=== PATIENT | female | born 1965 | race Caucasian/White ===

== ENCOUNTER → 2017-03-21 08:28 | Outpatient (CLI) | payer BC, SELFPAY ==
[2017-03-21 10:27] LABS: Absolute Lymphocyte Count 2.54 X10^3/ul (0.83-4.51); Basophil# 0.02 X10^3/uL; Basophil% 0.2 % (0-1); Eosinophil# 0.15 X10^3/uL; Eosinophils% 1.6 % (0-5); Hematocrit 41.3 % (37-47); Lymphocyte # 2.54 X10^3/ul (4.0); Lymphocyte % 27.4 % (19-41); Mean Corp Hgb Conc 33.9 g/gl (32-36); Mean Corpuscular Hgb 31.3 pg (27.0-32.0); Mean Corpuscular Volume 92.2 fL (81-99); Mean Platelet Vol. 11.9 fl (6.2-12.0); Monocyte# 0.56 X10^3/uL; Neutrophil # 5.96 X10^3/uL (2.7-7.7); Neutrophil % 64.4 % (47-70); Platelet Count 207 K/mm3 (150-450); RBC Distribution Width CV 12.4 % (11.6-14.6); RBC Distribution Width SD 41.8 fl (35.1-43.9); Red Blood Count 4.48 M/mm3 (4.2-5.4); White Blood Count 9.3 K/mm3 (4.4-11.0)
[2017-03-21 10:30] LABS: POSITIVE COUNT NO; POSITIVE DIFFERENTIAL NO; POSITIVE MORPHOLOGY NO
[2017-03-21 10:45] LABS: Hemoglobin A1c 6.7 % (4.2-6.3)
[2017-03-21 10:47] LABS: AST(SGOT) 16 U/L (15-37); Alanine Aminotransfer ALT/SGPT 18 U/L (13-56); Albumin, Serum 3.8 g/dL (3.2-5.0); Alkaline Phosphatase 76 U/L (45-117); Anion Gap 7 (5-15); BUN 14 mg/dL (7-18); BUN/Creat Ratio 16.7 RATIO (10-20); Calcium,Total 9.1 mg/dL (8.5-10.1); Chloride 105 mmol/L (98-107); Creatinine, Serum 0.84 mg/dL (0.55-1.02); EST Glomerular Filtration Rate 77 mL/min (>60); Est Glom Filt Rate - Afr Amer 93 mL/min (>60); Globulin 3.7 g/dL (2.2-4.2); Glucose 146 mg/dL (74-106); Potassium 4.4 mmol/L (3.5-5.1); Protein, Total 7.5 g/dL (6.4-8.2); Sodium Level 140 mmol/L (136-145)
[2017-03-24 16:21] LABS: Cholesterol 147 mg/dL (200); High Density Lipoprotein 35 mg/dL; Triglycerides 112 mg/dL; Very Low Density Lipoprotein 22 mg/dL (5-40)
== END ==
PROVIDERS: Family Provider Nurse Practitioner Family; PCP Nurse Practitioner Family; Visit Provider Nurse Practitioner Family
DX: I10 Essential (primary) hypertension (principal); E11.9 Type 2 diabetes mellitus without complications
CPT/HCPCS: 36415; 80053; 80061; 83036; 85025

== ENCOUNTER → 2018-05-26 05:57 | Outpatient (CLI) | payer BC, SELFPAY | DX: E11.9 Type 2 diabetes mellitus without complications (principal); I10 Essential (primary) hypertension; E78.5 Hyperlipidemia, unspecified ==

== ENCOUNTER → 2018-05-29 10:36 | Outpatient (CLI) | payer BC, SELFPAY ==
[2015-06-29 11:35] VITALS: BMI 48.1
[2018-05-29 12:31] LABS: Absolute Lymphocyte Count 2.95 X10^3/ul (0.83-4.51); Absolute Neutrophil Count 7.3 X10^3/uL (2.0-7.7); Basophil# 0.03 X10^3/uL; Basophil% 0.3 % (0-1); Eosinophil# 0.17 X10^3/uL; Eosinophils% 1.5 % (0-5); Hemoglobin 14.8 g/dl (12.0-15.0); Lymphocyte # 2.95 X10^3/ul (4.0); Lymphocyte % 26.1 % (19-41); Mean Corp Hgb Conc 35.2 g/gl (32-36); Mean Corpuscular Hgb 31.3 pg (27.0-32.0); Mean Corpuscular Volume 88.8 fL (81-99); Mean Platelet Vol. 12.6 fl (6.2-12.0); Monocyte# 0.72 X10^3/uL; Monocyte% 6.4 % (0-10); Neutrophil # 7.32 X10^3/uL (2.7-7.7); Neutrophil % 64.8 % (47-70); Platelet Count 203 K/mm3 (150-450); RBC Distribution Width CV 12.2 % (11.6-14.6); RBC Distribution Width SD 39.3 fl (35.1-43.9); Red Blood Count 4.73 M/mm3 (4.2-5.4); White Blood Count 11.3 K/mm3 (4.4-11.0)
[2018-05-29 12:40] LABS: POSITIVE COUNT NO; POSITIVE DIFFERENTIAL NO; POSITIVE MORPHOLOGY NO
[2018-05-29 12:43] LABS: Hemoglobin A1c 7.5 % (4.2-6.3)
[2018-05-29 12:44] LABS: ALB/GLOB Ratio 0.9 RATIO (0.9-2.4); AST(SGOT) 23 U/L (15-37); Alanine Aminotransfer ALT/SGPT 27 U/L (13-56); Albumin, Serum 3.6 g/dL (3.2-5.0); Alkaline Phosphatase 94 U/L (45-117); Anion Gap 4 (5-15); BUN 15 mg/dL (7-18); BUN/Creat Ratio 15.5 RATIO (10-20); Calcium,Total 8.6 mg/dL (8.5-10.1); Chloride 102 mmol/L (98-107); Cholesterol 169 mg/dL (200); Creatinine, Serum 0.96 mg/dL (0.55-1.02); EST Glomerular Filtration Rate 65 mL/min (>60); Est Glom Filt Rate - Afr Amer 78 mL/min (>60); Globulin 3.9 g/dL (2.2-4.2); Glucose 214 mg/dL (74-106); High Density Lipoprotein 37 mg/dL; Potassium 4.4 mmol/L (3.5-5.1); Protein, Total 7.5 g/dL (6.4-8.2); Sodium Level 134 mmol/L (136-145); Triglycerides 179 mg/dL; Very Low Density Lipoprotein 36 mg/dL (5-40)
== END ==
PROVIDERS: Family Provider Nurse Practitioner Family; PCP Nurse Practitioner Family; Referring Provider Nurse Practitioner Family; Visit Provider Nurse Practitioner Family
DX: E78.5 Hyperlipidemia, unspecified (principal); E11.9 Type 2 diabetes mellitus without complications; I10 Essential (primary) hypertension
CPT/HCPCS: 36415; 80053; 80061; 83036; 85025

== ENCOUNTER 2018-07-26 14:19 | Emergency (ER) | payer BC, SELFPAY ==
[2018-07-26 14:21] VITALS: BP 109/58; PULSE 62; RESP 16; TEMP 36.7; O2SAT 98; BMI 51.3
--- NOTE | 2018-07-26 14:44 | EKG12_ITS ---
Test Reason : GI BLEED Blood Pressure : / mmHG Vent. Rate : 061 BPM Atrial Rate : 061 BPM P-R Int : 176 ms QRS Dur : 164 ms QT Int : 514 ms P-R-T Axes : 034 -20 163 degrees QTc Int : 517 ms Normal sinus rhythm Left bundle branch block Abnormal ECG Confirmed by CRISTINA BAR, KEV ([id number]), avid editor MASON GARCIA ([id number]) on 07/28/2018 8:57:27 AM Referred By: ARNOLD Confirmed By:KEV EVANS MD
[2018-07-26] MEDS: 0.9% Normal Saline 1,000 ML 1000 ML IV (15:08)
[2018-07-26 15:11] LABS: Hematocrit 22.8 % (37-47); Hemoglobin 8.1 g/dl (12.0-15.0); Mean Corp Hgb Conc 35.5 g/gl (32-36); Mean Corpuscular Hgb 32.1 pg (27.0-32.0); Mean Corpuscular Volume 90.5 fL (81-99); Mean Platelet Vol. 11.7 fl (6.2-12.0); Platelet Count 293 K/mm3 (150-450); RBC Distribution Width CV 12.8 % (11.6-14.6); Red Blood Count 2.52 M/mm3 (4.2-5.4); White Blood Count 15.7 K/mm3 (4.4-11.0)
[2018-07-26 15:15] LABS: International Normalized Ratio 1.3; Partial Thromboplast Time 27.7 Seconds (24.1-36.2)
--- NOTE | 2018-07-26 15:16 | ED.VIS.GEN ---
History of Present Illness Chief Complaint: GI Bleed Informant: Patient, Significant Other Onset: Days - Onset July 23. Context: Sudden Onset Timing: Continuous Quality: Black stool since Tuesday, vomited blood today Location: Abdominal gurgling Current Severity: Severe Maximum Severity: Severe Worsened by: orthostatic symptoms Relieved by: Nothing Associated Symptoms: orthostatic symptoms Narrative: Patient is a middle-aged woman who was sitting watching grandchildren. When she got up she became lightheaded and essentially passed out. She reports black stool since Tuesday. She is not on iron nor is she taking Pepto-Bismol or Kaopectate. believes has an odor. She had an episode of hematemesis. She has no history of peptic ulcer disease. She has no history of diverticulosis or diverticulitis. She is on no anticoagulant. She states she does not feel well. Prior similar symptoms: No Recent Illness/Hospitalization: No - Past Medical History (1) Vulvar abscess Status: Acute (2) Diabetes Status: Chronic (3) Hypertrophic cardiomyopathy Status: Chronic Past Medical History - Allergies and Home Meds Allergies/Adverse Reactions: Allergies povidone-iodine [From Betadine] Allergy (Verified 07/26/18 14:24) Hives soap [From Betadine] Allergy (Verified 07/26/18 14:24) Hives Penicillins Adverse Reaction (Verified 07/26/18 14:24) DOESN'T WORK FOR ME Primary Care Physician: Andry Ventura, LABORATORY ASSISTANT-C [Primary Care Provider] - Prior records reviewed: Yes Lives: Spouse/ Significant Other Smoking Status: Never smoker Alcohol: None Drugs: None Review of Systems General: Denies: Chills, Fever, Sweats Eyes: Denies: Visual changes - bilaterally, Blurred Vision - bilaterally, Diplopia ENT: Denies: Bilateral ear pain, Rhinorrhea, Sore throat Cardiovascular: Denies: Chest pain, Palpitations, Heart racing Respiratory: Denies: Dyspnea, Cough, Dyspnea on exertion Gastrointestinal: Reports: Abdominal pain, Melena, - - Hematemesis Genitourinary: Denies: Dysuria, Hematuria, Frequency Musculoskeletal: Denies: Myalgias, Arthralgias, Neck pain, Back pain, Extremity Pain Skin: Denies: Rash, Wounds Neurological: Denies: Headache, Weakness, Parasthesia, Numbness Hematologic: Denies: Easy bruising, Easy bleeding Allergy: Denies: Uticaria, Swelling of the mouth Physical Exam Vital Signs/Narrative: Vital Signs Temp Pulse Resp BP Pulse Ox 07/26/18 14:21 98.1 F 62 16 109/58 L 98 Inital Vital Signs reviewed: Yes - Blood pressure when I examined patient was 95/65. General: Well nourished, Well developed, Obese, Acute Distress, - - Patient appears pale. Conjunctive is pale. There is erythema to the creases of the palm. Head: Normocephalic, Atraumatic Eyes: Perrl, EOMI, Pale conjunctiva. Negative for: Scleral icterus ENT: Moist mucous membranes, No rhinorrhea Neck: Supple, Nontender, No lymphadenopathy, No JVD Cardiovascular: Regular rate, Regular rhythm, No murmurs, Normal S1, Normal S2 Respiratory: No distress, CTA bilaterally, Chest nontender Abdomen: Soft, Nontender, Normal bowel sounds, No masses Rectal: - - Stool is black Back: Nontender, Normal Inspection. Negative for: CVA tenderness Extremities: Nontender, No edema Skin: No rash, Diaphoresis, No Trauma, Pallor. Negative for: Cyanosis, Jaundice Neurological: Alert, Oriented x3, Cranial nerves II-XII grossly intact, Normal Strength, Normal Sensation. Negative for: Normal Gait Psychological: Normal affect Diagnostic/Tx/Re-eval Laboratory Results 07/26/18 07/26/18 07/26/18 14:51 14:51 14:51 WBC 15.7 H RBC 2.52 L Hgb 8.1 L Hct 22.8 L MCV 90.5 MCH 32.1 H MCHC 35.5 RDW 12.8 RDW Differential 41.0 Plt Count 293 MPV 11.7 PT 16.0 H INR 1.3 APTT 27.7 Sodium 135 L Potassium 4.0 Chloride 105 Carbon Dioxide 23.0 Anion Gap 7 BUN 41 H Creatinine 1.18 H Estim Creat Clear Calc 50.75 Est GFR (MDRD) Af Amer 62 Est GFR (MDRD) Non-Af 51 L BUN/Creatinine Ratio 34.7 H Glucose 317 H Lactic Acid Calcium 8.6 Troponin I 0.042 Crossmatch 07/26/18 07/26/18 14:51 14:58 WBC RBC Hgb Hct MCV MCH MCHC RDW RDW Differential Plt Count MPV PT INR APTT Sodium Potassium Chloride Carbon Dioxide Anion Gap BUN Creatinine Estim Creat Clear Calc Est GFR (MDRD) Af Amer Est GFR (MDRD) Non-Af BUN/Creatinine Ratio Glucose Lactic Acid 3.5 H Calcium Troponin I Crossmatch See Detail - Rhythm Strip Rhythm Strip: Sinus Rhythm Rate: 58 Ectopy: None - EKG Initial EKG Interpretation: Sinus Bradycardia - Ventricular rate 61. [place] interval 176 ms. QRS duration 164 ms and consistent with a left bundle branch block. QT interval is slightly prolonged at 514 ms. [place] to the left. There is no acute ischemic changes noted. - Medical Decision Making With black stools since Tuesday, hypotension and hematemesis patient is actively bleeding. She was typed and screened. Appropriate screening lab work was obtained. A liter of normal saline was administered. NG was placed to determine if she is still actively bleeding. Patient has active upper GI bleed. She is anemic with a elevated lactate. She is in hemorrhagic shock. she is bradycardic secondary to beta-blockers and unable to have a reflex tachycardia. This may be contributing to her hypotension. IV Protonix was ordered. Patient's been typed and crossed for 2 units of blood and will administer once available. Since her shuttle car operator is at the [facility] she requested transfer to the [facility]. Spoke with the transfer person. He will get associate embalmer/funeral director and understands urgency for transfer. Patient's blood pressure after fluid bolus is 151 systolic. Laboratory results are remarkable lactate 3.5. Hemoglobin is 8.1 which is a 6.7 g drop from May. Blood sugar is 310. This most likely is a stress response. Once blood is available patient will be transfused. - Critical Care Time Critical care time (excluding procedures): 30-74 minutes, Discussing w/Patient &/or Family/Cartoon Artist, Discussing w/Consultants, Arranging Admission or Transfer - Critical care time 36 minutes, Performing Direct Patient Care at Bedside ED Disposition - Plan for ED Patient: Disposition: [facility] [place] - Main Diagnosis: Nontraumatic hemorrhagic shock, Acute upper gastrointestinal bleeding, Anemia due to acute blood loss, Hypertrophic cardiomyopathy, Bradycardia, sinus, Hyperglycemia due to type 2 diabetes mellitus Referrals: Andry Ventura, CANDIDO-C [Primary Care Provider] -
[2018-07-26 15:18] LABS: Scan Indicated on CBC? Y/N NO
--- NOTE | 2018-07-26 15:21 | ED.DCSUM_ITS ---
History of Present Illness Chief Complaint: GI Bleed Informant: Patient, Significant Other Onset: Days - Onset July 23. Context: Sudden Onset Timing: Continuous Quality: Black stool since Tuesday, vomited blood today Location: Abdominal gurgling Current Severity: Severe Maximum Severity: Severe Worsened by: orthostatic symptoms Relieved by: Nothing Associated Symptoms: orthostatic symptoms Narrative: Patient is a middle-aged woman who was sitting watching grandchildren. When she got up she became lightheaded and essentially passed out. She reports black stool since Tuesday. She is not on iron nor is she taking Pepto-Bismol or K aopectate. believes has an odor. She had an episode of hematemesis. She has no history of peptic ulcer disease. She has no history of diverticulosis or diverticulitis. She is on no anticoagulant. She states she does not feel well. Prior similar symptoms: No Recent Illness/Hospitalization: No - Past Medical History (1) Vulvar abscess Status: Acute (2) Diabetes Status: Chronic (3) Hypertrophic cardiomyopathy Status: Chronic Past Medical History - Allergies and Home Meds Allergies/Adverse Reactions: Allergies povidone-iodine [From Betadine] Allergy (Verified 07/26/18 14:24) Hives soap [From Betadine] Allergy (Verified 07/26/18 14:24) Hives Penicillins Adverse Reaction (Verified 07/26/18 14:24) DOESN'T WORK FOR ME Primary Care Physician: Andry Ventura, DIRECTOR NURSING SERVICE-C [Primary Care Provider] - Prior records reviewed: Yes Lives: Spouse/ Significant Other Smoking Status: Never smoker Alcohol: None Drugs: None Review of Systems General: Denies: Chills, Fever, Sweats Eyes: Denies: Visual changes - bilaterally, Blurred Vision - bilaterally, Diplopia ENT: Denies: Bilateral ear pain, Rhinorrhea, Sore throat Cardiovascular: Denies: Chest pain, Palpitations, Heart racing Respiratory: Denies: Dyspnea, Cough, Dyspnea on exertion Gastrointestinal: Reports: Abdominal pain, Melena, - - Hematemesis Genitourinary: Denies: Dysuria, Hematuria, Frequency Musculoskeletal: Denies: Myalgias, Arthralgias, Neck pain, Back pain, Extremity Pain Skin: Denies: Rash, Wounds Neurological: Denies: Headache, Weakness, Parasthesia, Numbness Hematologic: Denies: Easy bruising, Easy bleeding Allergy: Denies: Uticaria, Swelling of the mouth Physical Exam Vital Signs/Narrative: Vital Signs Temp Pulse Resp BP Pulse Ox 07/26/18 14:21 98.1 F 62 16 109/58 L 98 Inital Vital Signs reviewed: Yes - Blood pressure when I examined patient was 95/65. General: Well nourished, Well developed, Obese, Acute Distress, - - Patient appears pale. Conjunctive is pale. There is erythema to the creases of the palm. Head: Normocephalic, Atraumatic Eyes: Perrl, EOMI, Pale conjunctiva. Negative for: Scleral icterus ENT: Moist mucous membranes, No rhinorrhea Neck: Supple, Nontender, No lymphadenopathy, No JVD Cardiovascular: Regular rate, Regular rhythm, No murmurs, Normal S1, Normal S2 Respiratory: No distress, CTA bilaterally, Chest nontender Abdomen: Soft, Nontender, Normal bowel sounds, No masses Rectal: - - Stool is black Back: Nontender, Normal Inspection. Negative for: CVA tenderness Extremities: Nontender, No edema Skin: No rash, Diaphoresis, No Trauma, Pallor. Negative for: Cyanosis, Jaundice Neurological: Alert, Oriented x3, Cranial nerves II-XII grossly intact, Normal Strength, Normal Sensation. Negative for: Normal Gait Psychological: Normal affect Diagnostic/Tx/Re-eval Laboratory Results 07/26/18 07/26/18 07/26/18 14:51 14:51 14:51 WBC 15.7 H RBC 2.52 L Hgb 8.1 L Hct 22.8 L MCV 90.5 MCH 32.1 H MCHC 35.5 RDW 12.8 RDW Differential 41.0 Plt Count 293 MPV 11.7 PT 16.0 H INR 1.3 APTT 27.7 Sodium 135 L Potassium 4.0 Chloride 105 Carbon Dioxide 23.0 Anion Gap 7 BUN 41 H Creatinine 1.18 H Estim Creat Clear Calc 50.75 Est GFR (MDRD) Af Amer 62 Est GFR (MDRD) Non-Af 51 L BUN/Creatinine Ratio 34.7 H Glucose 317 H Lactic Acid Calcium 8.6 Troponin I 0.042 Crossmatch 07/26/18 07/26/18 14:51 14:58 WBC RBC Hgb Hct MCV MCH MCHC RDW RDW Differential Plt Count MPV PT INR APTT Sodium Potassium Chloride Carbon Dioxide Anion Gap BUN Creatinine Estim Creat Clear Calc Est GFR (MDRD) Af Amer Est GFR (MDRD) Non-Af BUN/Creatinine Ratio Glucose Lactic Acid 3.5 H Calcium Troponin I Crossmatch See Detail - Rhythm Strip Rhythm Strip: Sinus Rhythm Rate: 58 Ectopy: None - EKG Initial EKG Interpretation: Sinus Bradycardia - Ventricular rate 61. [place] interval 176 ms. QRS duration 164 ms and consistent with a left bundle branch block. QT interval is slightly prolonged at 514 ms. [place] to the left. There is no acute ischemic changes noted. - Medical Decision Making With black stools since Tuesday, hypotension and hematemesis patient is actively bleeding. She was typed and screened. Appropriate screening lab work was obtained. A liter of normal saline was administered. NG was placed to determine if she is still actively bleeding. Patient has active upper GI bleed. She is anemic with a elevated lactate. She is in hemorrhagic shock. she is bradycardic secondary to beta-blockers and unable to have a reflex tachycardia. This may be contributing to her hypotension. IV Protonix was ordered. Patient's been typed and crossed for 2 units of blood and will administer once available. Since her gear hobber operator is at the [facility] she requested transfer to the [facility]. Spoke with the transfer person. He will get garment steamer and understands urgency for transfer. Patient's blood pressure after fluid bolus is 151 systolic. Laboratory results are remarkable lactate 3.5. Hemoglobin is 8.1 which is a 6.7 g drop from May. Blood sugar is 310. This most likely is a stress response. Once blood is available patient will be transfused. - Critical Care Time Critical care time (excluding procedures): 30-74 minutes, Discussing w/Patient &/or Family/Clinical Scientist, Discussing w/Consultants, Arranging Admission or Transfer - Critical care time 36 minutes, Performing Direct Patient Care at Bedside ED Disposition - Plan for ED Patient: Disposition: [facility] - Main Diagnosis: Nontraumatic hemorrhagic shock, Acute upper gastrointestinal bleeding, Anemia due to acute blood loss, Hypertrophic cardiomyopathy, Bradycardia, sinus, Hyperglycemia due to type 2 diabetes mellitus Referrals: Andry Ventura, CANDIDO-C [Primary Care Provider] -
[2018-07-26 15:23] LABS: Anion Gap 7 (5-15); BUN 41 mg/dL (7-18); BUN/Creat Ratio 34.7 RATIO (10-20); Calcium,Total 8.6 mg/dL (8.5-10.1); Chloride 105 mmol/L (98-107); Creatinine, Serum 1.18 mg/dL (0.55-1.02); EST Glomerular Filtration Rate 51 mL/min (>60); Est Glom Filt Rate - Afr Amer 62 mL/min (>60); Estimated Creatinine Clearance 50.75 ml/min; Glucose 317 mg/dL (74-106); Sodium Level 135 mmol/L (136-145)
[2018-07-26 15:33] LABS: Lactic Acid 3.5 mmol/L (0.4-2.0)
[2018-07-26 16:10] VITALS: BP 104/61; PULSE 62; RESP 19; O2SAT 100
[2018-07-26 16:20] VITALS: BP 151/67; PULSE 59; RESP 13; TEMP 36.4; O2SAT 98
--- NOTE | 2018-07-26 16:32 | CASEMGMT ---
According to patient Insurance Corine Centeno, [employer] PPO; In [facility] hospitals: [facility], [facility], [facility], [facility], [place], , [facility]. Ortega Tirado RNCM
[2018-07-26 16:35] VITALS: BP 106/80; PULSE 63; RESP 23; TEMP 36.7; O2SAT 100
--- NOTE | 2018-07-26 16:43 | ED.RN ---
DR BARRETT ORDERED BLOOD TO BE RUN OVER 1 HOUR.
[2018-07-26 17:06] VITALS: BP 104/61; PULSE 62; RESP 19; O2SAT 100
--- NOTE | 2018-07-26 17:07 | ED.RN ---
[facility] CRITICAL CARE TEAM ADMINISTERING REST OF BLOOD EN ROUTE TO [facility].
[2018-07-26 19:02] LABS: Reflex Lactate? Y
== END 2018-07-26 17:13 | disposition short-term general hospital (02) ==
PROVIDERS: Emergency Provider Emergency Medicine; Family Provider Nurse Practitioner Family; PCP Nurse Practitioner Family
DX: K92.2 Gastrointestinal hemorrhage, unspecified (principal); K92.0 Hematemesis; R57.8 Other shock; D62 Acute posthemorrhagic anemia; I95.9 Hypotension, unspecified; R00.1 Bradycardia, unspecified; I42.2 Other hypertrophic cardiomyopathy; E11.65 Type 2 diabetes mellitus with hyperglycemia; E66.9 Obesity, unspecified; Z79.84 Long term (current) use of oral hypoglycemic drugs; Z79.899 Other long term (current) drug therapy; Z88.8 Allergy status to other drugs, medicaments and biological substances; Z88.0 Allergy status to penicillin
CPT/HCPCS: 36430; 80048; 83605; 84484; 85027; 85610; 85730; 86850; 86900; 86920; 93005; 96361; 96374; 99285; J7050; P9016; A4216; J3490

== ENCOUNTER 2024-12-09 19:13 | Emergency (ER) | payer BC, SELFPAY ==
[2024-12-09 19:15] VITALS: BP 203/80; PULSE 67; RESP 16; TEMP 36.8; O2SAT 94; BMI 53.4
--- NOTE | 2024-12-09 19:45 | RAD_ITS ---
PROCEDURE: CHEST 1 VIEW 12/09/2024 REASON FOR EXAM: COUGH TECHNIQUE: Frontal view of the chest. COMPARISON: None. FINDINGS: Lungs/Pleura: No appreciable focal consolidation, pneumothorax or pleural effusion. Heart/Mediastinum: Enlarged cardiac silhouette. Bones/Soft tissues: Prior sternotomy. RAD/Chest 1 View IMPRESSION: Cardiomegaly. No evidence of acute pulmonary disease. Reading Location: [id number]
--- OUTSIDE RECORDS SUMMARY | 2024-12-09 19:48 | XMS RPT_ITS | CCD ---
Author Organization [facility] Inform ion Partnership [facility] Care Team Providers Care Garbage Collector Name Role Phone LORENZO FOOD CRITIC - CHULA, LIANNE Garcia Primary Care Phys ician Lorenzo MEYER, Lianne Garcia Primary Care Provider César BAR, Maurilio Dumont Unavailable Arthur BAR, Luc Unavailable César BAR, Maurilio Dumont Unavailable LORENZO FOOD CRITIC - CHULA, LIANNE Garcia Attending U navailable LORENZO [employer] CRITIC - DISTRIBUTOR ADVERTISING MATERIAL, LIANNE Garcia Primary Care U navailable FISH FOOD CRITIC-DISTRIBUTOR ADVERTISING MATERIAL, MAANN Attending Unavailab le [employer]ZO [employer] CRITIC - DISTRIBUTOR ADVERTISING MATERIAL, LIANNE Garcia Primary Care U navailable LORENZO [employer] CRITIC - DISTRIBUTOR ADVERTISING MATERIAL, LIANNE Garcia Attending U navailable LORENZO [employer] CRITIC - DISTRIBUTOR ADVERTISING MATERIAL, LIANNE Garcia Primary Care U navailable LORENZO FO[employer] CRITIC - DISTRIBUTOR ADVERTISING MATERIAL, LIANNE Garcia Attending U navailable LORENZO FO[employer] CRITIC - DISTRIBUTOR ADVERTISING MATERIAL, LIANNE Garcia Primary Care U navailable LORENZO FO[employer] CRITIC - DISTRIBUTOR ADVERTISING MATERIAL, LIANNE Garcia Attending U navailable LORENZO FOOD CRITIC - DISTRIBUTOR ADVERTISING MATERIAL, LIANNE Garcia Primary Care U navailable LORENZO FOOD CRITIC - DISTRIBUTOR ADVERTISING MATERIAL, LIANNE Garcia Attending U navailable LORENZO FO[employer] CRITIC - DISTRIBUTOR ADVERTISING MATERIAL, LIANNE Garcia Primary Care U navailable LORENZO [employer] CRITIC - DISTRIBUTOR ADVERTISING MATERIAL, LIANNE Garcia Primary Care U navailable KAPPER [employer] CRITIC-DISTRIBUTOR ADVERTISING MATERIAL, JOSE GUADALUPE Frazier Admitting Unavaila ble [employer] CRITIC-DISTRIBUTOR ADVERTISING MATERIAL, JOSE GUADALUPE Frazier Attending Unavaila ble FISH FOOD CRITIC-DISTRIBUTOR ADVERTISING MATERIAL, MANAN Consulting DR RAJAT Vaughn DO Referring Unavailable [employer] CR[employer]IC - DISTRIBUTOR ADVERTISING MATERIAL, LIANNE Garcia Attending U navailable [employer] CRITIC - DISTRIBUTOR ADVERTISING MATERIAL, LIANNE Garcia Primary Care U navailable Lorenzo DISTRIBUTOR ADVERTISING MATERIAL, Lianne Garcia Primary Care Provider César BAR, Maurilio Dumont Unavailable [phone] LIANNE VENTURA Primary Care Unavailable LORENZO, LIANNE Garcia Primary Care Unavailable RAZIA FLORENCE Attending Unavailable [employer]ZO [employer] CRITIC - DISTRIBUTOR ADVERTISING MATERIAL, LIANNE Garcia Primary Care U navailable LOR[employer]ZO [employer] CRITIC - DISTRIBUTOR ADVERTISING MATERIAL, LIANNE Garcia Attending U navailable LORENZO [employer] CRITIC - DISTRIBUTOR ADVERTISING MATERIAL, LIANNE Garcia Attending U navailable L[employer]ZO [employer] CRITIC - DISTRIBUTOR ADVERTISING MATERIAL, LIANNE Garcia Primary Care U navailable L[employer]ZO [employer] CRITIC - DISTRIBUTOR ADVERTISING MATERIAL, LIANNE Garcai Attending U navailable L[employer]ZO [employer] CRITIC - DISTRIBUTOR ADVERTISING MATERIAL, LIANNE Garcia Primary Care U navailable L[employer]ZO [employer] CRITIC - DISTRIBUTOR ADVERTISING MATERIAL, LIANNE Garcia Primary Care U navailable L[employer]ZO [employer] CRITIC - DISTRIBUTOR ADVERTISING MATERIAL, LIANNE Garcia Attending U navailable [employer] CRITIC - DISTRIBUTOR ADVERTISING MATERIAL, LIANNE Garica Primary Care U navailable MARIAM BILLINGS MD Attending Unavailable Allergies Allergy Classification Reported Allergen(s) Allergy Type Date of Onset Reaction(s) Facility Penicillins (antibiotic) (1 source) Penicillin; Translations: [penicillin] Drug Allergy Intolerance, function (observable entity) [facility] Povidone-Iodine (1 source) Povidone-Iodine; Translations: [povidone iodine topical] Drug Allergy Weal (disorder) [facility] (14 sources) Penicillin; Translations: [penicillin] Drug Allergy Intolerance, function (observable entity) [facility] (20 sources) Povidone-Iodine; Translations: [povidone iodine topical] Drug Allergy 9 Weal (disorder), Hives [facility] Medications Current Medications Medication Drug Class(es) Dates Sig (Normalized) Sig (Original) amoxicillin 875 mg oral tablet (1 source) Penicillin-class Antibacterial Start: 01-22-2023 End: 01-29-2023 take 1 tablet by mouth twice daily amoxicillin (AMOXIL) 875 mg tablet Indications: Other acute nonsuppurative otitis media of left ear, recurrence not specified Take 1 tablet by mouth two times a day for 7 days. 14 tablet 0 01/22/2023 01/29/2023 Active Comment on above: Take 1 tablet by rhonda th two times a day for 7 days. benzonatate 100 mg oral capsule (4 sources) Non-narcotic Antitussive Start: 03-24-2024 take 2 capsules by mouth every eight hours as needed benzonatate (TESSALON PERLE) 100 mg capsule Take 2 capsules by mouth three times a day as needed. 30 capsule 03/24/2024 Active Start: 12-29-2020 End: 01-28-2021 benzonatate 100 mg oral caps ule Dose : 100 mg = 1 cap(s), Oral, TID, PRN as needed for cough, # 90 cap(s), 0 Refill(s), 01/28/21 17:00:00 EST, Pharmacy: [id number], 166, cm, 12/18/20 14:08:00 EDT, Height, kg, 12/18/20 14:08:00 EDT, Dosing Weight Start Date: 12/29/20 Stop Date: 01/28/21 Status: Ordered busPIRone hydrochloride 15 m g oral tablet (18 sources) Start: 05-11-2024 busPIRone 15 m g oral tablet Dose : 15 mg = 1 tab(s), Oral, TID, # 270 tab(s), 0 Refill(s), Pharmacy: [facility], Depression, prolonged, 185, cm, 03/23/24 8:03:00 EST, Height, kg, 03/23/24 8:03:00 EST, Dosing Weight Start Date: 05/11/24 Status: Ordered Quantity: 270.0 Unit: tab(s) Repeat number: 1 Indications: Major depressive disorder, single episode, unspecified; Start: 08-02-2022 End: 07-30-2023 busPIRone 15 mg oral tablet Dose : 15 mg = 1 tab(s), Oral, TID, # 270 tab(s), 1 Refill(s), Pharmacy: [facility], Depression, prolonged, 167.5, cm, 01/31/23 7:06:00 EST, Height, kg, 01/31/23 7:06:00 EST, Dosing Weight Start Date: 01/31/23 Stop Date: 07/30/23 Status: Ordered Start: 06-16-2020 End: 07-31-2022 busPIRone 15 mg oral tablet Dose : 15 mg = 1 tab(s), Oral, TID, # 270 tab(s), 1 Refill(s), Pharmacy: [facility], Depression, prolonged, 170.2, cm, 02/01/22 15:18:00 EST, Height, kg, 02/01/22 15:18:00 EST, Dosing Weight Start Date: 02/01/22 Stop Date: 07/31/22 Status: Ordered Comment on above: Take 15 mg by mouth three times daily. cetirizine hydrochloride 10 mg oral tablet (3 sources) Histamine-1 Receptor Antagonist Start: 03-24-19 take 1 tablet by mouth once daily cetirizine (ZYRTEC) 10 mg tablet Take 1 tablet by mouth once daily. 30 tablet 03/24/2024 Active ciprofloxacin 500 mg oral tablet (3 sources) Quinolone Antimicrobial Start: 06-27-19 End: 07-02-19 Cipro 500 mg oral tablet Dose : 500 mg = 1 tab(s), Oral, BID, X 5 day(s), # 10 tab(s), 0 Refill(s), 07/01/24 1:27:00 PM EDT, Pharmacy: [facility], UTI symptoms Bacteremia due to other bacteria, 165.5, cm, 06/26/24 13:03:00 EDT, Height, 144, kg, 06/26/24 13:03:00 EDT, Dosing Weight Start Date: 06/26/24 Stop Date: 07/01/24 Status: Ordered Quantity: 10.0 Unit: tab(s) Repeat number: 1 Indications: Bacteremia; Unspecified symptoms and signs involving the genitourinary system; Start: 12-23-2022 End: 12-28-2022 Cipro 500 mg oral tablet Dos e : 500 mg = 1 tab(s), Oral, q12h, X 5 day(s), # 10 tab(s), 0 Refill(s), 12/28/22 1:22:00 PM EST, Pharmacy: [facility], UTI symptoms, 167, cm, 12/23/22 13:03:00 EST, Height, 137.5, kg, 12/23/22 13:03:00 EST, Dosing Weight Start Date: 12/23/22 Stop Date: 12/28/22 Status: Ordered citalopram 40 mg oral tablet (18 sources) Serotonin Reuptake Inhibitor Start: 12-07-2013 End: 09-08-2024 take 1 tablet by mouth once daily citalopram (CELEXA) 40 mg tablet Take 1 tablet by mouth once daily. 0 12/07/2013 Active Comment on above: Take 1 tablet by rhonda th once daily. colchicine 0.6 mg oral tablet (2 sources) Start: 09-14-2021 take 1 tablet by mouth twice daily as needed colchicine 0.6 mg oral tablet See Instructions, 1 tab(s) Oral BID PRN for gout, # 60 tab(s), 6 Refill(s), Pharmacy: [facility], 170.2, cm, 08/10/21 8:03:00 EDT, Height, kg, 08/10/21 8:03:00 EDT, Dosing Weight Start Date: 09/14/21 Status: Ordered Start: 07-14-2021 take 1 tablet by rhonda th twice daily as needed colchicine 0.6 mg oral tablet See Instructions, 1 tab(s) Oral BID PRN for gout, # 60 tab(s), 1 Refill(s), Pharmacy: [facility], 166, cm, 05/11/21 15:35:00 EDT, Height Start Date: 07/14/21 Status: Ordered doxycycline hyclate 100 mg oral tablet (1 source) Tetracycline-class Drug Start: 03-24-2024 End: 03-29-2024 take 1 tablet by mouth twice daily doxycycline (VIBRA-TABS) 100 mg tablet Take 1 tablet by mouth two times a day for 5 days. 10 tablet 03/24/2024 03/29/2024 Active febuxostat 40 mg oral tablet (11 sources) Xanthine Oxidase Inhibitor Start: 12-12-2018 End: 06-01-2024 take 1 tablet by mouth once daily febuxostat (ULORIC) 40 mg tab Take 40 mg by mouth once daily. 6 12/12/2018 Active Comment on above: Take 40 mg by mouth once daily. ferrous sulfate 325 mg (65 mg elemental iron) oral delayed release tablet (1 source) Start: 01-26-2021 End: 10-23-2021 ferrous sulfate 325 mg (65 mg elemental iron) oral delayed release tablet Dose : 325 mg = 1 tab(s), Oral, Every other day, # 45 tab(s), 2 Refill(s), Pharmacy: [facility], Anemia, 166, cm, 01/26/21 15:38:00 EST, Height, kg, 01/26/21 15:38:00 EST, Dosing Weight Start Date: 01/26/21 Stop Date: 10/23/21 Status: Ordered fluconazole 150 mg oral tablet (3 sources) Azole Antifungal Start: 08-19-2024 End: 08-19-2024 fluconazole (DIFLUCAN) 150 mg tablet Indications: Acute UTI Take 1 tablet by mouth one time only for 1 dose. Repeat in 3 days as needed. 2 tablet 08/19/2024 08/19/2024 Active Start: 06-26-2024 End: 07-02-2024 Diflucan 150 mg oral tablet Dose : 150 mg = 1 tab(s), Oral, Every other day, X 6 day(s), # 3 tab(s), 0 Refill(s), 07/02/24 1:27:00 PM EDT, Pharmacy: [facility], Candidiasis, 165.5, cm, 06/26/24 13:03:00 EDT, Height, 144, kg, 06/26/24 13:03:00 EDT, Dosing Weight Start Date: 06/26/24 Stop Date: 07/02/24 Status: Ordered Quantity: 3.0 Unit: tab(s) Repeat number: 1 Indications: Candidiasis, unspecified; fluticasone propionate 0.05 mg/actuat metered dose nasal spray (3 sources) Corticosteroid Start: 03-24-2024 take 2 spray(s) by mouth once daily fluticasone (FLONASE) 50 mcg/actuation nasal spray Use 2 Sprays in each nostril once daily. Rinse mouth after use. 9.9 mL 03/24/2024 Active furosemide 20 mg oral tablet (12 sources) Loop Diuretic Start: 01-18-2023 furosemide (LA SIX) 20 mg tablet 01/18/2023 Active Start: 12-23-2022 Lasix 20 mg or al tablet Dose : 20 mg = 1 tab(s), Oral, Daily, # 30 tab(s), 5 Refill(s), Pharmacy: [facility], 167.6, cm, 10/11/22 13:36:00 EDT, Height, kg, 10/11/22 13:36:00 EDT, Dosing Weight Start Date: 12/23/22 Status: Ordered Start: 10-11-2022 Lasix 20 mg or al tablet Dose : 20 mg = 1 tab(s), Oral, Daily, # 30 tab(s), 0 Refill(s), Pharmacy: [facility], 167.6, cm, 10/11/22 13:36:00 EDT, Height, kg, 10/11/22 13:36:00 EDT, Dosing Weight Start Date: 10/11/22 Status: Ordered Start: 09-30-2022 Lasix 20 mg or al tablet Dose : 20 mg = 1 tab(s), Oral, Daily, # 30 tab(s), 0 Refill(s), Pharmacy: [facility], 165.1, cm, 09/29/22 13:20:00 EDT, Height, kg, 09/29/22 13:20:00 EDT, Dosing Weight Start Date: 09/30/22 Status: Ordered glipiZIDE 10 mg oral tablet (5 sources) Sulfonylurea Start: 10-22-2022 glipiZIDE (GLUCOTROL) 10 mg tablet Take 10 mg by mouth. 10/22/2022 Active Comment on above: Take 10 mg by mouth. guaiFENesin 20 mg/ml oral solution (4 sources) Start: 01-22-2023 take 20 mL by mouth every six hours as needed for cough guaiFENesin (ROBITUSSIN) 100 mg/5 mL syrup Indications: Bronchitis Take 20 mL by mouth every 6 hours as needed for cough. 236 mL 01/22/2023 Active Comment on above: Take 20 mL by mouth every 6 hours as needed for cough. 3 ml insulin degludec 200 unt/ml pen injector (4 sources) Insulin Analog Start: 12-15-2023 inject 1 dose by subcutaneous injection once daily Tresiba FlexTouch 200 units/mL 3 mL subcutaneous solution Dose : 58 unit(s) =, Subcutaneous, qDay, # 9 mL, 6 Refill(s), Pharmacy: [facility], 165.5, cm, 10/31/23 7:04:00 EDT, Height, kg, 10/31/23 7:04:00 EDT, Dosing Weight Start Date: 12/15/23 Status: Ordered Quantity: 9.0 Unit: mL Repeat number: 7 Start: 05-09-2023 inject 1 dose by sub cutaneous injection once daily Tresiba 100 units/mL subcutaneous solution Dose : 60 unit(s) =, Subcutaneous, qDay, # 15 mL, 6 Refill(s), Pharmacy: [facility], 165.5, cm, 05/09/23 6:58:00 EDT, Height, kg, 05/09/23 6:58:00 EDT, Dosing Weight Start Date: 05/09/23 Status: Ordered Insulin Syringes (orange cap ) (4 sources) Start: 05-09-2023 Insulin Syring es (orange cap) See Instructions, qs for 1 month supply, # 1 EA, 11 Refill(s), Pharmacy: [facility], 165.5, cm, 05/09/23 6:58:00 EDT, Height, 136, kg, 05/09/23 6:58:00 EDT, Dosing Weight Start Date: 05/09/23 Status: Ordered Quantity: 1.0 Unit: EA Repeat number: 12 Start: 05-09-2023 Insulin Syring es (orange cap) See Instructions, qs for 1 month supply, # 1 EA, 11 Refill(s), Pharmacy: [facility], 165.5, cm, 05/09/23 6:58:00 EDT, Height, 136, kg, 05/09/23 6:58:00 EDT, Dosing Weight Start Date: 05/09/23 Status: Ordered lidocaine 0.04 mg/mg medicated patch (1 source) Antiarrhythmic, Amide Local Anesthetic Start: 04-25-2022 End: 04-30-2022 apply 1 dose transdermal route once daily, then apply 1 dose transdermal route every twelve hours lidocaine (SALONPAS) 4 % patch Apply 1 Patch as directed once daily for 5 days. Remove patch after 12 hours 5 Patch 0 04/25/2022 04/30/2022 Active Comment on above: Apply 1 Patch as directed once daily for 5 days. Remove patch after 12 hours losartan potassium 25 mg oral tablet (11 sources) Angiotensin 2 Receptor Eric Start: 01-01-2023 losartan (COZAAR) 25 mg tablet 01/01/2023 Active Start: 10-11-2022 losartan 25 mg oral tablet Dose : 25 mg = 1 tab(s), Oral, qDay, # 30 tab(s), 3 Refill(s), Pharmacy: [facility], 167.6, cm, 10/11/22 9:21:00 EDT, Height, kg, 10/11/22 9:21:00 EDT, Dosing Weight Start Date: 10/11/22 Status: Ordered metFORMIN hydrochloride 500 mg oral tablet (18 sources) Biguanide Start: 12-07-2013 End: 09-08-2024 take 1 tablet by mouth twice daily at mealtime metFORMIN (GLUCOPHAGE) 500 mg tablet Take 1 tablet by mouth twice daily with meals. . 60 tablet 11 12/07/2013 Active Comment on above: Take 1 tablet by rhonda th twice daily with meals. . methocarbamol 500 mg oral tablet (1 source) Muscle Relaxant Start: 04-25-2022 End: 04-28-2022 take 1 tablet by mouth every six hours as needed methocarbamol (ROBAXIN) 500 mg tablet Take 1 tablet by mouth every 6 hours as needed (Pain) for up to 3 days. 12 tablet 0 04/25/2022 04/28/2022 Active Comment on above: Take 1 tablet by rhonda th every 6 hours as needed (Pain) for up to 3 days. montelukast 10 mg oral tablet (14 sources) Leukotriene Receptor Antagonist Start: 01-01-2023 montelukast (SINGULAIR) 10 mg tablet 01/01/2023 Active Start: 10-11-2022 Singulair 10 m g oral tablet Dose : 10 mg = 1 tab(s), Oral, qDay, # 90 tab(s), 1 Refill(s), Pharmacy: [facility], Seasonal allergies, 167.6, cm, 10/11/22 13:36:00 EDT, Height, kg, 10/11/22 13:36:00 EDT, Dosing Weight Start Date: 10/11/22 Status: Ordered Start: 08-02-2022 Singulair 10 m g oral tablet Dose : 10 mg = 1 tab(s), Oral, qDay, # 90 tab(s), 1 Refill(s), Pharmacy: [facility], Seasonal allergies, 164.5, cm, 08/02/22 8:23:00 EDT, Height, kg, 08/02/22 8:23:00 EDT, Dosing Weight Start Date: 08/02/22 Status: Ordered Start: 02-01-2022 Singulair 10 m g oral tablet Dose : 10 mg = 1 tab(s), Oral, qDay, # 90 tab(s), 1 Refill(s), Pharmacy: [facility], Seasonal allergies, 170.2, cm, 02/01/22 15:18:00 EST, Height, kg, 02/01/22 15:18:00 EST, Dosing Weight Start Date: 02/01/22 Status: Ordered Start: 08-10-2021 Singulair 10 m g oral tablet Dose : 10 mg = 1 tab(s), Oral, qDay, # 30 tab(s), 1 Refill(s), Pharmacy: [facility], Seasonal allergies, 170.2, cm, 08/10/21 8:03:00 EDT, Height Start Date: 08/10/21 Status: Ordered mupirocin 0.02 mg/mg topical ointment (1 source) RNA Synthetase Inhibitor Antibacterial Start: 07-08-2023 End: 07-15-2023 mupirocin 2% topical ointment Apply 1 evelina, Topical, TID, X 7 day(s), # 15 gram(s), 0 Refill(s), Pharmacy: [facility], Ointment, 165.5, cm, 07/08/23 7:31:00 EDT, Height, 136.5, kg, 07/08/23 7:31:00 EDT, Dosing Weight Start Date: 07/08/23 Stop Date: 07/15/23 Status: Ordered nitrofurantoin, macrocrystals 25 mg / nitrofurantoin, monohydrate 75 mg oral capsule (1 source) Nitrofuran Antibacterial Start: 05-06-2023 End: 05-11-2023 Macrobid 100 mg oral capsule Dose : 100 mg = 1 cap(s), Oral, BID, Take with food, X 5 day(s), # 10 cap(s), 0 Refill(s), 05/11/23 12:29:00 PM EDT, Pharmacy: [facility], UTI (urinary tract infection), 165.1, cm, 05/03/23 13:07:00 EDT, Height, 137.5, kg, 05/03/23 13:07:00 EDT, Dosing Weight Start Date: 05/06/23 Stop Date: 05/11/23 Status: Ordered pantoprazole 40 mg delayed release oral tablet (18 sources) Proton Pump Inhibitor Start: 05-11-2024 pantopra zole 40 mg oral enteric coated tablet Dose : 40 mg = 1 tab(s), Oral, qDay, # 90 tab(s), 0 Refill(s), Pharmacy: [facility], GERD (gastroesophageal reflux disease), 185, cm, 03/23/24 8:03:00 EST, Height, kg, 03/23/24 8:03:00 EST, Dosing Weight Start Date: 05/11/24 Status: Ordered Quantity: 90.0 Unit: tab(s) Repeat number: 1 Indications: Gastro-esophageal reflux disease without esophagitis; Start: 01-31-2023 pantoprazole 4 0 mg oral enteric coated tablet Dose : 40 mg = 1 tab(s), Oral, qDay, # 90 tab(s), 1 Refill(s), Pharmacy: [facility], GERD (gastroesophageal reflux disease), 167.5, cm, 01/31/23 7:06:00 EST, Height, kg, 01/31/23 7:06:00 EST, Dosing Weight Start Date: 01/31/23 Status: Ordered Start: 08-12-2018 End: 10-23-2021 pantoprazole 40 mg oral ente tati coated tablet Dose : 40 mg = 1 tab(s), Oral, qDay, # 90 tab(s), 1 Refill(s), Pharmacy: [facility], GERD (gastroesophageal reflux disease), 167.6, cm, 10/11/22 13:36:00 EDT, Height, kg, 10/11/22 13:36:00 EDT, Dosing Weight Start Date: 10/11/22 Status: Ordered Comment on above: Take 1 tablet by rhonda th once daily. Pen needles 4 mm (13 sources) Start: 05-11-2024 Pen needles 4 mm See Instructions, Quantity sufficient for 3 month supply, # 1 EA, 2 Refill(s), Pharmacy: [place] [id number], DM type 2, goal HbA1c Start Date: 05/11/24 Status: Ordered Quantity: 1.0 Unit: EA Repeat number: 3 Indications: Type 2 diabetes mellitus without complications; Start: 12-03-2022 Pen needles 4 mm See Instructions, Quantity sufficient for 3 month supply, # 1 EA, 2 Refill(s), Pharmacy: [place] [id number], DM type 2, goal HbA1c Start Date: 12/03/22 Status: Ordered Start: 04-02-2022 Pen needles 4 mm See Instructions, Quantity sufficient for 3 month supply, # 1 EA, 2 Refill(s), Pharmacy: [facility], DM type 2, goal HbA1c Start Date: 04/02/22 Status: Ordered Start: 01-26-2021 Pen needles 4 mm See Instructions, Quantity sufficient for 3 month supply, # 1 EA, 2 Refill(s), Pharmacy: [facility], DM type 2, goal HbA1c Start Date: 01/26/21 Status: Ordered Start: 06-16-2020 Pen needles 4 mm See Instructions, Quantity sufficient for 3 month supply, # 1 EA, 2 Refill(s), Pharmacy: [id number], DM type 2, goal HbA1c Start Date: 06/16/20 Status: Ordered phenazopyridine hydrochlorid e 100 mg oral tablet (3 sources) Start: 06-26-2024 End: 06-28-2024 Pyridium 100 mg oral tablet Dose : 100 mg = 1 tab(s), Oral, TID, X 2 day(s), # 6 tab(s), 0 Refill(s), 06/28/24 1:28:00 PM EDT, Pharmacy: [place] [id number], Dysuria, 165.5, cm, 06/26/24 13:03:00 EDT, Height, kg, 06/26/24 13:03:00 EDT, Dosing Weight Start Date: 06/26/24 Stop Date: 06/28/24 Status: Ordered Quantity: 6.0 Unit: tab(s) Repeat number: 1 Indications: Dysuria; Start: 05-03-2023 End: 05-10-2023 Pyridium 100 mg oral tablet Dose : 100 mg = 1 tab(s), Oral, TID, X 7 day(s), # 21 tab(s), 0 Refill(s), 05/10/23 1:28:00 PM EDT, Pharmacy: [facility], UTI (urinary tract infection), 165.1, cm, 05/03/23 13:07:00 EDT, Height, kg, 05/03/23 13:07:00 EDT, Dosing Weight Start Date: 05/03/23 Stop Date: 05/10/23 Status: Ordered Start: 12-23-2022 End: 12-30-2022 Pyridium 100 mg oral tablet Dose : 100 mg = 1 tab(s), Oral, TID, X 7 day(s), # 21 tab(s), 0 Refill(s), 12/30/22 1:23:00 PM EST, Pharmacy: [facility], Dysuria, 167, cm, 12/23/22 13:03:00 EST, Height, kg, 12/23/22 13:03:00 EST, Dosing Weight Start Date: 12/23/22 Stop Date: 12/30/22 Status: Ordered pioglitazone 15 mg oral tablet (3 sources) Peroxisome Proliferator Receptor alpha Agonist, Peroxisome Proliferator Receptor gamma Agonist, Thiazolidinedione Start: 03-12-2024 Actos 15 mg oral tablet Dose : 15 mg = 1 tab(s), Oral, Daily, # 90 tab(s), 1 Refill(s), Pharmacy: [facility], DM type 2, goal HbA1c Start Date: 03/12/24 Status: Ordered Quantity: 90.0 Unit: tab(s) Repeat number: 2 Indications: Type 2 diabetes mellitus without complications; predniSONE 20 mg oral tablet (1 source) Start: 01-22-2023 End: 01-26-2023 take 2 tablets by mouth once daily at mealtime predniSONE (DELTASONE) 20 mg tablet Indications: Bronchitis Take 2 tablets by mouth once daily for 4 days. Take daily with food. 8 tablet 0 01/22/2023 01/26/2023 Active Comment on above: Take 2 tablets by mo [facility] once daily for 4 days. Take daily with food. simvastatin 20 mg oral tablet (18 sources) HMG-CoA Reductase Inhibitor Start: 05-11-2024 simvastatin 20 mg oral tablet Dose : 20 mg = 1 tab(s), Oral, qHS, # 90 tab(s), 0 Refill(s), Pharmacy: [facility], Hyperlipidemia LDL goal Start Date: 05/11/24 Status: Ordered Quantity: 90.0 Unit: tab(s) Repeat number: 1 Indications: Hyperlipidemia, unspecified; Type 2 diabetes mellitus without complications; Start: 01-31-2023 simvastatin 20 mg oral tablet Dose : 20 mg = 1 tab(s), Oral, qHS, # 90 tab(s), 1 Refill(s), Pharmacy: [facility], Hyperlipidemia LDL goal Start Date: 01/31/23 Status: Ordered Start: 12-07-2013 End: 04-09-2023 take 1 tablet by mouth once daily at bedtime simvastatin (ZOCOR) 10 mg tablet Take 1 tablet by mouth daily at bedtime. For cholesterols. 0 12/07/2013 Active Comment on above: Take 1 tablet by [facility] daily at bedtime. For cholesterols. SITagliptin 100 mg oral tablet (16 sources) Dipeptidyl Peptidase 4 Inhibitor Start: 03-12-2024 Januvia 100 mg oral tablet Dose : 100 mg = 1 tab(s), Oral, qDay, in lieu of PCP, # 90 tab(s), 1 Refill(s), Pharmacy: [place] [id number], 165, cm, 03/12/24 15:24:00 EST, Height, kg, 03/12/24 15:24:00 EST, Dosing Weight Start Date: 03/12/24 Status: Ordered Quantity: 90.0 Unit: tab(s) Repeat number: 2 Start: 06-27-2023 Januvia 100 mg oral tablet Dose : 100 mg = 1 tab(s), Oral, qDay, # 90 tab(s), 0 Refill(s), Pharmacy: [facility], 165.5, cm, 05/09/23 6:58:00 EDT, Height, kg, 05/09/23 6:58:00 EDT, Dosing Weight Start Date: 06/27/23 Status: Ordered Start: 08-02-2022 End: 01-29-2023 Januvia 100 mg oral tablet D ose : 100 mg = 1 tab(s), Oral, qDay, # 30 tab(s), 0 Refill(s) Start Date: 11/02/22 Status: Ordered Start: 06-16-2020 End: 07-31-2022 Januvia 100 mg oral tablet D ose : 100 mg = 1 tab(s), Oral, Daily, # 90 tab(s), 1 Refill(s), Pharmacy: [facility], DM type 2, goal HbA1c Start Date: 02/01/22 Stop Date: 07/31/22 Status: Ordered Start: 12-07-2013 take [address] [facility] once daily SITagliptin phosphate (JANUVIA) 50 mg tablet Take 100 mg by mouth once daily. 30 tablet 11 12/07/2013 Active Comment on above: Take 100 mg by mouth once daily. sulfamethoxazole 800 mg / trimethoprim 160 mg oral tablet (1 source) Dihydrofolate Reductase Inhibitor Antibacterial, Sulfonamide Antimicrobial Start: 07-08-19 End: 07-15-19 take 1 tablet by mouth twice daily Bactrim DS 800 mg-160 mg oral tablet Dose = 1 tab(s), Oral, BID, X 7 day(s), # 14 tab(s), 0 Refill(s), Pharmacy: [facility], 165.5, cm, 07/08/23 7:31:00 EDT, Height, 136.5, kg, 07/08/23 7:31:00 EDT, Dosing Weight Start Date: 07/08/23 Stop Date: 07/15/23 Status: Ordered Completed/Discontinued Medications Medication Drug Class(es) Dates Sig (Normalized) Sig (Original) carvedilol 6.25 mg oral tablet (17 sources) alpha-Adrenergic Eric, beta-Adrenergic Eric Start: 08-12-2018 End: 09-08-2024 carvedilol 6.25 mg oral tablet Dose : 6.25 mg = 1 tab(s), Oral, BID, # 180 tab(s), 1 Refill(s), Pharmacy: [facility], HTN, goal below 140/90, 165, cm, 03/12/24 15:24:00 EST, Height, kg, 03/12/24 15:24:00 EST, Dosing Weight Start Date: 03/12/24 Stop Date: 09/08/24 Status: Ordered Quantity: 180.0 Unit: tab(s) Repeat number: 2 Indications: Essential (primary) hypertension; Comment on above: Take 1 tablet by rhonda th twice daily with meals. cephalexin 500 mg oral capsule (2 sources) Cephalosporin Antibacterial Start: 08-19-2024 End: 08-26-2024 take 1 capsule by mouth four times daily cephALEXin (KEFLEX) 500 mg capsule Indications: Acute UTI Take 1 capsule by mouth four times daily for 7 days. 28 capsule 08/19/2024 08/26/2024 cholecalciferol 1.25 mg oral capsule (11 sources) Vitamin D Start: 03-12-2024 End: 09-08-2024 take 1 capsule by mouth once, then take 1 capsule by mouth every month cholecalciferol 1250 mcg (50,000 intl units) oral capsule Dose : 50,000 International_Unit = 1 cap(s), Oral, qmonth, # 4 cap(s), 1 Refill(s), Pharmacy: [facility], Vitamin D deficiency, 165, cm, 03/12/24 15:24:00 EST, Height, kg, 03/12/24 15:24:00 EST, Dosing Weight Start Date: 03/12/24 Stop Date: 09/08/24 Status: Ordered Quantity: 4.0 Unit: cap(s) Repeat number: 2 Indications: Vitamin D deficiency, unspecified; Start: 01-31-2023 End: 07-30-2023 cholecalciferol 1250 mcg (50 ,000 intl units) oral capsule Dose : 50,000 International_Unit = 1 cap(s), Oral, qmonth, # 4 cap(s), 1 Refill(s), Pharmacy: [facility], Vitamin D deficiency, 167.5, cm, 01/31/23 7:06:00 EST, Height, kg, 01/31/23 7:06:00 EST, Dosing Weight Start Date: 01/31/23 Stop Date: 07/30/23 Status: Ordered Start: 08-02-2022 End: 04-09-2023 cholecalciferol 1250 mcg (50 ,000 intl units) oral capsule Dose : 50,000 International_Unit = 1 cap(s), Oral, qmonth, # 4 cap(s), 1 Refill(s), Pharmacy: [facility], Vitamin D deficiency, 167.6, cm, 10/11/22 13:36:00 EDT, Height, kg, 10/11/22 13:36:00 EDT, Dosing Weight Start Date: 10/11/22 Stop Date: 04/09/23 Status: Ordered Start: 05-11-2021 End: 07-31-2022 cholecalciferol 1250 mcg (50 ,000 intl units) oral capsule Dose : 50,000 International_Unit = 1 cap(s), Oral, qmonth, # 4 cap(s), 1 Refill(s), Pharmacy: [facility], Vitamin D deficiency, 170.2, cm, 02/01/22 15:18:00 EST, Height, kg, 02/01/22 15:18:00 EST, Dosing Weight Start Date: 02/01/22 Stop Date: 07/31/22 Status: Ordered ferrous sulfate 325 mg delay ed release oral tablet (11 sources) Start: 03-12-2024 End: 09-08-2024 ferrous sulfate 325 mg (65 m g elemental iron) oral delayed release tablet Dose : 325 mg = 1 tab(s), Oral, Every other day, # 45 tab(s), 1 Refill(s), Pharmacy: [facility], Anemia, 165, cm, 03/12/24 15:24:00 EST, Height, kg, 03/12/24 15:24:00 EST, Dosing Weight Start Date: 03/12/24 Stop Date: 09/08/24 Status: Ordered Quantity: 45.0 Unit: tab(s) Repeat number: 2 Indications: Anemia, unspecified; Start: 08-02-2022 End: 07-30-2023 ferrous sulfate 325 mg (65 m g elemental iron) oral delayed release tablet Dose : 325 mg = 1 tab(s), Oral, Every other day, # 45 tab(s), 1 Refill(s), Pharmacy: [facility], Anemia, 167.5, cm, 01/31/23 7:06:00 EST, Height, kg, 01/31/23 7:06:00 EST, Dosing Weight Start Date: 01/31/23 Stop Date: 07/30/23 Status: Ordered Start: 01-26-2021 End: 07-31-2022 ferrous sulfate 325 mg (65 m g elemental iron) oral delayed release tablet Dose : 325 mg = 1 tab(s), Oral, Every other day, # 45 tab(s), 1 Refill(s), Pharmacy: [place] [id number], Anemia, 170.2, cm, 02/01/22 15:18:00 EST, Height, kg, 02/01/22 15:18:00 EST, Dosing Weight Start Date: 02/01/22 Stop Date: 07/31/22 Status: Ordered 3 ml insulin detemir 100 unt/ml pen injector (8 sources) Insulin Analog Start: 01-31-2023 End: 04-01-2023 inject 1 dose by subcutaneous injection once daily at bedtime Levemir FlexTouch 100 units/mL 3 mL Pen Dose : 60 unit(s) =, Subcutaneous, qHS, # 60 mL, 1 Refill(s), Pharmacy: [facility], DM type 2, goal HbA1c Start Date: 01/31/23 Stop Date: 04/01/23 Status: Ordered Start: 08-06-2022 End: 04-09-2023 inject 1 dose by subcutaneous injection once daily at bedtime Levemir FlexTouch 100 units/mL 3 mL Pen Dose : 54 unit(s) =, Subcutaneous, qHS, # 15 mL, 5 Refill(s), Pharmacy: [facility], DM type 2, goal HbA1c Start Date: 10/11/22 Stop Date: 04/09/23 Status: Ordered Start: 02-01-2022 End: 07-31-2022 inject 1 dose by subcutaneous injection once daily at bedtime Levemir FlexTouch 100 units/mL 3 mL Pen Dose : 54 unit(s) =, Subcutaneous, qHS, # 15 mL, 5 Refill(s), Pharmacy: [facility], DM type 2, goal HbA1c Start Date: 02/01/22 Stop Date: 07/31/22 Status: Ordered Start: 08-10-2021 End: 11-08-2021 inject 1 dose by subcutaneous injection once daily at bedtime Levemir FlexTouch 100 units/mL 3 mL Pen Dose : 45 unit(s) =, Subcutaneous, qHS, # 15 mL, 2 Refill(s), Pharmacy: [facility], DM type 2, goal HbA1c Start Date: 08/10/21 Stop Date: 11/08/21 Status: Ordered Start: 05-11-2021 End: 09-08-2021 inject 1 dose by subcutaneous injection once daily at bedtime Levemir FlexTouch 100 units/mL 3 mL Pen Dose : 44 unit(s) =, Subcutaneous, qHS, # 15 mL, 3 Refill(s), other reason (Rx), DM type 2, goal HbA1c Start Date: 05/11/21 Stop Date: 09/08/21 Status: Ordered Start: 01-27-2021 End: 08-25-2021 inject 1 dose by subcutaneous injection once daily at bedtime Levemir FlexTouch 100 units/mL 3 mL Pen Dose : 40 unit(s) =, Subcutaneous, qHS, # 15 mL, 6 Refill(s), Pharmacy: [facility], DM type 2, goal HbA1c Start Date: 01/27/21 Stop Date: 08/25/21 Status: Ordered 3 ml insulin glargine 100 unt/ml pen injector (6 sources) Insulin Analog Start: 03-12-2024 End: 09-08-2024 inject 1 dose by subcutaneous injection once daily at bedtime Lantus Solostar Pen 100 units/mL 3 mL Pen Dose : 58 unit(s) =, Subcutaneous, qHS, # 60 mL, 1 Refill(s), Pharmacy: [facility], DM type 2, goal HbA1c Start Date: 03/12/24 Stop Date: 09/08/24 Status: Ordered Quantity: 60.0 Unit: mL Repeat number: 2 Indications: Type 2 diabetes mellitus without complications; Start: 01-26-2021 End: 10-23-2021 inject 1 dose by subcutaneous injection once daily at bedtime Lantus Solostar Pen 100 units/mL 3 mL Pen Dose : 40 unit(s) =, Subcutaneous, qHS, # 36 mL, 2 Refill(s), Pharmacy: [facility], 166, cm, 12/13/21 15:38:00 EST, Height, kg, 01/26/21 15:38:00 EST, Dosing Weight Start Date: 01/26/21 Stop Date: 10/23/21 Status: Ordered Start: 01-26-2021 End: 10-23-2021 inject 1 dose by subcutaneous injection once daily at bedtime Lantus Solostar Pen 100 units/mL 3 mL Pen Dose : 40 unit(s) =, Subcutaneous, qHS, # 36 mL, 2 Refill(s), Pharmacy: [facility], 166, cm, 01/26/21 15:38:00 EST, Height, kg, 01/26/21 15:38:00 EST, Dosing Weight Start Date: 01/26/21 Stop Date: 10/23/21 Status: Ordered Start: 01-01-2021 inject 1 dose by sub cutaneous injection once daily at bedtime Lantus Solostar Pen 100 units/mL 3 mL Pen Dose : 30 unit(s) =, Subcutaneous, qHS, # 6 mL, 6 Refill(s), Pharmacy: [facility], 166, cm, 12/18/20 14:08:00 EDT, Height, kg, 12/18/20 14:08:00 EDT, Dosing Weight Start Date: 01/01/21 Status: Ordered levothyroxine sodium 0.025 mg oral tablet (3 sources) l-Thyroxine Start: 03-12-2024 End: 04-11-2024 levothyroxine 25 mcg (0.025 mg) oral tablet Dose : 25 mcg = 1 tab(s), Oral, qDay, # 90 tab(s), 1 Refill(s), Pharmacy: [facility], Hypothyroidism, 165, cm, 03/12/24 15:24:00 EST, Height, kg, 03/12/24 15:24:00 EST, Dosing Weight Start Date: 03/12/24 Stop Date: 04/11/24 Status: Ordered Quantity: 90.0 Unit: tab(s) Repeat number: 2 Indications: Hypothyroidism, unspecified; metroNIDAZOLE 0.0075 mg/mg topical gel (3 sources) Nitroimidazole Antimicrobial Start: 05-11-2021 metroNIDAZOLE 0.75% topical gel Apply 1 evelina, Topical, BID, 0 Refill(s), 134.2 Start Date: 05/11/21 Status: Ordered Multivitamins with Vitamin B Complex, Vitamin C, Minerals and L-Methylfolate oral capsule (3 sources) Start: 01-26-2021 End: 10-23-2021 take 1 capsule by mouth once daily Multivitamins with Vitamin B Complex, Vitamin C, Minerals and L-Methylfolate oral capsule Dose = 1 cap(s), Oral, Daily, # 90 cap(s), 2 Refill(s), Pharmacy: [facility], Anemia, 166, cm, 01/26/21 15:38:00 EST, Height, kg, 01/26/21 15:38:00 EST, Dosing Weight Start Date: 01/26/21 Stop Date: 10/23/21 Status: Ordered tiZANidine 4 mg oral tablet (3 sources) Central alpha-2 Adrenergic Agonist Start: 03-23-2024 End: 06-21-2024 Zanaflex 4 mg oral tablet Dose : 4 mg = 1 tab(s), Oral, q8h, PRN Muscle spasm, # 90 tab(s), 2 Refill(s), Pharmacy: [facility], Arthritis of facet joint of lumbar spine Arthritis of both knees, 185, cm, 03/23/24 8:03:00 EST, Height, kg, 03/23/24 8:03:00 EST, Dosing Weight Start Date: 03/23/24 Stop Date: 06/21/24 Status: Ordered Quantity: 90.0 Unit: tab(s) Repeat number: 3 Indications: Spondylosis without myelopathy or radiculopathy, lumbar region; Bilateral primary osteoarthritis of knee; Problems Active Problems Problem Classification Problem Date Documented Da te Episodic/Chronic Anxiety disorders (15 sources) Generalized anxiety disorder 08-24-2018 Chronic Cardiac and circulatory congenital anomalies (15 sources) 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 Cardiac and circulatory congenital anomalies (15 sources) History of ventricular septal defect 09-25-2018 Episodic Chronic kidney disease (15 sources) Chronic kidney disease; Translations: [Chronic kidney disease stage 3] 08-06-2019 Chronic Chronic obstructive pulmonary disease and bronchiectasis (1 source) Bronchitis; Translations: [Bronchitis, not specified as acute or chronic] 01-22-2023 Episodic Congestive heart failure; nonhypertensive (5 sources) Heart failure; Translations: [Heart failure, unspecified] Onset: 3 Chronic Deficiency and other anemia (15 sources) Anemia 08-24-2018 Episodic Diabetes mellitus without complication (20 sources) Type 2 diabetes mellitus; Translations: [Type 2 diabetes mellitus without complications] Onset: 9 01-04-2019 Chronic Disorders of lipid metabolism (16 sources) Hyperlipidemia; Translations: [Hyperlipidemia, unspecified] Onset: 3 08-06-2019 Chronic Esophageal disorders (16 sources) Gastroesophageal reflux disease; Translations: [Gastroesophageal reflux disease without esophagitis] Onset: 3 09-25-2018 Chronic Essential hypertension (20 sources) Hypertensive disorder; Translations: [Essential hypertension] Onset: 9 01-04-2019 Chronic Genitourinary symptoms and ill-defined conditions (6 sources) Dysuria; Translations: [Scalding pain on urination ] Onset: 3 Episodic Heart valve disorders (15 sources) Pansystolic murmur 08-06-2019 Episodic Mood disorders (20 sources) Depressive disorder; Translations: [Depression] Onset: 9 08-24-2018 Chronic Nutritional deficiencies (13 sources) Vitamin D deficiency 05-11-2021 Chronic Other aftercare (3 sources) Post-discharge follow-up 10-11-2022 Episodic Other circulatory disease (20 sources) H/O: heart disorder 09-25-2018 Episodic Other circulatory disease (6 sources) H/O: myocardial problem 09-25-2018 Episodic Other diseases of veins and lymphatics (15 sources) Gastric varices 08-24-2018 Episodic Other gastrointestinal disorders (15 sources) History of gastrointestinal bleed 09-25-2018 Episodic Other lower respiratory disease (1 source) Cough; Translations: [Acute cough] 03-24-2024 Episodic Other non-traumatic joint disorders (4 sources) Arthritis of knee 03-23-2024 Chronic Other nutritional; endocrine; and metabolic disorders (5 sources) Obesity; Translations: [Obesity, unspecified] Onset: 3 06-10-2003 Chronic Other nutritional; endocrine; and metabolic disorders (5 sources) Body mass index 40+ - severely obese; Translations: [Body mass index (BMI) 50.0-59.9, adult] Onset: 9 08-10-2018 Chronic Other nutritional; endocrine; and metabolic disorders (15 sources) Hyperuricemia 10-13-2018 Episodic Other upper respiratory disease (12 sources) Seasonal allergy 08-10-2021 Chronic Other upper respiratory disease (1 source) Seasonal allergic rhinitis; Translations: [Other seasonal allergic rhinitis] Onset: 3 Chronic Other upper respiratory infections (1 source) Sinusitis 01-24-2023 Chronic Other upper respiratory infections (1 source) Acute frontal sinusitis; Translations: [Acute frontal sinusitis, unspecified] 03-24-2024 Episodic Otitis media and related conditions (2 sources) Acute secretory otitis media; Translations: [Other acute nonsuppurative otitis media, left ear] 01-22-2023 Episodic Jossy-; endo-; and myocarditis; cardiomyopathy (except that caused by tuberculosis or sexually transmitted disease) (15 sources) Hypertrophic cardiomyopathy; Translations: [Other hypertrophic cardiomyopathy] Onset: 3 08-10-2018 Chronic Residual codes; unclassified (15 sources) Increased body mass index 08-06-2019 Episodic Spondylosis; intervertebral disc disorders; other back problems (4 sources) Arthritis of facet joint of lumbar spine 03-23-2024 Chronic Spondylosis; intervertebral disc disorders; other back problems (6 sources) Acute back pain with sciatica; Translations: [Lumbago with sciatica, left side] Episodic Sprains and strains (1 source) Low back strain; Translations: [Strain of muscle, fascia and tendon of lower back, initial encounter] Episodic Thyroid disorders (5 sources) Hypothyroidism 08-01-2023 Chronic Unclassified (20 sources) Non-smoker 08-10-2021 Urinary tract infections (4 sources) Urinary tract infection, site not specified; Translations: [Acute urinary tract infection] Onset: 4 Episodic Past or Other Problems Problem Classification Problem Date Documented Da te Episodic/Chronic Acute posthemorrhagic anemia (3 sources) Acute posthemorrhagic anemia; Translations: [Acute posthemorrhagic anemia] Onset: 9 Resolved: 9 08-10-2018 Episodic Gastrointestinal hemorrhage (3 sources) Gastrointestinal hemorrhage; Translations: [Gastrointestinal hemorrhage, unspecified] Onset: 9 Resolved: 9 08-10-2018 Episodic Other disorders of stomach and duodenum (5 sources) Arteriovenous malformation of stomach; 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 Comment on above: Performed By: #### F T4, URIC, CMP, GFR, LIPID, CBC, ADIFF, ANEU, A1C, VIDH, MG, TSH #### [place] [address] #### PTH #### [address] [address] Eosinophil, Absolute 0.2 10 3/mcL Normal 0.0-0.7 [facility] Comment on above: Performed By: #### F T4, URIC, CMP, GFR, LIPID, CBC, ADIFF, ANEU, A1C, VIDH, MG, TSH #### [place] [address] #### PTH #### [address] [address] Eosinophils/100 WBC (Bld) 2.6 % Normal 0.0-6.0 [facility] Comment on above: Performed By: #### F T4, URIC, CMP, GFR, LIPID, CBC, ADIFF, ANEU, A1C, VIDH, MG, TSH #### [place] [address] #### PTH #### [address] [address] Lymphocyte, Absolute 2.3 10 3/mcL Normal 0.9-4.3 [facility] Comment on above: Performed By: #### F T4, URIC, CMP, GFR, LIPID, CBC, ADIFF, ANEU, A1C, VIDH, MG, TSH #### [address] [address] #### PTH #### [address] [address] Lymphocytes/100 WBC (Bld) 33.0 % Normal 20.0-40.0 [facility] Comment on above: Performed By: #### F T4, URIC, CMP, GFR, LIPID, CBC, ADIFF, ANEU, A1C, VIDH, MG, TSH #### [address] [address] #### PTH #### [address] [address] Monocyte, Absolute 0.6 10 3/mcL Normal 0.1-1.4 [facility] Comment on above: Performed By: #### F T4, URIC, CMP, GFR, LIPID, CBC, ADIFF, ANEU, A1C, VIDH, MG, TSH #### [address] [address] #### PTH #### [address] [address] Monocytes/100 WBC (Bld) 8.7 % Normal 2.0-13.0 [facility] Comment on above: Performed By: #### F T4, URIC, CMP, GFR, LIPID, CBC, ADIFF, ANEU, A1C, VIDH, MG, TSH #### [address] [address] #### PTH #### [address] [address] Neutrophils/100 WBC (Bld) 55.4 % Normal 50.0-75.0 [facility] Comment on above: Performed By: #### F T4, URIC, CMP, GFR, LIPID, CBC, ADIFF, ANEU, A1C, VIDH, MG, TSH #### [address] [address] #### PTH #### [address] [address] .GFRon 09-08-2024 Estimated Glomerular Filtration Rate 48 ml/min/1.73sqm Normal [facility] Comment on above: Result Comment: Stages of Chronic Kidney Disease (CKD) Stage Description eGFR(ml/min/1.73 sq.m.) CKD 1 Normal kidney function or >=90 normal kindney function with possible kidney damage (ex. Proteinuria) CKD 2 Kidney damage with mild loss 60-89 of kidney function CKD 3a Mild to moderate loss of kidney 45-59 function CKD 3b Moderate to severe loss of 30-44 of kindey function CKD 4 Severe loss of kidney function 15-29 CKD 5 Kidney failure <15 Note: (go live 2024) the eGFR calculation was updated to the 2020 CKD-EPI creatinine equation without a race factor to calculate the eGFR results. Performed By: #### C BC, ADIFF, ANEU, CMP, GFR #### [address] [address] .NEUABSon 09-08-2024 Neutrophil, Absolute 3.9 10 3/mcL Normal 2.3-8.1 [facility] Comment on above: Performed By: #### F T4, URIC, CMP, GFR, LIPID, CBC, ADIFF, ANEU, A1C, VIDH, MG, TSH #### [address] [address] #### PTH #### [address] [address] A1Con 09-08-2024 Glucose [Mass/Vol] 126 mg/dL Normal [facility] Comment on above: Result Comment: Iram mated Average Glucose calculated by equation ((28.7xA1C)-46.7) Estimated average glucose (eAG) is a calculated value from Hemoglobin A1C and is personal financial representative of the average blood glucose level in the last 2-3 month period. Normal range: less than 114 mg/dL Performed By: #### F T4, URIC, CMP, GFR, LIPID, CBC, ADIFF, ANEU, A1C, VIDH, MG, TSH #### [address] [address] #### PTH #### [address] [address] HbA1c (Bld) [Mass fraction] 6.0 % Normal 4.3-6.4 [facility] Comment on above: Performed By: #### F T4, URIC, CMP, GFR, LIPID, CBC, ADIFF, ANEU, A1C, VIDH, MG, TSH #### [address] [address] #### PTH #### [address] [address] CBCon 09-08-2024 Erythrocyte distribution width (RBC) [Ratio] 14.3 % Normal 11.5-15.5 [facility] Comment on above: Performed By: #### F T4, URIC, CMP, GFR, LIPID, CBC, ADIFF, ANEU, A1C, VIDH, MG, TSH #### [address] [address] #### PTH #### [address] [address] Hematocrit (Bld) [Volume fraction] 37.7 % Normal 34.0-46.0 [facility] Comment on above: Performed By: #### F T4, URIC, CMP, GFR, LIPID, CBC, ADIFF, ANEU, A1C, VIDH, MG, TSH #### [address] [address] #### PTH #### [address] [address] Hgb 12.6 G/dL Normal 12.0-16.0 [facility] Comment on above: Performed By: #### F T4, URIC, CMP, GFR, LIPID, CBC, ADIFF, ANEU, A1C, VIDH, MG, TSH #### [address] [address] #### PTH #### [address] [address] MCH (RBC) [Entitic mass] 28.8 pg Normal 27.0-33.0 [facility] Comment on above: Performed By: #### F T4, URIC, CMP, GFR, LIPID, CBC, ADIFF, ANEU, A1C, VIDH, MG, TSH #### [address] [address] #### PTH #### [place] [address] MCHC 33.4 G/dL Normal 32.0-36.0 [facility] Comment on above: Performed By: #### F T4, URIC, CMP, GFR, LIPID, CBC, ADIFF, ANEU, A1C, VIDH, MG, TSH #### [place] [address] #### PTH #### [place] [address] MCV (RBC) [Entitic vol] 86.4 fL Normal 80.0-99.0 [facility] Comment on above: Performed By: #### F T4, URIC, CMP, GFR, LIPID, CBC, ADIFF, ANEU, A1C, VIDH, MG, TSH #### [place] [address] #### PTH #### [place] [address] Platelet 214 10 3/mcL Normal 150-450 [facility] Comment on above: Performed By: #### F T4, URIC, CMP, GFR, LIPID, CBC, ADIFF, ANEU, A1C, VIDH, MG, TSH #### [place] [address] #### PTH #### [place] [address] Platelet mean volume (Bld) [Entitic vol] 9.6 fL Normal 6.6-10.5 [facility] Comment on above: Performed By: #### F T4, URIC, CMP, GFR, LIPID, CBC, ADIFF, ANEU, A1C, VIDH, MG, TSH #### [address] [address] #### PTH #### [place] [address] RBC 4.36 10 6/mcL Normal 4.10-5.30 [facility] Comment on above: Performed By: #### F T4, URIC, CMP, GFR, LIPID, CBC, ADIFF, ANEU, A1C, VIDH, MG, TSH #### [address] [address] #### PTH #### [address] [address] WBC 7.0 10 3/mcL Normal 4.5-10.8 [facility] Comment on above: Performed By: #### F T4, URIC, CMP, GFR, LIPID, CBC, ADIFF, ANEU, A1C, VIDH, MG, TSH #### [address] [address] #### PTH #### [address] [address] CMPon 09-08-2024 Albumin Level 3.1 G/dL Low 3.5-5.0 [facility] Comment on above: Performed By: #### C BC, ADIFF, ANEU, CMP, GFR #### [address] [address] Albumin/Globulin [Mass ratio] 0.7 {ratio} Low 1.1-2.5 [facility] Comment on above: Performed By: #### C BC, ADIFF, ANEU, CMP, GFR #### [address] [address] ALP [Catalytic activity/Vol] 93 U/L Normal 40-135 [facility] Comment on above: Performed By: #### C BC, ADIFF, ANEU, CMP, GFR #### [address] [address] ALT [Catalytic activity/Vol] 13 U/L Low 14-59 [facility] Comment on above: Performed By: #### C BC, ADIFF, ANEU, CMP, GFR #### [address] [address] AST [Catalytic activity/Vol] 14 U/L Normal 10-40 [facility] Comment on above: Performed By: #### C BC, ADIFF, ANEU, CMP, GFR #### [address] [address] Bili Total 0.5 mg/dL Normal 0.2-1.0 [facility] Comment on above: Result Comment: Use of this assay is not recommended for patients undergoing treatment with eltrombopag due to the potential for falsely elevated results. Performed By: #### C BC, ADIFF, ANEU, CMP, GFR #### [address] [address] BUN/Creatinine Ratio 15 ratio Normal 7-27 [facility] Comment on above: Performed By: #### C BC, ADIFF, ANEU, CMP, GFR #### [address] [address] Calcium [Mass/Vol] 9.5 mg/dL Normal 8.4-10.2 [facility] Comment on above: Performed By: #### C BC, ADIFF, ANEU, CMP, GFR #### [address] [address] Chloride [Moles/Vol] 104 mmol/L Normal 98-107 [facility] Comment on above: Performed By: #### C BC, ADIFF, ANEU, CMP, GFR #### [address] [address] CO2 [Moles/Vol] 32 mmol/L High 22-29 [facility] Comment on above: Performed By: #### C BC, ADIFF, ANEU, CMP, GFR #### [address] [address] Creatinine [Mass/Vol] 1.30 mg/dL High 0.51-0.95 [facility] Comment on above: Performed By: #### C BC, ADIFF, ANEU, CMP, GFR #### [address] [address] Electrolyte Balance 8.0 mEq/L Normal 4.0-15.0 [facility] Comment on above: Performed By: #### C BC, ADIFF, ANEU, CMP, GFR #### [address] [address] Globulin 4.4 G/dL Normal 2.7-4.4 [facility] Comment on above: Performed By: #### C BC, ADIFF, ANEU, CMP, GFR #### [address] [address] Glucose [Mass/Vol] 61 mg/dL Low 70-105 [facility] Comment on above: Performed By: #### C BC, ADIFF, ANEU, CMP, GFR #### [address] [address] Potassium [Moles/Vol] 3.9 mmol/L Normal 3.5-5.1 [facility] Comment on above: Performed By: #### C BC, ADIFF, ANEU, CMP, GFR #### [place] [address] Sodium [Moles/Vol] 144 mmol/L Normal 136-145 [facility] Comment on above: Performed By: #### C BC, ADIFF, ANEU, CMP, GFR #### [place] [address] Total Protein 7.5 G/dL Normal 6.4-8.2 [facility] Comment on above: Performed By: #### C BC, ADIFF, ANEU, CMP, GFR #### [address] [address] Urea nitrogen [Mass/Vol] 19 mg/dL High 7-18 [facility] Comment on above: Performed By: #### C BC, ADIFF, ANEU, CMP, GFR #### [address] [address] FT4on 09-08-2024 Free T4 [Mass/Vol] 1.13 ng/dL Normal 0.76-1.46 [facility] Comment on above: Performed By: #### C BC, ADIFF, ANEU, CMP, GFR #### [place] [address] LABORATORYOrdered By: SYSTEM SYSTEM on 09-08-2024 25-hydroxyvitamin D3 [Mass/Vol] 48.6 ng/mL Invalid Interpretation Code AO ADM SS Comment on above: Interpretive Data: I nterpretive Values Based on Total 25(OH) Vitamin D: Deficient <20 ng/mL Insufficient 20 - <30 ng/mL Sufficient 30-100 ng/mL Albumin BCP dye [Mass/Vol] 3.1 G/dL Low 3.5 - 5.0 G/dL AO ADM SS Albumin/Globulin [Mass ratio] 0.7 {ratio} Low 1.1 - 2.5 ratio AO ADM SS ALP [Catalytic activity/Vol] 93 U/L Normal 40 - 135 U/L AO ADM SS ALT With P-5'-P [Catalytic activity/Vol] 13 U/L Low 14 - 59 U/L AO ADM SS AST With P-5'-P [Catalytic activity/Vol] 14 U/L Normal 10 - 40 U/L AO ADM SS Basophils (Bld) [#/Vol] 0.0 103/mcL Normal 0.0 - 0.3 10^3/mcL AO Workflow SS Basophils/100 WBC (Bld) 0.3 % Normal 0.0 - 2.5 % AO Workflow SS Bilirubin [Mass/Vol] 0.5 mg/dL Normal 0.2 - 1 .0 mg/dL AO ADM SS Comment on above: Interpretive Data: U se of this assay is not recommended for patients undergoing treatment with eltrombopag due to the potential for falsely elevated results. Calcium [Mass/Vol] 9.5 mg/dL Normal 8.4 - 10. 2 mg/dL AO ADM SS Chloride [Moles/Vol] 104 mmol/L Normal 98 - 10 7 mmol/L AO ADM SS CO2 [Moles/Vol] 32 mmol/L High 22 - 29 mmol/L AO ADM SS Creatinine [Mass/Vol] 1.30 mg/dL High 0.51 - 0.95 mg/dL AO ADM SS Electrolyte Balance 8.0 mEq/L Normal 4.0 - 15 .0 mEq/L AO ADM SS Eosinophil, Absolute 0.2 103/mcL Normal 0.0 - 0 .7 10^3/mcL AO Workflow SS Eosinophils/100 WBC (Bld) 2.6 % Normal 0.0 - 6.0 % AO Workflow SS Erythrocyte distribution width (RBC) [Ratio] 14.3 % Normal 11.5 - 15.5 % AO Workflow SS Estimated Glomerular Filtration Rate 48 ml/min/1.73sqm Invalid Interpretation Code AO Chemistry S Comment on above: Interpretive Data: Stages of Chronic Kidney Disease (CKD) Stage Description eGFR(ml/min/1.73 sq.m.) CKD 1 Normal kidney function or >=90 normal kindney function with possible kidney damage (ex. Proteinuria) CKD 2 Kidney damage with mild loss 60-89 of kidney function CKD 3a Mild to moderate loss of kidney 45-59 function CKD 3b Moderate to severe loss of 30-44 of kindey function CKD 4 Severe loss of kidney function 15-29 CKD 5 Kidney failure <15 Note: (go live 2024) the eGFR calculation was updated to the 2020 CKD-EPI creatinine equation without a race factor to calculate the eGFR results. Free T4 [Mass/Vol] 1.13 ng/dL Normal 0.76 - 1. 46 ng/dL AO ADM SS Globulin 4.4 G/dL Normal 2.7 - 4.4 G/dL AO ADM SS Glucose [Mass/Vol] 126 mg/dL Invalid Interpretation Code AO Chemistry S Comment on above: Interpretive Data: E stimated average glucose (eAG) is a calculated value from Hemoglobin A1C and is personal financial representative of the average blood glucose level in the last 2-3 month period. Normal range: less than 114 mg/dL Glucose [Mass/Vol] 61 mg/dL Low 70 - 105 mg/dL AO ADM SS HbA1c (Bld) [Mass fraction] 6.0 % Normal 4.3 - 6.4 % AO ADM SS Hematocrit (Bld) [Volume fraction] 37.7 % Normal 34.0 - 46.0 % AO Workflow SS Hemoglobin (Bld) [Mass/Vol] 12.6 G/dL Normal 12.0 - 16.0 G/dL AO Workflow SS Lymphocytes (Bld) [#/Vol] 2.3 103/mcL Normal 0.9 - 4.3 10^3/mcL AO Workflow SS Lymphocytes/100 WBC (Bld) 33.0 % Normal 20.0 - 40.0 % AO Workflow SS Magnesium [Mass/Vol] 1.9 mg/dL Normal 1.8 - 2 .4 mg/dL AO ADM SS MCH (RBC) [Entitic mass] 28.8 pg Normal 27.0 - 33.0 pg AO Workflow SS MCHC 33.4 G/dL Normal 32.0 - 36.0 G/dL AO Workflow SS MCV (RBC) [Entitic vol] 86.4 fL Normal 80.0 - 99.0 fL AO Workflow SS Monocytes (Bld) [#/Vol] 0.6 103/mcL Normal 0.1 - 1.4 10^3/mcL AO Workflow SS Monocytes/100 WBC (Bld) 8.7 % Normal 2.0 - 13.0 % AO Workflow SS Neutrophils (Bld) [#/Vol] 3.9 103/mcL Normal 2.3 - 8.1 10^3/mcL AO Workflow SS Neutrophils/100 WBC (Bld) 55.4 % Normal 50.0 - 75.0 % AO Workflow SS Parathyrin.intact [Mass/Vol] 94.1 pg/mL High 18.5 - 88.0 pg/mL AH ADM SS Platelet mean volume (Bld) [Entitic vol] 9.6 fL Normal 6.6 - 10.5 fL AO Workflow SS Platelets (Bld) [#/Vol] 214 103/mcL Normal 150 - 450 10^3/mcL AO Workflow SS Potassium [Moles/Vol] 3.9 mmol/L Normal 3.5 - 5.1 mmol/L AO ADM SS Protein [Mass/Vol] 7.5 G/dL Normal 6.4 - 8.2 G/dL AO ADM SS RBC (Bld) [#/Vol] 4.36 106/mcL Normal 4.10 - 5.3 0 10^6/mcL AO Workflow SS Sodium [Moles/Vol] 144 mmol/L Normal 136 - 145 mmol/L AO ADM SS TSH Qn 4.66 m[IU]/L High 0.36 - 3.74 mcIU/mL AO ADM SS Urea nitrogen [Mass/Vol] 19 mg/dL High 7 - 18 mg/dL AO ADM SS Urea nitrogen/Creatinine [Mass ratio] 15 ratio Normal 7 - 27 ratio AO ADM SS Uric Acid Lvl 7.1 mg/dL High 2.6 - 6.2 mg/dL AO ADM SS WBC (Bld) [#/Vol] 7.0 103/mcL Normal 4.5 - 10.8 10^3/mcL AO Workflow SS LABORATORYOrdered By: Tamera Sung on 09-08-2024 Cholesterol [Mass/Vol] 168 mg/dL Normal 0 - 200 mg/dL AO ADM SS Comment on above: Interpretive Data: C holesterol Reference Interval: Less than 200 Desirable 200-239 Borderline high risk 240 and above High risk Cholesterol in HDL [Mass/Vol] 44 mg/dL Normal 40 - 60 mg/dL AO ADM SS Cholesterol in LDL [Mass/Vol] 107 mg/dL Normal 0 - 130 mg/dL AO ADM SS Triglyceride [Mass/Vol] 87 mg/dL Normal 0 - 150 mg/dL AO ADM SS Comment on above: Interpretive Data: T riglyceride Reference Interval: Less than 150 Normal 150-199 Borderline high risk 200-499 High risk 500 or higher Very high risk LIPIDon 09-08-2024 Cholesterol [Mass/Vol] 168 mg/dL Normal 0-200 [facility] Comment on above: Result Comment: Chol esterol Reference Interval: Less than 200 Desirable 200-239 Borderline high risk 240 and above High risk Performed By: #### C BC, ADIFF, ANEU, CMP, GFR #### [address] [address] Cholesterol in HDL [Mass/Vol] 44 mg/dL Normal 40-60 [facility] Comment on above: Performed By: #### C BC, ADIFF, ANEU, CMP, GFR #### [address] [address] Cholesterol in LDL [Mass/Vol] 107 mg/dL Normal 0-130 [facility] Comment on above: Performed By: #### C BC, ADIFF, ANEU, CMP, GFR #### [address] [address] Triglyceride [Mass/Vol] 87 mg/dL Normal 0-150 [facility] Comment on above: Result Comment: Trig lyceride Reference Interval: Less than 150 Normal 150-199 Borderline high risk 200-499 High risk 500 or higher Very high risk Performed By: #### C BC, ADIFF, ANEU, CMP, GFR #### [address] [address] MGon 09-08-2024 Magnesium [Mass/Vol] 1.9 mg/dL Normal 1.8-2.4 [facility] Comment on above: Performed By: #### C BC, ADIFF, ANEU, CMP, GFR #### [address] [address] PTHon 09-08-2024 PTH, Intact 94.1 pg/mL High 18.5-88.0 [facility] Comment on above: Performed By: #### C BC, ADIFF, ANEU, CMP, GFR #### [place] [address] TSHon 09-08-2024 TSH Qn 4.66 m[IU]/L High 0.36-3.74 [facility] Comment on above: Performed By: #### C BC, ADIFF, ANEU, CMP, GFR #### [place] [address] URICon 09-08-2024 Uric Acid Lvl 7.1 mg/dL High 2.6-6.2 [facility] Comment on above: Performed By: #### C BC, ADIFF, ANEU, CMP, GFR #### [address] [address] VIDHon 09-08-2024 Vit. D 25-Hydroxy 48.6 ng/mL Normal [facility] Comment on above: Result Comment: Inte rpretive Values Based on Total 25(OH) Vitamin D: Deficient <20 ng/mL Insufficient 20 - <30 ng/mL Sufficient 30-100 ng/mL Performed By: #### C BC, ADIFF, ANEU, CMP, GFR #### [address] [address] Bacteria Ur Culton 5 Bacteria identified Cx Nom (U) ORGANISM ID: 1 >=100,000 CFU/ml Escherichia coli ORGANISM ID: 1 (ESCHERICHIA COLI) ANTIBIOTIC INTERPRETATION JAVON STATUS REFERENCE RANGE Ampicillin S <=2 F Susceptible <=8 , Intermediate >8 , Resistant >16 Cefazolin S <=4 F Susceptible 0-16 , Intermediate <0 or >16 , Resistant >16 For uncomplicated urinary tract infections, cefazolin results can be used to predict susceptibility or resistance to cephalexin. Ceftriaxone S <=1 F Susceptible <=1 , Intermediate >1 , Resistant >=4 Cefepime S <=1 F Susceptible <=2 , Susceptible-Dose Dependent >2 , Resistant >=16 Ertapenem S <=0.5 F Susceptible <=0.5 , Intermediate >.5 , Resistant >1 Meropenem S <=0.25 F Susceptible <=1 , Intermediate >1 , Resistant >2 Ampicillin/Sulbact S <=2 F Susceptible <=8 , Intermediate >8 , Resistant >16 Piperacillin/Tazobac S <=4 F Susceptible <16 , Susceptible-Dose Dependent >=16 , Resistant >=32 Gentamicin S <=1 F Susceptible <=2 , Intermediate >2 , Resistant >=8 Tobramycin S <=1 F Susceptible <4 , Intermediate >=4 , Resistant >=8 Trimeth sulfameth S <=20 F Susceptible <=40 , Resistant >40 Ciprofloxacin S <=0.25 F Susceptible <0.5 , Intermediate >=.5 , Resistant >=1 Nitrofurantoin S <=16 F Susceptible <=32 , Intermediate >32 , Resistant >64 Abnormal [facility] Comment on above: Performed By: #### 6 30-4 #### [facility] CLIA [id number] [address] [place] [address] [place] CNOVon 08-19-2024 CNOV Office Visit ([facility]) ARABELLA FELIX ([id number]) 1965 F Date Time Provider Department 08/19/24 8:45 AM RAZIA FLORENCE [facility] During your visit today, we recorded the following information about you: Temperature Pulse Respiration Blood pressure 97.3 degrees 53/minute 18/minute 157/83 Weight 146.4 kg Razia Florence PA-C 08/19/2024 9:02 AM Signed This note was created using WeShowriter. Subjective Arabella Felix is a 59 year old female. Patient is a 59-year-old female who complains of dysuria, urinary urgency and urinary frequency that she has been experiencing for the past 2 days. Patient denies fever, chills, hematuria, flank pain, nausea or other symptoms. Patient does have a history of urinary tract infection and states that her current symptoms are consistent with same. UTI Associated symptoms include frequency and urgency. Review of Systems Genitourinary: Positive for dysuria, frequency and urgency. All other systems reviewed and are negative. Objective BP 157/83 Pulse (!) 53 Temp 36.3 ?C (97.3 ?F) Resp 18 Wt (!) 146.4 kg (322 lb 12.1 oz) LMP (LMP Unknown) SpO2 96% BMI 53.71 kg/m? Physical Exam Vitals and nursing note reviewed. Constitutional: Appearance: Normal appearance. She is normal weight. HENT: Head: Normocephalic and atraumatic. Right Ear: External ear normal. Left Ear: External ear normal. Nose: Nose normal. Mouth/Throat: Mouth: Mucous membranes are moist. Pharynx: Oropharynx is clear. Eyes: Extraocular Movements: Extraocular movements intact. Conjunctiva/sclera: Conjunctivae normal. Pupils: Pupils are equal, round, and reactive to light. Cardiovascular: Rate and Rhythm: Normal rate. Pulses: Normal pulses. Heart sounds: Normal heart sounds. Pulmonary: Effort: Pulmonary effort is normal. Breath sounds: Normal breath sounds. Abdominal: General: Abdomen is flat. Palpations: Abdomen is soft. Musculoskeletal: Cervical back: Normal range of motion and neck supple. Skin: General: Skin is warm and dry. Capillary Refill: Capillary refill takes less than 2 seconds. Neurological: General: No focal deficit present. Mental Status: She is alert and oriented to person, place, and time. Psychiatric: Mood and Affect: Mood normal. Behavior: Behavior normal. Thought Content: Thought content normal. Judgment: Judgment normal. Assessment and Plan Physical exam findings as noted above. Urinalysis shows moderate leukocyte esterase with moderate blood and urine culture was ordered. Patient was provided with a prescription for Keflex 500 mg. Patient states that she typically develops a vaginal yeast infection with antibiotic use and she was also provided with a prescription for Diflucan 150 mg. Patient was advised that the results of the urine culture will be available in 2 days and she will be contacted if there is a need to change her medication based on the sensitivity report. Patient verbalizes clear understanding of all instructions. CLINICAL IMPRESSION: Acute UTI ASSESSMENT/PLAN: 1. Burning with urination - ICD9: 788.1, ICD10: R30.0 (primary diagnosis) - UA DIP, URINE (POC) 2. Acute UTI - ICD9: 599.0, ICD10: N39.0 - BACTERIAL CULTURE, URINE - CEPHALEXIN 500 MG CAPSULE - FLUCONAZOLE 150 MG TABLET MDM Amount and/or Complexity of Data Reviewed Clinical lab tests: ordered and reviewed Risk of Complications, Morbidity, and/or Mortality Presenting problems: low Diagnostic procedures: low Management options: low Razia Florence PA-C Allergies As of Date: 08/19/2024 Noted Allergy Reaction BETADINE (POVIDONE-IODINE) 07/26/2018 4 - Hives Date Reviewed: 08/19/2024 Reviewed by: Maribell Morris MA - Fully Assessed Reason for Visit: UTI [116] Cmt: Burning with urination x 2 days Primary Visit Diagnosis:Burning with urination [R30.0] Other Visit Diagnosis:Acute UTI [N39.0] Order(s):UA DIP, URINE (POC) [4963108] Order #: [id number] #:[id number] BACTERIAL CULTURE, URINE [SQURCUL] Order #: [id number]. #:[id number] cephALEXin (KEFLEX) 500 mg capsuleTake 1 capsule by mouth four times daily for 7 days.Disp: 28 capsuleRfl: 0 fluconazole (DIFLUCAN) 150 mg tabletTake 1 tablet by mouth one time only for 1 dose. Repeat in 3 days as needed.Disp: 2 tabletRfl: 0 Prescriptions as of 08/19/2024 - cephALEXin (KEFLEX) 500 mg capsule Take 1 capsule by mouth four times daily for 7 days. - fluconazole (DIFLUCAN) 150 mg tablet Take 1 tablet by mouth one time only for 1 dose. Repeat in 3 days as needed. - fluticasone (FLONASE) 50 mcg/actuation nasal spray Use 2 Sprays in each nostril once daily. Rinse mouth after use. - cetirizine (ZYRTEC) 10 mg tablet Take 1 tablet by mouth once daily. - benzonatate (TESSALON PERLE) 100 mg capsule Take 2 capsules by mouth three times a day as needed. - montelukast (more content not included)... Normal [facility] UA DIP, URINE (POC)on 2024 BILIRUBIN UA (POCT) Negative Negative [facility] CLARITY UA (POCT) Cloudy [facility] COLOR UA (POCT) Yellow [facility] GLUCOSE UA (POCT) Negative Negative mg/dL [facility] Hemoglobin Ql (U) Moderate Abnormal Negative [facility] Interpretation and review of laboratory results Abnormal [facility] KETONE UA (POCT) Negative Negative mg/dL [facility] LEUKOCYTES UA (POCT) Moderate Abnormal Negative [facility] NITRITE UA (POCT) Negative Negative [facility] PH UA (POCT) 5.5 4.5 - 8.0 [facility] Protein Ql (U) Negative Negative mg/dL [facility] SPECIFIC GRAVITY UA (POCT) 1.01 1.005 - 1.030 [facility] UROBILINOGEN UA (POCT) 0.2 Normal E.U./dL [facility] Location:[facility], [address] [place] [address], [place], [address] [facility] POINT OF CARE [facility] .Auto Diffon 06-26-2024 Basophil, Absolute 0.0 10 3/mcL Normal 0.0-0.3 [facility] Comment on above: Performed By: #### C BC, ADIFF, ANEU, CMP, GFR #### [facility] [place] [address] [place], [place] [address] Basophils/100 WBC (Bld) 0.2 % Normal 0.0-2.5 [facility] Comment on above: Performed By: #### C BC, ADIFF, ANEU, CMP, GFR #### [address] [address] Eosinophil, Absolute 0.0 10 3/mcL Normal 0.0-0.7 [facility] Comment on above: Performed By: #### C BC, ADIFF, ANEU, CMP, GFR #### [address] [address] Eosinophils/100 WBC (Bld) 0.3 % Normal 0.0-6.0 [facility] Comment on above: Performed By: #### C BC, ADIFF, ANEU, CMP, GFR #### [address] [address] Lymphocyte, Absolute 1.7 10 3/mcL Normal 0.9-4.3 [facility] Comment on above: Performed By: #### C BC, ADIFF, ANEU, CMP, GFR #### [address] [address] Lymphocytes/100 WBC (Bld) 14.7 % Low 20.0-40.0 [facility] Comment on above: Performed By: #### C BC, ADIFF, ANEU, CMP, GFR #### [address] [address] Monocyte, Absolute 1.0 10 3/mcL Normal 0.1-1.4 [facility] Comment on above: Performed By: #### C BC, ADIFF, ANEU, CMP, GFR #### [address] [address] Monocytes/100 WBC (Bld) 8.4 % Normal 2.0-13.0 [facility] Comment on above: Performed By: #### C BC, ADIFF, ANEU, CMP, GFR #### [address] [address] Neutrophils/100 WBC (Bld) 76.4 % High 50.0-75.0 [facility] Comment on above: Performed By: #### C BC, ADIFF, ANEU, CMP, GFR #### [place] [id number] [place], [place] [address] .GFRon 06-26-2024 Estimated Glomerular Filtration Rate 51 ml/min/1.73sqm Normal [facility] Comment on above: Result Comment: Stages of Chronic Kidney Disease (CKD) Stage Description eGFR(ml/min/1.73 sq.m.) CKD 1 Normal kidney function or >=90 normal kindney function with possible kidney damage (ex. Proteinuria) CKD 2 Kidney damage with mild loss 60-89 of kidney function CKD 3a Mild to moderate loss of kidney 45-59 function CKD 3b Moderate to severe loss of 30-44 of kindey function CKD 4 Severe loss of kidney function 15-29 CKD 5 Kidney failure <15 Note: (go live 2024) the eGFR calculation was updated to the 2020 CKD-EPI creatinine equation without a race factor to calculate the eGFR results. Performed By: #### C BC, ADIFF, ANEU, CMP, GFR #### [place] [id number] [place], [place] [address] .NEUABSon 06-26-2024 Neutrophil, Absolute 8.9 10 3/mcL High 2.3-8.1 [facility] Comment on above: Performed By: #### C BC, ADIFF, ANEU, CMP, GFR #### [place] [id number] [place], [place] [address] AMPICILLIN+SULBACTAM:SUSC:PT :ISOLATE:ORDQN:MICon 06-26-2024 Ampicillin+Sulbactam JAVON [Susc] >100,000 cfu/ml Escherichia coli [facility] Ampicillin+Sulbactam JAVON [Hyman sc]on 06-26-2024 Escherichia coli Escherichia coli [facility] CBCon 06-26-2024 Erythrocyte distribution width (RBC) [Ratio] 14.4 % Normal 11.5-15.5 [facility] Comment on above: Performed By: #### C BC, ADIFF, ANEU, CMP, GFR #### [place] [address] Hematocrit (Bld) [Volume fraction] 36.4 % Normal 34.0-46.0 [facility] Comment on above: Performed By: #### C BC, ADIFF, ANEU, CMP, GFR #### [place] [address] Hgb 12.1 G/dL Normal 12.0-16.0 [facility] Comment on above: Performed By: #### C BC, ADIFF, ANEU, CMP, GFR #### [place] [address] MCH (RBC) [Entitic mass] 28.9 pg Normal 27.0-33.0 [facility] Comment on above: Performed By: #### C BC, ADIFF, ANEU, CMP, GFR #### [place] [address] MCHC 33.4 G/dL Normal 32.0-36.0 [facility] Comment on above: Performed By: #### C BC, ADIFF, ANEU, CMP, GFR #### [place] [address] MCV (RBC) [Entitic vol] 86.7 fL Normal 80.0-99.0 [facility] Comment on above: Performed By: #### C BC, ADIFF, ANEU, CMP, GFR #### [place] [address] Platelet 229 10 3/mcL Normal 150-450 [facility] Comment on above: Performed By: #### C BC, ADIFF, ANEU, CMP, GFR #### [address] [address] Platelet mean volume (Bld) [Entitic vol] 9.5 fL Normal 6.6-10.5 [facility] Comment on above: Performed By: #### C BC, ADIFF, ANEU, CMP, GFR #### [address] [address] RBC 4.20 10 6/mcL Normal 4.10-5.30 [facility] Comment on above: Performed By: #### C BC, ADIFF, ANEU, CMP, GFR #### [address] [address] WBC 11.6 10 3/mcL High 4.5-10.8 [facility] Comment on above: Performed By: #### C BC, ADIFF, ANEU, CMP, GFR #### [address] [address] CMPon 06-26-2024 Albumin Level 2.9 G/dL Low 3.5-5.0 [facility] Comment on above: Performed By: #### C BC, ADIFF, ANEU, CMP, GFR #### [address] [address] Albumin/Globulin [Mass ratio] 0.6 {ratio} Low 1.1-2.5 [facility] Comment on above: Performed By: #### C BC, ADIFF, ANEU, CMP, GFR #### [address] [address] ALP [Catalytic activity/Vol] 87 U/L Normal 40-135 [facility] Comment on above: Performed By: #### C BC, ADIFF, ANEU, CMP, GFR #### [address] [address] ALT [Catalytic activity/Vol] 9 U/L Low 14-59 [facility] Comment on above: Performed By: #### C BC, ADIFF, ANEU, CMP, GFR #### [address] [address] AST [Catalytic activity/Vol] 15 U/L Normal 10-40 [facility] Comment on above: Performed By: #### C BC, ADIFF, ANEU, CMP, GFR #### [address] [address] Bili Total 1.0 mg/dL Normal 0.2-1.0 [facility] Comment on above: Result Comment: Use of this assay is not recommended for patients undergoing treatment with eltrombopag due to the potential for falsely elevated results. Performed By: #### C BC, ADIFF, ANEU, CMP, GFR #### [address] [address] BUN/Creatinine Ratio 19 ratio Normal 7-27 [facility] Comment on above: Performed By: #### C BC, ADIFF, ANEU, CMP, GFR #### [place] [address] Calcium [Mass/Vol] 9.2 mg/dL Normal 8.4-10.2 [facility] Comment on above: Performed By: #### C BC, ADIFF, ANEU, CMP, GFR #### [place] [address] Chloride [Moles/Vol] 101 mmol/L Normal 98-107 [facility] Comment on above: Performed By: #### C BC, ADIFF, ANEU, CMP, GFR #### [place] [address] CO2 [Moles/Vol] 32 mmol/L High 22-29 [facility] Comment on above: Performed By: #### C BC, ADIFF, ANEU, CMP, GFR #### [address] [address] Creatinine [Mass/Vol] 1.24 mg/dL High 0.51-0.95 [facility] Comment on above: Performed By: #### C BC, ADIFF, ANEU, CMP, GFR #### [address] [address] Electrolyte Balance 6.0 mEq/L Normal 4.0-15.0 [facility] Comment on above: Performed By: #### C BC, ADIFF, ANEU, CMP, GFR #### [address] [address] Globulin 4.9 G/dL High 2.7-4.4 [facility] Comment on above: Performed By: #### C BC, ADIFF, ANEU, CMP, GFR #### [address] [address] Glucose [Mass/Vol] 83 mg/dL Normal 70-105 [facility] Comment on above: Performed By: #### C BC, ADIFF, ANEU, CMP, GFR #### [address] [address] Potassium [Moles/Vol] 3.8 mmol/L Normal 3.5-5.1 [facility] Comment on above: Performed By: #### C BC, ADIFF, ANEU, CMP, GFR #### [address] [address] Sodium [Moles/Vol] 139 mmol/L Normal 136-145 [facility] Comment on above: Performed By: #### C BC, ADIFF, ANEU, CMP, GFR #### [address] [address] Total Protein 7.8 G/dL Normal 6.4-8.2 [facility] Comment on above: Performed By: #### C BC, ADIFF, ANEU, CMP, GFR #### [address] [address] Urea nitrogen [Mass/Vol] 23 mg/dL High 7-18 [facility] Comment on above: Performed By: #### C BC, ADIFF, ANEU, CMP, GFR #### [address] [address] LABORATORYOrdered By: SYSTEM SYSTEM on 06-26-2024 Albumin BCP dye [Mass/Vol] 2.9 G/dL Low 3.5 - 5.0 G/dL AO ADM SS Albumin/Globulin [Mass ratio] 0.6 {ratio} Low 1.1 - 2.5 ratio AO ADM SS ALP [Catalytic activity/Vol] 87 U/L Normal 40 - 135 U/L AO ADM SS ALT With P-5'-P [Catalytic activity/Vol] 9 U/L Low 14 - 59 U/L AO ADM SS AST With P-5'-P [Catalytic activity/Vol] 15 U/L Normal 10 - 40 U/L AO ADM SS Basophils (Bld) [#/Vol] 0.0 103/mcL Normal 0.0 - 0.3 10^3/mcL AO Workflow SS Basophils/100 WBC (Bld) 0.2 % Normal 0.0 - 2.5 % AO Workflow SS Bilirubin [Mass/Vol] 1.0 mg/dL Normal 0.2 - 1 .0 mg/dL AO ADM SS Comment on above: Interpretive Data: U se of this assay is not recommended for patients undergoing treatment with eltrombopag due to the potential for falsely elevated results. Calcium [Mass/Vol] 9.2 mg/dL Normal 8.4 - 10. 2 mg/dL AO ADM SS Chloride [Moles/Vol] 101 mmol/L Normal 98 - 10 7 mmol/L AO ADM SS CO2 [Moles/Vol] 32 mmol/L High 22 - 29 mmol/L AO ADM SS Creatinine [Mass/Vol] 1.24 mg/dL High 0.51 - 0.95 mg/dL AO ADM SS Electrolyte Balance 6.0 mEq/L Normal 4.0 - 15 .0 mEq/L AO ADM SS Eosinophil, Absolute 0.0 103/mcL Normal 0.0 - 0 .7 10^3/mcL AO Workflow SS Eosinophils/100 WBC (Bld) 0.3 % Normal 0.0 - 6.0 % AO Workflow SS Erythrocyte distribution width (RBC) [Ratio] 14.4 % Normal 11.5 - 15.5 % AO Workflow SS Estimated Glomerular Filtration Rate 51 ml/min/1.73sqm Invalid Interpretation Code AO Chemistry S Comment on above: Interpretive Data: Stages of Chronic Kidney Disease (CKD) Stage Description eGFR(ml/min/1.73 sq.m.) CKD 1 Normal kidney function or >=90 normal kindney function with possible kidney damage (ex. Proteinuria) CKD 2 Kidney damage with mild loss 60-89 of kidney function CKD 3a Mild to moderate loss of kidney 45-59 function CKD 3b Moderate to severe loss of 30-44 of kindey function CKD 4 Severe loss of kidney function 15-29 CKD 5 Kidney failure <15 Note: (go live 2024) the eGFR calculation was updated to the 2020 CKD-EPI creatinine equation without a race factor to calculate the eGFR results. Globulin 4.9 G/dL High 2.7 - 4.4 G/dL AO ADM SS Glucose [Mass/Vol] 83 mg/dL Normal 70 - 105 mg/dL AO ADM SS Hematocrit (Bld) [Volume fraction] 36.4 % Normal 34.0 - 46.0 % AO Workflow SS Hemoglobin (Bld) [Mass/Vol] 12.1 G/dL Normal 12.0 - 16.0 G/dL AO Workflow SS Lymphocytes (Bld) [#/Vol] 1.7 103/mcL Normal 0.9 - 4.3 10^3/mcL AO Workflow SS Lymphocytes/100 WBC (Bld) 14.7 % Low 20.0 - 40.0 % AO Workflow SS MCH (RBC) [Entitic mass] 28.9 pg Normal 27.0 - 33.0 pg AO Workflow SS MCHC 33.4 G/dL Normal 32.0 - 36.0 G/dL AO Workflow SS MCV (RBC) [Entitic vol] 86.7 fL Normal 80.0 - 99.0 fL AO Workflow SS Monocytes (Bld) [#/Vol] 1.0 103/mcL Normal 0.1 - 1.4 10^3/mcL AO Workflow SS Monocytes/100 WBC (Bld) 8.4 % Normal 2.0 - 13.0 % AO Workflow SS Neutrophils (Bld) [#/Vol] 8.9 103/mcL High 2.3 - 8.1 10^3/mcL AO Workflow SS Neutrophils/100 WBC (Bld) 76.4 % High 50.0 - 75.0 % AO Workflow SS Platelet mean volume (Bld) [Entitic vol] 9.5 fL Normal 6.6 - 10.5 fL AO Workflow SS Platelets (Bld) [#/Vol] 229 103/mcL Normal 150 - 450 10^3/mcL AO Workflow SS Potassium [Moles/Vol] 3.8 mmol/L Normal 3.5 - 5.1 mmol/L AO ADM SS Protein [Mass/Vol] 7.8 G/dL Normal 6.4 - 8.2 G/dL AO ADM SS RBC (Bld) [#/Vol] 4.20 106/mcL Normal 4.10 - 5.3 0 10^6/mcL AO Workflow SS Sodium [Moles/Vol] 139 mmol/L Normal 136 - 145 mmol/L AO ADM SS Urea nitrogen [Mass/Vol] 23 mg/dL High 7 - 18 mg/dL AO ADM SS Urea nitrogen/Creatinine [Mass ratio] 19 ratio Normal 7 - 27 ratio AO ADM SS WBC (Bld) [#/Vol] 11.6 103/mcL High 4.5 - 10.8 10^3/mcL AO Workflow SS CNOVon 03-24-2024 CNOV Office Visit ([facility]) ARABELLA FELIX ([id number]) 1965 F Date Time Provider Department 03/24/24 2:00 PM YIN KAY [facility] During your visit today, we recorded the following information about you: Temperature Pulse Respiration Blood pressure 98.1 degrees 55/minute 20/minute 151/85 Weight 145 kg Yin Kay, [employer]LLY[employer] 03/24/2024 2:29 PM Signed Subjective The history is provided by the patient. No language arts teacher was used. HPI Arabella Felix is a 58 year old female who presents today for CC of sinus pressure, cough, congestion for a week. She has used mucinex, with no relief. 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 BP 151/85 Pulse (!) 55 Temp 36.7 ?C (98.1 ?F) Resp 20 Wt (!) 145 kg (319 lb 10.7 oz) LMP (LMP Unknown) SpO2 97% BMI 53.20 kg/m? 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 HENT: Positive for congestion and sinus pain. Negative for ear pain and sore throat. Respiratory: Positive for cough. Negative for sputum production, shortness of breath and wheezing. Cardiovascular: Negative for chest pain. Gastrointestinal: Negative for abdominal pain, diarrhea, nausea and vomiting. Musculoskeletal: Negative for myalgias. Neurological: Negative for headaches. Objective Physical Exam Vitals and nursing note reviewed. HENT: Head: Normocephalic and atraumatic. Right Ear: Tympanic membrane, ear canal and external ear normal. Left Ear: Tympanic membrane, ear canal and external ear normal. Nose: Mucosal edema, congestion and rhinorrhea present. Right Sinus: Frontal sinus tenderness present. No maxillary sinus tenderness. Left Sinus: Frontal sinus tenderness present. No maxillary sinus tenderness. Mouth/Throat: Pharynx: Uvula midline. Postnasal drip present. No oropharyngeal exudate or posterior oropharyngeal erythema. Cardiovascular: Rate and Rhythm: Normal rate and regular rhythm. Heart sounds: Normal heart sounds. Pulmonary: Effort: Pulmonary effort is normal. Breath sounds: Normal breath sounds. Lymphadenopathy: Head: Right side of head: No submental, submandibular or tonsillar adenopathy. Left side of head: No submental, submandibular or tonsillar adenopathy. Cervical: No cervical adenopathy. Skin: General: Skin is warm and dry. Neurological: Mental Status: She is alert. Psychiatric: Mood and Affect: Affect normal. ASSESSMENT/PLAN: 1. Acute cough - ICD9: 786.2, ICD10: R05.1 (primary diagnosis) Tessalon Perles Post viral, post nasal drianage 2. Acute non-recurrent frontal sinusitis - ICD9: 461.1, ICD10: J01.10 - Will begin treatment with Doxycycline - The patient should also be given zyrtec,flonase for the first 5-7 days of treatment. - Supportive care with plenty of fluids, rest, and analgesia prn. - Follow up in one week if symptoms persist or worsen. Diagnosis and treatment plan were discussed and questions were answered to the patient's satisfaction. Pt acknowledged understanding of concepts and follow up plan. Specific signs and symptoms that would indicate the need for higher level of care were discussed in detail warranting prompt ER evaluation. Yin Kay APRN.Yin Can APRN.CHULA 03/24/2024 2:25 PM Signed Zyrtec 10 mg By mouth daily at bedtime Flonase 2 sprays in each nostril once a day To get the best results when using a Nasal Steroid, do the following: Tilt your head down, bringing your chin closer to your chest Insert the nozzle of the medication bottle inside the nostril and direct it towards the outside, away from the middle of the nose. Your sinus openings are at the outside of the nose. Pump or activate the spray and lightly or slowly sniff air up into that nostril. Do not sniff hard or fast as you will pull the medication through the nose to the back of the throat where you will taste it and it does no good. If some medication drips out simply sniff in a little more or wipe it away Repeat this process on the other side. -Increase fluid intake. --Rest as much as possible. - Nasal saline spray, marvin pot, flonase Take the entire course of antibiotics as prescribed. DO NOT stop taking it early, even if you are feeling better. -Monitor for signs of worsening infection: increased tempera (more content not included)... Normal [facility] XR KNEE THREE VIEWS LEFTon 0 03-23-2024 XR KNEE THREE VIEWS LEFT ORIGINAL EXAMINATION: THREE XRAY VIEWS OF THE LEFT KNEE03/23/2024 9:41 am COMPARISON: None HISTORY: ORDERING SYSTEM PROVIDED HISTORY: Reason for Exam: [id number] FINDINGS: No acute fracture or dislocation is identified. Moderate suprapatellar effusion. Severe tricompartmental degenerative changes with joint space narrowing and marginal spurring, worse at the medial and patellofemoral joints. Dystrophic calcifications or loose bodies. IMPRESSION: Severe degenerative changes. Moderate effusion. Dystrophic calcifications or loose bodies. I have personally reviewed the images of this examination and agree with the resident's findings and interpretation. Interpreted by: Darius Girard MD Preliminary Report By: Jonas Tidwell MD Electronically signed By Darius Girard MD Dictated Date: 03/23/2024 9:50:58 AM Prelim Date: 03/23/2024 10:41:25 AM Sign Date: 03/23/2024 10:41:25 AM Ordering Provider: MARIAM BILLINGS Normal [facility] XR KNEE THREE VIEWS RIGHTon 03-23-2024 XR KNEE THREE VIEWS RIGHT ORIGINAL EXAMINATION: THREE XRAY VIEWS OF THE RIGHT KNEE 03/23/2024 9:42 am COMPARISON: None. HISTORY: ORDERING SYSTEM PROVIDED HISTORY: Reason for Exam: [id number] FINDINGS: Moderate osteoarthritis is present, greatest at the patellofemoral and lateral compartments. There are corticated densities overlying the joint which may represent small loose bodies. No fracture or dislocation is evident. There is a small knee joint effusion present. IMPRESSION: Moderate osteoarthritis. Small joint effusion. Interpreted by: Darius Girard MD Preliminary Report By: Darius Girard MD Electronically signed By Darius Girard MD Dictated Date: 03/23/2024 9:51:13 AM Prelim Date: 03/23/2024 9:51:51 AM Sign Date: 03/23/2024 9:51:51 AM Ordering Provider: MARIAM Aguilar [facility] XR SPINE LUMBAR AP/LATon XR SPINE LUMBAR AP/LAT ORIGINAL EXAMINATION: 3 XRAY VIEWS OF THE LUMBAR SPINE 03/23/2024 9:43 am COMPARISON: None. HISTORY: ORDERING SYSTEM PROVIDED HISTORY: Reason for Exam: [id number] FINDINGS: Vertebral body height and alignment is preserved. Marked degenerative disc disease is present at L3-4. Mild degenerative changes are noted elsewhere. No fracture or dislocation seen. Sacrum and SI joints are unremarkable. IMPRESSION: Degenerative changes, no acute process. Interpreted by: Darius Girard MD Preliminary Report By: Darius Girard MD Electronically signed By Darius Girard MD Dictated Date: 03/23/2024 9:52:00 AM Prelim Date: 03/23/2024 9:52:33 AM Sign Date: 03/23/2024 9:52:33 AM Ordering Provider: MARIAM Aguilar [facility] PTHon 03-04-2024 PTH, Intact 106.5 pg/mL High 18.5-88.0 [facility] Comment on above: Performed By: #### C JUANITA FRIEND ANEU, CMP, GFR #### [facility] [address], [place] [address] .Auto Diffon 03-03-2024 Basophil, Absolute 0.0 10 3/mcL Normal 0.0-0.2 [facility] Comment on above: Performed By: #### C BC, ADIFF, ANEU, CMP, GFR #### [address] [address] Basophils/100 WBC (Bld) 0.3 % Normal 0.0-2.5 [facility] Comment on above: Performed By: #### C BC, ADIFF, ANEU, CMP, GFR #### [address] [address] Eosinophil, Absolute 0.2 10 3/mcL Normal 0.0-0.7 [facility] Comment on above: Performed By: #### C BC, ADIFF, ANEU, CMP, GFR #### [address] [address] Eosinophils/100 WBC (Bld) 2.4 % Normal 0.0-7.0 [facility] Comment on above: Performed By: #### C BC, ADIFF, ANEU, CMP, GFR #### [address] [address] Lymphocyte, Absolute 2.0 10 3/mcL Normal 0.9-4.3 [facility] Comment on above: Performed By: #### C BC, ADIFF, ANEU, CMP, GFR #### [address] [address] Lymphocytes/100 WBC (Bld) 28.1 % Normal 20.0-40.0 [facility] Comment on above: Performed By: #### C BC, ADIFF, ANEU, CMP, GFR #### [address] [address] Monocyte, Absolute 0.6 10 3/mcL Normal 0.1-1.4 [facility] Comment on above: Performed By: #### C BC, ADIFF, ANEU, CMP, GFR #### [address] [address] Monocytes/100 WBC (Bld) 9.1 % Normal 2.0-13.0 [facility] Comment on above: Performed By: #### C BC, ADIFF, ANEU, CMP, GFR #### [address] [address] Neutrophils/100 WBC (Bld) 60.1 % Normal 50.0-75.0 [facility] Comment on above: Performed By: #### C BC, ADIFF, ANEU, CMP, GFR #### [address] [address] .GFRon 03-03-2024 GFR 51 ml/min/1.73sqm Normal [facility] Comment on above: Result Comment: GFR Population mean for , Non- Americans Ages 20-29 = 116 mL/min/1.73 sq.m. Ages 30-39 = 107 mL/min/1.73 sq.m. Ages 40-49 = 99 mL/min/1.73 sq.m. Ages 50-59 = 93 mL/min/1.73 sq.m. Ages 60-69 = 85 mL/min/1.73 sq.m. Ages 70+ = 75 mL/min/1.73 sq.m. Chronic Kidney Disease: Less than 60 mL/min/1.73 square meters End Stage Renal Disease: Less than 15 mL/min/1.73 square meters Performed By: #### C BC, ADIFF, ANEU, CMP, GFR #### [address] [address] GFR Non- 42 ml/min/1.73sqm Normal [facility] Comment on above: Result Comment: GFR Population mean for , Non- Americans Ages 20-29 = 116 mL/min/1.73 sq.m. Ages 30-39 = 107 mL/min/1.73 sq.m. Ages 40-49 = 99 mL/min/1.73 sq.m. Ages 50-59 = 93 mL/min/1.73 sq.m. Ages 60-69 = 85 mL/min/1.73 sq.m. Ages 70+ = 75 mL/min/1.73 sq.m. Chronic Kidney Disease: Less than 60 mL/min/1.73 square meters End Stage Renal Disease: Less than 15 mL/min/1.73 square meters Performed By: #### C BC, ADIFF, ANEU, CMP, GFR #### [address] [address] .NEUABSon 03-03-2024 Neutrophil, Absolute 4.3 10 3/mcL Normal 2.3-8.1 [facility] Comment on above: Performed By: #### C BC, ADIFF, ANEU, CMP, GFR #### [address] [address] A1Con 03-03-2024 Glucose [Mass/Vol] 131 mg/dL Normal [facility] Comment on above: Result Comment: Irma mated Average Glucose calculated by equation ((28.7xA1C)-46.7) Estimated average glucose (eAG) is a calculated value from Hemoglobin A1C and is personal financial representative of the average blood glucose level in the last 2-3 month period. Normal range: less than 114 mg/dL Performed By: #### C BC, ADIFF, ANEU, CMP, GFR #### [place] [address] HbA1c (Bld) [Mass fraction] 6.2 % Normal 4.3-6.4 [facility] Comment on above: Performed By: #### C BC, ADIFF, ANEU, CMP, GFR #### [place] [address] CBCon 03-03-2024 Erythrocyte distribution width (RBC) [Ratio] 13.3 % Normal 11.5-15.5 [facility] Comment on above: Performed By: #### C BC, ADIFF, ANEU, CMP, GFR #### [place] [address] Hematocrit (Bld) [Volume fraction] 38.9 % Normal 34.0-46.0 [facility] Comment on above: Performed By: #### C BC, ADIFF, ANEU, CMP, GFR #### [place] [address] Hgb 13.2 G/dL Normal 12.0-16.0 [facility] Comment on above: Performed By: #### C BC, ADIFF, ANEU, CMP, GFR #### [place] [address] MCH (RBC) [Entitic mass] 30.3 pg Normal 27.0-33.0 [facility] Comment on above: Performed By: #### C BC, ADIFF, ANEU, CMP, GFR #### [address] [address] MCHC 33.9 G/dL Normal 32.0-36.0 [facility] Comment on above: Performed By: #### C BC, ADIFF, ANEU, CMP, GFR #### [address] [address] MCV (RBC) [Entitic vol] 89.5 fL Normal 80.0-99.0 [facility] Comment on above: Performed By: #### C BC, ADIFF, ANEU, CMP, GFR #### [address] [address] Platelet 231 10 3/mcL Normal 150-450 [facility] Comment on above: Performed By: #### C BC, ADIFF, ANEU, CMP, GFR #### [address] [address] Platelet mean volume (Bld) [Entitic vol] 9.7 fL Normal 6.6-10.5 [facility] Comment on above: Performed By: #### C BC, ADIFF, ANEU, CMP, GFR #### [address] [address] RBC 4.34 10 6/mcL Normal 4.10-5.30 [facility] Comment on above: Performed By: #### C BC, ADIFF, ANEU, CMP, GFR #### [address] [address] WBC 7.1 10 3/mcL Normal 4.5-10.8 [facility] Comment on above: Performed By: #### C BC, ADIFF, ANEU, CMP, GFR #### [address] [address] CMPon 03-03-2024 Albumin Level 3.1 G/dL Low 3.5-5.0 [facility] Comment on above: Performed By: #### C BC, ADIFF, ANEU, CMP, GFR #### [address] [address] Albumin/Globulin [Mass ratio] 0.7 {ratio} Low 1.1-2.5 [facility] Comment on above: Performed By: #### C BC, ADIFF, ANEU, CMP, GFR #### [place] [address] ALP [Catalytic activity/Vol] 84 U/L Normal 40-135 [facility] Comment on above: Performed By: #### C BC, ADIFF, ANEU, CMP, GFR #### [place] [address] ALT [Catalytic activity/Vol] 18 U/L Normal 14-59 [facility] Comment on above: Performed By: #### C BC, ADIFF, ANEU, CMP, GFR #### [place] [address] AST [Catalytic activity/Vol] 14 U/L Normal 10-40 [facility] Comment on above: Performed By: #### C BC, ADIFF, ANEU, CMP, GFR #### [place] [address] Bili Total 0.7 mg/dL Normal 0.2-1.0 [facility] Comment on above: Result Comment: Use of this assay is not recommended for patients undergoing treatment with eltrombopag due to the potential for falsely elevated results. Performed By: #### C BC, ADIFF, ANEU, CMP, GFR #### [place] [address] BUN/Creatinine Ratio 18 ratio Normal 7-27 [facility] Comment on above: Performed By: #### C BC, ADIFF, ANEU, CMP, GFR #### [place] [address] Calcium [Mass/Vol] 9.3 mg/dL Normal 8.4-10.2 [facility] Comment on above: Performed By: #### C BC, ADIFF, ANEU, CMP, GFR #### [address] [address] Chloride [Moles/Vol] 102 mmol/L Normal 98-107 [facility] Comment on above: Performed By: #### C BC, ADIFF, ANEU, CMP, GFR #### [address] [address] CO2 [Moles/Vol] 33 mmol/L High 22-29 [facility] Comment on above: Performed By: #### C BC, ADIFF, ANEU, CMP, GFR #### [place] [address] Creatinine [Mass/Vol] 1.30 mg/dL High 0.55-1.02 [facility] Comment on above: Result Comment: Test ing performed on [employer] Dimension EXL analyzer using a modified kinetic Frandy technique. Performed By: #### C BC, ADIFF, ANEU, CMP, GFR #### [place] [address] Electrolyte Balance 6.0 mEq/L Normal 4.0-15.0 [facility] Comment on above: Performed By: #### C BC, ADIFF, ANEU, CMP, GFR #### [place] [address] Globulin 4.3 G/dL Normal [facility] Comment on above: Performed By: #### C BC, ADIFF, ANEU, CMP, GFR #### [place] [address] Glucose [Mass/Vol] 78 mg/dL Normal 70-105 [facility] Comment on above: Performed By: #### C BC, ADIFF, ANEU, CMP, GFR #### [place] [address] Potassium [Moles/Vol] 3.9 mmol/L Normal 3.5-5.1 [facility] Comment on above: Performed By: #### C BC, ADIFF, ANEU, CMP, GFR #### [place] [address] Sodium [Moles/Vol] 141 mmol/L Normal 136-145 [facility] Comment on above: Performed By: #### C BC, ADIFF, ANEU, CMP, GFR #### [address] [address] Total Protein 7.4 G/dL Normal 6.4-8.2 [facility] Comment on above: Performed By: #### C BC, ADIFF, ANEU, CMP, GFR #### [place] [id number], [place] [address] Urea nitrogen [Mass/Vol] 23 mg/dL High 08-31 [facility] Comment on above: Performed By: #### C BC, ADIFF, ANEU, CMP, GFR #### [address] [address] FT4on 03-03-2024 Free T4 [Mass/Vol] 1.14 ng/dL Normal 0.76-1.46 [facility] Comment on above: Performed By: #### C BC, ADIFF, ANEU, CMP, GFR #### [address] [address] LABORATORYOrdered By: SYSTEM SYSTEM on 03-03-2024 25-hydroxyvitamin D3 [Mass/Vol] 52.6 ng/mL Invalid Interpretation Code AO ADM SS Comment on above: Interpretive Data: I nterpretive Values Based on Total 25(OH) Vitamin D: Deficient <20 ng/mL Insufficient 20 - <30 ng/mL Sufficient 30-100 ng/mL Albumin BCP dye [Mass/Vol] 3.1 G/dL Low 3.5 - 5.0 G/dL AO ADM SS Albumin/Globulin [Mass ratio] 0.7 {ratio} Low 1.1 - 2.5 ratio AO ADM SS ALP [Catalytic activity/Vol] 84 U/L Normal 40 - 135 U/L AO ADM SS ALT With P-5'-P [Catalytic activity/Vol] 18 U/L Normal 14 - 59 U/L AO ADM SS AST With P-5'-P [Catalytic activity/Vol] 14 U/L Normal 10 - 40 U/L AO ADM SS Basophils (Bld) [#/Vol] 0.0 103/mcL Normal 0.0 - 0.2 10^3/mcL AO Workflow SS Basophils/100 WBC (Bld) 0.3 % Normal 0.0 - 2.5 % AO Workflow SS Bilirubin [Mass/Vol] 0.7 mg/dL Normal 0.2 - 1 .0 mg/dL AO ADM SS Comment on above: Interpretive Data: U se of this assay is not recommended for patients undergoing treatment with eltrombopag due to the potential for falsely elevated results. Calcium [Mass/Vol] 9.3 mg/dL Normal 8.4 - 10. 2 mg/dL AO ADM SS Chloride [Moles/Vol] 102 mmol/L Normal 98 - 10 7 mmol/L AO ADM SS CO2 [Moles/Vol] 33 mmol/L High 22 - 29 mmol/L AO ADM SS Creatinine [Mass/Vol] 1.30 mg/dL High 0.55 - 1.02 mg/dL AO ADM SS Comment on above: Interpretive Data: T esting performed on [employer] Dimension EXL analyzer using a modified kinetic Frandy technique. Electrolyte Balance 6.0 mEq/L Normal 4.0 - 15 .0 mEq/L AO ADM SS Eosinophil, Absolute 0.2 103/mcL Normal 0.0 - 0 .7 10^3/mcL AO Workflow SS Eosinophils/100 WBC (Bld) 2.4 % Normal 0.0 - 7.0 % AO Workflow SS Erythrocyte distribution width (RBC) [Ratio] 13.3 % Normal 11.5 - 15.5 % AO Workflow SS Free T4 [Mass/Vol] 1.14 ng/dL Normal 0.76 - 1. 46 ng/dL AO ADM SS GFR/1.73 sq M.predicted among blacks MDRD (S/P/Bld) [Vol rate/Area] 51 ml/min/1.73sqm Invalid Interpretation Code AO Chemistry S Comment on above: Interpretive Data: GFR Population mean for , Non- Americans Ages 20-29 = 116 mL/min/1.73 sq.m. Ages 30-39 = 107 mL/min/1.73 sq.m. Ages 40-49 = 99 mL/min/1.73 sq.m. Ages 50-59 = 93 mL/min/1.73 sq.m. Ages 60-69 = 85 mL/min/1.73 sq.m. Ages 70+ = 75 mL/min/1.73 sq.m. Chronic Kidney Disease: Less than 60 mL/min/1.73 square meters End Stage Renal Disease: Less than 15 mL/min/1.73 square meters GFR/1.73 sq M.predicted among non-blacks MDRD (S/P/Bld) [Vol rate/Area] 42 ml/min/1.73sqm Invalid Interpretation Code AO Chemistry S Comment on above: Interpretive Data: GFR Population mean for , Non- Americans Ages 20-29 = 116 mL/min/1.73 sq.m. Ages 30-39 = 107 mL/min/1.73 sq.m. Ages 40-49 = 99 mL/min/1.73 sq.m. Ages 50-59 = 93 mL/min/1.73 sq.m. Ages 60-69 = 85 mL/min/1.73 sq.m. Ages 70+ = 75 mL/min/1.73 sq.m. Chronic Kidney Disease: Less than 60 mL/min/1.73 square meters End Stage Renal Disease: Less than 15 mL/min/1.73 square meters Globulin 4.3 G/dL Invalid Interpretation Code AO ADM SS Glucose [Mass/Vol] 78 mg/dL Normal 70 - 105 mg/dL AO ADM SS Glucose [Mass/Vol] 131 mg/dL Invalid Interpretation Code AO Chemistry S Comment on above: Interpretive Data: E stimated average glucose (eAG) is a calculated value from Hemoglobin A1C and is personal financial representative of the average blood glucose level in the last 2-3 month period. Normal range: less than 114 mg/dL HbA1c (Bld) [Mass fraction] 6.2 % Normal 4.3 - 6.4 % AO ADM SS Hematocrit (Bld) [Volume fraction] 38.9 % Normal 34.0 - 46.0 % AO Workflow SS Hemoglobin (Bld) [Mass/Vol] 13.2 G/dL Normal 12.0 - 16.0 G/dL AO Workflow SS Lymphocytes (Bld) [#/Vol] 2.0 103/mcL Normal 0.9 - 4.3 10^3/mcL AO Workflow SS Lymphocytes/100 WBC (Bld) 28.1 % Normal 20.0 - 40.0 % AO Workflow SS MCH (RBC) [Entitic mass] 30.3 pg Normal 27.0 - 33.0 pg AO Workflow SS MCHC 33.9 G/dL Normal 32.0 - 36.0 G/dL AO Workflow SS MCV (RBC) [Entitic vol] 89.5 fL Normal 80.0 - 99.0 fL AO Workflow SS Monocytes (Bld) [#/Vol] 0.6 103/mcL Normal 0.1 - 1.4 10^3/mcL AO Workflow SS Monocytes/100 WBC (Bld) 9.1 % Normal 2.0 - 13.0 % AO Workflow SS Neutrophils (Bld) [#/Vol] 4.3 103/mcL Normal 2.3 - 8.1 10^3/mcL AO Workflow SS Neutrophils/100 WBC (Bld) 60.1 % Normal 50.0 - 75.0 % AO Workflow SS Parathyrin.intact [Mass/Vol] 106.5 pg/mL High 18.5 - 88.0 pg/mL AH ADM SS Platelet mean volume (Bld) [Entitic vol] 9.7 fL Normal 6.6 - 10.5 fL AO Workflow SS Platelets (Bld) [#/Vol] 231 103/mcL Normal 150 - 450 10^3/mcL AO Workflow SS Potassium [Moles/Vol] 3.9 mmol/L Normal 3.5 - 5.1 mmol/L AO ADM SS Protein [Mass/Vol] 7.4 G/dL Normal 6.4 - 8.2 G/dL AO ADM SS RBC (Bld) [#/Vol] 4.34 106/mcL Normal 4.10 - 5.3 0 10^6/mcL AO Workflow SS Sodium [Moles/Vol] 141 mmol/L Normal 136 - 145 mmol/L AO ADM SS TSH Qn 5.51 m[IU]/L High 0.36 - 3.74 mcIU/mL AO ADM SS Urea nitrogen [Mass/Vol] 23 mg/dL High 7 - 18 mg/dL AO ADM SS Urea nitrogen/Creatinine [Mass ratio] 18 ratio Normal 7 - 27 ratio AO ADM SS Uric Acid Lvl 8.7 mg/dL High 2.6 - 6.2 mg/dL AO ADM SS WBC (Bld) [#/Vol] 7.1 103/mcL Normal 4.5 - 10.8 10^3/mcL AO Workflow SS LABORATORYOrdered By: Tamera Sung on 03-03-2024 Cholesterol [Mass/Vol] 135 mg/dL Normal 0 - 200 mg/dL AO ADM SS Comment on above: Interpretive Data: C holesterol Reference Interval: Less than 200 Desirable 200-239 Borderline high risk 240 and above High risk Cholesterol in HDL [Mass/Vol] 41 mg/dL Normal 40 - 60 mg/dL AO ADM SS Cholesterol in LDL [Mass/Vol] 77 mg/dL Normal 0 - 130 mg/dL AO ADM SS Triglyceride [Mass/Vol] 86 mg/dL Normal 0 - 150 mg/dL AO ADM SS Comment on above: Interpretive Data: T riglyceride Reference Interval: Less than 150 Normal 150-199 Borderline high risk 200-499 High risk 500 or higher Very high risk LIPIDon 03-03-2024 Cholesterol [Mass/Vol] 135 mg/dL Normal 0-200 [facility] Comment on above: Result Comment: Chol esterol Reference Interval: Less than 200 Desirable 200-239 Borderline high risk 240 and above High risk Performed By: #### C BC, ADIFF, ANEU, CMP, GFR #### [address] [address] Cholesterol in HDL [Mass/Vol] 41 mg/dL Normal 40-60 [facility] Comment on above: Performed By: #### C BC, ADIFF, ANEU, CMP, GFR #### [address] [address] Cholesterol in LDL [Mass/Vol] 77 mg/dL Normal 0-130 [facility] Comment on above: Performed By: #### C BC, ADIFF, ANEU, CMP, GFR #### [address] [address] Triglyceride [Mass/Vol] 86 mg/dL Normal 0-150 [facility] Comment on above: Result Comment: Trig lyceride Reference Interval: Less than 150 Normal 150-199 Borderline high risk 200-499 High risk 500 or higher Very high risk Performed By: #### C BC, ADIFF, ANEU, CMP, GFR #### [address] [address] TSHon 03-03-2024 TSH Qn 5.51 m[IU]/L High 0.36-3.74 [facility] Comment on above: Performed By: #### C BC, ADIFF, ANEU, CMP, GFR #### [address] [address] URICon 03-03-2024 Uric Acid Lvl 8.7 mg/dL High 2.6-6.2 [facility] Comment on above: Performed By: #### C BC, ADIFF, ANEU, CMP, GFR #### [address] [address] VIDHon 03-03-2024 Vit. D 25-Hydroxy 52.6 ng/mL Normal [facility] Comment on above: Result Comment: Inte rpretive Values Based on Total 25(OH) Vitamin D: Deficient <20 ng/mL Insufficient 20 - <30 ng/mL Sufficient 30-100 ng/mL Performed By: #### C BC, ADIFF, ANEU, CMP, GFR #### [address] [address] .Auto Diffon 07-08-2023 Basophil, Absolute 0.0 10 3/mcL Normal 0.0-0.2 [facility] ([place]) Comment on above: Performed By: #### A TITO GARCIA, PBNP, ADIFF, CBC, BMP, DIMER, GFR, TROPHS #### [address] [address] Basophils/100 WBC (Bld) 0.4 % Normal 0.0-2.5 [facility] ([place]) Comment on above: Performed By: #### A TITO GARCIA, PBNP, ADIFF, CBC, BMP, DIMER, GFR, TROPHS #### [address] [address] Eosinophil, Absolute 0.2 10 3/mcL Normal 0.0-0.4 [facility] ([place]) Comment on above: Performed By: #### A TITO GARCIA, PBNP, ADIFF, CBC, BMP, DIMER, GFR, TROPHS #### [address] [address] Eosinophils/100 WBC (Bld) 1.9 % Normal 0.0-7.0 [facility] ([place]) Comment on above: Performed By: #### A TITO GARCIA, PBNP, ADIFF, CBC, BMP, DIMER, GFR, TROPHS #### [address] [address] Lymphocyte, Absolute 2.9 10 3/mcL Normal 0.8-3.9 [facility] ([place]) Comment on above: Performed By: #### A TITO GARCIA, PBNP, ADIFF, CBC, BMP, DIMER, GFR, TROPHS #### [address] [address] Lymphocytes/100 WBC (Bld) 31.3 % Normal 10.0-50.0 [facility] ([place]) Comment on above: Performed By: #### A TITO GARCIA, PBNP, ADIFF, CBC, BMP, DIMER, GFR, TROPHS #### [address] [address] Monocyte, Absolute 0.7 10 3/mcL Normal 0.2-1.0 [facility] ([place]) Comment on above: Performed By: #### A TITO GARCIA, PBNP, ADIFF, CBC, BMP, DIMER, GFR, TROPHS #### [address] [address] Monocytes/100 WBC (Bld) 7.6 % Normal 1.7-13.0 [facility] ([place]) Comment on above: Performed By: #### A TITO GARCIA, PBNP, ADIFF, CBC, BMP, DIMER, GFR, TROPHS #### [address] [address] Neutrophils/100 WBC (Bld) 58.8 % Normal 37.0-80.0 [facility] ([place]) Comment on above: Performed By: #### A TITO GARCIA, PBNP, ADIFF, CBC, BMP, DIMER, GFR, TROPHS #### [address] [address] .GFRon 07-08-2023 GFR 53 ml/min/1.73sqm Normal [facility] ([place]) Comment on above: Result Comment: GFR Population mean for , Non- Americans Ages 20-29 = 116 mL/min/1.73 sq.m. Ages 30-39 = 107 mL/min/1.73 sq.m. Ages 40-49 = 99 mL/min/1.73 sq.m. Ages 50-59 = 93 mL/min/1.73 sq.m. Ages 60-69 = 85 mL/min/1.73 sq.m. Ages 70+ = 75 mL/min/1.73 sq.m. Chronic Kidney Disease: Less than 60 mL/min/1.73 square meters End Stage Renal Disease: Less than 15 mL/min/1.73 square meters Performed By: #### A TITO GARCIA, JADYN, ADIFF, CBC, BMP, DIMER, GFR, TROPHS #### [address] [address] GFR Non- 44 ml/min/1.73sqm Normal [facility] ([place]) Comment on above: Result Comment: GFR Population mean for , Non- Americans Ages 20-29 = 116 mL/min/1.73 sq.m. Ages 30-39 = 107 mL/min/1.73 sq.m. Ages 40-49 = 99 mL/min/1.73 sq.m. Ages 50-59 = 93 mL/min/1.73 sq.m. Ages 60-69 = 85 mL/min/1.73 sq.m. Ages 70+ = 75 mL/min/1.73 sq.m. Chronic Kidney Disease: Less than 60 mL/min/1.73 square meters End Stage Renal Disease: Less than 15 mL/min/1.73 square meters Performed By: #### A TITO GARCIA, JADYN, ADIFF, CBC, BMP, DIMER, GFR, TROPHS #### [address] [address] .NEUABSon 07-08-2023 Neutrophil, Absolute 5.5 10 3/mcL Normal 2.9-6.2 [facility] ([place]) Comment on above: Performed By: #### A TITO GARCIA, JADYN, ADIFF, CBC, BMP, DIMER, GFR, TROPHS #### [place] [address] A1Con 07-08-2023 HbA1c (Bld) [Mass fraction] 7.8 % High 4.3-6.4 [facility] ([place]) Comment on above: Performed By: #### A TITO GARCIA, JADYN, ADIFF, CBC, BMP, DIMER, GFR, TROPHS #### [place] [address] CBCon 07-08-2023 Erythrocyte distribution width (RBC) [Ratio] 12.5 % Normal 11.5-14.5 [facility] ([place]) Comment on above: Performed By: #### A TITO GARCIA, JADYN, ADIFF, CBC, BMP, DIMER, GFR, TROPHS #### [place] [address] Hematocrit (Bld) [Volume fraction] 39.0 % Normal 37.0-47.0 [facility] ([place]) Comment on above: Performed By: #### A TITO GARCIA, ELVIANP, ADIFF, CBC, BMP, DIMER, GFR, TROPHS #### [place] [address] Hgb 14.0 G/dL Normal 12.0-16.0 [facility] ([place]) Comment on above: Performed By: #### A TITO GARCIA, JADYN, ADIFF, CBC, BMP, DIMER, GFR, TROPHS #### [place] [address] MCH (RBC) [Entitic mass] 31.8 pg High 27.0-31.2 [facility] ([place]) Comment on above: Performed By: #### A TITO GARCIA, ELVIANP, ADIFF, CBC, BMP, DIMER, GFR, TROPHS #### [place] [address] MCHC 35.9 G/dL Normal 33.0-37.0 [facility] ([place]) Comment on above: Performed By: #### A TITO GARCIA, ELVIANP, ADIFF, CBC, BMP, DIMER, GFR, TROPHS #### [address] [address] MCV (RBC) [Entitic vol] 88.5 fL Normal 80.0-94.0 [facility] ([place]) Comment on above: Performed By: #### A TITO GARCIA, JADYN, ADIFF, CBC, BMP, DIMER, GFR, TROPHS #### [address] [address] Platelet 250 10 3/mcL Normal 130-400 [facility] ([place]) Comment on above: Performed By: #### A TITO GARCIA, JADYN, ADIFF, CBC, BMP, DIMER, GFR, TROPHS #### [address] [address] Platelet mean volume (Bld) [Entitic vol] 10.1 fL Normal 7.4-10.4 [facility] ([place]) Comment on above: Performed By: #### A TITO GARCIA, JADYN, ADIFF, CBC, BMP, DIMER, GFR, TROPHS #### [address] [address] RBC 4.41 10 6/mcL Normal 4.20-5.40 [facility] ([place]) Comment on above: Performed By: #### A TITO GARCIA, JADYN, ADIFF, CBC, BMP, DIMER, GFR, TROPHS #### [address] [address] WBC 9.3 10 3/mcL Normal 4.6-10.8 [facility] ([place]) Comment on above: Performed By: #### A TITO GARCIA, PBNP, ADIFF, CBC, BMP, DIMER, GFR, TROPHS #### [address] [address] CMPon 07-08-2023 Albumin Level 3.6 G/dL Normal 3.5-5.0 [facility] ([place]) Comment on above: Performed By: #### A TITO GARCIA, JADYN, ADIFF, CBC, BMP, DIMER, GFR, TROPHS #### [address] [address] Albumin/Globulin [Mass ratio] 0.9 {ratio} Low 1.1-2.5 [facility] ([place]) Comment on above: Performed By: #### A TITO GARCIA, ELVIANP, ADIFF, CBC, BMP, DIMER, GFR, TROPHS #### [address] [address] ALP [Catalytic activity/Vol] 90 U/L Normal 40-135 [facility] ([place]) Comment on above: Performed By: #### A TITO GARCIA, PBNP, ADIFF, CBC, BMP, DIMER, GFR, TROPHS #### [address] [address] ALT [Catalytic activity/Vol] 14 U/L Normal 14-59 [facility] ([place]) Comment on above: Performed By: #### A TITO GARCIA, JADYN, ADIFF, CBC, BMP, DIMER, GFR, TROPHS #### [address] [address] AST [Catalytic activity/Vol] 15 U/L Normal 10-40 [facility] ([place]) Comment on above: Performed By: #### A TITO GACRIA, JADYN, ADIFF, CBC, BMP, DIMER, GFR, TROPHS #### [address] [address] Bili Total 0.6 mg/dL Normal 0.2-1.0 [facility] ([place]) Comment on above: Result Comment: Use of this assay is not recommended for patients undergoing treatment with eltrombopag due to the potential for falsely elevated results. Performed By: #### A TITO GARCIA, JADYN, ADIFF, CBC, BMP, DIMER, GFR, TROPHS #### [address] [address] BUN/Creatinine Ratio 16 ratio Normal 7-27 [facility] ([place]) Comment on above: Performed By: #### A TITO GARCIA, JADYN, ADIFF, CBC, BMP, DIMER, GFR, TROPHS #### [address] [address] Calcium [Mass/Vol] 9.1 mg/dL Normal 8.4-10.2 [facility] ([place]) Comment on above: Performed By: #### A TITO GARCIA, JADYN, ADIFF, CBC, BMP, DIMER, GFR, TROPHS #### [address] [address] Chloride [Moles/Vol] 102 mmol/L Normal 98-107 [facility] ([place]) Comment on above: Performed By: #### A TITO GARCIA, JADYN, ADIFF, CBC, BMP, DIMER, GFR, TROPHS #### [address] [address] CO2 [Moles/Vol] 31 mmol/L High 22-29 [facility] ([place]) Comment on above: Performed By: #### A TITO GARCIA, JADYN, ADIFF, CBC, BMP, DIMER, GFR, TROPHS #### [address] [address] Creatinine [Mass/Vol] 1.27 mg/dL High 0.55-1.02 [facility] ([place]) Comment on above: Performed By: #### A TITO GARCIA, JADYN, ADIFF, CBC, BMP, DIMER, GFR, TROPHS #### [address] [address] Electrolyte Balance 9.0 mEq/L Normal 4.0-15.0 [facility] ([place]) Comment on above: Performed By: #### A TITO GARCIA, JADYN, ADIFF, CBC, BMP, DIMER, GFR, TROPHS #### [address] [address] Globulin 3.9 G/dL Normal [facility] ([place]) Comment on above: Performed By: #### A TITO GARCIA, JADYN, ADIFF, CBC, BMP, DIMER, GFR, TROPHS #### [address] [address] Glucose [Mass/Vol] 149 mg/dL High 70-105 [facility] ([place]) Comment on above: Performed By: #### A TITO GARCIA, PBCANDIDO, ADIFF, CBC, BMP, DIMER, GFR, TROPHS #### [address] [address] Potassium [Moles/Vol] 4.5 mmol/L Normal 3.5-5.1 [facility] ([place]) Comment on above: Performed By: #### A TITO GARCIA, JADYN, ADIFF, CBC, BMP, DIMER, GFR, TROPHS #### [address] [address] Sodium [Moles/Vol] 142 mmol/L Normal 136-145 [facility] ([place]) Comment on above: Performed By: #### A TITO GARCIA, JADYN, ADIFF, CBC, BMP, DIMER, GFR, TROPHS #### [address] [address] Total Protein 7.5 G/dL Normal 6.4-8.2 [facility] ([place]) Comment on above: Performed By: #### A TITO GARCIA, JADYN, ADIFF, CBC, BMP, DIMER, GFR, TROPHS #### [address] [address] Urea nitrogen [Mass/Vol] 20 mg/dL High 7-18 [facility] ([place]) Comment on above: Performed By: #### A TITO GARCIA, JADYN, ADIFF, CBC, BMP, DIMER, GFR, TROPHS #### [place] [address] FEon 07-08-2023 Iron [Mass/Vol] 61 ug/dL Normal 50-170 [facility] ([place]) Comment on above: Performed By: #### A TITO GARCIA, JADYN, ADIFF, CBC, BMP, DIMER, GFR, TROPHS #### [place] [address] IBCon 07-08-2023 TIBC 319 mcg/dL Normal 250-450 [facility] ([place]) Comment on above: Performed By: #### A TITO GARCIA, ELVIANP, ADIFF, CBC, BMP, DIMER, GFR, TROPHS #### [address] [place], [place] [address] LABORATORYOrdered By: SYSTEM SYSTEM on 07-08-2023 25-hydroxyvitamin D3 [Mass/Vol] 57.0 ng/mL Invalid Interpretation Code AO ADM SS Comment on above: Interpretive Data: I nterpretive Values Based on Total 25(OH) Vitamin D: Deficient <20 ng/mL Insufficient 20 - <30 ng/mL Sufficient 30-100 ng/mL Albumin BCP dye [Mass/Vol] 3.6 G/dL Normal 3.5 - 5.0 G/dL AO ADM SS Albumin/Globulin [Mass ratio] 0.9 {ratio} Low 1.1 - 2.5 ratio AO ADM SS ALP [Catalytic activity/Vol] 90 U/L Normal 40 - 135 U/L AO ADM SS ALT With P-5'-P [Catalytic activity/Vol] 14 U/L Normal 14 - 59 U/L AO ADM SS AST With P-5'-P [Catalytic activity/Vol] 15 U/L Normal 10 - 40 U/L AO ADM SS Basophil, Absolute 0.0 103/mcL Normal 0.0 - 0.2 10^3/mcL AO Workflow SS Basophils/100 WBC (Bld) 0.4 % Normal 0.0 - 2.5 % AO Workflow SS Bilirubin [Mass/Vol] 0.6 mg/dL Normal 0.2 - 1 .0 mg/dL AO ADM SS Comment on above: Interpretive Data: U se of this assay is not recommended for patients undergoing treatment with eltrombopag due to the potential for falsely elevated results. Calcium [Mass/Vol] 9.1 mg/dL Normal 8.4 - 10. 2 mg/dL AO ADM SS Chloride [Moles/Vol] 102 mmol/L Normal 98 - 10 7 mmol/L AO ADM SS CO2 [Moles/Vol] 31 mmol/L High 22 - 29 mmol/L AO ADM SS Creatinine [Mass/Vol] 1.27 mg/dL High 0.55 - 1.02 mg/dL AO ADM SS Electrolyte Balance 9.0 mEq/L Normal 4.0 - 15 .0 mEq/L AO ADM SS Eosinophil, Absolute 0.2 103/mcL Normal 0.0 - 0 .4 10^3/mcL AO Workflow SS Eosinophils/100 WBC (Bld) 1.9 % Normal 0.0 - 7.0 % AO Workflow SS Erythrocyte distribution width (RBC) [Ratio] 12.5 % Normal 11.5 - 14.5 % AO Workflow SS GFR/1.73 sq M.predicted among blacks MDRD (S/P/Bld) [Vol rate/Area] 53 ml/min/1.73sqm Invalid Interpretation Code AO Chemistry S Comment on above: Interpretive Data: GFR Population mean for , Non- Americans Ages 20-29 = 116 mL/min/1.73 sq.m. Ages 30-39 = 107 mL/min/1.73 sq.m. Ages 40-49 = 99 mL/min/1.73 sq.m. Ages 50-59 = 93 mL/min/1.73 sq.m. Ages 60-69 = 85 mL/min/1.73 sq.m. Ages 70+ = 75 mL/min/1.73 sq.m. Chronic Kidney Disease: Less than 60 mL/min/1.73 square meters End Stage Renal Disease: Less than 15 mL/min/1.73 square meters GFR/1.73 sq M.predicted among non-blacks MDRD (S/P/Bld) [Vol rate/Area] 44 ml/min/1.73sqm Invalid Interpretation Code AO Chemistry S Comment on above: Interpretive Data: GFR Population mean for , Non- Americans Ages 20-29 = 116 mL/min/1.73 sq.m. Ages 30-39 = 107 mL/min/1.73 sq.m. Ages 40-49 = 99 mL/min/1.73 sq.m. Ages 50-59 = 93 mL/min/1.73 sq.m. Ages 60-69 = 85 mL/min/1.73 sq.m. Ages 70+ = 75 mL/min/1.73 sq.m. Chronic Kidney Disease: Less than 60 mL/min/1.73 square meters End Stage Renal Disease: Less than 15 mL/min/1.73 square meters Globulin 3.9 G/dL Invalid Interpretation Code AO ADM SS Glucose [Mass/Vol] 149 mg/dL High 70 - 105 mg/dL AO ADM SS HbA1c (Bld) [Mass fraction] 7.8 % High 4.3 - 6.4 % AO ADM SS Hematocrit (Bld) [Volume fraction] 39.0 % Normal 37.0 - 47.0 % AO Workflow SS Hemoglobin (Bld) [Mass/Vol] 14.0 G/dL Normal 12.0 - 16.0 G/dL AO Workflow SS Iron [Mass/Vol] 61 ug/dL Normal 50 - 170 mcg/dL AO ADM SS Iron binding capacity [Mass/Vol] 319 mcg/dL Normal 250 - 450 mcg/dL AO ADM SS Lymphocyte, Absolute 2.9 103/mcL Normal 0.8 - 3 .9 10^3/mcL AO Workflow SS Lymphocytes/100 WBC (Bld) 31.3 % Normal 10.0 - 50.0 % AO Workflow SS MCH (RBC) [Entitic mass] 31.8 pg High 27.0 - 31.2 pg AO Workflow SS MCHC 35.9 G/dL Normal 33.0 - 37.0 G/dL AO Workflow SS MCV (RBC) [Entitic vol] 88.5 fL Normal 80.0 - 94.0 fL AO Workflow SS Monocyte, Absolute 0.7 103/mcL Normal 0.2 - 1.0 10^3/mcL AO Workflow SS Monocytes/100 WBC (Bld) 7.6 % Normal 1.7 - 13.0 % AO Workflow SS Neutrophil, Absolute 5.5 103/mcL Normal 2.9 - 6 .2 10^3/mcL AO Workflow SS Neutrophils/100 WBC (Bld) 58.8 % Normal 37.0 - 80.0 % AO Workflow SS Parathyrin.intact [Mass/Vol] 105.0 pg/mL High 18.5 - 88.0 pg/mL AH ADM SS Platelet mean volume (Bld) [Entitic vol] 10.1 fL Normal 7.4 - 10.4 fL AO Workflow SS Platelets (Bld) [#/Vol] 250 103/mcL Normal 130 - 400 10^3/mcL AO Workflow SS Potassium [Moles/Vol] 4.5 mmol/L Normal 3.5 - 5.1 mmol/L AO ADM SS Protein [Mass/Vol] 7.5 G/dL Normal 6.4 - 8.2 G/dL AO ADM SS RBC (Bld) [#/Vol] 4.41 106/mcL Normal 4.20 - 5.4 0 10^6/mcL AO Workflow SS Sodium [Moles/Vol] 142 mmol/L Normal 136 - 145 mmol/L AO ADM SS TSH Qn 6.46 m[IU]/L High 0.36 - 3.74 mcIU/mL AO ADM SS Urea nitrogen [Mass/Vol] 20 mg/dL High 7 - 18 mg/dL AO ADM SS Urea nitrogen/Creatinine [Mass ratio] 16 ratio Normal 7 - 27 ratio AO ADM SS Uric Acid Lvl 9.9 mg/dL High 2.6 - 6.2 mg/dL AO ADM SS WBC (Bld) [#/Vol] 9.3 103/mcL Normal 4.6 - 10.8 10^3/mcL AO Workflow SS LABORATORYOrdered By: Jonna Isabel on 07-08-2023 Cholesterol [Mass/Vol] 182 mg/dL Normal 0 - 200 mg/dL AO ADM SS Comment on above: Interpretive Data: C holesterol Reference Interval: Less than 200 Desirable 200-239 Borderline high risk 240 and above High risk Cholesterol in HDL [Mass/Vol] 43 mg/dL Normal 40 - 60 mg/dL AO ADM SS Cholesterol in LDL [Mass/Vol] 109 mg/dL Normal 0 - 130 mg/dL AO ADM SS Triglyceride [Mass/Vol] 149 mg/dL Normal 0 - 150 mg/dL AO ADM SS Comment on above: Interpretive Data: T riglyceride Reference Interval: Less than 150 Normal 150-199 Borderline high risk 200-499 High risk 500 or higher Very high risk LIPIDon 07-08-2023 Cholesterol [Mass/Vol] 182 mg/dL Normal 0-200 [facility] ([place]) Comment on above: Result Comment: Chol esterol Reference Interval: Less than 200 Desirable 200-239 Borderline high risk 240 and above High risk Performed By: #### A TITO GARCIA, JADYN, ADIFF, CBC, BMP, DIMER, GFR, TROPHS #### [address] [address] Cholesterol in HDL [Mass/Vol] 43 mg/dL Normal 40-60 [facility] ([place]) Comment on above: Performed By: #### A TITO GARCIA, JADYN, ADIFF, CBC, BMP, DIMER, GFR, TROPHS #### [address] [address] Cholesterol in LDL [Mass/Vol] 109 mg/dL Normal 0-130 [facility] ([place]) Comment on above: Performed By: #### A TITO GARCIA, JADYN, RANDIFF, CBC, BMP, DIMER, GFR, TROPHS #### [address] [address] Triglyceride [Mass/Vol] 149 mg/dL Normal 0-150 [facility] ([place]) Comment on above: Result Comment: Trig lyceride Reference Interval: Less than 150 Normal 150-199 Borderline high risk 200-499 High risk 500 or higher Very high risk Performed By: #### A TITO GARCIA, JADYN, ADIFF, CBC, BMP, DIMER, GFR, TROPHS #### [place] [address] PTHon 07-08-2023 PTH, Intact 105.0 pg/mL High 18.5-88.0 [facility] ([place]) Comment on above: Performed By: #### A TITO GARCIA, JADYN, ADIFF, CBC, BMP, DIMER, GFR, TROPHS #### [place] [address] TSHon 07-08-2023 TSH Qn 6.46 m[IU]/L High 0.36-3.74 [facility] ([place]) Comment on above: Performed By: #### A TITO GARCIA, JADYN, JUANITA, CBC, BMP, DIMER, GFR, TROPHS #### [place] [address] URICon 07-08-2023 Uric Acid Lvl 9.9 mg/dL High 2.6-6.2 [facility] ([place]) Comment on above: Performed By: #### A TITO GARCIA, JADYN, ADERICA, CBC, BMP, DIMER, GFR, TROPHS #### [place] [address] VIDHon 07-08-2023 Vit. D 25-Hydroxy 57.0 ng/mL Normal [facility] ([place]) Comment on above: Result Comment: Inte rpretive Values Based on Total 25(OH) Vitamin D: Deficient <20 ng/mL Insufficient 20 - <30 ng/mL Sufficient 30-100 ng/mL Performed By: #### A TITO GARCIA, JADYN, ADIFF, CBC, BMP, DIMER, GFR, TROPHS #### [address] [address] CEFTRIAXONE:SUSC:PT:ISOLATE: ORDQN:MICon 05-03-2023 cefTRIAXone JAVON [Susc] >100,000 cfu/ml Escherichia coli [facility] cefTRIAXone JAVON [Susc]on Escherichia coli Escherichia coli [facility] RENINon 02-04-2023 Renin Activity 3.599 ng/mL/hr Normal 0.167-5.380 [facility] ([place]) Comment on above: Result Comment: This test was developed and its performance characteristics determined by [facility]. It has not been cleared or approved by the Food and Drug Administration. Performed At: [address] [id number] Keshawn Arroyo MD Ph:[phone] Performed By: #### A TITO GARCIA, JADYN, ADIFF, CBC, BMP, DIMER, GFR, TROPHS #### [address] [address] .Auto Diffon 01-29-2023 Basophil, Absolute 0.0 10 3/mcL Normal 0.0-0.2 [facility] ([place]) Comment on above: Performed By: #### A TITO GARCIA, JADYN, ADIFF, CBC, BMP, DIMER, GFR, TROPHS #### [place] [id number] Basophils/100 WBC (Bld) 0.4 % Normal 0.0-2.5 [facility] ([place]) Comment on above: Performed By: #### A TITO GARCIA, JADYN, ADIFF, CBC, BMP, DIMER, GFR, TROPHS #### [address] [address] Eosinophil, Absolute 0.2 10 3/mcL Normal 0.0-0.4 [facility] ([place]) Comment on above: Performed By: #### A TITO GARCIA, PBNP, ADIFF, CBC, BMP, DIMER, GFR, TROPHS #### [address] [address] Eosinophils/100 WBC (Bld) 2.2 % Normal 0.0-7.0 [facility] ([place]) Comment on above: Performed By: #### A TITO GARCIA, PBNP, ADIFF, CBC, BMP, DIMER, GFR, TROPHS #### [address] [address] Lymphocyte, Absolute 3.2 10 3/mcL Normal 0.8-3.9 [facility] ([place]) Comment on above: Performed By: #### A TITO GARCIA, PBNP, ADIFF, CBC, BMP, DIMER, GFR, TROPHS #### [address] [address] Lymphocytes/100 WBC (Bld) 33.8 % Normal 10.0-50.0 [facility] ([place]) Comment on above: Performed By: #### A TITO GARCIA, PBNP, ADIFF, CBC, BMP, DIMER, GFR, TROPHS #### [address] [address] Monocyte, Absolute 0.7 10 3/mcL Normal 0.2-1.0 [facility] ([place]) Comment on above: Performed By: #### A TITO GARCIA, PBNP, ADIFF, CBC, BMP, DIMER, GFR, TROPHS #### [address] [address] Monocytes/100 WBC (Bld) 7.0 % Normal 1.7-13.0 [facility] ([place]) Comment on above: Performed By: #### A TITO GARCIA, PBNP, ADIFF, CBC, BMP, DIMER, GFR, TROPHS #### [address] [address] Neutrophils/100 WBC (Bld) 56.6 % Normal 37.0-80.0 [facility] ([place]) Comment on above: Performed By: #### A TITO GARCIA, PBNP, ADIFF, CBC, BMP, DIMER, GFR, TROPHS #### [address] [address] .GFRon 01-29-2023 GFR 54 ml/min/1.73sqm Normal [facility] ([place]) Comment on above: Result Comment: GFR Population mean for , Non- Americans Ages 20-29 = 116 mL/min/1.73 sq.m. Ages 30-39 = 107 mL/min/1.73 sq.m. Ages 40-49 = 99 mL/min/1.73 sq.m. Ages 50-59 = 93 mL/min/1.73 sq.m. Ages 60-69 = 85 mL/min/1.73 sq.m. Ages 70+ = 75 mL/min/1.73 sq.m. Chronic Kidney Disease: Less than 60 mL/min/1.73 square meters End Stage Renal Disease: Less than 15 mL/min/1.73 square meters Performed By: #### A TITO GARCIA, JADYN, ADIFF, CBC, BMP, DIMER, GFR, TROPHS #### [address] [address] GFR Non- 45 ml/min/1.73sqm Normal [facility] ([place]) Comment on above: Result Comment: GFR Population mean for , Non- Americans Ages 20-29 = 116 mL/min/1.73 sq.m. Ages 30-39 = 107 mL/min/1.73 sq.m. Ages 40-49 = 99 mL/min/1.73 sq.m. Ages 50-59 = 93 mL/min/1.73 sq.m. Ages 60-69 = 85 mL/min/1.73 sq.m. Ages 70+ = 75 mL/min/1.73 sq.m. Chronic Kidney Disease: Less than 60 mL/min/1.73 square meters End Stage Renal Disease: Less than 15 mL/min/1.73 square meters Performed By: #### A TITO GARCIA, JADYN, ADIFF, CBC, BMP, DIMER, GFR, TROPHS #### [address] [address] .NEUABSon 01-29-2023 Neutrophil, Absolute 5.4 10 3/mcL Normal 2.9-6.2 [facility] [place] Comment on above: Performed By: #### A TITO GARCIA, JADYN, ADIFF, CBC, BMP, DIMER, GFR, TROPHS #### [address] [address] A1Con 01-29-2023 HbA1c (Bld) [Mass fraction] 9.0 % High 4.3-6.4 [facility] ([place]) Comment on above: Performed By: #### A TITO GARCIA, JADYN, ADIFF, CBC, BMP, DIMER, GFR, TROPHS #### [place] [address] CBCon 01-29-2023 Erythrocyte distribution width (RBC) [Ratio] 13.2 % Normal 11.5-14.5 [facility] ([place]) Comment on above: Performed By: #### A TITO GARCIA, JADYN, ADIFF, CBC, BMP, DIMER, GFR, TROPHS #### [address] [address] Hematocrit (Bld) [Volume fraction] 43.5 % Normal 37.0-47.0 [facility] ([place] Comment on above: Performed By: #### A TITO GARCIA, JADYN, ADIFF, CBC, BMP, DIMER, GFR, TROPHS #### [address] [address] Hgb 14.6 G/dL Normal 12.0-16.0 [facility] ([place]) Comment on above: Performed By: #### A TITO GARCIA, JADYN, ADIFF, CBC, BMP, DIMER, GFR, TROPHS #### [address] [address] MCH (RBC) [Entitic mass] 29.6 pg Normal 27.0-31.2 [facility] ([place] Comment on above: Performed By: #### A TITO GARCIA, JADYN, ADIFF, CBC, BMP, DIMER, GFR, TROPHS #### [place] [address] MCHC 33.6 G/dL Normal 33.0-37.0 [facility] ([place] Comment on above: Performed By: #### A TITO GARCIA, JADYN, ADIFF, CBC, BMP, DIMER, GFR, TROPHS #### [address] [address] MCV (RBC) [Entitic vol] 88.3 fL Normal 80.0-94.0 [facility] ([place] Comment on above: Performed By: #### A TITO GARCIA, JADYN, ADIFF, CBC, BMP, DIMER, GFR, TROPHS #### [address] [address] Platelet 262 10 3/mcL Normal 130-400 [facility] ([place]) Comment on above: Performed By: #### A TITO GARCIA, JADYN, ADIFF, CBC, BMP, DIMER, GFR, TROPHS #### [address] [address] Platelet mean volume (Bld) [Entitic vol] 9.6 fL Normal 7.4-10.4 [facility] ([place]) Comment on above: Performed By: #### A TITO GARCIA, JADYN, ADIFF, CBC, BMP, DIMER, GFR, TROPHS #### [address] [address] RBC 4.93 10 6/mcL Normal 4.20-5.40 [facility] ([place]) Comment on above: Performed By: #### A TITO GARCIA, JADYN, ADIFF, CBC, BMP, DIMER, GFR, TROPHS #### [address] [address] WBC 9.6 10 3/mcL Normal 4.6-10.8 [facility] ([place]) Comment on above: Performed By: #### A TITO GARCIA, JADYN, ADIFF, CBC, BMP, DIMER, GFR, TROPHS #### [address] [address] CMPon 01-29-2023 Albumin Level 1.9 G/dL Low 3.5-5.0 [facility] ([place]) Comment on above: Performed By: #### A TITO GARCIA, JADYN, ADIFF, CBC, BMP, DIMER, GFR, TROPHS #### [address] [address] Albumin/Globulin [Mass ratio] 0.4 {ratio} Low 1.1-2.5 [facility] ([place]) Comment on above: Performed By: #### A TITO GARCIA, JADYN, ADIFF, CBC, BMP, DIMER, GFR, TROPHS #### [address] [address] ALP [Catalytic activity/Vol] 116 U/L Normal 40-135 [facility] ([place]) Comment on above: Performed By: #### A TITO GARCIA, JADYN, ADIFF, CBC, BMP, DIMER, GFR, TROPHS #### [address] [address] ALT [Catalytic activity/Vol] 17 U/L Normal 14-59 [facility] ([place]) Comment on above: Performed By: #### A TITO GARCIA, JADYN, ADIFF, CBC, BMP, DIMER, GFR, TROPHS #### [address] [address] AST [Catalytic activity/Vol] 17 U/L Normal 10-40 [facility] ([place]) Comment on above: Performed By: #### A TITO GARCIA, JADYN, ADIFF, CBC, BMP, DIMER, GFR, TROPHS #### [address] [address] Bili Total 0.5 mg/dL Normal 0.2-1.0 [facility] ([place]) Comment on above: Result Comment: Use of this assay is not recommended for patients undergoing treatment with eltrombopag due to the potential for falsely elevated results. Performed By: #### A TITO GARCIA, ELVIANP, ADIFF, CBC, BMP, DIMER, GFR, TROPHS #### [address] [address] BUN/Creatinine Ratio 16 ratio Normal 7-27 [facility] ([place]) Comment on above: Performed By: #### A TITO GARCIA, JADYN, ADIFF, CBC, BMP, DIMER, GFR, TROPHS #### [address] [address] Calcium [Mass/Vol] 8.8 mg/dL Normal 8.4-10.2 [facility] ([place]) Comment on above: Performed By: #### A TITO GARCIA, ELVIANP, ADIFF, CBC, BMP, DIMER, GFR, TROPHS #### [address] [address] Chloride [Moles/Vol] 102 mmol/L Normal 98-107 [facility] ([place]) Comment on above: Performed By: #### A TITO GARCIA, JADYN, ADIFF, CBC, BMP, DIMER, GFR, TROPHS #### [address] [address] CO2 [Moles/Vol] 31 mmol/L High 22-29 [facility] ([place]) Comment on above: Performed By: #### A TITO GARCIA, JADYN, ADIFF, CBC, BMP, DIMER, GFR, TROPHS #### [address] [address] Creatinine [Mass/Vol] 1.24 mg/dL High 0.55-1.02 [facility] ([place]) Comment on above: Performed By: #### A TITO GARCIA, JADYN, ADIFF, CBC, BMP, DIMER, GFR, TROPHS #### [address] [address] Electrolyte Balance 11.0 mEq/L Normal 4.0-15.0 [facility] ([place]) Comment on above: Performed By: #### A TITO GARCIA, JADYN, ADIFF, CBC, BMP, DIMER, GFR, TROPHS #### [address] [address] Globulin 5.1 G/dL Normal [facility] ([place]) Comment on above: Performed By: #### A TITO GARCIA, ELVIANP, ADIFF, CBC, BMP, DIMER, GFR, TROPHS #### [address] [address] Glucose [Mass/Vol] 230 mg/dL High 70-105 [facility] ([place]) Comment on above: Performed By: #### A TITO GARCIA, JADYN, ADIFF, CBC, BMP, DIMER, GFR, TROPHS #### [address] [address] Potassium [Moles/Vol] 3.7 mmol/L Normal 3.5-5.1 [facility] ([place]) Comment on above: Performed By: #### A TITO GARCIA, JADYN, ADIFF, CBC, BMP, DIMER, GFR, TROPHS #### [address] [address] Sodium [Moles/Vol] 144 mmol/L Normal 136-145 [facility] ([place]) Comment on above: Performed By: #### A TITO GARCIA, JADYN, ADIFF, CBC, BMP, DIMER, GFR, TROPHS #### [address] [address] Total Protein 7.0 G/dL Normal 6.4-8.2 [facility] ([place]) Comment on above: Performed By: #### A TITO GARCIA, JADYN, ADIFF, CBC, BMP, DIMER, GFR, TROPHS #### [address] [address] Urea nitrogen [Mass/Vol] 20 mg/dL High 7-18 [facility] ([place]) Comment on above: Performed By: #### A TITO GARCIA, JADYN, ADIFF, CBC, BMP, DIMER, GFR, TROPHS #### [address] [address] Toya 01-29-2023 Ferritin [Mass/Vol] 84.0 ng/mL Normal 8.0-252.0 [facility] ([place]) Comment on above: Performed By: #### A TITO GARCIA, JADYN, ADIFF, CBC, BMP, DIMER, GFR, TROPHS #### [address] [address] IBCon 01-29-2023 TIBC 299 mcg/dL Normal 250-450 [facility] ([place]) Comment on above: Performed By: #### A TITO GARCIA, JADYN, ADIFF, CBC, BMP, DIMER, GFR, TROPHS #### [place] [id number] [place], [place] [address] LIPIDon 01-29-2023 Cholesterol [Mass/Vol] 185 mg/dL Normal 0-200 [facility] ([place]) Comment on above: Result Comment: Chol esterol Reference Interval: Less than 200 Desirable 200-239 Borderline high risk 240 and above High risk Performed By: #### A TITO GARCIA, JADYN, ADIFF, CBC, BMP, DIMER, GFR, TROPHS #### [address] [address] Cholesterol in HDL [Mass/Vol] 35 mg/dL Low 40-60 [facility] ([place]) Comment on above: Performed By: #### A TITO GARCIA, JADYN, ADIFF, CBC, BMP, DIMER, GFR, TROPHS #### [address] [address] Cholesterol in LDL [Mass/Vol] 118 mg/dL Normal 0-130 [facility] ([place]) Comment on above: Performed By: #### A TITO GARCIA, JADYN, ADIFF, CBC, BMP, DIMER, GFR, TROPHS #### [address] [address] Triglyceride [Mass/Vol] 158 mg/dL High 0-150 [facility] ([place]) Comment on above: Result Comment: Trig lyceride Reference Interval: Less than 150 Normal 150-199 Borderline high risk 200-499 High risk 500 or higher Very high risk Performed By: #### A TITO GARCIA, JADYN, ADIFF, CBC, BMP, DIMER, GFR, TROPHS #### [address] [address] MALBRon 01-29-2023 U Creatinine 228.3 mg/dL High 28.0-117.0 [facility] ([place]) Comment on above: Performed By: #### A TITO GARCIA, JADYN, ADIFF, CBC, BMP, DIMER, GFR, TROPHS #### [address] [address] U Microalb 1526 mcg/dL Normal [facility] ([place]) Comment on above: Performed By: #### A TITO GARCIA, JADYN, ADIFF, CBC, BMP, DIMER, GFR, TROPHS #### [address] [address] U Ratio Alb/Cre 7 mcg/mg Normal 0-30 [facility] ([place]) Comment on above: Performed By: #### A TITO GARCIA, JADYN, ADIFF, CBC, BMP, DIMER, GFR, TROPHS #### [address] [address] PTHon 01-29-2023 PTH, Intact 156.3 pg/mL High 18.5-88.0 [facility] ([place]) Comment on above: Performed By: #### A TITO GARCIA, JADYN, ADIFF, CBC, BMP, DIMER, GFR, TROPHS #### [place] [address] URICon 01-29-2023 Uric Acid Lvl 8.9 mg/dL High 2.6-6.2 [facility] ([place]) Comment on above: Performed By: #### A TITO GARCIA, JADYN, ADIFF, CBC, BMP, DIMER, GFR, TROPHS #### [address] [address] VIDHon 01-29-2023 Vit. D 25-Hydroxy 46.8 ng/mL Normal [facility] ([place]) Comment on above: Result Comment: Inte rpretive Values Based on Total 25(OH) Vitamin D: Deficient <20 ng/mL Insufficient 20 - <30 ng/mL Sufficient 30-100 ng/mL Performed By: #### A TITO GARCIA, JADYN, ADIFF, CBC, BMP, DIMER, GFR, TROPHS #### [address] [address] No Panel Informationon 12-23 Culture Urine >100,000 cfu/ml Multiple bacterial morphotypes present. Probable Contamination. Suggest recollection if clinically indicated. [facility] .GFRon 10-22-2022 GFR 70 ml/min/1.73sqm Normal [facility] ([place]) Comment on above: Result Comment: GFR Population mean for , Non- Americans Ages 20-29 = 116 mL/min/1.73 sq.m. Ages 30-39 = 107 mL/min/1.73 sq.m. Ages 40-49 = 99 mL/min/1.73 sq.m. Ages 50-59 = 93 mL/min/1.73 sq.m. Ages 60-69 = 85 mL/min/1.73 sq.m. Ages 70+ = 75 mL/min/1.73 sq.m. Chronic Kidney Disease: Less than 60 mL/min/1.73 square meters End Stage Renal Disease: Less than 15 mL/min/1.73 square meters Performed By: #### A TITO GARCIA, JADYN, ADIFF, CBC, BMP, DIMER, GFR, TROPHS #### [address] [address] GFR Non- 58 ml/min/1.73sqm Normal [facility] ([place]) Comment on above: Result Comment: GFR Population mean for , Non- Americans Ages 20-29 = 116 mL/min/1.73 sq.m. Ages 30-39 = 107 mL/min/1.73 sq.m. Ages 40-49 = 99 mL/min/1.73 sq.m. Ages 50-59 = 93 mL/min/1.73 sq.m. Ages 60-69 = 85 mL/min/1.73 sq.m. Ages 70+ = 75 mL/min/1.73 sq.m. Chronic Kidney Disease: Less than 60 mL/min/1.73 square meters End Stage Renal Disease: Less than 15 mL/min/1.73 square meters Performed By: #### A TITO GARCIA, JADYN, ADIFF, CBC, BMP, DIMER, GFR, TROPHS #### [address] [place], [place] [address] [facility] Albumin Level 3.4 G/dL Low 3.5-5.0 [facility] ([place]) Comment on above: Performed By: #### Sage TERRY, CMP #### [address] [address] Albumin/Globulin [Mass ratio] 0.9 {ratio} Low 1.1-2.5 [facility] ([place]) Comment on above: Performed By: #### Sage TERRY, CMP #### [address] [address] ALP [Catalytic activity/Vol] 88 U/L Normal 40-135 [facility] ([place]) Comment on above: Performed By: #### Sage TERRY, CMP #### [address] [address] ALT [Catalytic activity/Vol] 16 U/L Normal 14-59 [facility] ([place]) Comment on above: Performed By: #### Sage TERRY, CMP #### [address] [address] AST [Catalytic activity/Vol] 16 U/L Normal 10-40 [facility] ([place]) Comment on above: Performed By: #### Sage TERRY, CMP #### [address] [address] Bili Total 0.6 mg/dL Normal 0.2-1.0 [facility] ([place]) Comment on above: Result Comment: Use of this assay is not recommended for patients undergoing treatment with eltrombopag due to the potential for falsely elevated results. Performed By: #### Sage TERRY, CMP #### [address] [address] BUN/Creatinine Ratio 16 ratio Normal 7-27 [facility] ([place]) Comment on above: Performed By: #### Sage TERRY, CMP #### [address] [address] Calcium [Mass/Vol] 8.8 mg/dL Normal 8.4-10.2 [facility] ([place]) Comment on above: Performed By: #### G FR, CMP #### [address] [address] Chloride [Moles/Vol] 105 mmol/L Normal 98-107 [facility] ([place]) Comment on above: Performed By: #### G FR, CMP #### [address] [address] CO2 [Moles/Vol] 31 mmol/L High 22-29 [facility] ([place]) Comment on above: Performed By: #### G , CMP #### [address] [address] Creatinine [Mass/Vol] 1.00 mg/dL Normal 0.55-1.02 [facility] ([place]) Comment on above: Performed By: #### Sage TERRY, CMP #### [address] [address] Electrolyte Balance 8.0 mEq/L Normal 4.0-15.0 [facility] ([place]) Comment on above: Performed By: #### Sage TERRY, CMP #### [address] [address] Globulin 3.7 G/dL Normal [facility] ([place]) Comment on above: Performed By: #### Sage TERRY, CMP #### [address] [address] Glucose [Mass/Vol] 125 mg/dL High 70-105 [facility] ([place]) Comment on above: Performed By: #### Sage TERRY, CMP #### [address] [address] Potassium [Moles/Vol] 4.2 mmol/L Normal 3.5-5.1 [facility] ([place]) Comment on above: Performed By: #### G FR, CMP #### [address] [address] Sodium [Moles/Vol] 144 mmol/L Normal 136-145 [facility] ([place]) Comment on above: Performed By: #### G FR, CMP #### [address] [address] Total Protein 7.1 G/dL Normal 6.4-8.2 [facility] ([place]) Comment on above: Performed By: #### G FR, CMP #### [facility] [address] [place] [address] Urea nitrogen [Mass/Vol] 16 mg/dL Normal 7-18 [facility] ([place]) Comment on above: Performed By: #### G FR, CMP #### [facility] [address] [place] [address] LABORATORYOrdered By: SYSTEM SYSTEM on 10-22-2022 Albumin BCP dye [Mass/Vol] 3.4 G/dL Invalid Interpretation Code 3.5 - 5.0 G/dL AO ADM SS Albumin/Globulin [Mass ratio] 0.9 {ratio} Invalid Interpretation Code 1.1 - 2.5 ratio AO ADM SS ALP [Catalytic activity/Vol] 88 U/L Invalid Interpretation Code 40 - 135 U/L AO ADM SS ALT With P-5'-P [Catalytic activity/Vol] 16 U/L Invalid Interpretation Code 14 - 59 U/L AO ADM SS AST With P-5'-P [Catalytic activity/Vol] 16 U/L Invalid Interpretation Code 10 - 40 U/L AO ADM SS Bilirubin [Mass/Vol] 0.6 mg/dL Invalid Interpretation Code 0.2 - 1.0 mg/dL AO ADM SS Comment on above: Interpretive Data: U se of this assay is not recommended for patients undergoing treatment with eltrombopag due to the potential for falsely elevated results. Calcium [Mass/Vol] 8.8 mg/dL Invalid Interpretation Code 8.4 - 10.2 mg/dL AO ADM SS Chloride [Moles/Vol] 105 mmol/L Invalid Interpretation Code 98 - 107 mmol/L AO ADM SS CO2 [Moles/Vol] 31 mmol/L Invalid Interpretation Code 22 - 29 mmol/L AO ADM SS Creatinine [Mass/Vol] 1.00 mg/dL Invalid Interpretation Code 0.55 - 1.02 mg/dL AO ADM SS Electrolyte Balance 8.0 mEq/L Invalid Interpretation Code 4.0 - 15.0 mEq/L AO ADM SS GFR/1.73 sq M.predicted among blacks MDRD (S/P/Bld) [Vol rate/Area] 70 ml/min/1.73sqm Invalid Interpretation Code AO Chemistry S Comment on above: Interpretive Data: GFR Population mean for , Non- Americans Ages 20-29 = 116 mL/min/1.73 sq.m. Ages 30-39 = 107 mL/min/1.73 sq.m. Ages 40-49 = 99 mL/min/1.73 sq.m. Ages 50-59 = 93 mL/min/1.73 sq.m. Ages 60-69 = 85 mL/min/1.73 sq.m. Ages 70+ = 75 mL/min/1.73 sq.m. Chronic Kidney Disease: Less than 60 mL/min/1.73 square meters End Stage Renal Disease: Less than 15 mL/min/1.73 square meters GFR/1.73 sq M.predicted among non-blacks MDRD (S/P/Bld) [Vol rate/Area] 58 ml/min/1.73sqm Invalid Interpretation Code AO Chemistry S Comment on above: Interpretive Data: GFR Population mean for , Non- Americans Ages 20-29 = 116 mL/min/1.73 sq.m. Ages 30-39 = 107 mL/min/1.73 sq.m. Ages 40-49 = 99 mL/min/1.73 sq.m. Ages 50-59 = 93 mL/min/1.73 sq.m. Ages 60-69 = 85 mL/min/1.73 sq.m. Ages 70+ = 75 mL/min/1.73 sq.m. Chronic Kidney Disease: Less than 60 mL/min/1.73 square meters End Stage Renal Disease: Less than 15 mL/min/1.73 square meters Globulin 3.7 G/dL Invalid Interpretation Code AO ADM SS Glucose [Mass/Vol] 125 mg/dL Invalid Interpretation Code 70 - 105 mg/dL AO ADM SS Potassium [Moles/Vol] 4.2 mmol/L Invalid Interpretation Code 3.5 - 5.1 mmol/L AO ADM SS Protein [Mass/Vol] 7.1 G/dL Invalid Interpretation Code 6.4 - 8.2 G/dL AO ADM SS Sodium [Moles/Vol] 144 mmol/L Invalid Interpretation Code 136 - 145 mmol/L AO ADM SS Urea nitrogen [Mass/Vol] 16 mg/dL Invalid Interpretation Code 7 - 18 mg/dL AO ADM SS Urea nitrogen/Creatinine [Mass ratio] 16 ratio Invalid Interpretation Code 7 - 27 ratio AO ADM SS .Auto Diffon 09-30-2022 Basophil, Absolute 0.0 10 3/mcL Normal 0.0-0.2 [facility] ([place]) Comment on above: Performed By: #### A TITO GARCIA, JADYN, ADIFF, CBC, BMP, DIMER, GFR, TROPHS #### [address] [address] Basophils/100 WBC (Bld) 0.4 % Normal 0.0-2.5 [facility] ([place]) Comment on above: Performed By: #### A TITO GARCIA, PBNP, ADIFF, CBC, BMP, DIMER, GFR, TROPHS #### [address] [address] Eosinophil, Absolute 0.1 10 3/mcL Normal 0.0-0.4 [facility] ([place] Comment on above: Performed By: #### A TITO GARCIA, ELVIANP, ADIFF, CBC, BMP, DIMER, GFR, TROPHS #### [address] [address] Eosinophils/100 WBC (Bld) 0.9 % Normal 0.0-7.0 [facility] ([place]) Comment on above: Performed By: #### A TITO GARCIA, JADYN, ADIFF, CBC, BMP, DIMER, GFR, TROPHS #### [address] [address] Lymphocyte, Absolute 2.9 10 3/mcL Normal 0.8-3.9 [facility] ([place] Comment on above: Performed By: #### A TITO GARCIA, PBNP, ADIFF, CBC, BMP, DIMER, GFR, TROPHS #### [address] [address] Lymphocytes/100 WBC (Bld) 32.2 % Normal 10.0-50.0 [facility] ([place]) Comment on above: Performed By: #### A TITO GARCIA, ELVIANP, ADIFF, CBC, BMP, DIMER, GFR, TROPHS #### [address] [address] Monocyte, Absolute 0.7 10 3/mcL Normal 0.2-1.0 [facility] ([place] Comment on above: Performed By: #### A TITO GARCIA, JADYN, ADIFF, CBC, BMP, DIMER, GFR, TROPHS #### [address] [address] Monocytes/100 WBC (Bld) 8.2 % Normal 1.7-13.0 [facility] ([place]) Comment on above: Performed By: #### A TITO GARCIA, PBNP, ADIFF, CBC, BMP, DIMER, GFR, TROPHS #### [address] [address] Neutrophils/100 WBC (Bld) 58.3 % Normal 37.0-80.0 [facility] ([place]) Comment on above: Performed By: #### A TITO GARCIA, JADYN, ADIFF, CBC, BMP, DIMER, GFR, TROPHS #### [address] [address] .GFRon 09-30-2022 GFR 57 ml/min/1.73sqm Normal [facility] ([place]) Comment on above: Result Comment: GFR Population mean for , Non- Americans Ages 20-29 = 116 mL/min/1.73 sq.m. Ages 30-39 = 107 mL/min/1.73 sq.m. Ages 40-49 = 99 mL/min/1.73 sq.m. Ages 50-59 = 93 mL/min/1.73 sq.m. Ages 60-69 = 85 mL/min/1.73 sq.m. Ages 70+ = 75 mL/min/1.73 sq.m. Chronic Kidney Disease: Less than 60 mL/min/1.73 square meters End Stage Renal Disease: Less than 15 mL/min/1.73 square meters Performed By: #### A TITO GARCIA, PBNP, ADIFF, CBC, BMP, DIMER, GFR, TROPHS #### [address] [address] GFR Non- 47 ml/min/1.73sqm Normal [facility] ([place]) Comment on above: Result Comment: GFR Population mean for , Non- Americans Ages 20-29 = 116 mL/min/1.73 sq.m. Ages 30-39 = 107 mL/min/1.73 sq.m. Ages 40-49 = 99 mL/min/1.73 sq.m. Ages 50-59 = 93 mL/min/1.73 sq.m. Ages 60-69 = 85 mL/min/1.73 sq.m. Ages 70+ = 75 mL/min/1.73 sq.m. Chronic Kidney Disease: Less than 60 mL/min/1.73 square meters End Stage Renal Disease: Less than 15 mL/min/1.73 square meters Performed By: #### A TITO GARCIA, JADYN, ADIFF, CBC, BMP, DIMER, GFR, TROPHS #### [address] [address] .NEUABSon 09-30-2022 Neutrophil, Absolute 5.3 10 3/mcL Normal 2.9-6.2 [facility] ([place] Comment on above: Performed By: #### A TITO GARCIA, JADYN, ADIFF, CBC, BMP, DIMER, GFR, TROPHS #### [address] [address] BMPon 09-30-2022 BUN/Creatinine Ratio 15 ratio Normal 7-27 [facility] ([place] Comment on above: Performed By: #### A TITO GARCIA, JADYN, ADIFF, CBC, BMP, DIMER, GFR, TROPHS #### [address] [address] Calcium [Mass/Vol] 9.0 mg/dL Normal 8.4-10.2 [facility] ([place] Comment on above: Performed By: #### A TITO GARCIA, JADYN, ADIFF, CBC, BMP, DIMER, GFR, TROPHS #### [address] [address] Chloride [Moles/Vol] 102 mmol/L Normal 98-107 [facility] ([place] Comment on above: Performed By: #### A TITO GARCIA, ELVIANP, ADIFF, CBC, BMP, DIMER, GFR, TROPHS #### [address] [address] CO2 [Moles/Vol] 35 mmol/L High 22-29 [facility] ([place]) Comment on above: Performed By: #### A TITO GARCIA, JADYN, ADIFF, CBC, BMP, DIMER, GFR, TROPHS #### [address] [address] Creatinine [Mass/Vol] 1.20 mg/dL High 0.55-1.02 [facility] ([place]) Comment on above: Performed By: #### A TITO GARCIA, JADYN, ADIFF, CBC, BMP, DIMER, GFR, TROPHS #### [place] [address] Electrolyte Balance 6.0 mEq/L Normal 4.0-15.0 [facility] ([place]) Comment on above: Performed By: #### A TITO GARCIA, JADYN, ADIFF, CBC, BMP, DIMER, GFR, TROPHS #### [address] [address] Glucose [Mass/Vol] 161 mg/dL High 70-105 [facility] ([place] Comment on above: Performed By: #### A TITO GARCIA, JADYN, ADIFF, CBC, BMP, DIMER, GFR, TROPHS #### [address] [address] Potassium [Moles/Vol] 4.2 mmol/L Normal 3.5-5.1 [facility] ([place]) Comment on above: Performed By: #### A TITO GARCIA, JADYN, ADIFF, CBC, BMP, DIMER, GFR, TROPHS #### [place] [address] Sodium [Moles/Vol] 143 mmol/L Normal 136-145 [facility] ([place] Comment on above: Performed By: #### A TITO GARCIA, JADYN, ADIFF, CBC, BMP, DIMER, GFR, TROPHS #### [place] [address] Urea nitrogen [Mass/Vol] 18 mg/dL Normal 7-18 [facility] ([place] Comment on above: Performed By: #### A TITO GARCIA, JADYN, ADIFF, CBC, BMP, DIMER, GFR, TROPHS #### [address] [address] CBCon 09-30-2022 Erythrocyte distribution width (RBC) [Ratio] 13.8 % Normal 11.5-14.5 [facility] ([place]) Comment on above: Performed By: #### A TITO GARCIA, JADYN, ADIFF, CBC, BMP, DIMER, GFR, TROPHS #### [place] [address] Hematocrit (Bld) [Volume fraction] 40.6 % Normal 37.0-47.0 [facility] ([place] Comment on above: Performed By: #### A TITO GARCIA, JADYN, ADIFF, CBC, BMP, DIMER, GFR, TROPHS #### [place] [address] Hgb 13.8 G/dL Normal 12.0-16.0 [facility] ([place] Comment on above: Performed By: #### A TITO GARCIA, JADYN, ADIFF, CBC, BMP, DIMER, GFR, TROPHS #### [place] [address] MCH (RBC) [Entitic mass] 29.3 pg Normal 27.0-31.2 [facility] ([place] Comment on above: Performed By: #### A TITO GARCIA, JADYN, ADIFF, CBC, BMP, DIMER, GFR, TROPHS #### [place] [address] MCHC 33.9 G/dL Normal 33.0-37.0 [facility] ([place] Comment on above: Performed By: #### A TITO GARCIA, JADYN, ADIFF, CBC, BMP, DIMER, GFR, TROPHS #### [place] [address] MCV (RBC) [Entitic vol] 86.4 fL Normal 80.0-94.0 [facility] ([place] Comment on above: Performed By: #### A TITO GARCIA, JADYN, ADIFF, CBC, BMP, DIMER, GFR, TROPHS #### [address] [address] Platelet 204 10 3/mcL Normal 130-400 [facility] ([place]) Comment on above: Performed By: #### A TITO GARCIA, JADYN, ADIFF, CBC, BMP, DIMER, GFR, TROPHS #### [address] [address] Platelet mean volume (Bld) [Entitic vol] 9.8 fL Normal 7.4-10.4 [facility] ([place]) Comment on above: Performed By: #### A TITO GARCIA, JADYN, ADIFF, CBC, BMP, DIMER, GFR, TROPHS #### [address] [address] RBC 4.70 10 6/mcL Normal 4.20-5.40 [facility] ([place]) Comment on above: Performed By: #### A TITO GARCIA, JADYN, ADIFF, CBC, BMP, DIMER, GFR, TROPHS #### [address] [address] WBC 9.1 10 3/mcL Normal 4.6-10.8 [facility] ([place]) Comment on above: Performed By: #### A TITO GARCIA, JADYN, ADIFF, CBC, BMP, DIMER, GFR, TROPHS #### [address] [address] LABORATORYOrdered By: Mabel loco on 09-30-2022 Blood Glucose Testing Reason Routine (09/30/22 11:20 AM) [facility] Glucose [Mass/Vol] 196 mg/dL Invalid Interpretation Code 70 - 110 mg/dL [facility] Blood Glucose Testing Reason Routine (09/30/22 6:40 AM) [facility] Glucose [Mass/Vol] 128 mg/dL Invalid Interpretation Code 70 - 110 mg/dL [facility] LABORATORYOrdered By: SYSTEM SYSTEM on 09-30-2022 Basophil, Absolute 0.0 103/mcL Invalid Interpretation Code 0.0 - 0.2 10^3/mcL AO Workflow SS Basophils/100 WBC (Bld) 0.4 % Invalid Interpretation Code 0.0 - 2.5 % AO Workflow SS Calcium [Mass/Vol] 9.0 mg/dL Invalid Interpretation Code 8.4 - 10.2 mg/dL AO ADM SS Chloride [Moles/Vol] 102 mmol/L Invalid Interpretation Code 98 - 107 mmol/L AO ADM SS CO2 [Moles/Vol] 35 mmol/L Invalid Interpretation Code 22 - 29 mmol/L AO ADM SS Creatinine [Mass/Vol] 1.20 mg/dL Invalid Interpretation Code 0.55 - 1.02 mg/dL AO ADM SS Electrolyte Balance 6.0 mEq/L Invalid Interpretation Code 4.0 - 15.0 mEq/L AO ADM SS Eosinophil, Absolute 0.1 103/mcL Invalid Interpretation Code 0.0 - 0.4 10^3/mcL AO Workflow SS Eosinophils/100 WBC (Bld) 0.9 % Invalid Interpretation Code 0.0 - 7.0 % AO Workflow SS Erythrocyte distribution width (RBC) [Ratio] 13.8 % Invalid Interpretation Code 11.5 - 14.5 % AO Workflow SS GFR/1.73 sq M.predicted among blacks MDRD (S/P/Bld) [Vol rate/Area] 57 ml/min/1.73sqm Invalid Interpretation Code AO Chemistry S Comment on above: Interpretive Data: GFR Population mean for , Non- Americans Ages 20-29 = 116 mL/min/1.73 sq.m. Ages 30-39 = 107 mL/min/1.73 sq.m. Ages 40-49 = 99 mL/min/1.73 sq.m. Ages 50-59 = 93 mL/min/1.73 sq.m. Ages 60-69 = 85 mL/min/1.73 sq.m. Ages 70+ = 75 mL/min/1.73 sq.m. Chronic Kidney Disease: Less than 60 mL/min/1.73 square meters End Stage Renal Disease: Less than 15 mL/min/1.73 square meters GFR/1.73 sq M.predicted among non-blacks MDRD (S/P/Bld) [Vol rate/Area] 47 ml/min/1.73sqm Invalid Interpretation Code AO Chemistry S Comment on above: Interpretive Data: GFR Population mean for , Non- Americans Ages 20-29 = 116 mL/min/1.73 sq.m. Ages 30-39 = 107 mL/min/1.73 sq.m. Ages 40-49 = 99 mL/min/1.73 sq.m. Ages 50-59 = 93 mL/min/1.73 sq.m. Ages 60-69 = 85 mL/min/1.73 sq.m. Ages 70+ = 75 mL/min/1.73 sq.m. Chronic Kidney Disease: Less than 60 mL/min/1.73 square meters End Stage Renal Disease: Less than 15 mL/min/1.73 square meters Glucose [Mass/Vol] 161 mg/dL Invalid Interpretation Code 70 - 105 mg/dL AO ADM SS Hematocrit (Bld) [Volume fraction] 40.6 % Invalid Interpretation Code 37.0 - 47.0 % AO Workflow SS Hemoglobin (Bld) [Mass/Vol] 13.8 G/dL Invalid Interpretation Code 12.0 - 16.0 G/dL AO Workflow SS Lymphocyte, Absolute 2.9 103/mcL Invalid Interpretation Code 0.8 - 3.9 10^3/mcL AO Workflow SS Lymphocytes/100 WBC (Bld) 32.2 % Invalid Interpretation Code 10.0 - 50.0 % AO Workflow SS MCH (RBC) [Entitic mass] 29.3 pg Invalid Interpretation Code 27.0 - 31.2 pg AO Workflow SS MCHC 33.9 G/dL Invalid Interpretation Code 33.0 - 37.0 G/dL AO Workflow SS MCV (RBC) [Entitic vol] 86.4 fL Invalid Interpretation Code 80.0 - 94.0 fL AO Workflow SS Monocyte, Absolute 0.7 103/mcL Invalid Interpretation Code 0.2 - 1.0 10^3/mcL AO Workflow SS Monocytes/100 WBC (Bld) 8.2 % Invalid Interpretation Code 1.7 - 13.0 % AO Workflow SS Neutrophil, Absolute 5.3 103/mcL Invalid Interpretation Code 2.9 - 6.2 10^3/mcL AO Workflow SS Neutrophils/100 WBC (Bld) 58.3 % Invalid Interpretation Code 37.0 - 80.0 % AO Workflow SS Platelet mean volume (Bld) [Entitic vol] 9.8 fL Invalid Interpretation Code 7.4 - 10.4 fL AO Workflow SS Platelets (Bld) [#/Vol] 204 103/mcL Invalid Interpretation Code 130 - 400 10^3/mcL AO Workflow SS Potassium [Moles/Vol] 4.2 mmol/L Invalid Interpretation Code 3.5 - 5.1 mmol/L AO ADM SS RBC (Bld) [#/Vol] 4.70 106/mcL Invalid Interpretation Code 4.20 - 5.40 10^6/mcL AO Workflow SS Sodium [Moles/Vol] 143 mmol/L Invalid Interpretation Code 136 - 145 mmol/L AO ADM SS Urea nitrogen [Mass/Vol] 18 mg/dL Invalid Interpretation Code 7 - 18 mg/dL AO ADM SS Urea nitrogen/Creatinine [Mass ratio] 15 ratio Invalid Interpretation Code 7 - 27 ratio AO ADM SS WBC (Bld) [#/Vol] 9.1 103/mcL Invalid Interpretation Code 4.6 - 10.8 10^3/mcL AO Workflow SS .Auto Diffon 09-29-2022 Basophil, Absolute 0.1 10 3/mcL Normal 0.0-0.2 [facility] ([place]) Comment on above: Performed By: #### A TITO GARCIA, PBNP, ADIFF, CBC, BMP, DIMER, GFR, TROPHS #### [address] [address] Basophils/100 WBC (Bld) 0.4 % Normal 0.0-2.5 [facility] ([place]) Comment on above: Performed By: #### A TITO GARCIA, PBNP, ADIFF, CBC, BMP, DIMER, GFR, TROPHS #### [address] [address] Eosinophil, Absolute 0.1 10 3/mcL Normal 0.0-0.4 [facility] ([place]) Comment on above: Performed By: #### A TITO GARCIA, PBNP, ADIFF, CBC, BMP, DIMER, GFR, TROPHS #### [address] [address] Eosinophils/100 WBC (Bld) 0.6 % Normal 0.0-7.0 [facility] ([place]) Comment on above: Performed By: #### A TITO GARCIA, PBNP, ADIFF, CBC, BMP, DIMER, GFR, TROPHS #### [address] [address] Lymphocyte, Absolute 2.7 10 3/mcL Normal 0.8-3.9 [facility] ([place]) Comment on above: Performed By: #### A TITO GARCIA, PBNP, ADIFF, CBC, BMP, DIMER, GFR, TROPHS #### [address] [address] Lymphocytes/100 WBC (Bld) 17.8 % Normal 10.0-50.0 [facility] ([place]) Comment on above: Performed By: #### A TITO GARCIA, PBNP, ADIFF, CBC, BMP, DIMER, GFR, TROPHS #### [address] [address] Monocyte, Absolute 0.7 10 3/mcL Normal 0.2-1.0 [facility] ([place]) Comment on above: Performed By: #### A TITO GARCIA, PBNP, ADIFF, CBC, BMP, DIMER, GFR, TROPHS #### [address] [address] Monocytes/100 WBC (Bld) 4.9 % Normal 1.7-13.0 [facility] ([place]) Comment on above: Performed By: #### A TITO GARCIA, PBNP, ADIFF, CBC, BMP, DIMER, GFR, TROPHS #### [address] [address] Neutrophils/100 WBC (Bld) 76.3 % Normal 37.0-80.0 [facility] ([place]) Comment on above: Performed By: #### A TITO GARCIA, PBNP, ADIFF, CBC, BMP, DIMER, GFR, TROPHS #### [address] [address] .GFRon 09-29-2022 GFR Non- 60 ml/min/1.73sqm Normal [facility] ([place]) Comment on above: Result Comment: GFR Population mean for , Non- Americans Ages 20-29 = 116 mL/min/1.73 sq.m. Ages 30-39 = 107 mL/min/1.73 sq.m. Ages 40-49 = 99 mL/min/1.73 sq.m. Ages 50-59 = 93 mL/min/1.73 sq.m. Ages 60-69 = 85 mL/min/1.73 sq.m. Ages 70+ = 75 mL/min/1.73 sq.m. Chronic Kidney Disease: Less than 60 mL/min/1.73 square meters End Stage Renal Disease: Less than 15 mL/min/1.73 square meters Performed By: #### A TITO GARCIA, JADYN, ADIFF, CBC, BMP, DIMER, GFR, TROPHS #### [address] [address] GFR 72 ml/min/1.73sqm Normal [facility] ([place]) Comment on above: Result Comment: GFR Population mean for , Non- Americans Ages 20-29 = 116 mL/min/1.73 sq.m. Ages 30-39 = 107 mL/min/1.73 sq.m. Ages 40-49 = 99 mL/min/1.73 sq.m. Ages 50-59 = 93 mL/min/1.73 sq.m. Ages 60-69 = 85 mL/min/1.73 sq.m. Ages 70+ = 75 mL/min/1.73 sq.m. Chronic Kidney Disease: Less than 60 mL/min/1.73 square meters End Stage Renal Disease: Less than 15 mL/min/1.73 square meters Performed By: #### A TITO GARCIA, JADYN, ADIFF, CBC, BMP, DIMER, GFR, TROPHS #### [address] [address] .MDWon 09-29-2022 Monocyte Distribution Width 18.90 Normal 0.00-20.00 [facility] ([place]) Comment on above: Result Comment: For ED adult patients suspected of sepsis, MDW<=20.0 does not rule out sepsis or risk of sepsis Performed By: #### A TITO GARCIA, PBCANDIDO, ADIFF, CBC, BMP, DIMER, GFR, TROPHS #### [address] [address] .NEUABSon 09-29-2022 Neutrophil, Absolute 11.5 10 3/mcL High 2.9-6.2 [facility] ([place]) Comment on above: Performed By: #### A TITO GARCIA, JADYN, ADIFF, CBC, BMP, DIMER, GFR, TROPHS #### [address] [address] BMPon 09-29-2022 BUN/Creatinine Ratio 12 ratio Normal 7-27 [facility] ([place]) Comment on above: Performed By: #### A TITO GARCIA, JADYN, ADIFF, CBC, BMP, DIMER, GFR, TROPHS #### [place] [id number] Calcium [Mass/Vol] 8.7 mg/dL Normal 8.4-10.2 [facility] ([place]) Comment on above: Performed By: #### A TITO GARCIA, JADYN, ADIFF, CBC, BMP, DIMER, GFR, TROPHS #### [address] [address] Chloride [Moles/Vol] 103 mmol/L Normal 98-107 [facility] ([place]) Comment on above: Performed By: #### A TITO GARCIA, JADYN, ADIFF, CBC, BMP, DIMER, GFR, TROPHS #### [address] [address] CO2 [Moles/Vol] 32 mmol/L High 22-29 [facility] ([place]) Comment on above: Performed By: #### A TITO GARCIA, ELVIANP, ADIFF, CBC, BMP, DIMER, GFR, TROPHS #### [place] [id number] Creatinine [Mass/Vol] 0.97 mg/dL Normal 0.55-1.02 [facility] ([place]) Comment on above: Performed By: #### A TITO GARCIA, JADYN, ADIFF, CBC, BMP, DIMER, GFR, TROPHS #### [address] [address] Electrolyte Balance 6.0 mEq/L Normal 4.0-15.0 [facility] ([place]) Comment on above: Performed By: #### A TITO GARCIA, JADYN, ADIFF, CBC, BMP, DIMER, GFR, TROPHS #### [address] [address] Glucose [Mass/Vol] 89 mg/dL Normal 70-105 [facility] ([place]) Comment on above: Performed By: #### A TITO GARCIA, JADYN, ADIFF, CBC, BMP, DIMER, GFR, TROPHS #### [address] [address] Potassium [Moles/Vol] 4.4 mmol/L Normal 3.5-5.1 [facility] ([place]) Comment on above: Performed By: #### A TITO GARCIA, JADYN, ADIFF, CBC, BMP, DIMER, GFR, TROPHS #### [address] [address] Sodium [Moles/Vol] 141 mmol/L Normal 136-145 [facility] ([place]) Comment on above: Performed By: #### A TITO GARCIA, JADYN, ADIFF, CBC, BMP, DIMER, GFR, TROPHS #### [address] [address] Urea nitrogen [Mass/Vol] 12 mg/dL Normal 7-18 [facility] ([place]) Comment on above: Performed By: #### A TITO GARCIA, JADYN, ADIFF, CBC, BMP, DIMER, GFR, TROPHS #### [address] [address] CBCon 09-29-2022 Erythrocyte distribution width (RBC) [Ratio] 13.9 % Normal 11.5-14.5 [facility] ([place]) Comment on above: Performed By: #### A TITO GARCIA, JADYN, ADIFF, CBC, BMP, DIMER, GFR, TROPHS #### [address] [address] Hematocrit (Bld) [Volume fraction] 43.3 % Normal 37.0-47.0 [facility] ([place]) Comment on above: Performed By: #### A TITO GARCIA, JADYN, ADIFF, CBC, BMP, DIMER, GFR, TROPHS #### [address] [address] Hgb 14.4 G/dL Normal 12.0-16.0 [facility] ([place]) Comment on above: Performed By: #### A TITO GARCIA, JADYN, ADIFF, CBC, BMP, DIMER, GFR, TROPHS #### [address] [address] MCH (RBC) [Entitic mass] 28.9 pg Normal 27.0-31.2 [facility] ([place]) Comment on above: Performed By: #### A TITO GARCIA, JADYN, ADIFF, CBC, BMP, DIMER, GFR, TROPHS #### [address] [address] MCHC 33.3 G/dL Normal 33.0-37.0 [facility] ([place]) Comment on above: Performed By: #### A TITO GARCIA, JADYN, ADIFF, CBC, BMP, DIMER, GFR, TROPHS #### [address] [address] MCV (RBC) [Entitic vol] 86.8 fL Normal 80.0-94.0 [facility] ([place]) Comment on above: Performed By: #### A TITO GARCIA, JADYN, ADIFF, CBC, BMP, DIMER, GFR, TROPHS #### [address] [address] Platelet 219 10 3/mcL Normal 130-400 [facility] ([place]) Comment on above: Performed By: #### A RADHA, MDW, PBNP, ADIFF, CBC, BMP, DIMER, GFR, TROPHS #### [address] [address] Platelet mean volume (Bld) [Entitic vol] 9.7 fL Normal 7.4-10.4 [facility] ([place]) Comment on above: Performed By: #### A TITO GARCIA, ELVIANP, ADIFF, CBC, BMP, DIMER, GFR, TROPHS #### [address] [address] RBC 4.99 10 6/mcL Normal 4.20-5.40 [facility] ([place]) Comment on above: Performed By: #### A TITO GARCIA, JADYN, ADIFF, CBC, BMP, DIMER, GFR, TROPHS #### [address] [address] WBC 15.1 10 3/mcL High 4.6-10.8 [facility] ([place]) Comment on above: Performed By: #### A TITO GARCIA, PBCANDIDO, ADIFF, CBC, BMP, DIMER, GFR, TROPHS #### [address] [address] [address] ANGIOGRAPHY CHEST W/CONTR Damaris 09-29-2022 CT ANGIOGRAPHY CHEST W/CONTRAST ORIGINAL EXAMINATION: CTA OF THE CHEST 09/29/2022 11:43 am TECHNIQUE: CTA of the chest was performed after the administration of intravenous contrast. Multiplanar reformatted images are provided for review. MIP images are provided for review. Automated exposure control, iterative reconstruction, and/or weight based adjustment of the mA/kV was utilized to reduce the radiation dose to as low as reasonably achievable. COMPARISON: Same day two-view chest HISTORY: ORDERING SYSTEM PROVIDED HISTORY: Reason for Exam: chest pain; suspect PE FINDINGS: Pulmonary Arteries: Pulmonary arteries are adequately opacified for evaluation for evaluation to the level of the segmental pulmonary arteries. The subsegmental branches are poorly evaluated secondary to quantum mottle from patient body habitus and motion artifact. No evidence of intraluminal filling defect to suggest pulmonary embolism. Main pulmonary artery is dilated suggestive of pulmonary arterial hypertension. Mediastinum: No evidence of mediastinal lymphadenopathy. The heart is mildly enlarged. The pericardium demonstrate no acute abnormality. There is no acute abnormality of the thoracic aorta. Coronary artery atherosclerotic calcifications. Lungs/pleura: The lungs demonstrate diffuse interlobular septal thickening. There is scattered patchy ground-glass opacities. Small bilateral pleural effusions with adjacent atelectasis/consolid ation. No pneumothorax is identified. Bilateral diffuse bronchial wall thickening. Upper Abdomen: Reflux of contrast into the IVC and hepatic veins. The upper abdomen is otherwise is unremarkable. Limited images of the upper abdomen are unremarkable. Soft Tissues/Bones: Multilevel degenerative changes of the spine. Sternotomy wires. No acute bone or soft tissue abnormality. IMPRESSION: No evidence of pulmonary embolism to the level of the segmental pulmonary arteries. Dilated main pulmonary artery is indicative of pulmonary arterial hypertension. Multiple findings compatible with pulmonary edema with small bilateral pleural effusions. Reflux of contrast into the IVC and hepatic veins suggestive of right ventricular heart dysfunction. Consider CHF. I have personally reviewed the images of this examination and agree with the resident's findings and interpretation. Interpreted by: Erika Sheikh MD Preliminary Report By: Jennifer Hall Electronically signed By Erika Sheikh MD Dictated Date: 09/29/2022 11:53:38 AM Prelim Date: 09/29/2022 11:58:29 AM Sign Date: 09/29/2022 12:11:29 PM Ordering Provider: KATIUSKA Aguilar [facility]) DIMERon 09-29-2022 D-Dimer 663 ng/mL D-DU High 0-230 [facility]) Comment on above: Result Comment: The result of the D-Dimer test should be evaluated in the context of all the clinical and laboratory data available. In those instances where the laboratory result does not agree with the clinical evaluation, additional tests should be performed accordingly. If the D-Dimer result is used to exclude DVT or PE, the recommended cutoff value is less than 230 ng/mL. The D-Dimer result should not be used alone to rule in DVT/PE, but should be used in conjunction with a clinical pretest probability (PTP)assessment model to exclude venous thromboembolism (VTE) in outpatients suspected of deep venous thrombosis (DVT) and pulmonary embolism (PE). Performed By: #### A RADHA, MDW, PBNP, ADIFF, CBC, BMP, DIMER, GFR, TROPHS #### [address] [address] [place], [place] [address] LABORATORYOrdered By: Landry Arndt on 09-29-2022 Blood Glucose Testing Reason Routine (09/29/22 9:31 PM) [facility] Glucose [Mass/Vol] 141 mg/dL Invalid Interpretation Code 70 - 110 mg/dL [facility] LABORATORYOrdered By: SYSTEM SYSTEM on 09-29-2022 Basophil, Absolute 0.1 103/mcL Invalid Interpretation Code 0.0 - 0.2 10^3/mcL AO Workflow SS Basophils/100 WBC (Bld) 0.4 % Invalid Interpretation Code 0.0 - 2.5 % AO Workflow SS Calcium [Mass/Vol] 8.7 mg/dL Invalid Interpretation Code 8.4 - 10.2 mg/dL AO ADM SS Chloride [Moles/Vol] 103 mmol/L Invalid Interpretation Code 98 - 107 mmol/L AO ADM SS CO2 [Moles/Vol] 32 mmol/L Invalid Interpretation Code 22 - 29 mmol/L AO ADM SS Creatinine [Mass/Vol] 0.97 mg/dL Invalid Interpretation Code 0.55 - 1.02 mg/dL AO ADM SS Electrolyte Balance 6.0 mEq/L Invalid Interpretation Code 4.0 - 15.0 mEq/L AO ADM SS Eosinophil, Absolute 0.1 103/mcL Invalid Interpretation Code 0.0 - 0.4 10^3/mcL AO Workflow SS Eosinophils/100 WBC (Bld) 0.6 % Invalid Interpretation Code 0.0 - 7.0 % AO Workflow SS Erythrocyte distribution width (RBC) [Ratio] 13.9 % Invalid Interpretation Code 11.5 - 14.5 % AO Workflow SS GFR/1.73 sq M.predicted among blacks MDRD (S/P/Bld) [Vol rate/Area] 72 ml/min/1.73sqm Invalid Interpretation Code AO Chemistry S Comment on above: Interpretive Data: GFR Population mean for , Non- Americans Ages 20-29 = 116 mL/min/1.73 sq.m. Ages 30-39 = 107 mL/min/1.73 sq.m. Ages 40-49 = 99 mL/min/1.73 sq.m. Ages 50-59 = 93 mL/min/1.73 sq.m. Ages 60-69 = 85 mL/min/1.73 sq.m. Ages 70+ = 75 mL/min/1.73 sq.m. Chronic Kidney Disease: Less than 60 mL/min/1.73 square meters End Stage Renal Disease: Less than 15 mL/min/1.73 square meters GFR/1.73 sq M.predicted among non-blacks MDRD (S/P/Bld) [Vol rate/Area] 60 ml/min/1.73sqm Invalid Interpretation Code AO Chemistry S Comment on above: Interpretive Data: GFR Population mean for , Non- Americans Ages 20-29 = 116 mL/min/1.73 sq.m. Ages 30-39 = 107 mL/min/1.73 sq.m. Ages 40-49 = 99 mL/min/1.73 sq.m. Ages 50-59 = 93 mL/min/1.73 sq.m. Ages 60-69 = 85 mL/min/1.73 sq.m. Ages 70+ = 75 mL/min/1.73 sq.m. Chronic Kidney Disease: Less than 60 mL/min/1.73 square meters End Stage Renal Disease: Less than 15 mL/min/1.73 square meters Glucose [Mass/Vol] 89 mg/dL Invalid Interpretation Code 70 - 105 mg/dL AO ADM SS Hematocrit (Bld) [Volume fraction] 43.3 % Invalid Interpretation Code 37.0 - 47.0 % AO Workflow SS Hemoglobin (Bld) [Mass/Vol] 14.4 G/dL Invalid Interpretation Code 12.0 - 16.0 G/dL AO Workflow SS Lymphocyte, Absolute 2.7 103/mcL Invalid Interpretation Code 0.8 - 3.9 10^3/mcL AO Workflow SS Lymphocytes/100 WBC (Bld) 17.8 % Invalid Interpretation Code 10.0 - 50.0 % AO Workflow SS MCH (RBC) [Entitic mass] 28.9 pg Invalid Interpretation Code 27.0 - 31.2 pg AO Workflow SS MCHC 33.3 G/dL Invalid Interpretation Code 33.0 - 37.0 G/dL AO Workflow SS MCV (RBC) [Entitic vol] 86.8 fL Invalid Interpretation Code 80.0 - 94.0 fL AO Workflow SS Monocyte distribution width Auto (Bld) [Entitic vol] 18.90 1 Invalid Interpretation Code 0.00 - 20.00 AO Workflow SS Comment on above: Result Comment: For ED adult patients suspected of sepsis, MDW<=20.0 does not rule out sepsis or risk of sepsis Monocyte, Absolute 0.7 103/mcL Invalid Interpretation Code 0.2 - 1.0 10^3/mcL AO Workflow SS Monocytes/100 WBC (Bld) 4.9 % Invalid Interpretation Code 1.7 - 13.0 % AO Workflow SS Natriuretic peptide.B prohormone N-Terminal [Mass/Vol] 4902 pg/mL Invalid Interpretation Code 0 - 125 pg/mL AO ADM SS Comment on above: Interpretive Data: N T-proBNP results of less than 300 pg/mL effectively rules out acute congestive heart failure with 99% negative predictive value. Neutrophil, Absolute 11.5 103/mcL Invalid Interpretation Code 2.9 - 6.2 10^3/mcL AO Workflow SS Neutrophils/100 WBC (Bld) 76.3 % Invalid Interpretation Code 37.0 - 80.0 % AO Workflow SS Platelet mean volume (Bld) [Entitic vol] 9.7 fL Invalid Interpretation Code 7.4 - 10.4 fL AO Workflow SS Platelets (Bld) [#/Vol] 219 103/mcL Invalid Interpretation Code 130 - 400 10^3/mcL AO Workflow SS Potassium [Moles/Vol] 4.4 mmol/L Invalid Interpretation Code 3.5 - 5.1 mmol/L AO ADM SS RBC (Bld) [#/Vol] 4.99 106/mcL Invalid Interpretation Code 4.20 - 5.40 10^6/mcL AO Workflow SS Sodium [Moles/Vol] 141 mmol/L Invalid Interpretation Code 136 - 145 mmol/L AO ADM SS Troponin I.cardiac DL <= 0.01 ng/mL [Mass/Vol] 44.3 ng/L Invalid Interpretation Code 0.0 - 51.4 ng/L AO ADM SS Urea nitrogen [Mass/Vol] 12 mg/dL Invalid Interpretation Code 7 - 18 mg/dL AO ADM SS Urea nitrogen/Creatinine [Mass ratio] 12 ratio Invalid Interpretation Code 7 - 27 ratio AO ADM SS WBC (Bld) [#/Vol] 15.1 103/mcL Invalid Interpretation Code 4.6 - 10.8 10^3/mcL AO Workflow SS LABORATORYOrdered By: Leena Almeida on 09-29-2022 Fibrin D-dimer DDU (PPP) [Mass/Vol] 663 ng/mL D-DU Invalid Interpretation Code 0 - 230 ng/mL D-DU AO [facility] SS Comment on above: Interpretive Data: T he result of the D-Dimer test should be evaluated in the context of all the clinical and laboratory data available. In those instances where the laboratory result does not agree with the clinical evaluation, additional tests should be performed accordingly. If the D-Dimer result is used to exclude DVT or PE, the recommended cutoff value is less than 230 ng/mL. The D-Dimer result should not be used alone to rule in DVT/PE, but should be used in conjunction with a clinical pretest probability (PTP)assessment model to exclude venous thromboembolism (VTE) in outpatients suspected of deep venous thrombosis (DVT) and pulmonary embolism (PE). PBNPon 09-29-2022 Natriuretic peptide B (Bld) [Mass/Vol] 4902 pg/mL High 0-125 [facility] ([place]) Comment on above: Result Comment: NT-p roBNP results of less than 300 pg/mL effectively rules out acute congestive heart failure with 99% negative predictive value. Performed By: #### A TITO GARCIA, PBNP, ADIFF, CBC, BMP, DIMER, GFR, TROPHS #### [address] [address] TROPHSon 09-29-2022 Troponin I High Sensitivity 44.3 ng/L Normal 0.0-51.4 [facility] ([place]) Comment on above: Performed By: #### A TITO GARCIA, PBNP, ADIFF, CBC, BMP, DIMER, GFR, TROPHS #### [address] [address] XR CHEST 2 VIEWSon 3 XR CHEST 2 VIEWS ORIGINAL EXAMINATION: TWO XRAY VIEWS OF THE CHEST09/29/2022 9:48 am COMPARISON: None HISTORY: ORDERING SYSTEM PROVIDED HISTORY: Reason for Exam: SOB/Cough/Fever FINDINGS: The heart size is normal.Interstitial prominence noted. Reed B lines visible. No pneumothorax. Trace pleural effusions noted. No pneumothorax or pleural effusion. No aggressive osseous lesions identified.Sternotom y wires appear intact. IMPRESSION: Interstitial edema pattern. Trace pleural effusions. Interpreted by: Hari Huang MD Preliminary Report By: Hari Huang MD Electronically signed By Hari Huang MD Dictated Date: 09/29/2022 9:54:20 AM Prelim Date: 09/29/2022 9:58:58 AM Sign Date: 09/29/2022 9:58:58 AM Ordering Provider: KATIUSKA Aguilar [facility]) RENINDon 08-02-2022 Direct Renin 7.4 pg/mL Normal 3.6-81.6 [facility]) Comment on above: Result Comment: A ra guy of aldosterone in ng/dL to direct renin in pg/mL greater than or equal to 3.8 is a positive screening test result for primary aldosteronism, when aldosterone is greater than or equal to 15 ng/dL. The reference interval for direct renin is based on an upright position. The supine reference intervals are: Age <41 years: 3.2-33.2 pg/mL Age >=41 years: 2.5-45.1 pg/mL Performed By: [facility] [place] [address] Print Graphic Designer: Segundo Henderson III, M.D. CLIA#: [id number] Performed By: #### A TITO GARCIA, JADYN, ADIFF, CBC, BMP, DIMER, GFR, TROPHS #### [place] [id number] Patient Upright or Supine Unknown Normal [facility]) Comment on above: Result Comment: Perf ormed By: [employer] [id number] [place] [address] Print Graphic Designer: Segundo Henderson III, M.D. CLIA#: [id number] Performed By: #### A TITO GARCIA, JADYN, ADIFF, CBC, BMP, DIMER, GFR, TROPHS #### [address] [address] .Auto Diffon 07-31-2022 Basophil, Absolute 0.0 10 3/mcL Normal 0.0-0.2 [facility]) Comment on above: Performed By: #### A RADHA, MDW, PBNP, ADIFF, CBC, BMP, DIMER, GFR, TROPHS #### [address] [address] Basophils/100 WBC (Bld) 0.4 % Normal 0.0-2.5 [facility] ([place]) Comment on above: Performed By: #### A MD RADHAW, PBNP, ADIFF, CBC, BMP, DIMER, GFR, TROPHS #### [address] [address] Eosinophil, Absolute 0.1 10 3/mcL Normal 0.0-0.4 [facility] ([place]) Comment on above: Performed By: #### A TITO GARCIA, PBNP, ADIFF, CBC, BMP, DIMER, GFR, TROPHS #### [address] [address] Eosinophils/100 WBC (Bld) 1.3 % Normal 0.0-7.0 [facility] ([place]) Comment on above: Performed By: #### A MD RADHAW, PBNP, ADIFF, CBC, BMP, DIMER, GFR, TROPHS #### [address] [address] Lymphocyte, Absolute 2.5 10 3/mcL Normal 0.8-3.9 [facility] ([place]) Comment on above: Performed By: #### A TITO GARCIA, PBNP, ADIFF, CBC, BMP, DIMER, GFR, TROPHS #### [address] [address] Lymphocytes/100 WBC (Bld) 32.8 % Normal 10.0-50.0 [facility] ([place]) Comment on above: Performed By: #### A MD RADHAW, PBNP, ADIFF, CBC, BMP, DIMER, GFR, TROPHS #### [address] [address] Monocyte, Absolute 0.6 10 3/mcL Normal 0.2-1.0 [facility] ([place]) Comment on above: Performed By: #### A MD RADHAW, PBNP, ADIFF, CBC, BMP, DIMER, GFR, TROPHS #### [address] [address] Monocytes/100 WBC (Bld) 8.2 % Normal 1.7-13.0 [facility] ([place]) Comment on above: Performed By: #### A TITO GARCIA, JADYN, ADIFF, CBC, BMP, DIMER, GFR, TROPHS #### [address] [address] Neutrophils/100 WBC (Bld) 57.3 % Normal 37.0-80.0 [facility] ([place]) Comment on above: Performed By: #### A TITO GARCIA, JADYN, ADIFF, CBC, BMP, DIMER, GFR, TROPHS #### [address] [address] .GFRon 07-31-2022 GFR 59 ml/min/1.73sqm Normal [facility] ([place]) Comment on above: Result Comment: GFR Population mean for , Non- Americans Ages 20-29 = 116 mL/min/1.73 sq.m. Ages 30-39 = 107 mL/min/1.73 sq.m. Ages 40-49 = 99 mL/min/1.73 sq.m. Ages 50-59 = 93 mL/min/1.73 sq.m. Ages 60-69 = 85 mL/min/1.73 sq.m. Ages 70+ = 75 mL/min/1.73 sq.m. Chronic Kidney Disease: Less than 60 mL/min/1.73 square meters End Stage Renal Disease: Less than 15 mL/min/1.73 square meters Performed By: #### A TITO GARCIA, JADYN, ADIFF, CBC, BMP, DIMER, GFR, TROPHS #### [address] [address] GFR Non- 49 ml/min/1.73sqm Normal [facility] ([place]) Comment on above: Result Comment: GFR Population mean for , Non- Americans Ages 20-29 = 116 mL/min/1.73 sq.m. Ages 30-39 = 107 mL/min/1.73 sq.m. Ages 40-49 = 99 mL/min/1.73 sq.m. Ages 50-59 = 93 mL/min/1.73 sq.m. Ages 60-69 = 85 mL/min/1.73 sq.m. Ages 70+ = 75 mL/min/1.73 sq.m. Chronic Kidney Disease: Less than 60 mL/min/1.73 square meters End Stage Renal Disease: Less than 15 mL/min/1.73 square meters Performed By: #### A TITO GARCIA, JADYN, ADIFF, CBC, BMP, DIMER, GFR, TROPHS #### [address] [address] .NEUABSon 07-31-2022 Neutrophil, Absolute 4.4 10 3/mcL Normal 2.9-6.2 [facility] ([place]) Comment on above: Performed By: #### A TITO GARCIA, JADYN, ADIFF, CBC, BMP, DIMER, GFR, TROPHS #### [place] [address] A1Con 07-31-2022 HbA1c (Bld) [Mass fraction] 6.6 % High 4.3-6.4 [facility] ([place]) Comment on above: Performed By: #### A TITO GARCIA, JADYN, ADIFF, CBC, BMP, DIMER, GFR, TROPHS #### [place] [address] CBCon 07-31-2022 Erythrocyte distribution width (RBC) [Ratio] 13.3 % Normal 11.5-14.5 [facility] ([place]) Comment on above: Performed By: #### A TITO GARCIA, JADYN, ADIFF, CBC, BMP, DIMER, GFR, TROPHS #### [place] [address] Hematocrit (Bld) [Volume fraction] 43.6 % Normal 37.0-47.0 [facility] ([place]) Comment on above: Performed By: #### A TITO GARCIA, JADYN, ADIFF, CBC, BMP, DIMER, GFR, TROPHS #### [place] [address] Hgb 14.5 G/dL Normal 12.0-16.0 [facility] ([place]) Comment on above: Performed By: #### A TITO GARCIA, JADYN, ADIFF, CBC, BMP, DIMER, GFR, TROPHS #### [address] [address] MCH (RBC) [Entitic mass] 29.3 pg Normal 27.0-31.2 [facility] ([place]) Comment on above: Performed By: #### A TITO GARCIA, JADYN, ADIFF, CBC, BMP, DIMER, GFR, TROPHS #### [address] [address] MCHC 33.2 G/dL Normal 33.0-37.0 [facility] ([place]) Comment on above: Performed By: #### A TITO GARCIA, JADYN, ADIFF, CBC, BMP, DIMER, GFR, TROPHS #### [address] [address] MCV (RBC) [Entitic vol] 88.0 fL Normal 80.0-94.0 [facility] ([place]) Comment on above: Performed By: #### A TITO GARCIA, JADYN, ADIFF, CBC, BMP, DIMER, GFR, TROPHS #### [address] [address] Platelet 187 10 3/mcL Normal 130-400 [facility] ([place]) Comment on above: Performed By: #### A TITO GARCIA, JADYN, ADIFF, CBC, BMP, DIMER, GFR, TROPHS #### [address] [address] Platelet mean volume (Bld) [Entitic vol] 9.7 fL Normal 7.4-10.4 [facility] ([place]) Comment on above: Performed By: #### A TITO GARCIA, JADYN, ADIFF, CBC, BMP, DIMER, GFR, TROPHS #### [address] [address] RBC 4.95 10 6/mcL Normal 4.20-5.40 [facility] ([place]) Comment on above: Performed By: #### A TITO GARCIA, JADYN, ADIFF, CBC, BMP, DIMER, GFR, TROPHS #### [address] [address] WBC 7.7 10 3/mcL Normal 4.6-10.8 [facility] ([place]) Comment on above: Performed By: #### A TITO GARCIA, JADYN, ADIFF, CBC, BMP, DIMER, GFR, TROPHS #### [address] [address] CMPon 07-31-2022 Albumin Level 3.6 G/dL Normal 3.5-5.0 [facility] ([place]) Comment on above: Performed By: #### A TITO GARCIA, JADYN, ADIFF, CBC, BMP, DIMER, GFR, TROPHS #### [address] [address] Albumin/Globulin [Mass ratio] 1.1 {ratio} Normal 1.1-2.5 [facility] ([place]) Comment on above: Performed By: #### A TITO GARCIA, JADYN, ADIFF, CBC, BMP, DIMER, GFR, TROPHS #### [address] [address] ALP [Catalytic activity/Vol] 77 U/L Normal 40-135 [facility] ([place]) Comment on above: Performed By: #### A TITO GARCIA, JADYN, ADIFF, CBC, BMP, DIMER, GFR, TROPHS #### [address] [address] ALT [Catalytic activity/Vol] 14 U/L Normal 14-59 [facility] ([place]) Comment on above: Performed By: #### A TITO GARCIA, JADYN, ADIFF, CBC, BMP, DIMER, GFR, TROPHS #### [address] [address] AST [Catalytic activity/Vol] 14 U/L Normal 10-40 [facility] ([place]) Comment on above: Performed By: #### A TITO GARCIA, PBNP, ADIFF, CBC, BMP, DIMER, GFR, TROPHS #### [address] [address] Bili Total 0.6 mg/dL Normal 0.2-1.0 [facility] ([place]) Comment on above: Result Comment: Use of this assay is not recommended for patients undergoing treatment with eltrombopag due to the potential for falsely elevated results. Performed By: #### A TITO GARCIA, JADYN, ADIFF, CBC, BMP, DIMER, GFR, TROPHS #### [address] [address] BUN/Creatinine Ratio 10 ratio Normal 7-27 [facility] ([place]) Comment on above: Performed By: #### A TITO GARCIA, JADYN, ADIFF, CBC, BMP, DIMER, GFR, TROPHS #### [address] [address] Calcium [Mass/Vol] 9.5 mg/dL Normal 8.4-10.2 [facility] ([place]) Comment on above: Performed By: #### A TITO GARCIA, JADYN, ADIFF, CBC, BMP, DIMER, GFR, TROPHS #### [address] [address] Chloride [Moles/Vol] 105 mmol/L Normal 98-107 [facility] ([place]) Comment on above: Performed By: #### A TITO GARCIA, JADYN, ADIFF, CBC, BMP, DIMER, GFR, TROPHS #### [address] [address] CO2 [Moles/Vol] 31 mmol/L High 22-29 [facility] ([place]) Comment on above: Performed By: #### A TITO GARCIA, JADYN, ADIFF, CBC, BMP, DIMER, GFR, TROPHS #### [address] [address] Creatinine [Mass/Vol] 1.15 mg/dL High 0.55-1.02 [facility] ([place]) Comment on above: Performed By: #### A TITO GARCIA, JADYN, ADIFF, CBC, BMP, DIMER, GFR, TROPHS #### [address] [address] Electrolyte Balance 5.0 mEq/L Normal 4.0-15.0 [facility] ([place]) Comment on above: Performed By: #### A TITO GARCIA, JADYN, ADIFF, CBC, BMP, DIMER, GFR, TROPHS #### [place] [id number] Globulin 3.3 G/dL Normal [facility] ([place]) Comment on above: Performed By: #### A TITO GARCIA, JADYN, ADIFF, CBC, BMP, DIMER, GFR, TROPHS #### [place] [address] Glucose [Mass/Vol] 111 mg/dL High 70-105 [facility] ([place]) Comment on above: Performed By: #### A TITO GARCIA, JADYN, ADIFF, CBC, BMP, DIMER, GFR, TROPHS #### [address] [address] Potassium [Moles/Vol] 4.2 mmol/L Normal 3.5-5.1 [facility] ([place]) Comment on above: Performed By: #### A TITO GARCIA, JADYN, ADIFF, CBC, BMP, DIMER, GFR, TROPHS #### [address] [address] Sodium [Moles/Vol] 141 mmol/L Normal 136-145 [facility] ([place]) Comment on above: Performed By: #### A TITO GARCIA, JADYN, ADIFF, CBC, BMP, DIMER, GFR, TROPHS #### [address] [address] Total Protein 6.9 G/dL Normal 6.4-8.2 [facility] ([place]) Comment on above: Performed By: #### A TITO GARCIA, JADYN, ADIFF, CBC, BMP, DIMER, GFR, TROPHS #### [address] [address] Urea nitrogen [Mass/Vol] 12 mg/dL Normal 7-18 [facility] ([place]) Comment on above: Performed By: #### A RADHA, TITO, PBCANDIDO, ADIFF, CBC, BMP, DIMER, GFR, TROPHS #### [place] [id number] [place], [place] [address] LABORATORYOrdered By: SYSTEM SYSTEM on 07-31-2022 25-hydroxyvitamin D3 [Mass/Vol] 44.6 ng/mL Invalid Interpretation Code AO ADM SS Albumin BCP dye [Mass/Vol] 3.6 G/dL Invalid Interpretation Code 3.5 - 5.0 G/dL AO ADM SS Albumin/Globulin [Mass ratio] 1.1 {ratio} Invalid Interpretation Code 1.1 - 2.5 ratio AO ADM SS ALP [Catalytic activity/Vol] 77 U/L Invalid Interpretation Code 40 - 135 U/L AO ADM SS ALT With P-5'-P [Catalytic activity/Vol] 14 U/L Invalid Interpretation Code 14 - 59 U/L AO ADM SS AST With P-5'-P [Catalytic activity/Vol] 14 U/L Invalid Interpretation Code 10 - 40 U/L AO ADM SS Bilirubin [Mass/Vol] 0.6 mg/dL Invalid Interpretation Code 0.2 - 1.0 mg/dL AO ADM SS Calcium [Mass/Vol] 9.5 mg/dL Invalid Interpretation Code 8.4 - 10.2 mg/dL AO ADM SS Chloride [Moles/Vol] 105 mmol/L Invalid Interpretation Code 98 - 107 mmol/L AO ADM SS CO2 [Moles/Vol] 31 mmol/L Invalid Interpretation Code 22 - 29 mmol/L AO ADM SS Creatinine [Mass/Vol] 1.15 mg/dL Invalid Interpretation Code 0.55 - 1.02 mg/dL AO ADM SS Electrolyte Balance 5.0 mEq/L Invalid Interpretation Code 4.0 - 15.0 mEq/L AO ADM SS GFR/1.73 sq M.predicted among blacks MDRD (S/P/Bld) [Vol rate/Area] 59 ml/min/1.73sqm Invalid Interpretation Code AO Chemistry S GFR/1.73 sq M.predicted among non-blacks MDRD (S/P/Bld) [Vol rate/Area] 49 ml/min/1.73sqm Invalid Interpretation Code AO Chemistry S Globulin 3.3 G/dL Invalid Interpretation Code AO ADM SS Glucose [Mass/Vol] 111 mg/dL Invalid Interpretation Code 70 - 105 mg/dL AO ADM SS HbA1c (Bld) [Mass fraction] 6.6 % Invalid Interpretation Code 4.3 - 6.4 % AO ADM SS Parathyrin.intact [Mass/Vol] 81.4 pg/mL Invalid Interpretation Code 18.5 - 88.0 pg/mL AH ADM SS Potassium [Moles/Vol] 4.2 mmol/L Invalid Interpretation Code 3.5 - 5.1 mmol/L AO ADM SS Protein [Mass/Vol] 6.9 G/dL Invalid Interpretation Code 6.4 - 8.2 G/dL AO ADM SS Sodium [Moles/Vol] 141 mmol/L Invalid Interpretation Code 136 - 145 mmol/L AO ADM SS TSH Qn 2.40 m[IU]/L Invalid Interpretation Code 0.36 - 3.74 mcIU/mL AO ADM SS Urea nitrogen [Mass/Vol] 12 mg/dL Invalid Interpretation Code 7 - 18 mg/dL AO ADM SS Urea nitrogen/Creatinine [Mass ratio] 10 ratio Invalid Interpretation Code 7 - 27 ratio AO ADM SS Uric Acid Lvl 7.7 mg/dL Invalid Interpretation Code 2.6 - 6.2 mg/dL AO ADM SS LABORATORYOrdered By: Leena Almeida on 07-31-2022 Basophil, Absolute 0.0 103/mcL Invalid Interpretation Code 0.0 - 0.2 10^3/mcL AO Workflow SS Basophils/100 WBC (Bld) 0.4 % Invalid Interpretation Code 0.0 - 2.5 % AO Workflow SS Cholesterol [Mass/Vol] 148 mg/dL Invalid Interpretation Code 0 - 200 mg/dL AO ADM SS Cholesterol in HDL [Mass/Vol] 38 mg/dL Invalid Interpretation Code 40 - 60 mg/dL AO ADM SS Cholesterol in LDL [Mass/Vol] 86 mg/dL Invalid Interpretation Code 0 - 130 mg/dL AO ADM SS Eosinophil, Absolute 0.1 103/mcL Invalid Interpretation Code 0.0 - 0.4 10^3/mcL AO Workflow SS Eosinophils/100 WBC (Bld) 1.3 % Invalid Interpretation Code 0.0 - 7.0 % AO Workflow SS Erythrocyte distribution width (RBC) [Ratio] 13.3 % Invalid Interpretation Code 11.5 - 14.5 % AO Workflow SS Hematocrit (Bld) [Volume fraction] 43.6 % Invalid Interpretation Code 37.0 - 47.0 % AO Workflow SS Hemoglobin (Bld) [Mass/Vol] 14.5 G/dL Invalid Interpretation Code 12.0 - 16.0 G/dL AO Workflow SS Lymphocyte, Absolute 2.5 103/mcL Invalid Interpretation Code 0.8 - 3.9 10^3/mcL AO Workflow SS Lymphocytes/100 WBC (Bld) 32.8 % Invalid Interpretation Code 10.0 - 50.0 % AO Workflow SS MCH (RBC) [Entitic mass] 29.3 pg Invalid Interpretation Code 27.0 - 31.2 pg AO Workflow SS MCHC 33.2 G/dL Invalid Interpretation Code 33.0 - 37.0 G/dL AO Workflow SS MCV (RBC) [Entitic vol] 88.0 fL Invalid Interpretation Code 80.0 - 94.0 fL AO Workflow SS Monocyte, Absolute 0.6 103/mcL Invalid Interpretation Code 0.2 - 1.0 10^3/mcL AO Workflow SS Monocytes/100 WBC (Bld) 8.2 % Invalid Interpretation Code 1.7 - 13.0 % AO Workflow SS Neutrophil, Absolute 4.4 103/mcL Invalid Interpretation Code 2.9 - 6.2 10^3/mcL AO Workflow SS Neutrophils/100 WBC (Bld) 57.3 % Invalid Interpretation Code 37.0 - 80.0 % AO Workflow SS Platelet mean volume (Bld) [Entitic vol] 9.7 fL Invalid Interpretation Code 7.4 - 10.4 fL AO Workflow SS Platelets (Bld) [#/Vol] 187 103/mcL Invalid Interpretation Code 130 - 400 10^3/mcL AO Workflow SS RBC (Bld) [#/Vol] 4.95 106/mcL Invalid Interpretation Code 4.20 - 5.40 10^6/mcL AO Workflow SS Triglyceride [Mass/Vol] 121 mg/dL Invalid Interpretation Code 0 - 150 mg/dL AO ADM SS WBC (Bld) [#/Vol] 7.7 103/mcL Invalid Interpretation Code 4.6 - 10.8 10^3/mcL AO Workflow SS LIPIDon 07-31-2022 Cholesterol [Mass/Vol] 148 mg/dL Normal 0-200 [facility] ([place]) Comment on above: Result Comment: Chol esterol Reference Interval: Less than 200 Desirable 200-239 Borderline high risk 240 and above High risk Performed By: #### A RADHA, MDW, JADYN, ADIFF, CBC, BMP, DIMER, GFR, TROPHS #### [address] [address] Cholesterol in HDL [Mass/Vol] 38 mg/dL Low 40-60 [facility] ([place]) Comment on above: Performed By: #### A TITO GARCIA, JADYN, ADIFF, CBC, BMP, DIMER, GFR, TROPHS #### [address] [address] Cholesterol in LDL [Mass/Vol] 86 mg/dL Normal 0-130 [facility] ([place]) Comment on above: Performed By: #### A TITO GARCIA, JDAYN, ADIFF, CBC, BMP, DIMER, GFR, TROPHS #### [place] [address] Triglyceride [Mass/Vol] 121 mg/dL Normal 0-150 [facility] ([place]) Comment on above: Result Comment: Trig lyceride Reference Interval: Less than 150 Normal 150-199 Borderline high risk 200-499 High risk 500 or higher Very high risk Performed By: #### A TITO GARCIA, JADYN, JUANITA, CBC, BMP, DIMER, GFR, TROPHS #### [place] [address] PTHon 07-31-2022 PTH, Intact 81.4 pg/mL Normal 18.5-88.0 [facility] ([place]) Comment on above: Performed By: #### A TITO GARCIA, JADYN, ADIFF, CBC, BMP, DIMER, GFR, TROPHS #### [address] [address] TSHon 07-31-2022 TSH Qn 2.40 m[IU]/L Normal 0.36-3.74 [facility] ([place]) Comment on above: Performed By: #### A TITO GARCIA, JADYN, ADIFF, CBC, BMP, DIMER, GFR, TROPHS #### [place] [id number] URICon 07-31-2022 Uric Acid Lvl 7.7 mg/dL High 2.6-6.2 [facility] ([place]) Comment on above: Performed By: #### A TITO GARCIA, PBCANDIDO, ADIFF, CBC, BMP, DIMER, GFR, TROPHS #### [place] [address] [address] VIDHon 07-31-2022 Vit. D 25-Hydroxy 44.6 ng/mL Normal [facility] ([place]) Comment on above: Result Comment: Inte rpretive Values Based on Total 25(OH) Vitamin D: Deficient <20 ng/mL Insufficient 20 - <30 ng/mL Sufficient 30-100 ng/mL Performed By: #### A TITO GARCIA, PBCANDIDO, ADIFF, CBC, BMP, DIMER, GFR, TROPHS #### [place] [id number] LABORATORYOrdered By: Roro Browning on 01-09-2022 HbA1c (Bld) [Mass fraction] 7.8 % Invalid Interpretation Code 4.3 - 6.4 % AO ADM SS Uric Acid Lvl 7.4 mg/dL Invalid Interpretation Code 2.6 - 6.2 mg/dL AO ADM SS Vit. D 25-Hydroxy 40.3 ng/mL Invalid Interpretation Code AO ADM SS Albumin BCP dye [Mass/Vol] 3.3 G/dL Invalid Interpretation Code 3.5 - 5.0 G/dL AO ADM SS Albumin/Globulin [Mass ratio] 0.9 {ratio} Invalid Interpretation Code 1.1 - 2.5 ratio AO ADM SS ALP [Catalytic activity/Vol] 94 U/L Invalid Interpretation Code 40 - 135 U/L AO ADM SS ALT With P-5'-P [Catalytic activity/Vol] 13 U/L Invalid Interpretation Code 14 - 59 U/L AO ADM SS AST With P-5'-P [Catalytic activity/Vol] 19 U/L Invalid Interpretation Code 10 - 40 U/L AO ADM SS Basophil, Absolute 0.0 103/mcL Invalid Interpretation Code 0.0 - 0.2 10^3/mcL AO Workflow SS Basophils/100 WBC (Bld) 0.3 % Invalid Interpretation Code 0.0 - 2.5 % AO Workflow SS Bilirubin [Mass/Vol] 0.4 mg/dL Invalid Interpretation Code 0.2 - 1.0 mg/dL AO ADM SS Calcium [Mass/Vol] 8.7 mg/dL Invalid Interpretation Code 8.4 - 10.2 mg/dL AO ADM SS Chloride [Moles/Vol] 104 mmol/L Invalid Interpretation Code 98 - 107 mmol/L AO ADM SS Cholesterol [Mass/Vol] 170 mg/dL Invalid Interpretation Code 0 - 200 mg/dL AO ADM SS Cholesterol in HDL [Mass/Vol] 43 mg/dL Invalid Interpretation Code 40 - 60 mg/dL AO ADM SS Cholesterol in LDL [Mass/Vol] 105 mg/dL Invalid Interpretation Code 0 - 130 mg/dL AO ADM SS CO2 [Moles/Vol] 32 mmol/L Invalid Interpretation Code 22 - 29 mmol/L AO ADM SS Creatinine [Mass/Vol] 1.07 mg/dL Invalid Interpretation Code 0.55 - 1.02 mg/dL AO ADM SS Electrolyte Balance 4.0 mEq/L Invalid Interpretation Code 4.0 - 15.0 mEq/L AO ADM SS Eosinophil, Absolute 0.2 103/mcL Invalid Interpretation Code 0.0 - 0.4 10^3/mcL AO Workflow SS Eosinophils/100 WBC (Bld) 2.4 % Invalid Interpretation Code 0.0 - 7.0 % AO Workflow SS Erythrocyte distribution width (RBC) [Ratio] 13.2 % Invalid Interpretation Code 11.5 - 14.5 % AO Workflow SS Globulin 3.7 G/dL Invalid Interpretation Code AO ADM SS Glucose [Mass/Vol] 153 mg/dL Invalid Interpretation Code 70 - 105 mg/dL AO ADM SS Hematocrit (Bld) [Volume fraction] 41.1 % Invalid Interpretation Code 37.0 - 47.0 % AO Workflow SS Hemoglobin (Bld) [Mass/Vol] 14.2 G/dL Invalid Interpretation Code 12.0 - 16.0 G/dL AO Workflow SS Iron [Mass/Vol] 41 ug/dL Invalid Interpretation Code 50 - 170 mcg/dL AO ADM SS Lymphocyte, Absolute 2.7 103/mcL Invalid Interpretation Code 0.8 - 3.9 10^3/mcL AO Workflow SS Lymphocytes/100 WBC (Bld) 30.9 % Invalid Interpretation Code 10.0 - 50.0 % AO Workflow SS MCH (RBC) [Entitic mass] 30.9 pg Invalid Interpretation Code 27.0 - 31.2 pg AO Workflow SS MCHC 34.5 G/dL Invalid Interpretation Code 33.0 - 37.0 G/dL AO Workflow SS MCV (RBC) [Entitic vol] 89.4 fL Invalid Interpretation Code 80.0 - 94.0 fL AO Workflow SS Monocyte, Absolute 0.7 103/mcL Invalid Interpretation Code 0.2 - 1.0 10^3/mcL AO Workflow SS Monocytes/100 WBC (Bld) 7.9 % Invalid Interpretation Code 1.7 - 13.0 % AO Workflow SS Neutrophil, Absolute 5.1 103/mcL Invalid Interpretation Code 2.9 - 6.2 10^3/mcL AO Workflow SS Neutrophils/100 WBC (Bld) 58.5 % Invalid Interpretation Code 37.0 - 80.0 % AO Workflow SS Platelet mean volume (Bld) [Entitic vol] 9.7 fL Invalid Interpretation Code 7.4 - 10.4 fL AO Workflow SS Platelets (Bld) [#/Vol] 216 103/mcL Invalid Interpretation Code 130 - 400 10^3/mcL AO Workflow SS Potassium [Moles/Vol] 4.1 mmol/L Invalid Interpretation Code 3.5 - 5.1 mmol/L AO ADM SS Protein [Mass/Vol] 7.0 G/dL Invalid Interpretation Code 6.4 - 8.2 G/dL AO ADM SS RBC (Bld) [#/Vol] 4.60 106/mcL Invalid Interpretation Code 4.20 - 5.40 10^6/mcL AO Workflow SS Sodium [Moles/Vol] 140 mmol/L Invalid Interpretation Code 136 - 145 mmol/L AO ADM SS Triglyceride [Mass/Vol] 111 mg/dL Invalid Interpretation Code 0 - 150 mg/dL AO ADM SS Urea nitrogen [Mass/Vol] 12 mg/dL Invalid Interpretation Code 7 - 18 mg/dL AO ADM SS Urea nitrogen/Creatinine [Mass ratio] 11 ratio Invalid Interpretation Code 7 - 27 ratio AO ADM SS WBC (Bld) [#/Vol] 8.8 103/mcL Invalid Interpretation Code 4.6 - 10.8 10^3/mcL AO Workflow SS LABORATORYOrdered By: SYSTEM SYSTEM on 01-09-2022 GFR 65 ml/min/1.73sqm Invalid Interpretation Code AO Chemistry S GFR Non- 53 ml/min/1.73sqm Invalid Interpretation Code AO Chemistry S LABORATORYOrdered By: Leena Almeida on 08-08-2021 Albumin BCP dye [Mass/Vol] 3.6 G/dL Invalid Interpretation Code 3.5 - 5.0 G/dL AO ADM SS Albumin/Globulin [Mass ratio] 1.0 {ratio} Invalid Interpretation Code 1.1 - 2.5 ratio AO ADM SS ALP [Catalytic activity/Vol] 92 U/L Invalid Interpretation Code 40 - 135 U/L AO ADM SS ALT With P-5'-P [Catalytic activity/Vol] 18 U/L Invalid Interpretation Code 14 - 59 U/L AO ADM SS AST With P-5'-P [Catalytic activity/Vol] 21 U/L Invalid Interpretation Code 10 - 40 U/L AO ADM SS Basophil, Absolute 0.0 103/mcL Invalid Interpretation Code 0.0 - 0.2 10^3/mcL AO Workflow SS Basophils/100 WBC (Bld) 0.4 % Invalid Interpretation Code 0.0 - 2.5 % AO Workflow SS Bilirubin [Mass/Vol] 0.4 mg/dL Invalid Interpretation Code 0.2 - 1.0 mg/dL AO ADM SS Calcium [Mass/Vol] 9.1 mg/dL Invalid Interpretation Code 8.4 - 10.2 mg/dL AO ADM SS Chloride [Moles/Vol] 102 mmol/L Invalid Interpretation Code 98 - 107 mmol/L AO ADM SS Cholesterol [Mass/Vol] 189 mg/dL Invalid Interpretation Code 0 - 200 mg/dL AO ADM SS Cholesterol in HDL [Mass/Vol] 39 mg/dL Invalid Interpretation Code 40 - 60 mg/dL AO ADM SS Cholesterol in LDL [Mass/Vol] 111 mg/dL Invalid Interpretation Code 0 - 130 mg/dL AO ADM SS CO2 [Moles/Vol] 32 mmol/L Invalid Interpretation Code 22 - 29 mmol/L AO ADM SS Creatinine [Mass/Vol] 1.20 mg/dL Invalid Interpretation Code 0.55 - 1.02 mg/dL AO ADM SS Electrolyte Balance 8.0 mEq/L Invalid Interpretation Code 4.0 - 15.0 mEq/L AO ADM SS Eosinophil, Absolute 0.2 103/mcL Invalid Interpretation Code 0.0 - 0.4 10^3/mcL AO Workflow SS Eosinophils/100 WBC (Bld) 2.5 % Invalid Interpretation Code 0.0 - 7.0 % AO Workflow SS Erythrocyte distribution width (RBC) [Ratio] 13.1 % Invalid Interpretation Code 11.5 - 14.5 % AO Workflow SS Globulin 3.7 G/dL Invalid Interpretation Code AO ADM SS Glucose [Mass/Vol] 146 mg/dL Invalid Interpretation Code 70 - 105 mg/dL AO ADM SS HbA1c (Bld) [Mass fraction] 7.7 % Invalid Interpretation Code 4.3 - 6.4 % AO ADM SS Hematocrit (Bld) [Volume fraction] 42.6 % Invalid Interpretation Code 37.0 - 47.0 % AO Workflow SS Hemoglobin (Bld) [Mass/Vol] 14.4 G/dL Invalid Interpretation Code 12.0 - 16.0 G/dL AO Workflow SS Lymphocyte, Absolute 2.7 103/mcL Invalid Interpretation Code 0.8 - 3.9 10^3/mcL AO Workflow SS Lymphocytes/100 WBC (Bld) 36.9 % Invalid Interpretation Code 10.0 - 50.0 % AO Workflow SS MCH (RBC) [Entitic mass] 30.1 pg Invalid Interpretation Code 27.0 - 31.2 pg AO Workflow SS MCHC 33.7 G/dL Invalid Interpretation Code 33.0 - 37.0 G/dL AO Workflow SS MCV (RBC) [Entitic vol] 89.2 fL Invalid Interpretation Code 80.0 - 94.0 fL AO Workflow SS Monocyte, Absolute 0.5 103/mcL Invalid Interpretation Code 0.2 - 1.0 10^3/mcL AO Workflow SS Monocytes/100 WBC (Bld) 7.2 % Invalid Interpretation Code 1.7 - 13.0 % AO Workflow SS Neutrophil, Absolute 3.9 103/mcL Invalid Interpretation Code 2.9 - 6.2 10^3/mcL AO Workflow SS Neutrophils/100 WBC (Bld) 53.0 % Invalid Interpretation Code 37.0 - 80.0 % AO Workflow SS Platelet mean volume (Bld) [Entitic vol] 9.8 fL Invalid Interpretation Code 7.4 - 10.4 fL AO Workflow SS Platelets (Bld) [#/Vol] 205 103/mcL Invalid Interpretation Code 130 - 400 10^3/mcL AO Workflow SS Potassium [Moles/Vol] 4.5 mmol/L Invalid Interpretation Code 3.5 - 5.1 mmol/L AO ADM SS Protein [Mass/Vol] 7.3 G/dL Invalid Interpretation Code 6.4 - 8.2 G/dL AO ADM SS RBC (Bld) [#/Vol] 4.78 106/mcL Invalid Interpretation Code 4.20 - 5.40 10^6/mcL AO Workflow SS Sodium [Moles/Vol] 142 mmol/L Invalid Interpretation Code 136 - 145 mmol/L AO ADM SS Triglyceride [Mass/Vol] 193 mg/dL Invalid Interpretation Code 0 - 150 mg/dL AO ADM SS Urea nitrogen [Mass/Vol] 17 mg/dL Invalid Interpretation Code 7 - 18 mg/dL AO ADM SS Urea nitrogen/Creatinine [Mass ratio] 14 ratio Invalid Interpretation Code 7 - 27 ratio AO ADM SS Vit. D 25-Hydroxy 36.3 ng/mL Invalid Interpretation Code AO ADM SS WBC 7.3 103/mcL Invalid Interpretation Code 4.6 - 10.8 10^3/mcL AO Workflow SS LABORATORYOrdered By: SYSTEM SYSTEM on 08-08-2021 GFR 57 ml/min/1.73sqm Invalid Interpretation Code AO Chemistry S GFR Non- 47 ml/min/1.73sqm Invalid Interpretation Code AO Chemistry S Monocyte distribution width Auto (Bld) [Entitic vol] Not Performed 1 *NA* (08/08/21 7:18 AM) Invalid Interpretation Code 0.00 - 20.00 AO Hematology S Comment on above: Result Comment: MDW testing performed only on adult ER patients between the ages of 18-89 years. LABORATORYOrdered By: Michael Rueda on 05-09-2021 Albumin BCP dye [Mass/Vol] 3.6 G/dL Invalid Interpretation Code 3.5 - 5.0 G/dL AO ADM SS Albumin/Globulin [Mass ratio] 1.0 {ratio} Invalid Interpretation Code 1.1 - 2.5 ratio AO ADM SS ALP [Catalytic activity/Vol] 88 U/L Invalid Interpretation Code 40 - 135 U/L AO ADM SS ALT With P-5'-P [Catalytic activity/Vol] 19 U/L Invalid Interpretation Code 14 - 59 U/L AO ADM SS AST With P-5'-P [Catalytic activity/Vol] 17 U/L Invalid Interpretation Code 10 - 40 U/L AO ADM SS Basophil, Absolute 0.00 103/mcL Invalid Interpretation Code 0.00 - 0.19 10^3/mcL AO Auto Heme SS Basophils/100 WBC (Bld) 0.3 % Invalid Interpretation Code 0.0 - 2.5 % AO Auto Heme SS Bilirubin [Mass/Vol] 0.6 mg/dL Invalid Interpretation Code 0.2 - 1.0 mg/dL AO ADM SS Calcium [Mass/Vol] 9.1 mg/dL Invalid Interpretation Code 8.4 - 10.2 mg/dL AO ADM SS Chloride [Moles/Vol] 103 mmol/L Invalid Interpretation Code 98 - 107 mmol/L AO ADM SS CO2 [Moles/Vol] 28 mmol/L Invalid Interpretation Code 22 - 29 mmol/L AO ADM SS Creatinine [Mass/Vol] 0.98 mg/dL Invalid Interpretation Code 0.55 - 1.02 mg/dL AO ADM SS Electrolyte Balance 11.0 mEq/L Invalid Interpretation Code 4.0 - 15.0 mEq/L AO ADM SS Eosinophil, Absolute 0.20 103/mcL Invalid Interpretation Code 0.00 - 0.40 10^3/mcL AO Auto Heme SS Eosinophils/100 WBC (Bld) 2.3 % Invalid Interpretation Code 0.0 - 7.0 % AO Auto Heme SS Erythrocyte distribution width (RBC) [Ratio] 12.9 % Invalid Interpretation Code 11.5 - 14.5 % AO Auto Heme SS Globulin 3.5 G/dL Invalid Interpretation Code AO ADM SS Glucose [Mass/Vol] 133 mg/dL Invalid Interpretation Code 70 - 105 mg/dL AO ADM SS HbA1c (Bld) [Mass fraction] 7.9 % Invalid Interpretation Code 4.3 - 6.4 % AO ADM SS Hematocrit (Bld) [Volume fraction] 42.2 % Invalid Interpretation Code 37.0 - 47.0 % AO Auto Heme SS Hemoglobin (Bld) [Mass/Vol] 14.0 G/dL Invalid Interpretation Code 12.0 - 16.0 G/dL AO Auto Heme SS Iron [Mass/Vol] 84 ug/dL Invalid Interpretation Code 50 - 170 mcg/dL AO ADM SS Iron binding capacity [Mass/Vol] 321 mcg/dL Invalid Interpretation Code 250 - 450 mcg/dL AO ADM SS Lymphocyte, Absolute 2.30 103/mcL Invalid Interpretation Code 0.77 - 3.85 10^3/mcL AO Auto Heme SS Lymphocytes/100 WBC (Bld) 32.9 % Invalid Interpretation Code 10.0 - 50.0 % AO Auto Heme SS MCH (RBC) [Entitic mass] 29.8 pg Invalid Interpretation Code 27.0 - 31.2 pg AO Auto Heme SS MCHC (RBC) [Mass/Vol] 33.3 G/dL Invalid Interpretation Code 33.0 - 37.0 G/dL AO Auto Heme SS MCV (RBC) [Entitic vol] 89.6 fL Invalid Interpretation Code 80.0 - 94.0 fL AO Auto Heme SS Monocyte, Absolute 0.60 103/mcL Invalid Interpretation Code 0.15 - 1.00 10^3/mcL AO Auto Heme SS Monocytes/100 WBC (Bld) 8.7 % Invalid Interpretation Code 1.7 - 13.0 % AO Auto Heme SS Neutrophil, Absolute 3.90 103/mcL Invalid Interpretation Code 2.85 - 6.16 10^3/mcL AO Auto Heme SS Neutrophils/100 WBC (Bld) 55.8 % Invalid Interpretation Code 37.0 - 80.0 % AO Auto Heme SS Platelet mean volume (Bld) [Entitic vol] 10.5 fL Invalid Interpretation Code 7.4 - 10.4 fL AO Auto Heme SS Platelets (Bld) [#/Vol] 242 103/mcL Invalid Interpretation Code 130 - 400 10^3/mcL AO Auto Heme SS Potassium [Moles/Vol] 4.3 mmol/L Invalid Interpretation Code 3.5 - 5.1 mmol/L AO ADM SS Protein [Mass/Vol] 7.1 G/dL Invalid Interpretation Code 6.4 - 8.2 G/dL AO ADM SS RBC (Bld) [#/Vol] 4.71 106/mcL Invalid Interpretation Code 4.20 - 5.40 10^6/mcL AO Auto Heme SS Sodium [Moles/Vol] 142 mmol/L Invalid Interpretation Code 136 - 145 mmol/L AO ADM SS TSH Qn 2.28 m[IU]/L Invalid Interpretation Code 0.36 - 3.74 mcIU/mL AO ADM SS Urea nitrogen [Mass/Vol] 16 mg/dL Invalid Interpretation Code 7 - 18 mg/dL AO ADM SS Urea nitrogen/Creatinine [Mass ratio] 16 ratio Invalid Interpretation Code 7 - 27 ratio AO ADM SS Vit. D 25-Hydroxy 29.1 ng/mL Invalid Interpretation Code AO ADM SS WBC (Bld) [#/Vol] 7.00 103/mcL Invalid Interpretation Code 4.60 - 10.80 10^3/mcL AO Auto Heme SS LABORATORYOrdered By: SYSTEM SYSTEM on 05-09-2021 Folate [Mass/Vol] 8.30 ng/mL Invalid Interpretation Code 5.38 - 24.00 ng/mL AH ADM SS GFR 72 ml/min/1.73sqm Invalid Interpretation Code AO Chemistry S GFR Non- 59 ml/min/1.73sqm Invalid Interpretation Code AO Chemistry S LABORATORYOrdered By: Leatha Whiteside on 01-24-2021 Albumin BCP dye [Mass/Vol] 3.3 G/dL Invalid Interpretation Code 3.5 - 5.0 G/dL AO ADM SS Albumin/Globulin [Mass ratio] 0.9 {ratio} Invalid Interpretation Code 1.1 - 2.5 ratio AO ADM SS ALP [Catalytic activity/Vol] 99 U/L Invalid Interpretation Code 40 - 135 U/L AO ADM SS ALT With P-5'-P [Catalytic activity/Vol] 17 U/L Invalid Interpretation Code 14 - 59 U/L AO ADM SS AST With P-5'-P [Catalytic activity/Vol] 17 U/L Invalid Interpretation Code 10 - 40 U/L AO ADM SS Bilirubin [Mass/Vol] 0.5 mg/dL Invalid Interpretation Code 0.2 - 1.0 mg/dL AO ADM SS Calcium [Mass/Vol] 8.8 mg/dL Invalid Interpretation Code 8.4 - 10.2 mg/dL AO ADM SS Chloride [Moles/Vol] 104 mmol/L Invalid Interpretation Code 98 - 107 mmol/L AO ADM SS Cholesterol [Mass/Vol] 166 mg/dL Invalid Interpretation Code 0 - 200 mg/dL AO ADM SS Cholesterol in HDL [Mass/Vol] 37 mg/dL Invalid Interpretation Code 40 - 60 mg/dL AO ADM SS Cholesterol in LDL [Mass/Vol] 102 mg/dL Invalid Interpretation Code 0 - 130 mg/dL AO ADM SS CO2 [Moles/Vol] 30 mmol/L Invalid Interpretation Code 22 - 29 mmol/L AO ADM SS Creatinine [Mass/Vol] 1.12 mg/dL Invalid Interpretation Code 0.55 - 1.02 mg/dL AO ADM SS Electrolyte Balance 7.0 mEq/L Invalid Interpretation Code AO ADM SS Globulin 3.8 G/dL Invalid Interpretation Code AO ADM SS Glucose [Mass/Vol] 176 mg/dL Invalid Interpretation Code 70 - 105 mg/dL AO ADM SS HbA1c (Bld) [Mass fraction] 8.5 % Invalid Interpretation Code 4.3 - 6.4 % AO ADM SS Iron [Mass/Vol] 35 ug/dL Invalid Interpretation Code 50 - 170 mcg/dL AO ADM SS Iron binding capacity [Mass/Vol] 327 mcg/dL Invalid Interpretation Code 250 - 450 mcg/dL AO ADM SS Potassium [Moles/Vol] 4.5 mmol/L Invalid Interpretation Code 3.5 - 5.1 mmol/L AO ADM SS Protein [Mass/Vol] 7.1 G/dL Invalid Interpretation Code 6.4 - 8.2 G/dL AO ADM SS Sodium [Moles/Vol] 141 mmol/L Invalid Interpretation Code 136 - 145 mmol/L AO ADM SS Triglyceride [Mass/Vol] 135 mg/dL Invalid Interpretation Code 0 - 150 mg/dL AO ADM SS Urea nitrogen [Mass/Vol] 14 mg/dL Invalid Interpretation Code 7 - 18 mg/dL AO ADM SS Urea nitrogen/Creatinine [Mass ratio] 12 ratio Invalid Interpretation Code 7 - 27 ratio AO ADM SS Uric Acid Lvl 3.5 mg/dL Invalid Interpretation Code 2.6 - 6.2 mg/dL AO ADM SS LABORATORYOrdered By: Elsie Martins on 01-24-2021 Basophil, Absolute 0.00 103/mcL Invalid Interpretation Code 0.00 - 0.19 10^3/mcL AO Auto Heme SS Basophils/100 WBC (Bld) 0.5 % Invalid Interpretation Code 0.0 - 2.5 % AO Auto Heme SS Eosinophil, Absolute 0.20 103/mcL Invalid Interpretation Code 0.00 - 0.40 10^3/mcL AO Auto Heme SS Eosinophils/100 WBC (Bld) 2.0 % Invalid Interpretation Code 0.0 - 7.0 % AO Auto Heme SS Erythrocyte distribution width (RBC) [Ratio] 12.8 % Invalid Interpretation Code 11.5 - 14.5 % AO Auto Heme SS Hematocrit (Bld) [Volume fraction] 43.3 % Invalid Interpretation Code 37.0 - 47.0 % AO Auto Heme SS Hemoglobin (Bld) [Mass/Vol] 14.5 G/dL Invalid Interpretation Code 12.0 - 16.0 G/dL AO Auto Heme SS Lymphocyte, Absolute 2.50 103/mcL Invalid Interpretation Code 0.77 - 3.85 10^3/mcL AO Auto Heme SS Lymphocytes/100 WBC (Bld) 29.6 % Invalid Interpretation Code 10.0 - 50.0 % AO Auto Heme SS MCH (RBC) [Entitic mass] 29.9 pg Invalid Interpretation Code 27.0 - 31.2 pg AO Auto Heme SS MCHC (RBC) [Mass/Vol] 33.5 G/dL Invalid Interpretation Code 33.0 - 37.0 G/dL AO Auto Heme SS MCV (RBC) [Entitic vol] 89.3 fL Invalid Interpretation Code 80.0 - 94.0 fL AO Auto Heme SS Monocyte, Absolute 0.60 103/mcL Invalid Interpretation Code 0.15 - 1.00 10^3/mcL AO Auto Heme SS Monocytes/100 WBC (Bld) 7.5 % Invalid Interpretation Code 1.7 - 13.0 % AO Auto Heme SS Neutrophil, Absolute 5.20 103/mcL Invalid Interpretation Code 2.85 - 6.16 10^3/mcL AO Auto Heme SS Neutrophils/100 WBC (Bld) 60.4 % Invalid Interpretation Code 37.0 - 80.0 % AO Auto Heme SS Platelet mean volume (Bld) [Entitic vol] 10.2 fL Invalid Interpretation Code 7.4 - 10.4 fL AO Auto Heme SS Platelets (Bld) [#/Vol] 232 103/mcL Invalid Interpretation Code 130 - 400 10^3/mcL AO Auto Heme SS RBC (Bld) [#/Vol] 4.85 106/mcL Invalid Interpretation Code 4.20 - 5.40 10^6/mcL AO Auto Heme SS WBC (Bld) [#/Vol] 8.60 103/mcL Invalid Interpretation Code 4.60 - 10.80 10^3/mcL AO Auto Heme SS LABORATORYOrdered By: SYSTEM SYSTEM on 01-24-2021 Cobalamin (Vitamin B12) [Mass/Vol] 349 pg/mL Invalid Interpretation Code 211 - 911 pg/mL AH ADM SS GFR 62 ml/min/1.73sqm Invalid Interpretation Code AO Chemistry S GFR Non- 51 ml/min/1.73sqm Invalid Interpretation Code AO Chemistry S Basic Metabolic Panlon 07-29 Anion gap [Moles/Vol] 13 mmol/L Normal 9-18 [facility] Comment on above: Performed By: #### L ACT, CBC, PT, CMP, MG1, PHOS, LASHONDA #### [facility] [address] [place] [address] Calcium [Mass/Vol] 8.1 mg/dL Low 8.5-10.5 [facility] Comment on above: Performed By: #### L ACT, CBC, PT, CMP, MG1, PHOS, LASHONDA #### [facility] [address] [place] [address] Chloride [Moles/Vol] 106 mmol/L Normal 98-110 [facility] Comment on above: Performed By: #### L ACT, CBC, PT, CMP, MG1, PHOS, LASHONDA #### [place] [phone] CO2 [Moles/Vol] 21 mmol/L Low 23-32 [facility] Comment on above: Performed By: #### L ACT, CBC, PT, CMP, MG1, PHOS, LASHONDA #### [place] [phone] Creatinine [Mass/Vol] 0.78 mg/dL Normal 0.70-1.40 [facility] Comment on above: Performed By: #### L ACT, CBC, PT, CMP, MG1, PHOS, LASHONDA #### [place] [phone] eGFR- Amer. >60 Normal >60 [facility] Comment on above: Performed By: #### L ACT, CBC, PT, CMP, MG1, PHOS, LASHONDA #### [place] [phone] GFR/1.73 sq M predicted among non-blacks MDRD (S/P/Bld) [Vol rate/Area] mL/min/{1.73_m2} Normal >60 [facility] Comment on above: Performed By: #### L ACT, CBC, PT, CMP, MG1, PHOS, LASHONDA #### [place] [phone] Glucose [Mass/Vol] 281 mg/dL High 65-100 [facility] Comment on above: Performed By: #### L ACT, CBC, PT, CMP, MG1, PHOS, LASHONDA #### [place] [phone] Potassium [Moles/Vol] 3.8 mmol/L Normal 3.5-5.0 [facility] Comment on above: Performed By: #### L ACT, CBC, PT, CMP, MG1, PHOS, LASHONDA #### [place] [phone] Sodium [Moles/Vol] 140 mmol/L Normal 132-148 [facility] Comment on above: Performed By: #### L ACT, CBC, PT, CMP, MG1, PHOS, LASHONDA #### [place] [phone] Urea nitrogen [Mass/Vol] 20 mg/dL Normal 8-25 [facility] Comment on above: Performed By: #### L ACT, CBC, PT, CMP, MG1, PHOS, LASHONDA #### [place] [phone] CBCon 07-29-2018 Erythrocyte distribution width (RBC) [Ratio] 16.3 % High 11.5-15.0 [facility] Comment on above: Performed By: #### L ACT, CBC, PT, CMP, MG1, PHOS, LASHONDA #### [place] [phone] Hematocrit (Bld) [Volume fraction] 22.4 % Low 36.0-46.0 [facility] Comment on above: Performed By: #### L ACT, CBC, PT, CMP, MG1, PHOS, LASHONDA #### [place] [phone] Hemoglobin (Bld) [Mass/Vol] 7.5 g/dL Low 11.5-15.5 [facility] Comment on above: Performed By: #### L ACT, CBC, PT, CMP, MG1, PHOS, LASHONDA #### [phone] MCH (RBC) [Entitic mass] 30.7 pG Normal 26.0-34.0 [facility] Comment on above: Performed By: #### L ACT, CBC, PT, CMP, MG1, PHOS, LASHONDA #### [place] [phone] MCHC (RBC) [Mass/Vol] 33.5 g/dL Normal 30.5-36.0 [facility] Comment on above: Performed By: #### L ACT, CBC, PT, CMP, MG1, PHOS, LASHONDA #### [place] [phone] MCV (RBC) [Entitic vol] 91.8 fL Normal 80.0-100.0 [facility] Comment on above: Performed By: #### L ACT, CBC, PT, CMP, MG1, PHOS, LASHONDA #### [place] [phone] Platelet mean volume (Bld) [Entitic vol] 11.2 fL Normal 9.0-12.7 [facility] Comment on above: Performed By: #### L ACT, CBC, PT, CMP, MG1, PHOS, LASHONDA #### [place] [phone] Platelets (Bld) [#/Vol] 223 10*3/uL Normal 150-400 [facility] Comment on above: Performed By: #### L ACT, CBC, PT, CMP, MG1, PHOS, LASHONDA #### [place] [phone] RBC (Bld) [#/Vol] 2.44 10*6/uL Low 3.90-5.20 [facility] Comment on above: Performed By: #### L ACT, CBC, PT, CMP, MG1, PHOS, LASHONDA #### [place] [phone] WBC (Bld) [#/Vol] 15.25 10*3/uL High 3.70-11.00 [facility] Comment on above: Performed By: #### L ACT, CBC, PT, CMP, MG1, PHOS, LASHONDA #### [place] [phone] Erythrocyte distribution width (RBC) [Ratio] 16.0 % High 11.5-15.0 [facility] Comment on above: Performed By: #### L ACT, CBC, PT, CMP, MG1, PHOS, LASHONDA #### [place] [phone] Hematocrit (Bld) [Volume fraction] 22.7 % Low 36.0-46.0 [facility] Comment on above: Performed By: #### L ACT, CBC, PT, CMP, MG1, PHOS, LASHONDA #### [place] [phone] Hemoglobin (Bld) [Mass/Vol] 7.7 g/dL Low 11.5-15.5 [facility] Comment on above: Performed By: #### L ACT, CBC, PT, CMP, MG1, PHOS, LASHONDA #### [place] [phone] MCH (RBC) [Entitic mass] 31.0 pG Normal 26.0-34.0 [facility] Comment on above: Performed By: #### L ACT, CBC, PT, CMP, MG1, PHOS, LASHONDA #### [place] [phone] MCHC (RBC) [Mass/Vol] 33.9 g/dL Normal 30.5-36.0 [facility] Comment on above: Performed By: #### L ACT, CBC, PT, CMP, MG1, PHOS, LASHONDA #### [place] [phone] MCV (RBC) [Entitic vol] 91.5 fL Normal 80.0-100.0 [facility] Comment on above: Performed By: #### L ACT, CBC, PT, CMP, MG1, PHOS, LASHONDA #### [place] [phone] Platelet mean volume (Bld) [Entitic vol] 11.3 fL Normal 9.0-12.7 [facility] Comment on above: Performed By: #### L ACT, CBC, PT, CMP, MG1, PHOS, LASHONDA #### [place] [phone] Platelets (Bld) [#/Vol] 217 10*3/uL Normal 150-400 [facility] Comment on above: Performed By: #### L ACT, CBC, PT, CMP, MG1, PHOS, LASHONDA #### [facility] [address] [place] [address] RBC (Bld) [#/Vol] 2.48 10*6/uL Low 3.90-5.20 [facility] Comment on above: Performed By: #### L ACT, CBC, PT, CMP, MG1, PHOS, LASHONDA #### [facility] [id number] [place] [id number] WBC (Bld) [#/Vol] 15.49 10*3/uL High 3.70-11.00 [facility] Comment on above: Performed By: #### L ACT, CBC, PT, CMP, MG1, PHOS, [place]ASH[place]DA #### [place] [address] CT ABD/PEL W IVCONon 07-29-[address] ABD/PEL W IVCON * * *Final Report* * * * * * SEE BOTTOM OF REPORT FOR ADDENDED TEXT * * * DATE OF EXAM: Jul 29 2018 1:58PM [facility] 0530 - CT ABD/PEL W IVCON / PROCEDURE REASON: Esophageal varices * * * * Physician Interpretation * * * * * * * * * * * * ORIGINAL REPORT * * * * * * * * EXAMINATION: CT ABDOMEN AND PELVIS WITH IV CONTRAST CLINICAL HISTORY: Esophageal varices ESOPHAGEAL VARICES TECHNIQUE: CT of the abdomen and pelvis was performed using standard technique, scanning from just above the dome of the diaphragm to the symphysis pubis. MQ: CTAP_3 Contrast: IV: 150 ml of Omnipaque 300 Oral contrast: None CT Radiation dose: Integrated dose-length product (DLP) for this visit = 1512 mGy*cm. CT Dose Reduction Employed: Automated exposure control (AEC) COMPARISON: None. RESULT: Liver: Well demarcated area of relative low density involving the left lobe compared to the right. Vascular structures traverse the area of low density without apparent disruption or distortion. Findings may be secondary to perfusion anomaly (LAKSHMI). There are two small areas of enhancement. One area is noted within the lateral segment left lobe (2:30) and another noted near the junction of the right and left lobes just superior to the gallbladder (2:35). Biliary: No bile duct dilation. Gallbladder is unremarkable. Spleen: No mass. No splenomegaly. Pancreas: No mass or duct dilation. Adrenals: No mass. Kidneys: No mass, calculus or hydronephrosis. GI tract: No dilation or wall thickening. Lymph nodes: No abdominal or pelvic lymphadenopathy. Mesentery/Peritoneum : No ascites or mass. Retroperitoneum: No mass. Vasculature: The celiac axis and SMA are patent. The portal vein and branches, splenic vein, SMV, and hepatic veins are patent. No abdominal aortic or iliac artery aneurysm. Pelvis: No mass, ascites or fluid collection. Bones/Soft Tissues: No significant finding. Lower thorax: Unremarkable. IMPRESSION: Well demarcated area of low density involving the left lobe of the liver, possibly related to perfusion anomaly (LAKSHMI). Two small foci of hepatic enhancement, nonspecific. Follow-up is recommended. Remainder of the study appears unremarkable. * * * * * * * * ADDENDUM #1 * * * * * * * * Within the region of the gastric fundus, there are multiple small enhancing vascular structures consistent with gastric varices. There is area of hypoenhancement within the superior medial aspect of the spleen which could represent area of splenic infarct. Ranch Cook: SHAHZAD Transcribe Date/Time: Jul 29 2018 4:50P Dictated by : STEFFANIE FOSTER MD This examination was interpreted and the report reviewed and electronically signed by: STEFFANIE FOSTER MD on Jul 29 2018 2:28PM EST This document has been addended by: STEFFANIE FOSTER MD on Jul 29 2018 4:52PM EST [id number] CN Normal [facility] ECG COMPLETEon 07-29-2018 ECG COMPLETE NAME : ARABELLA FELIX PID : [id number] : 1965 Gender : Female Race : ORD : [id number] Procedure Date : Jul 29 2018 10:01:07 Edit Date : Jul 30 2018 23:04:13 Diagnosis:Sinus rhythm Borderline prolonged AZ interval Left bundle branch block Abnormal ECG Confirmed by MD ANALY, KORI ([id number]) on 07/30/2018 11:04:09 PM Ventricular Rate : 89 BPM Atrial Rate : 89 BPM P-R Interval : 204 ms QRS Duration : 164 ms Q-T Interval : 438 ms QTC Calculation(Bezet) : 533 ms P Hampton : 65 degrees R Hampton : -19 degrees T Hampton : 164 degrees Test Reason : Arrhythmia Location : 400 : EKG fvmic Overread By : MD BECKFORD HASSAN Edited By : MD BECKFORD HASSAN Referred By : TITA BARRETT Acquired by : , Normal [facility] Magnesiumon 07-29-2018 Magnesium [Mass/Vol] 1.7 mg/dL Normal 1.7-2.6 [facility] Comment on above: Performed By: #### L ACT, CBC, PT, CMP, MG1, PHOS, LASHONDA #### [place] [id number] [place] [address] NURSING PROGon 07-29-2018 NURSING PROG HNO ID: [id number] Author: Crissy (Rn) YONY Rincon Service: Nursing Author Type: Registered Nurse Type: Nursing Progress Note Filed: 07/29/2018 8:00 PM Note Text: Nursing Progress Note Patient Name: Arabella Felix [facility] [place] [address] Daily Note: 0700 Report received from off-going RN. Patient resting in bed, eyes closed, VSS. 0833 Initial assessment completed as charted; see flowsheet for details. 1135 Dr. Camarena at bedside for EGD. 1200 Patient resting in bed, eyes closed, VSS. 1350 Patient down to DE via wheelchair. Continuous cardiac monitoring maintained. 1410 Patient back to room from CT. Up to chair. 1717 Fellow at bedside to assess patient and discuss CT results and plan of care. 190 Report given to Crissy from critical care transport. 1931 Report called to RN at 0 . 1999 Patient en route to with CC transport. Belongings including blue pillow, cell phone and cell phone car tracer with patient. This note was completed by: Crissy Rincon RN [facility] NURSING PROG HNO ID: [id number] Author: Christi (Rn) YONY Peters Service: ? Author Type: Registered Nurse Type: Nursing Progress Note Filed: 07/29/2018 6:53 AM Note Text: Nursing Progress Note Patient Name: Arabella Felix [facility] [place] [address]: Report received from day RN. 0: Pt had episode of stress incontinence related to vomiting, PRN compazine given, CHG bath, jossy care and linen change done. 1999: Assessment complete, pt is AANDO x3 and following commands appropriately. Denies pain at this time. Sinus rhythm on the monitor. NG tube remains in place to low intermittent wall suction with minimal bloody drainage. For complete assessment see flow sheet. 2009: Pt had another episode of incotninence related to dry heaves, order obtained for CLAUDETTE cesar, see APR. 2044: Call received from Dr. Camarena in GI stating because pt has not had any further hematemesis they would wait to scope her until the morning. Relayed this information to the pt and family, family very upset swearing at this RN, expressing frustration about the situation, emotional support provided to the family and patient. Pt requesting that NG tube be taken out as it is uncomfortable and causing her to gag, explained to patient that the NG tube needs to remains in place for the night. Pt upset about situation, emotional support provided. 2104: Assisted pt to bedside commode to void. 0000: Assessment complete, no changes from previous assessment. 0205: PRN compazine given for nausea. 0400: Assessment complete, no changes from previous assessment. 0710: [facility]. This note was completed by: Christi Peters RN [facility] PROGRESSon 07-29-2018 PROGRESS HNO ID: [id number] Author: Zoey Patrick Service: Critical Care Author Type: Physician Type: Progress Notes Filed: 07/29/2018 2:44 PM Note Text: --- [facility] STAFF PHYSICIAN NOTE OF PERSONAL INVOLVEMENT IN CARE I have reviewed the progress note obtained and documented by the resident and I personally participated in the carvajal components. I have discussed the case and management of the patient's care and agree with documentation.? ? Zoey Patrick MD Pulmonary, Critical Care and Sleep Medicine Respiratory [facility] ---- MICU PROGRESS NOTE SERVICE DATE: 07/29/2018 SERVICE TIME: 12:28 PM Admission Date: 07/26/2018 Day #: 3 in the MICU. Subjective HPI: Ms. Felix is a 53 yo female with a PMH of hypertrophic cardiomyopathy, DM type II, HTN, HLD, anxiety, depression who present to [facility] ICU for GIB. Pt was sitting at the pool today and when she went to stand up, she became dizzy and passed out per friend. Pt does not recall if she passed out. When she was picked up by EMS she started having hematemesis. She has been having black tarry stools since Tuesday. She has been feeling dizzy with associated SOB when she walks since Tuesday. She has been taking Naproxen 500mg TID for back pain for last 5 years. She denies AC, ASA, or iron use. She has had a loss of appetite with abdominal discomfort this week. She denies fever, chills, CP, changes in urinary pattern. She was transferred to [facility] initially, then [facility] ICU for further management. ? [facility] ED course: Vitals: bp 109/58, HR 62, RR 16, O2 sat 98% on RA. Hgb 8.1 (baseline 14), INR 1,3, PTT 27.7, WBC, 15.7, sCr 1.18. Pt was given 1L NS bolus. Transfused 1u PRBC. NGT placed to LIS with coffee ground content. Started on PPI. ? ICU course: 07/26 Transferred to ICU on RA, no resp distress. HR 65, SB, SBP 140s. NGT to LIS with coffee ground content. Pt nauseated with dry heaves r/t NGT, will d/c NGT. Continue PPI. GI consulted. Check CBC, BMP, lactate, troponin. Check EKG. 07/27: Yesterday repeat Hgb after transfusion 10.2. This am Hgb 8.2, no BMs overnight, no emesis. Possible EGD today or tomorrow. HR SB, HR 55. Hold BB. SBP 130s. 500ml LR bolus ordered. CBC q8hr. Tylenol and lidocaine patch for back pain. Stable to Transfer to floor under Dr. Beckford's service. 07/28: patient was on the regular nursing floor. Patient had an EGD in the morning which showed non bleeding angioectasia in the stomach. In the afternoon today, she started having bloody vomiting. She vomited around 250 ml of bright red blood. Also felt dizzy but did not pass out. Was transferred to MICU. 1 unit PRBC transfused. Plan for repeat scope tonight. 07/29: No overnight events. Today she was found hemodynamically stable without any signs of active bleeding. She underwent again to upper GI endoscopy, were was found non bleeding varices in fundus. :Objective VITAL SIGNS (last 24hrs min/max): Temp Av.9 ?C (98.4 ?F) Min: 36.3 ?C (97.3 ?F) Max: 37.4 ?C (99.3 ?F) Pulse Av.8 Min: 83 Max: 105 No data recorded Cuff BP Min: 124/70 Max: 172/67 Pain Level: 0 Vital signs reviewed. Relevant comments- NET FLUID BALANCE Intake/Output Summary (Last 24 hours) at 07/29/2018 1228 Last data filed at 07/29/2018 0600 Gross per 24 hour Intake 351 ml Output 50 ml Net 301 ml MEDICATIONS Current Facility-Administere d Medications Medication Dose Route Frequency - insulin glargine 6 Units pen (long acting) (LANTUS SOLOSTAR, BASAGLAR KWIKPEN) 6 Units SUBCUTANEOUS DAILY (8 AM) - iv contrast (radiology procedure) INTRAVENOUS DIRECTED PRN - pantoprazole 40 mg injection (PROTONIX) 40 mg INTRAVENOUS q 12 H - metoclopramide HCl 10 mg injection (REGLAN) 10 mg INTRAVENOUS q 6 H - ondansetron (PF) 4 mg injection (ZOFRAN) 4 mg INTRAVENOUS q 6 H PRN - lidocaine 5 % 1 Patch (LIDODERM) 1 Patch TRANSDERMAL DAILY And - lidocaine patch - REMOVE OTHER AT BEDTIME And - lidocaine - VERIFY PATCH OTHER q 8 H - acetaminophen 650 mg tab(s) (TYLENOL) 650 mg ORAL q 4 H PRN - citalopram 40 mg tab(s) (CeleXA) 40 mg ORAL AT BEDTIME - busPIRone 15 mg tab(s) (BUSPAR) 15 mg ORAL TID - simvastatin 10 mg tab(s) (ZOCOR) 10 mg ORAL AT BEDTIME - prochlorperazine 5 mg injection (COMPAZINE) 5 mg INTRAVENOUS q 6 H PRN - NaCl 0.9% 3-5 mL 3-5 mL INTRAVENOUS q 12 H - dextrose 40 % 15 g 15 g ORAL PRN Or - glucagon 1 mg injection (GLUCAGEN) 1 mg INTRAMUSCULAR PRN Or - dextrose 50% in water 25 mL syringe 12.5 g INTRAVENOUS PRN - insulin lispro injection (rapid acting) (HumaLOG) SUBCUTANEOUS q 6 H INDWELLING CATHETERS: Lines, Drains, and Airways Line Peripheral 07/28/18 1600 Short Left Antecubital less than 1 day Peripheral 07/28/18 1613 Short Forearm 20 Gauge less than 1 day Drain GI Feed 07/28/18 1600 Gastric Right Naris 16 Fr less than 1 day PHYSICAL EXAM: Physical exam performed HEENT: Oral Mucosa: Moist mucous membranes Feeding Tube: No Eyes: PERRLA and Conjunctiva pale Neck: Unremarkable; No adenopathy or JVD Cardiovascular: Regular rhythm Respiratory: Clear to auscultation Abdomen: Soft, Nontender and Positive bowel sounds Extremities: Edema- No Peripheral Pulses- Present all extremities Capillary Refill- less than 3 seconds Skin: Abnormalities- No Neurologic: Awake, oriented DATA: Diagnostic tests reviewed for today's visit: Most recent labs and imaging results. LABS: CBC, Coags, BMP, Mg, Phos Recent Labs 07/29/18 0956 07/29/18 0458 07/28/18 2042 07/28/18 0441 07/27/18 0748 07/26/18 1855 WBC 15.25* 15.49* 18.58* < > 10.88 < > 12.21* < > 17.32* HB 7.5* 7.7* 8.2* < > 6.4* < > 8.2* < > 10.2* HCT 22.4* 22.7* 24.6* < > 18.7* < > 23.8* < > 29.2* PLT 223 217 237 < > 206 < > 217 < > 281 INR -- -- -- -- -- -- -- -- 1.2 NA -- 140 -- -- 137 -- 139 -- 137 K -- 3.8 -- -- 4.0 -- 4.0 -- 4.1 CHLOR -- 106 -- -- 102 -- 105 -- 100 CO2 -- 21* -- -- 24 -- 24 -- 20* BUN -- 20 -- -- 25 -- 30* -- 40* CREAT -- 0.78 -- -- 0.79 -- 0.80 -- 0.90 GLUC -- 281* -- -- 212* -- 199* -- 291* CA -- 8.1* -- -- 8.2* -- 8.7 -- 9.0 MG -- 1.7 -- -- 1.8 -- 1.7 -- 1.7 P -- -- -- -- -- -- -- -- 3.4 < > = values in this interval not displayed. Assessment/Plan PROBLEMS: 1. Upper GI bleeding due to Gastric Varices 2. Acute blood loss anemia Etiology: endoscopy 07/28 and 07/29 consistent for Type 1 gastric varices. Unclear source of gastric varices. Portal hypertension due to possible cirrhosis or splenic vein thrombosis should de ruled out. Associate: melena and hematemesis. Status: Hemodinamycally Stable. No active signs of bleeding for last 12 h Workup: Received 2U RBC since admission. Hb:8.2-->7.7-->7.5 Plan: -Remove NG tube suction -Resume GI soft diet -Maintain 2 periphereal lines -Trend Hb q/12H -Transfuse RBC if Hb<7 mg/dl -Obtain CT abdomen with contrast -Start octreotide infusion 50 mcg/ht -Change Protonix BID IV to Protonix po -GI- Dr. Camarena on board on board 2.DM type 2-uncontrolled Hyperglycemia ~245-286 mg/dl Home meds: januvia and metformin Plan: -Add Glargine 6 U + sliding scale No.2 -Add lispro 2U with meals when oral intake is restarted 3. HTN Home meds: Metoprolol XL 100 mg once a day and losartan Plan: -Re start metoprolol short acting 25 q/8h . Rsume home dose once no further signs of bleeding -Losartan will be held for now. Resume once no further signs of bleeding 4. Hypertrophic cardiomyopathy EKG with SR, LBBB, LVH ? Plan: Hold losartan and resume BB DVT PPx: IPC. GI PPx: pantop p.o Medication and Non-Pharmacologic VTE Prophylaxis/Anticoag ulants 07/28/18 1545 pneumatic compression stockings (ga,ct) 07/26/18 1830 vte pharmacologic prophylaxis contraindicated (ga,oh) 07/26/18 1830 pneumatic compression stockings (ga,ct) 07/26/18 1830 activity - mobilize patient ([place]) VTE Prophylaxis: Contraindicated due to GI bleeding ICU Checklist VTE Prophylaxis: SIGNATURE: Dolly Choudhary MD PATIENT NAME: Arabella Felix DATE: July 29, 2018 TIME: 12:28 PM PAGER/CONTACT #: [phone] [facility] PROGRESS HNO ID: [id number] Author: Kori Beckford Service: ? Author Type: Physician Type: Progress Notes Filed: 08/01/2018 11:27 PM Note Text: [facility] - General Progress Note ARABELLA FELIX : 1965 AGE: 53 SEX: F CSN: [id number] [facility]: LOCATION: [facility] ATTENDING PHYSICIAN: Kori Beckford M.D. DATE OF SERVICE: 07/28/2018 The patient is seen and examined. Remains to be in the Critical Care ICU. Admit with the recurrent acute GI bleeding, had multiple transfusion. GI consulted, underwent emergency endoscopy at the bedside in the ICU. This is a 53 yo female with a PMH of hypertrophic cardiomyopathy, DM type II, HTN, HLD, anxiety, depression who present to ICU for GIB. Pt was sitting at the pool today and when she went to stand up, she became dizzy and passed out per friend. Pt does not recall if she passed out. When she was picked up by EMS she started having hematemesis. She has been having black tarry stools since Tuesday. She has been feeling dizzy with associated SOB when she walks since Tuesday. She has been taking Naproxen 500mg TID for back pain for last 5 years. She denies AC, ASA, or iron use. She has had a loss of appetite with abdominal discomfort this week. She denies fever, chills, CP, changes in urinary pattern. She was transferred to [facility] initially, then ICU for further management. ? [facility] ED course: Vitals: bp 109/58, HR 62, RR 16, O2 sat 98% on RA. Hgb 8.1 (baseline 14), INR 1,3, PTT 27.7, WBC, 15.7, sCr 1.18. Pt was given 1L NS bolus. Transfused 1u PRBC. NGT placed to LIS with coffee ground content. Started on PPI. ? ICU course: 07/26 Transferred to ICU on RA, no resp distress. HR 65, SB, SBP 140s. NGT to LIS with coffee ground content. Pt nauseated with dry heaves r/t NGT, will d/c NGT. Continue PPI. GI consulted. Check CBC, BMP, lactate, troponin. Check EKG. 07/27: Yesterday repeat Hgb after transfusion 10.2. This am Hgb 8.2, no BMs overnight, no emesis. Possible EGD today or tomorrow. HR SB, HR 55. Hold BB. SBP 130s. 500ml LR bolus ordered. CBC q8hr. Tylenol and lidocaine patch for back pain. Stable to Transfer to floor under Dr. Beckford's service. 07/28: patient was on the regular nursing floor. Patient had an EGD in the morning which showed non bleeding angioectasia in the stomach. In the afternoon today, she started having bloody vomiting. She vomited around 250 ml of bright red blood. Also felt dizzy but did not pass out. Was transferred to MICU. 1 unit PRBC transfused. Plan for repeat scope tonight. ? ? Active Hospital Problems ? Diagnosis Date Noted - Acute blood loss anemia 07/26/2018 ? ? 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 ? - BMI 50.0-59.9, adult (HCC) 07/27/2018 ? ? Plan: Plan to resume metformin on discharge Diet and lifestyle changes ? - Essential hypertension 07/27/2018 ? ? On metoprolol XL 100mg and losartan at home PLAN Will restart once patient is stable and no longer having active bleeding ? - Depression 07/26/2018 ? ? Taking celexa and buspar at home ? PLAN Continue celexa and buspar ? ? - Type 2 diabetes mellitus (HCC) 07/26/2018 ? ? Taking metformin and januvia at home A1C 7.19 May 2018 ? PLAN NPO Start SSI #2 Accucheck q6hr ? - Hypertrophic cardiomyopathy (HCC) 07/31/2002 ? ? Pt taking Metorpolol XL 100mg daily and Losartan 50mg daily EKG with SR, LBBB, LVH ? PLAN EKG prn Hold losartan and BB ? ? ? DVT PPx: IPC. Pharmacologic contraindicated GI PPx: pantop IV ? Disposition: TBD ?Pt seen and examined cct 35 minutes I have gone over labs most recent EKG/Rhythm /images/X ray,case .D/W RN and consultants,the patient has a high probability of sudden and clinical significant deterioration which requires the highest level of care AND intervene urgently. PAST MEDICAL HISTORY Diagnosis Date - Abnormal weight gain - Excessive or frequent menstruation h/o abnormal past 5 years - Hypertrophic obstructive cardiomyopathy new diagnoses over summer 2001 - Other abnormal heart sounds new murmur heard on physical exam over summer 2001 - Palpitations racing heart onset in June, May 2001, no syncope but feels lightheaded - Screening for depression since summer and diagnoses of heart Social History Socioeconomic History Marital status: Spouse name: Not on file Number of children: Not on file Years of education: Not on file Highest education level: Not on file Social Needs Financial resource strain: Not on file Food insecurity - worry: Not on file Food insecurity - inability: Not on file Transportation needs - medical: Not on file Transportation needs - non-medical: Not on file Occupational History Not on file Tobacco Use Smoking status: Never Smoker Substance and Sexual Activity Alcohol use: No Drug use: Not on file Sexual activity: Not on file Other Topics Concerns: ADL RESPONSE: Not Asked ADL RESPONSE: Not Asked ADL RESPONSE: Yes stopped 3 months ago because of heart 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 No results found for: HBA1C R.O.S negative other than HPI AND PMH all other SYS reviewed and negative. Current Facility-Administere d Medications Medication Dose Route Frequency Provider Last Rate Last Dose - pantoprazole 40 mg injection (PROTONIX) 40 mg INTRAVENOUS q 12 H Abraham (ResMario Golden MD 40 mg at 07/28/182041 Followed by - [START ON 07/31/2018] pantoprazole 40 mg injection (PROTONIX) 40 mg INTRAVENOUS DAILY (6 AM) Abraham (Ana) MD [place] - metoclopramide HCl 10 mg injection (REGLAN) 10 mg INTRAVENOUS q 6 H Mary (Campus President) [place] 10 mg at 06/14/19 2336 - ondansetron (PF) 4 mg injection (ZOFRAN) 4 mg INTRAVENOUS q 6 H PRN Jessica (Pa) Beserra 4 mg at 07/28/182041 - lidocaine 5 % 1 Patch (LIDODERM) 1 Patch TRANSDERMAL DAILY Abraham (Res) MD [place] 1 Patch at 07/28/18 1044 And - lidocaine patch - REMOVE OTHER AT BEDTIME Abraham (Res) MD [place] And - lidocaine - VERIFY PATCH OTHER q 8 H Abraham (Res) MD [place] - acetaminophen 650 mg tab(s) (TYLENOL) 650 mg ORAL q 4 H PRN Abraham (Res) MD [place] 650 mg at 07/27/182100 - citalopram 40 mg tab(s) (CeleXA) 40 mg ORAL AT BEDTIME Abraham (Res) MD [place] 40 mg at 07/27/182101 - busPIRone 15 mg tab(s) (BUSPAR) 15 mg ORAL TID Abraham (Res) MD [place] 15 mg at 07/28/181043 - simvastatin 10 mg tab(s) (ZOCOR) 10 mg ORAL AT BEDTIME Abraham (Res) MD [place] 10 mg at 07/27/182100 - prochlorperazine 5 mg injection (COMPAZINE) 5 mg INTRAVENOUS q 6 H PRN Abraham (Res) MD [place] 5 mg at 07/28/18 194 - NaCl 0.9% 3-5 mL 3-5 mL INTRAVENOUS q 12 H Abraham (Res) MD [place] 5 mL at 07/28/182047 - dextrose 40 % 15 g 15 g ORAL PRN Abraham (Res) MD [place] Or - glucagon 1 mg injection (GLUCAGEN) 1 mg INTRAMUSCULAR PRN Abraham (Res) MD [place] Or - dextrose 50% in water 25 mL syringe 12.5 g INTRAVENOUS PRN Abraham (Res) MD [place] - insulin lispro injection (rapid acting) (HumaLOG) SUBCUTANEOUS q 6 H Abraham (Res) MD [place] 6 Units at 07/28/18 2336 Intake/Output Summary (Last 24 hours) at 07/28/2018 2354 Last data filed at 07/28/2018 1755 Gross per 24 hour Intake 602 ml Output ? Net 602 ml DATA: CBC: Recent Labs 07/28/18 2042 WBC 18.58* RBC 2.69* HB 8.2* HCT 24.6* PLT 237 MCV 91.4 MCH 30.5 MPV 11.3 CMP: Recent Labs 07/28/18 0441 NA 137 K 4.0 CHLOR 102 CO2 24 BUN 25 CREAT 0.79 GLUC 212* CA 8.2* MG 1.8 ANION 11 Glucose (mg/dL) Date Value 07/28/2018 212 (H) BUN (mg/dL) Date Value 07/28/2018 25 Creatinine (mg/dL) Date Value 07/28/2018 0.79 Sodium (mmol/L) Date Value 07/28/2018 137 Potassium (mmol/L) Date Value 07/28/2018 4.0 Chloride (mmol/L) Date Value 07/28/2018 102 CO2 (mmol/L) Date Value 07/28/2018 24 Protein, Total (g/dL) Date Value 07/26/2018 6.9 Albumin (g/dL) Date Value 07/26/2018 4.1 Calcium (mg/dL) Date Value 07/28/2018 8.2 (L) Alkaline Phosphatase (U/L) Date Value 07/26/2018 56 Bilirubin, Total (mg/dL) Date Value 07/26/2018 1.1 AST (U/L) Date Value 07/26/2018 16 ALT (U/L) Date Value 07/26/2018 13 Hemoglobin (g/dL) Date Value 07/28/2018 8.2 Hematocrit (%) Date Value 07/28/2018 24.6 WBC (k/uL) Date Value 07/28/2018 18.58 [facility] consultants notes reviewed Most recent images Reviewed Last EKG/Rhythm reviewed 07/28/18 2000 07/28/18 2100 07/28/18 2200 07/28/18 2300 BP: 149/71 140/71 168/79 142/76 Pulse: 93 95 91 84 Resp: (!) 31 28 (!) 31 29 Temp: 37.4 ?C (99.3 ?F) TempSrc: Axillary SpO2: 98% 97% 97% 98% Weight: Height: Sever distress. SKIN: No rashes . ENT mucosa, Normal/nose normal NECK: no jugulovenous distention NO lymphadenopathy LUNGS:No wheezing,no ronchi no rales. CARDIAC: S1 and S2 ABDOMEN: Abdomen soft, non-tender. EXTREMITIES: Extremities normal. NEURO: non focal PULSES: + pedal / radial No edema No goiter Case has been discussed with the Critical Care team. The plan is to transfer to the [facility]. Kori Beckford M.D. Internal Medicine [facility] PROGRESS HNO ID: [id number] Author: Zoey Patrick Service: Pulmonary Disease Author Type: Physician Type: Progress Notes Filed: 07/29/2018 11:53 AM Note Text: --- [facility] STAFF PHYSICIAN NOTE OF PERSONAL INVOLVEMENT IN CARE I have reviewed the progress note obtained and documented by the resident and I personally participated in the carvajal components. I have discussed the case and management of the patient's care. The following comments revise or confirm relevant carvajal components of the note. IMPRESSION Overnight events July 29, 2018 EGD done July 28, 2018, showed non bleeding teleangiectasia, transferred to the floor, had another episode of hematemesis and was tx back to ICU. No active bleeding since then. GI aware No chest pain No tarry stools NPO at this time for possible repeat EGD Acute blood loss anemia Acute upper GI bleed due to teleangiectasia History of hypertrophic cardiomyopathy PLAN Plan for another EGD today Monitor CBC q 12 hr Continue PPI Discontinue NG tube Re-start home metoprolol after EGD Lines: 1 peripheral IV DVT px: SCDs GI px: Protonix Family: updated Code status: Full code NPO for now This patient has a high probability of sudden, clinically significant deterioration, which requires the highest level of physician preparedness to intervene urgently. I managed/supervised life or organ supporting interventions that required frequent physician assessment. I devoted my full attention to the direct care of this patient for the amount of time indicated below. Time I spent with family or surrogate(s) is included only if the patient was incapable of providing the necessary information or participating in medical decision making. Time devoted to teaching is not included. Critical Care Documentation: The patient has the following organ/system impairment(s): Acute blood loss anemia Acute upper GI bleed due to teleangiectasia History of hypertrophic cardiomyopathy Patient/Family Updated: Updated Time spent providing critical care services: 50 minutes excluding procedures. SIGNATURE: Zoey Patrick MD [facility] DATE of SERVICE: July 29, 2018 TIME of SERVICE: since this morning [facility] PROGRESS HNO ID: [id number] Author: Kori Beckford Service: ? Author Type: Physician Type: Progress Notes Filed: 08/01/2018 11:26 PM Note Text: DATE OF SERVICE: 07/27/2018 ? ? ? SUBJECTIVE: ??The ?patient is seen and examined. ?She initially ?admitted ?to ?the ?hospital Intensive Care Unit with acute GI bleeding. ?Transferred to the high-risk ?floor ?today. ??She ?developed ?acute GI bleeding ?again ?where ?she ?has ?vomited ?significant ?amount of blood. ?The hemoglobin has dropped again below ?7 ?and ?the ?patient had stat type and crossmatch for blood transfusion, contacted the Critical ?Care ?Team ?and ?GI, subsequently I transferred the patient to the intensive ?care ?unit for a bedside stat EGD and initiated blood transfusion. ?This is a 53 yo female with a PMH of hypertrophic cardiomyopathy, DM type II, HTN, HLD, anxiety, depression who present to [facility] ICU for GIB. Pt was sitting at the pool today and when she went to stand up, she became dizzy and passed out per friend. Pt does not recall if she passed out. When she was picked up by EMS she started having hematemesis. She has been having black tarry stools since Tuesday. She has been feeling dizzy with associated SOB when she walks since Tuesday. She has been taking Naproxen 500mg TID for back pain for last 5 years. She denies AC, ASA, or iron use. She has had a loss of appetite with abdominal discomfort this week. She denies fever, chills, CP, changes in urinary pattern. She was transferred to [facility] ED initially, then [facility] ICU for further management. ? [facility] ED course: Vitals: bp 109/58, HR 62, RR 16, O2 sat 98% on RA. Hgb 8.1 (baseline 14), INR 1,3, PTT 27.7, WBC, 15.7, sCr 1.18. Pt was given 1L NS bolus. Transfused 1u PRBC. NGT placed to LIS with coffee ground content. Started on PPI. ? ICU course: Transferred to ICU on RA, no resp distress. HR 65, SB, SBP 140s. NGT to LIS with coffee ground content. Pt nauseated with dry heaves r/t NGT, will d/c NGT. Continue PPI. GI consulted. Check CBC, BMP, lactate, troponin. Check EKG. ? ?Pt seen and examined cct 35 minutes I have gone over labs most recent EKG/Rhythm /images/X ray,case .D/W RN and consultants,the patient has a high probability of sudden and clinical significant deterioration which requires the highest level of care AND intervene urgently. ASSESSMENT/PLAN: Active Hospital Problems ? Diagnosis - Acute blood loss anemia ? ? 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 PLAN Continue PPI GI consulted D/c NGT Transfuse for Hgb<7 Maintain 2 large bore IVs 1L NS bolus ? ? - Depression ? ? Taking celexa and buspar at home ? PLAN Continue celexa and buspar ? ? - Type 2 diabetes mellitus (HCC) ? ? Taking metformin and januvia at home A1C 7.19 May 2018 ? PLAN NPO Start SSI #2 Accucheck q6hr ? - SHAYNE (acute kidney injury) (HCC) ? ? 2/2 to hypovolemia Pt admitted after c/o black stools with dizziness since Tuesday Today she had dizziness, with syncope and hematemesis sCr 1.16 on admission (Baseline 0.97in 2001, no others on file) ? PLAN Trend BMP 1L Ns bolus Monitor I/O ? - Hypertrophic cardiomyopathy (HCC) ? ? Pt taking Metorpolol XL 100mg daily and Losartan 50mg daily EKG with SR, LBBB ? PLAN EKG Hold losartan Continue metoprolol 12.5 mg po q 8hr ? ? ? DVT ppx: SCDs GI ppx: Protonix ? Case ?has ?been discussed with the consultants. ?Discussed with the Critical ?Care ?team. ?We will follow up closely. ? PAST MEDICAL HISTORY Diagnosis Date - Abnormal weight gain - Excessive or frequent menstruation h/o abnormal past 5 years - Hypertrophic obstructive cardiomyopathy new diagnoses over summer 2001 - Other abnormal heart sounds new murmur heard on physical exam over summer 2001 - Palpitations racing heart onset in June, May 2001, no syncope but feels lightheaded - Screening for depression since summer and diagnoses of heart Social History Socioeconomic History Marital status: Spouse name: Not on file Number of children: Not on file Years of education: Not on file Highest education level: Not on file Social Needs Financial resource strain: Not on file Food insecurity - worry: Not on file Food insecurity - inability: Not on file Transportation needs - medical: Not on file Transportation needs - non-medical: Not on file Occupational History Not on file Tobacco Use Smoking status: Never Smoker Substance and Sexual Activity Alcohol use: No Drug use: Not on file Sexual activity: Not on file Other Topics Concerns: ADL RESPONSE: Not Asked ADL RESPONSE: Not Asked ADL RESPONSE: Yes stopped 3 months ago because of heart 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 No results found for: HBA1C R.O.S negative other than HPI AND PMH all other SYS reviewed and negative. Current Facility-Administere d Medications Medication Dose Route Frequency Provider Last Rate Last Dose - lidocaine 5 % 1 Patch (LIDODERM) 1 Patch TRANSDERMAL DAILY Ivonne ([place]) Flores 1 Patch at 07/27/18 1115 And - lidocaine patch - REMOVE OTHER AT BEDTIME Ivonne (Campus President) Flores And - lidocaine - VERIFY PATCH OTHER q 8 H Ivonne (Campus President) [place] - acetaminophen 650 mg tab(s) (TYLENOL) 650 mg ORAL q 4 H PRN Ivonne (Campus President) [place] 650 mg at 07/27/182100 - citalopram 40 mg tab(s) (CeleXA) 40 mg ORAL AT BEDTIME Ivonne (Campus President) [place] 40 mg at 07/27/182101 - busPIRone 15 mg tab(s) (BUSPAR) 15 mg ORAL TID Ivonne (Campus President) [place] 15 mg at 07/27/181999 - simvastatin 10 mg tab(s) (ZOCOR) 10 mg ORAL AT BEDTIME Ivonne (Campus President) [place] 10 mg at 07/27/182100 - pantoprazole DR 40 mg tab(s) (PROTONIX) 40 mg ORAL BID AC (599/1599) Ivonne (Campus President) T[place] 40 mg at 07/27/18 161 - prochlorperazine 5 mg injection (COMPAZINE) 5 mg INTRAVENOUS q 6 H PRN Ivonne (Campus President) [place] 5 mg at 07/27/182100 - NaCl 0.9% 3-5 mL 3-5 mL INTRAVENOUS q 12 H Ivonne (Campus President) [place] 5 mL at 07/27/182102 - dextrose 40 % 15 g 15 g ORAL PRN Ivonne (Campus President) [place] Or - glucagon 1 mg injection (GLUCAGEN) 1 mg INTRAMUSCULAR PRN Ivonne (Campus President) Flores Or - dextrose 50% in water 25 mL syringe 12.5 g INTRAVENOUS PRN Ivonne (Campus President) [place] - insulin lispro injection (rapid acting) (HumaLOG) SUBCUTANEOUS q 6 H Ivonne (Campus President) T[place] 4 Units at 07/27/18 1826 Intake/Output Summary (Last 24 hours) at 07/27/20188 Last data filed at 07/27/2018 1600 Gross per 24 hour Intake 120 ml Output 1900 ml Net -1780 ml DATA: CBC: Recent Labs 07/27/18 1458 WBC 12.22* RBC 2.55* HB 8.0* HCT 23.3* PLT 233 MCV 91.4 MCH 31.4 MPV 11.4 CMP: Recent Labs 07/27/18 0748 NA 139 K 4.0 CHLOR 105 CO2 24 BUN 30* CREAT 0.80 GLUC 199* CA 8.7 MG 1.7 ANION 10 Glucose (mg/dL) Date Value 07/27/2018 199 (H) BUN (mg/dL) Date Value 07/27/2018 30 (H) Creatinine (mg/dL) Date Value 07/27/2018 0.80 Sodium (mmol/L) Date Value 07/27/2018 139 Potassium (mmol/L) Date Value 07/27/2018 4.0 Chloride (mmol/L) Date Value 07/27/2018 105 CO2 (mmol/L) Date Value 07/27/2018 24 Protein, Total (g/dL) Date Value 07/26/2018 6.9 Albumin (g/dL) Date Value 07/26/2018 4.1 Calcium (mg/dL) Date Value 07/27/2018 8.7 Alkaline Phosphatase (U/L) Date Value 07/26/2018 56 Bilirubin, Total (mg/dL) Date Value 07/26/2018 1.1 AST (U/L) Date Value 07/26/2018 16 ALT (U/L) Date Value 07/26/2018 13 Hemoglobin (g/dL) Date Value 07/27/2018 8.0 Hematocrit (%) Date Value 07/27/2018 23.3 WBC (k/uL) Date Value 07/27/2018 12.22 [facility] consultants notes reviewed Most recent images Reviewed Last EKG/Rhythm reviewed 07/27/18 1500 07/27/18 1600 07/27/18 1700 07/27/18 1929 BP: (!) 136/43 130/62 149/88 145/74 Pulse: 63 61 66 84 Resp: 20 16 16 Temp: 36.6 ?C (97.9 ?F) 36.4 ?C (97.5 ?F) TempSrc: Oral Oral SpO2: 96% 99% 98% Weight: Height: Sever distress. SKIN: No rashes . ENT mucosa, Normal/nose normal NECK: no jugulovenous distention NO lymphadenopathy LUNGS:No wheezing,no ronchi no rales. CARDIAC: S1 and S2 ABDOMEN: Abdomen soft, non-tender. EXTREMITIES: Extremities normal. NEURO: non focal PULSES: + pedal / radial No edema No goiter No carotid bruits. Kori Beckford MD [facility] Basic Metabolic Panlon 07-28 Anion gap [Moles/Vol] 11 mmol/L Normal 9-18 [facility] Comment on above: Performed By: #### L ACT, CBC, PT, CMP, MG1, PHOS, LASHONDA #### [place] [phone] Calcium [Mass/Vol] 8.2 mg/dL Low 8.5-10.5 [facility] Comment on above: Performed By: #### L ACT, CBC, PT, CMP, MG1, PHOS, LASHONDA #### [place] [phone] Chloride [Moles/Vol] 102 mmol/L Normal 98-110 [facility] Comment on above: Performed By: #### L ACT, CBC, PT, CMP, MG1, PHOS, LASHONDA #### [address] CO2 [Moles/Vol] 24 mmol/L Normal 23-32 [facility] Comment on above: Performed By: #### L ACT, CBC, PT, CMP, MG1, PHOS, LASHONDA #### [place] [phone] Creatinine [Mass/Vol] 0.79 mg/dL Normal 0.70-1.40 [facility] Comment on above: Performed By: #### L ACT, CBC, PT, CMP, MG1, PHOS, LASHONDA #### [place] [phone] eGFR- Amer. >60 Normal >60 [facility] Comment on above: Performed By: #### L ACT, CBC, PT, CMP, MG1, PHOS, LASHONDA #### [place] [phone] GFR/1.73 sq M predicted among non-blacks MDRD (S/P/Bld) [Vol rate/Area] mL/min/{1.73_m2} Normal >60 [facility] Comment on above: Performed By: #### L ACT, CBC, PT, CMP, MG1, PHOS, LASHONDA #### [place] [phone] Glucose [Mass/Vol] 212 mg/dL High 65-100 [facility] Comment on above: Performed By: #### L ACT, CBC, PT, CMP, MG1, PHOS, LASHONDA #### [place] [phone] Potassium [Moles/Vol] 4.0 mmol/L Normal 3.5-5.0 [facility] Comment on above: Performed By: #### L ACT, CBC, PT, CMP, MG1, PHOS, LASHONDA #### [place] [phone] Sodium [Moles/Vol] 137 mmol/L Normal 132-148 [facility] Comment on above: Performed By: #### L ACT, CBC, PT, CMP, MG1, PHOS, LASHONDA #### [place] [phone] Urea nitrogen [Mass/Vol] 25 mg/dL Normal 8-25 [facility] Comment on above: Performed By: #### L ACT, CBC, PT, CMP, MG1, PHOS, LASHONDA #### [place] [phone] CASE MANAGEMon 07-28-2018 CASE MANAGEM HNO ID: [id number] Author: Laura Cote (Sw) Service: Care Management Author Type: Duck Farmer Type: Care Mgt Progress Note Filed: 07/28/2018 11:47 AM Note Text: MULTIDISCIPLINARY ROUNDS SERVICE DATE: 07/28/2018 ADMISSION DATE: 07/26/2018 SERVICE TIME: 11:44 AM ANTICIPATED D/C DATE: 07/30/18 Problem List: ACTIVE PROBLEM LIST Hypertrophic Cardiomyopathy (Hcc) Obesity, Unspecified Acute Blood Loss Anemia Depression Type 2 Diabetes Mellitus (Hcc) Bmi 50.0-59.9, Adult (Hcc) Essential Hypertension Attendees Present at Rounds: Litigation Assistant: Bridget Duck Farmer: Laura Staff Nurse: Arabella Wilde (CHULA) Needs Discussed on Rounds: Plan of Care Anticipated Discharge Disposition: TBD Last Vitals: BP 150/71 Pulse 73 Temp (Src) 98 (Oral) Resp 16 Ht 5' 5 (1.65m) Wt 302 lb 7.5 oz (137.2kg) SpO2 99% BMI 50.33 kg/(m2). O2 Therapy: Nasal Cannula, Liters: 2 Pt to have an EGD today. No transitional care needs have been identified. SW will continue to follow. Nursing: Anxiety Intervention(s) Plan: Encourage Expression of Feelings and Questions Anxiety Goals/Outcomes: Patient Verbalizes/Demonstra eduardo Decreased Anxiety Anxiety Goal Target Achievement Date: 07/28/18 Bleeding Intervention(s) Plan: Assess for Related Signs/Symptom of Bleeding;Bleeding Precautions;Interven tions to Control Bleeding (Ice, apply Pressure, Sand Bag);Monitor Vital Signs;Monitor and Record Blood Loss;Monitor Labs: CBC, INR, PTT/PT Bleeding Goals/Outcomes: Free of Signs/Symptom Active Bleeding;Patient Bleeding Controlled and Vital Signs Remain Stable;Displays No Significant Decrease in Hgb/Hct Levels Bleeding Goal Target Achievement Date: 07/31/18Mobility Intervention(s) Plan: Mobility Assist Device;Normalize the Environment;Notify LIP for Changes to Baseline Status (Unexplained Decrease in IFMS Score) Mobility Patient/Family Goals: Demonstrates ability to complete transfers with least level of assist. Mobility Goal Target Achievement Date: 07/30/18 DOCUMENTED BY: ARMAAN Cobb PATIENT NAME: Arabella Felix DATE: July 28, 2018 TIME: 11:44 AM CSN: [id number] Normal [facility] CBCon 07-28-2018 Erythrocyte distribution width (RBC) [Ratio] 15.6 % High 11.5-15.0 [facility] Comment on above: Performed By: #### L ACT, CBC, PT, CMP, MG1, PHOS, LASHONDA #### [facility] [address] [place] [address] Hematocrit (Bld) [Volume fraction] 24.6 % Low 36.0-46.0 [facility] Comment on above: Performed By: #### L ACT, CBC, PT, CMP, MG1, PHOS, LASHONDA #### [facility] [address] [place] [address] Hemoglobin (Bld) [Mass/Vol] 8.2 g/dL Low 11.5-15.5 [facility] Comment on above: Performed By: #### L ACT, CBC, PT, CMP, MG1, PHOS, LASHONDA #### [place] [address] MCH (RBC) [Entitic mass] 30.5 pG Normal 26.0-34.0 [facility] Comment on above: Performed By: #### L ACT, CBC, PT, CMP, MG1, PHOS, LASHONDA #### [place] [address] MCHC (RBC) [Mass/Vol] 33.3 g/dL Normal 30.5-36.0 [facility] Comment on above: Performed By: #### L ACT, CBC, PT, CMP, MG1, PHOS, LASHONDA #### [place] [phone] MCV (RBC) [Entitic vol] 91.4 fL Normal 80.0-100.0 [facility] Comment on above: Performed By: #### L ACT, CBC, PT, CMP, MG1, PHOS, LASHONDA #### [place] [phone] Platelet mean volume (Bld) [Entitic vol] 11.3 fL Normal 9.0-12.7 [facility] Comment on above: Performed By: #### L ACT, CBC, PT, CMP, MG1, PHOS, LASHONDA #### [place] [address] Platelets (Bld) [#/Vol] 237 10*3/uL Normal 150-400 [facility] Comment on above: Performed By: #### L ACT, CBC, PT, CMP, MG1, PHOS, LASHONDA #### [place] [address] RBC (Bld) [#/Vol] 2.69 10*6/uL Low 3.90-5.20 [facility] Comment on above: Performed By: #### L ACT, CBC, PT, CMP, MG1, PHOS, LASHONDA #### [place] [phone] WBC (Bld) [#/Vol] 18.58 10*3/uL High 3.70-11.00 [facility] Comment on above: Performed By: #### L ACT, CBC, PT, CMP, MG1, PHOS, LASHONDA #### [place] [phone] Erythrocyte distribution width (RBC) [Ratio] 15.1 % High 11.5-15.0 [facility] Comment on above: Performed By: #### L ACT, CBC, PT, CMP, MG1, PHOS, LASHONDA #### [place] [address] Hematocrit (Bld) [Volume fraction] 21.4 % Low 36.0-46.0 [facility] Comment on above: Performed By: #### L ACT, CBC, PT, CMP, MG1, PHOS, LASHONDA #### [place] [phone] Hemoglobin (Bld) [Mass/Vol] 7.1 g/dL Low 11.5-15.5 [facility] Comment on above: Performed By: #### L ACT, CBC, PT, CMP, MG1, PHOS, LASHONDA #### [address] MCH (RBC) [Entitic mass] 30.6 pG Normal 26.0-34.0 [facility] Comment on above: Performed By: #### L ACT, CBC, PT, CMP, MG1, PHOS, LASHONDA #### [place] [phone] MCHC (RBC) [Mass/Vol] 33.2 g/dL Normal 30.5-36.0 [facility] Comment on above: Performed By: #### L ACT, CBC, PT, CMP, MG1, PHOS, LASHONDA #### [place] [phone] MCV (RBC) [Entitic vol] 92.2 fL Normal 80.0-100.0 [facility] Comment on above: Performed By: #### L ACT, CBC, PT, CMP, MG1, PHOS, LASHONDA #### [place] [phone] Platelet mean volume (Bld) [Entitic vol] 11.4 fL Normal 9.0-12.7 [facility] Comment on above: Performed By: #### L ACT, CBC, PT, CMP, MG1, PHOS, LASHONDA #### [place] [phone] Platelets (Bld) [#/Vol] 293 10*3/uL Normal 150-400 [facility] Comment on above: Performed By: #### L ACT, CBC, PT, CMP, MG1, PHOS, LASHONDA #### [place] [phone] RBC (Bld) [#/Vol] 2.32 10*6/uL Low 3.90-5.20 [facility] Comment on above: Performed By: #### L ACT, CBC, PT, CMP, MG1, PHOS, LASHONDA #### [place] [phone] WBC (Bld) [#/Vol] 23.32 10*3/uL High 3.70-11.00 [facility] Comment on above: Performed By: #### L ACT, CBC, PT, CMP, MG1, PHOS, LASHONDA #### [place] [phone] Erythrocyte distribution width (RBC) [Ratio] 13.9 % Normal 11.5-15.0 [facility] Comment on above: Performed By: #### L ACT, CBC, PT, CMP, MG1, PHOS, LASHONDA #### [place] [phone] Hematocrit (Bld) [Volume fraction] 18.7 % Low 36.0-46.0 [facility] Comment on above: Performed By: #### L ACT, CBC, PT, CMP, MG1, PHOS, LASHONDA #### [place] [phone] Hemoglobin (Bld) [Mass/Vol] 6.4 g/dL Low 11.5-15.5 [facility] Comment on above: Performed By: #### L ACT, CBC, PT, CMP, MG1, PHOS, LASHONDA #### [place] [phone] MCH (RBC) [Entitic mass] 31.7 pG Normal 26.0-34.0 [facility] Comment on above: Performed By: #### L ACT, CBC, PT, CMP, MG1, PHOS, LASHONDA #### [place] [phone] MCHC (RBC) [Mass/Vol] 34.2 g/dL Normal 30.5-36.0 [facility] Comment on above: Performed By: #### L ACT, CBC, PT, CMP, MG1, PHOS, LASHONDA #### [place] [phone] MCV (RBC) [Entitic vol] 92.6 fL Normal 80.0-100.0 [facility] Comment on above: Performed By: #### L ACT, CBC, PT, CMP, MG1, PHOS, LASHONDA #### [place] [phone] Platelet mean volume (Bld) [Entitic vol] 11.5 fL Normal 9.0-12.7 [facility] Comment on above: Performed By: #### L ACT, CBC, PT, CMP, MG1, PHOS, LASHONDA #### [place] [phone] Platelets (Bld) [#/Vol] 206 10*3/uL Normal 150-400 [facility] Comment on above: Performed By: #### L ACT, CBC, PT, CMP, MG1, PHOS, LASHONDA #### [place] [phone] RBC (Bld) [#/Vol] 2.02 10*6/uL Low 3.90-5.20 [facility] Comment on above: Performed By: #### L ACT, CBC, PT, CMP, MG1, PHOS, LASHONDA #### [place] [phone] WBC (Bld) [#/Vol] 10.88 10*3/uL Normal 3.70-11.00 [facility] Comment on above: Performed By: #### L ACT, CBC, PT, CMP, MG1, PHOS, LASHONDA #### [place] [phone] Erythrocyte distribution width (RBC) [Ratio] 13.7 % Normal 11.5-15.0 [facility] Comment on above: Performed By: #### L ACT, CBC, PT, CMP, MG1, PHOS, LASHONDA #### [place] [phone] Hematocrit (Bld) [Volume fraction] 19.2 % Low 36.0-46.0 [facility] Comment on above: Performed By: #### L ACT, CBC, PT, CMP, MG1, PHOS, LASHONDA #### [place] [phone] Hemoglobin (Bld) [Mass/Vol] 6.5 g/dL Low 11.5-15.5 [facility] Comment on above: Performed By: #### L ACT, CBC, PT, CMP, MG1, PHOS, LASHONDA #### [place] [phone] MCH (RBC) [Entitic mass] 31.4 pG Normal 26.0-34.0 [facility] Comment on above: Performed By: #### L ACT, CBC, PT, CMP, MG1, PHOS, LASHONDA #### [place] [phone] MCHC (RBC) [Mass/Vol] 33.9 g/dL Normal 30.5-36.0 [facility] Comment on above: Performed By: #### L ACT, CBC, PT, CMP, MG1, PHOS, LASHONDA #### [place] [address] MCV (RBC) [Entitic vol] 92.8 fL Normal 80.0-100.0 [facility] Comment on above: Performed By: #### L ACT, CBC, PT, CMP, MG1, PHOS, LASHONDA #### [place] [phone] Platelet mean volume (Bld) [Entitic vol] 11.2 fL Normal 9.0-12.7 [facility] Comment on above: Performed By: #### L ACT, CBC, PT, CMP, MG1, PHOS, LASHONDA #### [place] [phone] Platelets (Bld) [#/Vol] 221 10*3/uL Normal 150-400 [facility] Comment on above: Performed By: #### L ACT, CBC, PT, CMP, MG1, PHOS, LASHONDA #### [place] [phone] RBC (Bld) [#/Vol] 2.07 10*6/uL Low 3.90-5.20 [facility] Comment on above: Performed By: #### L ACT, CBC, PT, CMP, MG1, PHOS, LASHONDA #### [place] [phone] WBC (Bld) [#/Vol] 14.66 10*3/uL High 3.70-11.00 [facility] Comment on above: Performed By: #### L ACT, CBC, PT, CMP, MG1, PHOS, LASHONDA #### [place] [phone] Magnesiumon 07-28-2018 Magnesium [Mass/Vol] 1.8 mg/dL Normal 1.7-2.6 [facility] Comment on above: Performed By: #### L ACT, CBC, PT, CMP, MG1, PHOS, LASHONDA #### [facility] [address] [place] [address] NURSING PROGon 07-28-2018 NURSING PROG HNO ID: [id number] Author: Estefania RodriguezRn) YONY Harding Service: Nursing Author Type: Registered Nurse Type: Nursing Progress Note Filed: 07/28/2018 7:40 PM Note Text: Nursing Progress Note Patient Name: Arabella Felix [facility] Daily Note:1505 Received pt from floor without report. VSS. Pt AANDO following commands. Color pale. C/O abdominal pain. Dr Cardona at bedside and aware of condition. # 16 NG inserted into right nares. Pt vomited bloody. NG draining bloody. Placed to LIS. 1600 Assessment as charted. Pt resting between care. VSS Family at bedside. LR bolus infusing per order. 1645 Second UPC up and infusing per order. Family remains at bedside. Awaiting EGD. 1730 Endo called and asked about possible time for scope. Dr. Camarena paged. 1740 Dr. Camarena on phone about pt. Updated on condition. Will be in this evening to scope pt. NG cont to drain bloody. 1800 No change in condition. VSS. Resting between care. Family at bedside. 1900 No change in general condition. Report to relief RN. This note was completed by: Estefania Harding RN [facility] NURSING PROG HNO ID: [id number] Author: Arabella RodriguezRn) YONY [place] Service: ? Author Type: Registered Nurse Type: Nursing Progress Note Filed: 07/28/2018 4:11 PM Note Text: Nursing Progress Note Patient Name: Arabella Felix Patient Location: [facility] ENDO POOL/[facility] ENDO POOL Daily Note:0800-Pt. Awake and alert. at bedside. Pt. Denies any pain or discomfort. No s/s of distress. Spoke with CHULA Foy, aware of Hgb.-6.4, see new order for blood transfusion. This note was completed by: Arabella [place] RN 0845-pt. Being transported off unit to Endoscopy. 1030-pt. Returned to floor from EGD. Awake and alert. Denies any pain or discomfort. Will cont. To monitor. 1145-PRBC infusing. No reaction noted pt. C/o pain to IV site blood stopped, will attempt to start new IV. 1300-New IV established, blood infusing without incident. 1417-Pt. C/o feeling dizzy and c/o nausea. Noted pt. To be very pale. Pt. Then vomited 250 cc of bright red blood. Blood pressure Call out to GI. CHULA Ramos, aware of pt. Status. See all new order. 1430-Spoke with Dr. Decker made aware of the change in pt. Condition and vomiting bright red blood. Dr. Decker states to transfer pt. back to MICU and they would mostly likely repeat the EGD at bedside tonight. HR-128. Pt. Attempted to sit up ti use BSC commode but became very dizzy and had to be place back to bed. 1440-Spoke with Dr. Lynn ([facility] rehab department manager) who has accepted pt. And states that he wants pt. To be transferred to MICU immediately. Spoke with Isabelle GA, updated MICU staff that pt. Needs immediate transfer and that bedside report was to be given. 1500-Pt. Transferred to MICU-31. Bedside report given to nurse Lucio who assisted with bed to bed transfer. Normal [facility] NURSING PROG HNO ID: [id number] Author: Justina Gonzalez (Rn) YONY Lauren Service: Nursing Author Type: Registered Nurse Type: Nursing Progress Note Filed: 07/28/2018 8:52 AM Note Text: PATIENT EDUCATION TOPIC: PROCEDURE / SURGERY: Procedure/Surgery: EGD PATIENT NAME: Arabella Felix PATIENT LOCATION: ENDO POOL/[facility] ENDO POOL READINESS TO LEARN COGNITIVE ABILITY: Alert and oriented MOTIVATION TO LEARN: Interested FAMILY SUPPORT: High - Very involved in pt care INSTRUCTION PROVIDED TO: Patient PATIENT LEARNS BEST BY: Individual Instruction FACTORS AFFECTING LEARNING: None PHYSICAL LIMITATIONS AFFECTING LEARNING: None LEARNING RESPONSE DIAGNOSIS: ADULT: Gastrointestinal Bleed PATIENT/FAMILY RESPONSE: Verbalizes understanding of: PATIENT SAFETY PRINCIPLES METHOD OF INSTRUCTION: Individual instruction FOLLOW-UP PLAN: Complete - No need for follow-up INSTRUCTIONAL AIDS USED: NA SUPPLEMENTAL MATERIAL PROVIDED TO PATIENT: None REFERRAL (RECOMMENDATION): None Electronically Signed By: Justina Lauren RN Nursing Progress Note Patient Name: Arabella Felix Patient Location: ENDO POOL/ ENDO POOL This note was completed by: Justina Lauren RN [facility] NURSING PROG HNO ID: [id number] Author: Geri (Rn) YONY Reyes Service: Nursing Author Type: Registered Nurse Type: Nursing Progress Note Filed: 07/28/2018 3:10 AM Note Text: Nursing Progress Note Patient Name: Arabella Felix Patient Location: [id number] -660* Transfer Note: Patient transferred into room/unit 602 in stable condition. Actions taken: Pt alert and oriented x3, up with standby assist. Pt oriented to room, call ace, and bed controls. VSS. Pt c/o mild back pain and nausea. Medicated with PRN tylenol and compazine. Pt took all other HS medications without issues. Pt assessment completed and documented. Pt on 1L NC for comfort- c/o short of breath. 2300 labs resulted HGB 6.5, drop from 8.0. Reported to house Dr. Chandra who stated no intervention at this time, check AM labs. Checked labwork and type and screen is completed from 07/26. No signs of bleeding, no BM overnight. No further needs, call ace in reach, bed/chair alarm on for safety. This note was completed by: Geri Reyes RN [facility] PLAN OF CAREon 07-28-2018 PLAN OF CARE HNO ID: [id number] Author: Mary Rodriguez) Rhys Service: Gastroenterology Author Type: Nurse Practitioner Type: Plan of Care Filed: 07/28/2018 4:01 PM Note Text: Notified by executive staff assistant that patient was noted to have hematemesis post endoscopy today. Advised that patient be transferred to ICU. Blood products ordered by attending team. IV PPI started. Will add IV reglan in preparation for scope. Repeat EGD tonight with timing TBD. Mary Joiner CNP [facility] Thank you for allowing us to participate in the care of this patient. Please call with questions or concerns. [facility] PLAN OF CARE HNO ID: [id number] Author: Richard Coy Service: General Internal Medicine Author Type: Nurse Practitioner Type: Plan of Care Filed: 07/28/2018 2:55 PM Note Text: Called to bedside as pt had acute episode of hematemesis. Ambulated from bathroom just now and had ~250 mls bright red blood. S/P EGD today Impression: ? ? ? - Normal esophagus. ? - A single non-bleeding angioectasia in the ? stomach. ? - Normal examined duodenum. ? - No specimens collected. Pt seen and examined. Clinically stable, denies any acute complaints. Denies CP, SOB, dizziness, palpitations. Discussed with CHULA Hernandez. Dr. Pearson is not bone density technician anymore, Dr. Camarena is covering, spoke with RN on floor who advised transfer to ICU. Dr. Beckford aware. PLAN transfer to ICU when bed available transfuse another unit of PRBC start IV PPI STAT CBC d/w Dr. Beckford, patient, at bedside [facility] PLAN OF CARE HNO ID: [id number] Author: Mary Joiner Service: Gastroenterology Author Type: Nurse Practitioner Type: Plan of Care Filed: 07/28/2018 11:10 AM Note Text: S/p EGD today - with noted nonbleeding AVM in stomach. Would monitor stools and Hgb. Continue PPI BID. If further bleeding noted, consider repeat EGD. If no further bleeding noted and Hgb stable, would be OK to DC from GI standpoint. Mary Joiner, [facility] Thank you for allowing us to participate in the care of this patient. Please call with questions or concerns. [facility] PROGRESSon 07-28-2018 PROGRESS HNO ID: [id number] Author: Trish Cardona MD Service: Critical Care Author Type: Physician Type: Progress Notes Filed: 07/28/2018 5:55 PM Note Text: MICU ACCEPTANCE AND PROGRESS NOTE WITH COORD CARE SERVICE DATE: 07/28/2018 SERVICE TIME: 5:17 PM Admission Date: 07/26/2018 Day #: 3 in the MICU. HPI: This is a 53 yo female with a PMH of hypertrophic cardiomyopathy, DM type II, HTN, HLD, anxiety, depression who present to ICU for GIB. Pt was sitting at the pool today and when she went to stand up, she became dizzy and passed out per friend. Pt does not recall if she passed out. When she was picked up by EMS she started having hematemesis. She has been having black tarry stools since Tuesday. She has been feeling dizzy with associated SOB when she walks since Tuesday. She has been taking Naproxen 500mg TID for back pain for last 5 years. She denies AC, ASA, or iron use. She has had a loss of appetite with abdominal discomfort this week. She denies fever, chills, CP, changes in urinary pattern. She was transferred to [facility] initially, then ICU for further management. [facility] course: Vitals: bp 109/58, HR 62, RR 16, O2 sat 98% on RA. Hgb 8.1 (baseline 14), INR 1,3, PTT 27.7, WBC, 15.7, sCr 1.18. Pt was given 1L NS bolus. Transfused 1u PRBC. NGT placed to LIS with coffee ground content. Started on PPI. ICU course: 07/26 Transferred to ICU on RA, no resp distress. HR 65, SB, SBP 140s. NGT to LIS with coffee ground content. Pt nauseated with dry heaves r/t NGT, will d/c NGT. Continue PPI. GI consulted. Check CBC, BMP, lactate, troponin. Check EKG. 07/27: Yesterday repeat Hgb after transfusion 10.2. This am Hgb 8.2, no BMs overnight, no emesis. Possible EGD today or tomorrow. HR SB, HR 55. Hold BB. SBP 130s. 500ml LR bolus ordered. CBC q8hr. Tylenol and lidocaine patch for back pain. Stable to Transfer to floor under Dr. Beckford's service. 07/28: patient was on the regular nursing floor. Patient had an EGD in the morning which showed non bleeding angioectasia in the stomach. In the afternoon today, she started having bloody vomiting. She vomited around 250 ml of bright red blood. Also felt dizzy but did not pass out. Was transferred to MICU. 1 unit PRBC transfused. Plan for repeat scope tonight. 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, prescription 500mg po TID Pt with black stools, dizziness and abd pain since Tuesday Transferred to [facility] today after becoming dizzy with syncope and hematemesis PLAN Continue PPI GI consulted- repeat EGD tonight Transfuse for Hgb<7 Maintain 2 large bore IVs Trend CBC q8 LR bolus as needed - BMI 50.0-59.9, adult (HCC) 07/27/2018 Plan: Plan to resume metformin on discharge Diet and lifestyle changes - Essential hypertension 07/27/2018 On metoprolol XL 100mg and losartan at home PLAN Will restart once patient is stable and no longer having active bleeding - Depression 07/26/2018 Taking celexa and buspar at home PLAN Continue celexa and buspar - Type 2 diabetes mellitus (HCC) 07/26/2018 Taking metformin and januvia at home A1C 7.19 May 2018 PLAN NPO Start SSI #2 Accucheck q6hr - Hypertrophic cardiomyopathy (HCC) 07/31/2002 Pt taking Metorpolol XL 100mg daily and Losartan 50mg daily EKG with SR, LBBB, LVH PLAN EKG prn Hold losartan and BB DVT PPx: IPC. Pharmacologic contraindicated GI PPx: pantop IV Disposition: TBD Plan Discussed with Dr Cardona and RN OBJECTIVE: BP (!) 136/30 Pulse 94 Temp 37.1 ?C (98.8 ?F) (Axillary) Resp 27 Ht 165.1 cm (5' 5) Wt (!) 137.2 kg (302 lb 7.5 oz) SpO2 99% BMI 50.33 kg/m? Vital signs reviewed. NET FLUID BALANCE Intake/Output Summary (Last 24 hours) at 07/28/2018 1717 Last data filed at 07/28/2018 0934 Gross per 24 hour Intake 490 ml Output ? Net 490 ml MEDICATIONS Current Facility-Administere d Medications Medication Dose Route Frequency - NaCl 0.9% 3-5 mL 3-5 mL INTRAVENOUS q 12 H - dextrose 40 % 15 g 15 g ORAL PRN Or - glucagon 1 mg injection (GLUCAGEN) 1 mg INTRAMUSCULAR PRN Or - dextrose 50% in water 25 mL syringe 12.5 g INTRAVENOUS PRN - insulin lispro injection (rapid acting) (HumaLOG) SUBCUTANEOUS q 6 H - lidocaine 5 % 1 Patch (LIDODERM) 1 Patch TRANSDERMAL DAILY And - lidocaine patch - REMOVE OTHER AT BEDTIME And - lidocaine - VERIFY PATCH OTHER q 8 H - acetaminophen 650 mg tab(s) (TYLENOL) 650 mg ORAL q 4 H PRN - citalopram 40 mg tab(s) (CeleXA) 40 mg ORAL AT BEDTIME - busPIRone 15 mg tab(s) (BUSPAR) 15 mg ORAL TID - simvastatin 10 mg tab(s) (ZOCOR) 10 mg ORAL AT BEDTIME - prochlorperazine 5 mg injection (COMPAZINE) 5 mg INTRAVENOUS q 6 H PRN - pantoprazole 40 mg injection (PROTONIX) 40 mg INTRAVENOUS q 12 H Followed by - [START ON 07/31/2018] pantoprazole 40 mg injection (PROTONIX) 40 mg INTRAVENOUS DAILY (6 AM) - metoclopramide HCl 10 mg injection (REGLAN) 10 mg INTRAVENOUS q 6 H INFUSIONS Lines, Drains, and Airways Line Peripheral 07/26/18 1816 Admission to Hospital Right Antecubital 20 Gauge 1 day Peripheral 07/27/18 0100 Right Antecubital 20 Gauge 1 day PHYSICAL EXAM HEENT: normocephalic Oral Mucosa: Moist mucous membranes Feeding Tube: Yes. Nasogastric tube Eyes: PERRLA Neck: no jugular venous distention Cardiovascular: normal sinus rhythm Edema- No edema her legs Respiratory: Clear to auscultation Not on Ventilator Abdomen: Soft, tender in epigastrium, no guarding/rigidity, non-distended. Bowel sounds normal. No masses, organomegaly Extremities: Peripheral Pulses- 3+= normal Cap Refill: CAP REFILL: < or = 2 seconds Skin: Abnormalities- No Breakdown- No Neurologic: Oriented to person, place, and time. No focal motor, sensory deficits. NUTRITION: NPO until EGD Enteral Feeds: Yes DATA: Diagnostic tests reviewed for today's visit: Most recent labs and imaging results. LABS: CBC, Coags, BMP, Mg, Phos Recent Labs 07/28/18 1459 07/28/18 0441 07/27/18 2333 07/27/18 0748 07/26/18 1855 WBC 23.32* 10.88 14.66* < > 12.21* < > 17.32* HB 7.1* 6.4* 6.5* < > 8.2* < > 10.2* HCT 21.4* 18.7* 19.2* < > 23.8* < > 29.2* PLT 293 206 221 < > 217 < > 281 INR -- -- -- -- -- -- 1.2 NA -- 137 -- -- 139 -- 137 K -- 4.0 -- -- 4.0 -- 4.1 CHLOR -- 102 -- -- 105 -- 100 CO2 -- 24 -- -- 24 -- 20* BUN -- 25 -- -- 30* -- 40* CREAT -- 0.79 -- -- 0.80 -- 0.90 GLUC -- 212* -- -- 199* -- 291* CA -- 8.2* -- -- 8.7 -- 9.0 MG -- 1.8 -- -- 1.7 -- 1.7 P -- -- -- -- -- -- 3.4 < > = values in this interval not displayed. Liver Function, Amylase, AND Lipase Recent Labs 07/27/18 0748 07/26/18 1855 TPROT -- 6.9 ALB -- 4.1 ALT -- 13 AST -- 16 ALKPHOS -- 56 TBILI -- 1.1 LACT 1.5 2.8* PATIENT CHECKLIST ? Are restraints necessary: No ? Deep vein thrombosis prophylaxis administered? No. Contraindicated. ? Stress ulcer prophylaxis? Yes ? Nasogastric tube? Yes ? Segovia catheter necessary? No ? Is central line essential? No ? Plan discussed with assigned RN? Yes ? Family updated within last 24 hours? Yes SIGNATURE: Abraham Golden MD PATIENT NAME: Arabella Felix DATE: July 28, 2018 TIME: 5:17 PM PAGER/CONTACT #: [phone] [facility] STAFF PHYSICIAN NOTE OF PERSONAL INVOLVEMENT IN CARE I have reviewed the progress note obtained and documented by the resident and I personally participated in the carvajal components. I have discussed the case and management of the patient's care. The following comments revise or confirm relevant carvajal components of the note. IMPRESSION: Patient is well known to me. She was transferred to the floor yesterday, noted to have drop in the hemoglobin from 8-6.5, noted to have single 10 mm non bleeding venous ectasia. After the EGD patient was noted have 250 cc of bright red blood and feeling vomiting Problem list 1. Acute blood loss anemia 2. Upper GI bleeding 3. History of HOCM PLAN: 1. Patient has acute UGI bleed from telengiectasia. Will need EGD today. NG tube inserted. Transfused one unit of RBC. Fluid resuscitation, and avoid tachycardia- given history of HOCM. MICU px This patient has a high probability of sudden, clinically significant deterioration, which requires the highest level of physician preparedness to intervene urgently. I managed/supervised life or organ supporting interventions that required frequent physician assessment. I devoted my full attention to the direct care of this patient for the amount of time indicated below. Time I spent with family or surrogate(s) is included only if the patient was incapable of providing the necessary information or participating in medical decision making. Time devoted to teaching is not included. Critical Care Documentation: The patient has the following organ/system impairment(s): Acute blood loss and Complex life-threatening medical problem(s) Time spent providing critical care services: 35 minutes excluding procedures. SIGNATURE: Trish Cardona MD [facility] PAGER:[phone] [facility] PROGRESS HNO ID: [id number] Author: Kori Beckford Service: ? Author Type: Physician Type: Progress Notes Filed: 07/29/2018 8:44 PM Note Text: [facility] - General Progress Note ARABELLA FELIX : 1965 AGE: 53 SEX: F CSN: [id number] [facility]: LOCATION: [facility] ATTENDING PHYSICIAN: Kori Beckford M.D. DATE OF SERVICE: 07/28/2018 TIME OF SERVICE: 11:00 AM SUBJECTIVE: The patient is seen and examined. She initially admitted to the hospital Intensive Care Unit with acute GI bleeding. Transferred to the high-risk floor today. She developed acute GI bleeding again where she has vomited significant amount of blood. The hemoglobin has dropped again below 7 and the patient had stat type and crossmatch for blood transfusion, contacted the Critical Care Team and GI, subsequently I transferred the patient to the intensive care unit for a bedside stat EGD and initiated blood transfusion. Case has been discussed with the consultants. Discussed with the Critical Care team. We will follow up closely. Kori Beckford M.D. Internal Medicine HUBBARD:[id number] /[id number] [facility] XR ABDOMEN 1V SUPINEon 07-28 XR ABDOMEN 1V SUPINE * * *Final Report* * * DATE OF EXAM: Jul 28 2018 6:41PM FVX [id number] - XR ABDOMEN 1V SUPINE / PROCEDURE REASON: Evaluate tube, line or lead position * * * * Physician Interpretation * * * * EXAM: ABDOMINAL X-RAY (KUB) HISTORY: Evaluate tube, line or lead position TECHNIQUE: AP supine view. COMPARISON: None available RESULT: Lines/tubes/devices: NG tube in place with the distal tip and side-port within the proximal stomach. Abdomen: Unremarkable bowel gas pattern. Bones: Unremarkable. IMPRESSION: NG tube in satisfactory position with distal segment in the proximal stomach. Ranch Cook: SHAHZAD Transcribe Date/Time: Jul 28 2018 7:00P Dictated by : SHIRA HOUSTON MD This examination was interpreted and the report reviewed and electronically signed by: SHIRA HOUSTON MD on Jul 28 2018 7:01PM EST [id number] CN [facility] ALLIED HEALTHon 07-27-2018 ALLIED HEALTH HNO ID: [id number] Author: Sergio Talley (Chaplain) Service: Spiritual Care Author Type: Mutuel Clerk Type: Allied Health Filed: 07/27/2018 2:07 PM Note Text: SPIRITUAL CARE PROGRESS NOTE SERVICE DATE: 07/27/2018 SERVICE TIME: 1154 While engaging in spiritual care rounds on the unit, I visited the patient and her family. I provided spiritual presence and pastoral support through empathic care and listening. I provided further spiritual presence and pastoral support through offer of prayers. I shared wire technician availability with patient and family. To contact the Spiritual Care Department: Please call [phone]?or Page the On-Call Mutuel Clerk at pager [phone].??? Thank you for the opportunity to be of service. ? SIGNATURE: Chaplain Kirti PATIENT NAME: Arabella Felix DATE: July 27, 2018 TIME: 2:06 PM PAGER/CONTACT #: [phone] [facility] Basic Metabolic Panlon 07-27 Anion gap [Moles/Vol] 10 mmol/L Normal 9-18 [facility] Comment on above: Performed By: #### L ACT, BMP, MG1 ####[facility] [place], [place] [phone] Calcium [Mass/Vol] 8.7 mg/dL Normal 8.5-10.5 [facility] Comment on above: Performed By: #### L ACT, BMP, MG1 ####[facility] [place], [place] [phone] Chloride [Moles/Vol] 105 mmol/L Normal 98-110 [facility] Comment on above: Performed By: #### L ACT, BMP, MG1 ####[place] [phone] CO2 [Moles/Vol] 24 mmol/L Normal 23-32 [facility] Comment on above: Performed By: #### L ACT, BMP, MG1 ####[place] [phone] Creatinine [Mass/Vol] 0.80 mg/dL Normal 0.70-1.40 [facility] Comment on above: Performed By: #### L ACT, BMP, MG1 ####[place] [phone] eGFR- Amer. >60 Normal >60 [facility] Comment on above: Performed By: #### L ACT, BMP, MG1 ####[place] [phone] GFR/1.73 sq M predicted among non-blacks MDRD (S/P/Bld) [Vol rate/Area] mL/min/{1.73_m2} Normal >60 [facility] Comment on above: Performed By: #### L ACT, BMP, MG1 ####[place] [phone] Glucose [Mass/Vol] 199 mg/dL High 65-100 [facility] Comment on above: Performed By: #### L ACT, BMP, MG1 ####[place] [phone] Potassium [Moles/Vol] 4.0 mmol/L Normal 3.5-5.0 [facility] Comment on above: Performed By: #### L ACT, BMP, MG1 ####[place] [phone] Sodium [Moles/Vol] 139 mmol/L Normal 132-148 [facility] Comment on above: Performed By: #### L ACT, BMP, MG1 ####[address], [place] [phone] Urea nitrogen [Mass/Vol] 30 mg/dL High 8-25 [facility] Comment on above: Performed By: #### L DARRYN TUTTLE MG1 ####[address] [phone] CASE MGT INIT ASSESon 2018 CASE MGT INIT ASSES HNO ID: [id number] Author: Rebeka Lacey (Sw) Service: Care Management Author Type: Duck Farmer Type: Care Mgt Initial Assessment Filed: 07/27/2018 2:11 PM Note Text: CARE MANAGEMENT: ASSESSMENT AND DISCHARGE PLAN SERVICE DATE: 07/27/2018 SERVICE TIME: 2:05 PM PRIMARY CARE PHYSICIAN: MAR Merrill ADMISSION STATUS: Inpatient MEDICAL: Patient/Representati ve Stated Goals: To have reduction in symptoms To improve my functional status To return home to life as it was Health Insurance: [employer] Issues Impacting Discharge Plan: Hypertrophic cardiomyopathy, DM, HTN Last Admission Date: none Is this Within the Past 30 days? No Advance Directive: Health Literacy: 1. How often do you need to have someone help you when you read instructions, pamphlets, or other written material from your doctor or pharmacy? Never - 1 2. How confident are you filling out medical forms by yourself? Extremely - 1 If Patient scores > 3 on either question, the following interventions were put into place: Patient did not score > 3 FUNCTIONAL AND COGNITIVE/BEHAVIORAL PRIOR TO ADMISSION: Baseline Mental Status: Alert AND Oriented, Person, Place , Time and Situation Functional Status: Independent Does Patient Currently Receive Any Community Services or Home Care? None Equipment Prior to Admission: Oxygen at night 2L liters per minute Has the Patient Been in a Mcfp Facility in the Past 30 days? No SOCIAL: Living Arrangement: Home Lives With: Spouse and Son Financial Resources: Employed: [employer] Primary Contact: Extended Emergency Contact Information Primary Emergency Contact: Taj Felix Address: [address] [place] [address] Mobile Relation: Spouse Supportive: Yes Other Important Patient Contacts: Family: Name: Sister Ramona Home Phone: Caregiver Assessment: Caregiver is ready, willing and able to meet the patient's needs as recommended by the inter-professional team? No Caregiver Needed Patient's transition needs and plan for meeting these needs: TBD, Home with family support, self-care, follow up appointments Does the patient have an acute stroke diagnosis, or has the patient had a stroke during this admission? No Medication Adherence: I am convinced of the importance of my prescription medication: Agree completely - 0 I worry that my prescription medication will do more harm than good to me Disagree completely - 0 I feel financially burdened by my [id number] expenses for my prescription medication: Disagree completely - 0 Patient is categorized as low risk < 2 Are you interested in bedside delivery of your medications? No Food Concerns: In the Last Month, Have You had Trouble Getting Food? No trouble getting food During the Last Month, Have You Worried Whether Your Food Would Run Out Before You Had Enough Money to Buy More? No Is the Patient Psychosocially Complex? No ASSESSMENT AND PLAN: Medical Needs: 2 or more chronic diseases Psychosocial Needs: Mental Health Diagnosis: Anxiety/Depression FREEDOM OF CHOICE EXPLAINED: N/A POTENTIAL TRANSITION PLANS To Be Determined Pt's sister Ramona and Johnnie at bedside. Pt consented to family staying during the assessment. Pt lives at home w/ and son, indep w/ ADLs, she has home o2 (2L) at night through [employer] and reports no issues. Pt has a POA/LW in chart. She reports depression and anxiety but she said it is being addressed with her psychiatrist and declined additional resources. Pt aware of SW role for dc needs SIGNATURE: ARMAAN Mendiola PATIENT NAME: Arabella Felix DATE: July 27, 2018 TIME: 2:05 PM PAGER/CONTACT #: [phone] Normal [facility] CBCon 07-27-2018 Erythrocyte distribution width (RBC) [Ratio] 13.7 % Normal 11.5-15.0 [facility] Comment on above: Performed By: #### L ACT, CBC, PT, CMP, MG1, PHOS, LASHONDA #### [facility] [address] [place] [address] Hematocrit (Bld) [Volume fraction] 23.3 % Low 36.0-46.0 [facility] Comment on above: Performed By: #### L ACT, CBC, PT, CMP, MG1, PHOS, LASHONDA #### [place] [phone] Hemoglobin (Bld) [Mass/Vol] 8.0 g/dL Low 11.5-15.5 [facility] Comment on above: Performed By: #### L ACT, CBC, PT, CMP, MG1, PHOS, LASHONDA #### [place] [phone] MCH (RBC) [Entitic mass] 31.4 pG Normal 26.0-34.0 [facility] Comment on above: Performed By: #### L ACT, CBC, PT, CMP, MG1, PHOS, LASHONDA #### [place] [phone] MCHC (RBC) [Mass/Vol] 34.3 g/dL Normal 30.5-36.0 [facility] Comment on above: Performed By: #### L ACT, CBC, PT, CMP, MG1, PHOS, LASHONDA #### [place] [phone] MCV (RBC) [Entitic vol] 91.4 fL Normal 80.0-100.0 [facility] Comment on above: Performed By: #### L ACT, CBC, PT, CMP, MG1, PHOS, LASHONDA #### [place] [phone] Platelet mean volume (Bld) [Entitic vol] 11.4 fL Normal 9.0-12.7 [facility] Comment on above: Performed By: #### L ACT, CBC, PT, CMP, MG1, PHOS, LASHONDA #### [place] [phone] Platelets (Bld) [#/Vol] 233 10*3/uL Normal 150-400 [facility] Comment on above: Performed By: #### L ACT, CBC, PT, CMP, MG1, PHOS, LASHONDA #### [place] [phone] RBC (Bld) [#/Vol] 2.55 10*6/uL Low 3.90-5.20 [facility] Comment on above: Performed By: #### L ACT, CBC, PT, CMP, MG1, PHOS, LASHONDA #### [place] [address] WBC (Bld) [#/Vol] 12.22 10*3/uL High 3.70-11.00 [facility] Comment on above: Performed By: #### L ACT, CBC, PT, CMP, MG1, PHOS, LASHONDA #### [place] [phone] Erythrocyte distribution width (RBC) [Ratio] 13.8 % Normal 11.5-15.0 [facility] Comment on above: Performed By: #### C BC ####[phone] Hematocrit (Bld) [Volume fraction] 23.8 % Low 36.0-46.0 [facility] Comment on above: Performed By: #### C BC ####[phone] Hemoglobin (Bld) [Mass/Vol] 8.2 g/dL Low 11.5-15.5 [facility] Comment on above: Performed By: #### C BC ####[place] [phone] MCH (RBC) [Entitic mass] 31.3 pG Normal 26.0-34.0 [facility] Comment on above: Performed By: #### C BC ####[place] [phone] MCHC (RBC) [Mass/Vol] 34.5 g/dL Normal 30.5-36.0 [facility] Comment on above: Performed By: #### C BC ####[place] [phone] MCV (RBC) [Entitic vol] 90.8 fL Normal 80.0-100.0 [facility] Comment on above: Performed By: #### C BC ####[place] [phone] Platelet mean volume (Bld) [Entitic vol] 12.0 fL Normal 9.0-12.7 [facility] Comment on above: Performed By: #### C BC ####[place] [phone] Platelets (Bld) [#/Vol] 217 10*3/uL Normal 150-400 [facility] Comment on above: Performed By: #### C BC ####[place] [phone] RBC (Bld) [#/Vol] 2.62 10*6/uL Low 3.90-5.20 [facility] Comment on above: Performed By: #### C BC ####[place] [phone] WBC (Bld) [#/Vol] 12.21 10*3/uL High 3.70-11.00 [facility] Comment on above: Performed By: #### C BC ####[place] [phone] Erythrocyte distribution width (RBC) [Ratio] 13.5 % Normal 11.5-15.0 [facility] Comment on above: Performed By: #### C BC ####[address] [phone] Hematocrit (Bld) [Volume fraction] 23.7 % Low 36.0-46.0 [facility] Comment on above: Performed By: #### C BC ####[address] [phone] Hemoglobin (Bld) [Mass/Vol] 8.2 g/dL Low 11.5-15.5 [facility] Comment on above: Performed By: #### C BC ####[address] [phone] MCH (RBC) [Entitic mass] 30.9 pG Normal 26.0-34.0 [facility] Comment on above: Performed By: #### C BC ####[address] [phone] MCHC (RBC) [Mass/Vol] 34.6 g/dL Normal 30.5-36.0 [facility] Comment on above: Performed By: #### C BC ####[address] [phone] MCV (RBC) [Entitic vol] 89.4 fL Normal 80.0-100.0 [facility] Comment on above: Performed By: #### C BC ####[address] [phone] Platelet mean volume (Bld) [Entitic vol] 11.4 fL Normal 9.0-12.7 [facility] Comment on above: Performed By: #### C BC ####[address] [phone] Platelets (Bld) [#/Vol] 241 10*3/uL Normal 150-400 [facility] Comment on above: Performed By: #### C BC ####[address] [phone] RBC (Bld) [#/Vol] 2.65 10*6/uL Low 3.90-5.20 [facility] Comment on above: Performed By: #### C BC ####[address] [phone] WBC (Bld) [#/Vol] 15.96 10*3/uL High 3.70-11.00 [facility] Comment on above: Performed By: #### C BC ####[address] [phone] CONSULTon 07-27-2018 CONSULT HNO ID: [id number] Author: Kenisha Rodriguez) Rambasek Service: Gastroenterology Author Type: Nurse Practitioner Type: Consults Filed: 07/27/2018 2:06 PM Note Text: CONSULT: GI SERVICE SERVICE DATE: 07/27/2018 SERVICE TIME: 914 REASON FOR CONSULT: GI bleed REQUESTING PHYSICIAN: Oscar PRIMARY CARE PHYSICIAN: MAR Merrill Subjective Ms. Felix is a 53 year old female with a PMH of hypertrophic cardiomyopathy, DM type II, HTN, HLD, anxiety, depression who presents with GI bleeding. The patient has chronic back pack and has been on NSAIDS for over 5 years. The pt is currently take Naprosyn TID. For the past month pt has had epigastric pain accompanied with SOB and dizziness. On Tuesday she started to have dark tarry stools. Yesterday she was at the pool stood up and past out. At the OSH the patient had hematemesis. Since admission to ICU the pt has had not signs of GI bleeding. Pt states that she has been on Iron in the past. Pt feels better after blood. Pt denies any scopes in her past and has not been on acid suppressant medication. FUNCTIONAL STATUS: Independent PAST MEDICAL HISTORY Diagnosis Date - Abnormal weight gain - Excessive or frequent menstruation h/o abnormal past 5 years - Hypertrophic obstructive cardiomyopathy new diagnoses over summer 2001 - Other abnormal heart sounds new murmur heard on physical exam over summer 2001 - Palpitations racing heart onset in June, May 2001, no syncope but feels lightheaded - Screening for depression since summer and diagnoses of heart No past surgical history on file. FAMILY HISTORY Problem Relation Age of Onset - Cancer Mother - Heart Maternal Grandfather Massive CT at 45 - Heart Father s/p angioplasty Social History Tobacco Use - Smoking status: Never Smoker Substance Use Topics - Alcohol use: No - Drug use: Not on file Medications Prior to Admission: busPIRone (BUSPAR) 15 mg tablet Take 15 mg by mouth three times daily. Disp: Rfl: 07/25/2018 at Unknown time naproxen (NAPROSYN) 500 mg tablet Take 500 mg by mouth three times daily with meals. Disp: Rfl: 07/25/2018 at Unknown time metFORMIN (GLUCOPHAGE) 500 mg tablet Take 1 tablet by mouth twice daily with meals. . Disp: 60 tablet Rfl: 11 07/25/2018 at Unknown time citalopram (CELEXA) 40 mg tablet Take 1 tablet by mouth once daily. Disp: Rfl: 0 07/25/2018 at Unknown time metoprolol succinate XL, long acting, (TOPROL XL) 100 mg Tb24 Take 1 tablet by mouth once daily. Disp: 30 tablet Rfl: 0 07/25/2018 at Unknown time losartan (COZAAR) 50 mg tablet Take 1 tablet by mouth once daily. Disp: Rfl: 0 07/25/2018 at Unknown time simvastatin (ZOCOR) 10 mg tablet Take 1 tablet by mouth daily at bedtime. For cholesterols. Disp: Rfl: 0 07/25/2018 at Unknown time sitaGLIPtin (JANUVIA) 50 mg tablet Take 100 mg by mouth once daily. Disp: 30 tablet Rfl: 11 07/25/2018 at Unknown time ALPRAZolam (XANAX) 0.5 mg tablet Take 0.25 mg by mouth at bedtime as needed. Disp: Rfl: Unknown at Unknown time Current Facility-Administere d Medications Medication Dose Route Frequency - NaCl 0.9% 3-5 mL 3-5 mL INTRAVENOUS q 12 H - dextrose 40 % 15 g 15 g ORAL PRN Or - glucagon 1 mg injection (GLUCAGEN) 1 mg INTRAMUSCULAR PRN Or - dextrose 50% in water 25 mL syringe 12.5 g INTRAVENOUS PRN - insulin lispro injection (rapid acting) (HumaLOG) SUBCUTANEOUS q 6 H - lidocaine 5 % 1 Patch (LIDODERM) 1 Patch TRANSDERMAL DAILY And - lidocaine patch - REMOVE OTHER AT BEDTIME And - lidocaine - VERIFY PATCH OTHER q 8 H - acetaminophen 650 mg tab(s) (TYLENOL) 650 mg ORAL q 4 H PRN - citalopram 40 mg tab(s) (CeleXA) 40 mg ORAL AT BEDTIME - busPIRone 15 mg tab(s) (BUSPAR) 15 mg ORAL TID - simvastatin 10 mg tab(s) (ZOCOR) 10 mg ORAL AT BEDTIME - pantoprazole DR 40 mg tab(s) (PROTONIX) 40 mg ORAL BID AC (0600/1600) - prochlorperazine 5 mg injection (COMPAZINE) 5 mg INTRAVENOUS q 6 H PRN Allergies As of Date: 07/26/2018 Allergen Noted Reaction BETADINE [POVIDONE-IODINE] 07/26/2018 Hives Fully Assessed 07/26/2018 COMPLETE REVIEW OF SYSTEMS: PAIN ASSESSMENT: epigastric pain GENERAL: Fatigue CARDIOVASCULAR: Shortness of breath GI: melena and hematemesis Objective PHYSICAL EXAM: Physical Exam Performed: GENERAL: Alert, no distress, cooperative, Obese, alopecia SKIN: Skin color, texture, turgor normal. No rashes or lesions. ABDOMEN: tender, soft bs+ BP 85/70 Pulse 55 Temp (Src) 97.7 (Oral) Resp 23 Ht 5' 5 (1.65m) Wt 302 lb 7.5 oz (137.2kg) SpO2 97% BMI 50.33 kg/(m2). O2 Therapy: Room Air DATA: Diagnostic tests reviewed for today's visit: Most recent labs and imaging results. Impression/Recommend ations 1. Anemia due to Blood loss- d/t 5 years of NSAID abuse- for chronic back pain. Pt had melena since Tuesday and hematemesis at OSH. Pt never had scopes in the past. Bun/Creat 30/0.8. Hgb 8.2 after one unit of blood. 2. Hypertrophic cardiomyopathy- 2001 echo EF 55%- 2+ ME Plan EGD tomorrow at 0900 NPO after midnight Continue with IV Protonix Recommend to transfuse for Hgb less than 7.5 Continue to trend Hgb D/W Dr. Lili Stapleton, KELLY.CHULA [facility] Gastroenterology [facility] Consult SIGNATURE: Kenisha Stapleton APRN.DISTRIBUTOR [employer]VERTISING [employer]ERIAL PATIENT NAME: Arabella Felix DATE: July 27, 2018 TIME: 1:53 PM PAGER: [phone] Normal [facility] Lactateon 07-27-2018 Lactate [Moles/Vol] 1.5 mmol/L Normal 0.4-2.0 [facility] Comment on above: Performed By: #### L DARRYN TUTTLE, MG1 ####[facility] [place], [place] [phone] Magnesiumon 07-27-2018 Magnesium [Mass/Vol] 1.7 mg/dL Normal 1.7-2.6 [facility] Comment on above: Performed By: #### L DARRYN TUTTLE, MG1 ####[id number] [place], [place] [phone] NURSING PROGon 07-27-2018 NURSING PROG HNO ID: [id number] Author: Vinita (Rn) YONY Sharp Service: Nursing Author Type: Registered Nurse Type: Nursing Progress Note Filed: 07/27/2018 5:31 PM Note Text: Nursing Progress Note Patient Name: Arabella Felix [facility] Daily Note: 0700 - Report received from outgoing RN 0800 - Full assessment completed as charted 0850 - Kenisha PATTERN PERFORATING MACHINE OPERATOR @ BS 1030 - Dr Cardona and MICU team @ BS for AM rounds, orders received 1130 - Move out orders received for pt to move out to [facility] with tele 1145 - Dr Pearson @ BS, plan for EGD tomorrow 1200 - Reassessment as charted 1600 - Reassessment as charted 1650 - pt received bed to m/o to 602-1 1720 - report called to Arabella BHAKTA This note was completed by: Vinita Sharp RN Normal [facility] PROGRESSon 07-27-2018 PROGRESS HNO ID: [id number] Author: Kori Beckford Service: ? Author Type: Physician Type: Progress Notes Filed: 08/01/2018 11:24 PM Note Text: ? [facility] ARABELLA FELIX : 1965 AGE: 53 SEX: F CSN: [id number] HOSP SVC: LOCATION: [facility] ATTENDING PHYSICIAN: Kori Beckford M.D. ? Admit date : 07/26/2018 ? ? SUBJECTIVE: The patient is seen and examined. She initially admitted to the hospital Intensive Care Unit with acute GI bleeding. ?This is a 53 yo female with a PMH of hypertrophic cardiomyopathy, DM type II, HTN, HLD, anxiety, depression who present to ICU for GIB. Pt was sitting at the pool today and when she went to stand up, she became dizzy and passed out per friend. Pt does not recall if she passed out. When she was picked up by EMS she started having hematemesis. She has been having black tarry stools since Tuesday. She has been feeling dizzy with associated SOB when she walks since Tuesday. She has been taking Naproxen 500mg TID for back pain for last 5 years. She denies AC, ASA, or iron use. She has had a loss of appetite with abdominal discomfort this week. She denies fever, chills, CP, changes in urinary pattern. She was transferred to [facility] initially, then [facility] ICU for further management. ? [facility] ED course: Vitals: bp 109/58, HR 62, RR 16, O2 sat 98% on RA. Hgb 8.1 (baseline 14), INR 1,3, PTT 27.7, WBC, 15.7, sCr 1.18. Pt was given 1L NS bolus. Transfused 1u PRBC. NGT placed to LIS with coffee ground content. Started on PPI. ? ICU course: Transferred to ICU on RA, no resp distress. HR 65, SB, SBP 140s. NGT to LIS with coffee ground content. Pt nauseated with dry heaves r/t NGT, will d/c NGT. Continue PPI. GI consulted. Check CBC, BMP, lactate, troponin. Check EKG. ? ? ASSESSMENT/PLAN: Active Hospital Problems ? Diagnosis - Acute blood loss anemia ? ? 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 PLAN Continue PPI GI consulted D/c NGT Transfuse for Hgb<7 Maintain 2 large bore IVs 1L NS bolus ? ? - Depression ? ? Taking celexa and buspar at home ? PLAN Continue celexa and buspar ? ? - Type 2 diabetes mellitus (HCC) ? ? Taking metformin and januvia at home A1C 7.19 May 2018 ? PLAN NPO Start SSI #2 Accucheck q6hr ? - SHAYNE (acute kidney injury) (HCC) ? ? 2/2 to hypovolemia Pt admitted after c/o black stools with dizziness since Tuesday Today she had dizziness, with syncope and hematemesis sCr 1.16 on admission (Baseline 0.97in 2001, no others on file) ? PLAN Trend BMP 1L Ns bolus Monitor I/O ? - Hypertrophic cardiomyopathy (HCC) ? ? Pt taking Metorpolol XL 100mg daily and Losartan 50mg daily EKG with SR, LBBB ? PLAN EKG Hold losartan Continue metoprolol 12.5 mg po q 8hr ? ? ? DVT ppx: SCDs GI ppx: Protonix ? PAST MEDICAL HISTORY Diagnosis Date - Abnormal weight gain - Excessive or frequent menstruation h/o abnormal past 5 years - Hypertrophic obstructive cardiomyopathy new diagnoses over summer 2001 - Other abnormal heart sounds new murmur heard on physical exam over summer 2001 - Palpitations racing heart onset in June,May 2001, no syncope but feels lightheaded - Screening for depression since summer and diagnoses of heart Social History Socioeconomic History Marital status: Spouse name: Not on file Number of children: Not on file Years of education: Not on file Highest education level: Not on file Social Needs Financial resource strain: Not on file Food insecurity - worry: Not on file Food insecurity - inability: Not on file Transportation needs - medical: Not on file Transportation needs - non-medical: Not on file Occupational History Not on file Tobacco Use Smoking status: Never Smoker Substance and Sexual Activity Alcohol use: No Drug use: Not on file Sexual activity: Not on file Other Topics Concerns: ADL RESPONSE: Not Asked ADL RESPONSE: Not Asked ADL RESPONSE: Yes stopped 3 months ago because of heart 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 R.O.S negative other than HPI AND PMH all other SYS reviewed and negative. [facility] Most recent images Reviewed Last EKG/Rhythm reviewed Med list reviewed per BRITANY Montes reviewed VS noted per RN Chart sevre distress. SKIN: No rashes . ENT mucosa, Normal/nose normal NECK: no jugulovenous distention NO lymphadenopathy LUNGS:No wheezing,no ronchi no rales. CARDIAC: S1 and S2 ABDOMEN: Abdomen soft, +tender. EXTREMITIES: Extremities normal. NEURO: non focal PULSES: + pedal / radial No edema No goiter Kori Beckford MD Normal [facility] PROGRESS HNO ID: [id number] Author: Trish Cardona MD Service: Critical Care Author Type: Physician Type: Progress Notes Filed: 07/27/2018 3:38 PM Note Text: MICU PROGRESS NOTE WITH COORD CARE SERVICE DATE: 07/27/2018 SERVICE TIME: 12:10 PM Admission Date: 07/26/2018 Day #: 1 in the MICU. HPI: This is a 53 yo female with a PMH of hypertrophic cardiomyopathy, DM type II, HTN, HLD, anxiety, depression who present to ICU for GIB. Pt was sitting at the pool today and when she went to stand up, she became dizzy and passed out per friend. Pt does not recall if she passed out. When she was picked up by EMS she started having hematemesis. She has been having black tarry stools since Tuesday. She has been feeling dizzy with associated SOB when she walks since Tuesday. She has been taking Naproxen 500mg TID for back pain for last 5 years. She denies AC, ASA, or iron use. She has had a loss of appetite with abdominal discomfort this week. She denies fever, chills, CP, changes in urinary pattern. She was transferred to [facility] initially, then ICU for further management. [facility] course: Vitals: bp 109/58, HR 62, RR 16, O2 sat 98% on RA. Hgb 8.1 (baseline 14), INR 1,3, PTT 27.7, WBC, 15.7, sCr 1.18. Pt was given 1L NS bolus. Transfused 1u PRBC. NGT placed to LIS with coffee ground content. Started on PPI. ICU course: 07/26 Transferred to ICU on RA, no resp distress. HR 65, SB, SBP 140s. NGT to LIS with coffee ground content. Pt nauseated with dry heaves r/t NGT, will d/c NGT. Continue PPI. GI consulted. Check CBC, BMP, lactate, troponin. Check EKG. 07/27: Yesterday repeat Hgb after transfusion 10.2. This am Hgb 8.2, no BMs overnight, no emesis. Possible EGD today or tomorrow. HR SB, HR 55. Hold BB. SBP 130s. 500ml LR bolus ordered. CBC q8hr. Tylenol and lidocaine patch for back pain. Stable to Transfer to floor under Dr. Beckford's service. Active Hospital Problems Diagnosis Date Noted - BMI 50.0-59.9, adult (HCC) 07/27/2018 - Essential hypertension 07/27/2018 On metoprolol XL 100mg and losartan at home PLAN Hold BB and losartan-restart if bp stable after EGD, now bradycardic - Acute blood loss anemia 07/26/2018 2/2 GIB r/t naproxen use Pt states she has been taking naproxen for 5 years for 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, prescription 500mg po TID Pt with black stools, dizziness and abd pain since Tuesday Transferred to [facility] today after becoming dizzy with syncope and hematemesis Hgb 8.1 (Baseline 14), transfused 1u PRBC PLAN Continue PPI GI consulted-possible EGD today or tomorrow Transfuse for Hgb<7 Maintain 2 large bore IVs Trend CBC q8 LR bolus 500ml - Depression 07/26/2018 Taking celexa and buspar at home PLAN Continue celexa and buspar - Type 2 diabetes mellitus (HCC) 07/26/2018 Taking metformin and januvia at home A1C 7.19 May 2018 PLAN NPO Start SSI #2 Accucheck q6hr - Hypertrophic cardiomyopathy (HCC) 07/31/2002 Pt taking Metorpolol XL 100mg daily and Losartan 50mg daily EKG with SR, LBBB, LVH PLAN EKG prn Hold losartan and BB DVT PPx: Contraindicated GI PPx: Protonix Disposition: Stable to transfer to floor under Dr. Beckford Plan Discussed with Dr Cardona and RN OBJECTIVE: BP 85/70 Pulse (!) 55 Temp 36.5 ?C (97.7 ?F) (Oral) Resp 23 Ht 165.1 cm (5' 5) Wt (!) 137.2 kg (302 lb 7.5 oz) SpO2 97% BMI 50.33 kg/m? Vital signs reviewed. NET FLUID BALANCE Intake/Output Summary (Last 24 hours) at 07/27/2018 1210 Last data filed at 07/27/2018 0800 Gross per 24 hour Intake 1000 ml Output 1300 ml Net -300 ml MEDICATIONS Current Facility-Administere d Medications Medication Dose Route Frequency - NaCl 0.9% 3-5 mL 3-5 mL INTRAVENOUS q 12 H - dextrose 40 % 15 g 15 g ORAL PRN Or - glucagon 1 mg injection (GLUCAGEN) 1 mg INTRAMUSCULAR PRN Or - dextrose 50% in water 25 mL syringe 12.5 g INTRAVENOUS PRN - insulin lispro injection (rapid acting) (HumaLOG) SUBCUTANEOUS q 6 H - lidocaine 5 % 1 Patch (LIDODERM) 1 Patch TRANSDERMAL DAILY And - lidocaine patch - REMOVE OTHER AT BEDTIME And - lidocaine - VERIFY PATCH OTHER q 8 H - acetaminophen 650 mg tab(s) (TYLENOL) 650 mg ORAL q 4 H PRN - citalopram 40 mg tab(s) (CeleXA) 40 mg ORAL AT BEDTIME - busPIRone 15 mg tab(s) (BUSPAR) 15 mg ORAL TID - simvastatin 10 mg tab(s) (ZOCOR) 10 mg ORAL AT BEDTIME - pantoprazole DR 40 mg tab(s) (PROTONIX) 40 mg ORAL BID AC (0600/1600) INFUSIONS Lines, Drains, and Airways Line Peripheral 07/26/18 1816 Admission to Hospital Right Antecubital 20 Gauge less than 1 day Peripheral 07/27/18 0100 Right Antecubital 20 Gauge less than 1 day PHYSICAL EXAM HEENT: Oral Mucosa: Moist mucous membranes Feeding Tube: No Eyes: PERRLA Neck: no jugular venous distention Cardiovascular: sinus bradycardia Edema- 1+ edema her legs Respiratory: Clear to auscultation on RA Abdomen: Soft, non-tender, non-distended. Bowel sounds normal. Extremities: Peripheral Pulses- 3+= normal Cap Refill: CAP REFILL: < or = 2 seconds Skin: Abnormalities- No Breakdown- No Neurologic: Oriented to person, place, and time. No focal motor, sensory deficits. NUTRITION: NPO Enteral Feeds: No DATA: Diagnostic tests reviewed for today's visit: Most recent labs and imaging results. LABS: CBC, Coags, BMP, Mg, Phos Recent Labs 07/27/18 0748 07/27/18 0122 07/26/18 1855 WBC 12.21* 15.96* 17.32* HB 8.2* 8.2* 10.2* HCT 23.8* 23.7* 29.2* PLT 217 241 281 INR -- -- 1.2 NA 139 -- 137 K 4.0 -- 4.1 CHLOR 105 -- 100 CO2 24 -- 20* BUN 30* -- 40* CREAT 0.80 -- 0.90 GLUC 199* -- 291* CA 8.7 -- 9.0 MG 1.7 -- 1.7 P -- -- 3.4 Liver Function, Amylase, AND Lipase Recent Labs 07/27/18 0748 07/26/18 1855 TPROT -- 6.9 ALB -- 4.1 ALT -- 13 AST -- 16 ALKPHOS -- 56 TBILI -- 1.1 LACT 1.5 2.8* Cardiac Enzymes Recent Labs 07/26/18 185 TROPT <0.010 Glom Filtration Rate DONTE, and AA Recent Labs 07/27/18 0748 07/26/18 1855 EGFRAA >60 >60 CULTURES: n/a PATIENT CHECKLIST ? Are restraints necessary: No ? Deep vein thrombosis prophylaxis administered? No. Contraindicated. ? Stress ulcer prophylaxis? Yes ? Nasogastric tube? No ? Segovia catheter necessary? No ? Is central line essential? No ? Plan discussed with assigned RN? Yes ? Family updated within last 24 hours? Yes SIGNATURE: Ivonne Tanner CNP PATIENT NAME: Arabella Felix DATE: July 27, 2018 TIME: 12:10 PM PAGER/CONTACT #: [phone] [facility] STAFF PHYSICIAN NOTE OF PERSONAL INVOLVEMENT IN CARE I have reviewed the progress note obtained and documented by the resident and I personally participated in the carvajal components. I have discussed the case and management of the patient's care. The following comments revise or confirm relevant carvajal components of the note. IMPRESSION: Interval events noted No further stools with blood. Hemoglobin remains stable at 8/23.3 Problem list 1. Acute blood loss anemia 2. Upper GI bleeding 3. HOCM PLAN: 1. Patient had no further episodes of bleeding. She is hemodynamically stable. Continue to monitor CBC. IV protonix bid. Patient can be transferred to the floor pending EGD. MICU px SIGNATURE: Trish Cardona MD [facility] PAGER:[phone] Normal [facility] CBCon 07-26-2018 Erythrocyte distribution width (RBC) [Ratio] 13.2 % Normal 11.5-15.0 [facility] Comment on above: Performed By: #### L ACT, CBC, PT, CMP, MG1, PHOS, LASHONDA #### [place] [phone] Hematocrit (Bld) [Volume fraction] 29.2 % Low 36.0-46.0 [facility] Comment on above: Performed By: #### L ACT, CBC, PT, CMP, MG1, PHOS, LASHONDA #### [phone] Hemoglobin (Bld) [Mass/Vol] 10.2 g/dL Low 11.5-15.5 [facility] Comment on above: Performed By: #### L ACT, CBC, PT, CMP, MG1, PHOS, LASHONDA #### [phone] MCH (RBC) [Entitic mass] 31.8 pG Normal 26.0-34.0 [facility] Comment on above: Performed By: #### L ACT, CBC, PT, CMP, MG1, PHOS, LASHONDA #### [place] [phone] MCHC (RBC) [Mass/Vol] 34.9 g/dL Normal 30.5-36.0 [facility] Comment on above: Performed By: #### L ACT, CBC, PT, CMP, MG1, PHOS, LASHONDA #### [place] [phone] MCV (RBC) [Entitic vol] 91.0 fL Normal 80.0-100.0 [facility] Comment on above: Performed By: #### L ACT, CBC, PT, CMP, MG1, PHOS, LASHONDA #### [phone] Platelet mean volume (Bld) [Entitic vol] 12.1 fL Normal 9.0-12.7 [facility] Comment on above: Performed By: #### L ACT, CBC, PT, CMP, MG1, PHOS, LASHONDA #### [place] [address] Platelets (Bld) [#/Vol] 281 10*3/uL Normal 150-400 [facility] Comment on above: Performed By: #### L ACT, CBC, PT, CMP, MG1, PHOS, LASHONDA #### [place] [address] RBC (Bld) [#/Vol] 3.21 10*6/uL Low 3.90-5.20 [facility] Comment on above: Performed By: #### L ACT, CBC, PT, CMP, MG1, PHOS, LASHONDA #### [place] [phone] WBC (Bld) [#/Vol] 17.32 10*3/uL High 3.70-11.00 [facility] Comment on above: Performed By: #### L ACT, CBC, PT, CMP, MG1, PHOS, LASHONDA #### [place] [address] Comp Metabolic Panelon 07-26 Albumin [Mass/Vol] 4.1 g/dL Normal 3.5-5.0 [facility] Comment on above: Performed By: #### L ACT, CBC, PT, CMP, MG1, PHOS, LASHONDA #### [place] [phone] ALP [Catalytic activity/Vol] 56 U/L Normal 34-123 [facility] Comment on above: Performed By: #### L ACT, CBC, PT, CMP, MG1, PHOS, LASHONDA #### [place] [phone] ALT [Catalytic activity/Vol] 13 U/L Normal 0-45 [facility] Comment on above: Performed By: #### L ACT, CBC, PT, CMP, MG1, PHOS, LASHONDA #### [place] [address] Anion gap [Moles/Vol] 17 mmol/L Normal 9-18 [facility] Comment on above: Performed By: #### L ACT, CBC, PT, CMP, MG1, PHOS, LASHONDA #### [place] [phone] AST [Catalytic activity/Vol] 16 U/L Normal 7-40 [facility] Comment on above: Performed By: #### L ACT, CBC, PT, CMP, MG1, PHOS, LASHONDA #### [place] [phone] Bilirubin [Mass/Vol] 1.1 mg/dL Normal 0.2-1.3 [facility] Comment on above: Performed By: #### L ACT, CBC, PT, CMP, MG1, PHOS, LASHONDA #### [place] [phone] Calcium [Mass/Vol] 9.0 mg/dL Normal 8.5-10.5 [facility] Comment on above: Performed By: #### L ACT, CBC, PT, CMP, MG1, PHOS, LASHONDA #### [place] [phone] Chloride [Moles/Vol] 100 mmol/L Normal 98-110 [facility] Comment on above: Performed By: #### L ACT, CBC, PT, CMP, MG1, PHOS, LASHONDA #### [place] [phone] CO2 [Moles/Vol] 20 mmol/L Low 23-32 [facility] Comment on above: Performed By: #### L ACT, CBC, PT, CMP, MG1, PHOS, LASHONDA #### [place] [phone] Creatinine [Mass/Vol] 0.90 mg/dL Normal 0.70-1.40 [facility] Comment on above: Performed By: #### L ACT, CBC, PT, CMP, MG1, PHOS, LASHONDA #### [phone] eGFR- Amer. >60 Normal >60 [facility] Comment on above: Performed By: #### L ACT, CBC, PT, CMP, MG1, PHOS, LASHONDA #### [place] [phone] GFR/1.73 sq M predicted among non-blacks MDRD (S/P/Bld) [Vol rate/Area] mL/min/{1.73_m2} Normal >60 [facility] Comment on above: Performed By: #### L ACT, CBC, PT, CMP, MG1, PHOS, LASHONDA #### [place] [phone] Glucose [Mass/Vol] 291 mg/dL High 65-100 [facility] Comment on above: Performed By: #### L ACT, CBC, PT, CMP, MG1, PHOS, LASHONDA #### [place] [phone] Potassium [Moles/Vol] 4.1 mmol/L Normal 3.5-5.0 [facility] Comment on above: Performed By: #### L ACT, CBC, PT, CMP, MG1, PHOS, LASHONDA #### [place] [phone] Protein [Mass/Vol] 6.9 g/dL Normal 6.0-8.4 [facility] Comment on above: Performed By: #### L ACT, CBC, PT, CMP, MG1, PHOS, LASHONDA #### [place] [phone] Sodium [Moles/Vol] 137 mmol/L Normal 132-148 [facility] Comment on above: Performed By: #### L ACT, CBC, PT, CMP, MG1, PHOS, LASHONDA #### [place] [phone] Urea nitrogen [Mass/Vol] 40 mg/dL High 8-25 [facility] Comment on above: Performed By: #### L ACT, CBC, PT, CMP, MG1, PHOS, LASHONDA #### [id number] [place] [address] HISTORY PHYSICALon 9 HISTORY PHYSICAL HNO ID: [id number] Author: Nahid Riggs Service: Critical Care Author Type: Physician Type: HANDP Filed: 08/24/2018 5:54 PM Note Text: MICU HANDP Patient Name: Arabella Felix Service Date: July 26, 2018 HPI: Summarized through review of available medical records, and patient/family interview. HPI: This is a 53 yo female with a PMH of hypertrophic cardiomyopathy, DM type II, HTN, HLD, anxiety, depression who present to ICU for GIB. Pt was sitting at the pool today and when she went to stand up, she became dizzy and passed out per friend. Pt does not recall if she passed out. When she was picked up by EMS she started having hematemesis. She has been having black tarry stools since Tuesday. She has been feeling dizzy with associated SOB when she walks since Tuesday. She has been taking Naproxen 500mg TID for back pain for last 5 years. She denies AC, ASA, or iron use. She has had a loss of appetite with abdominal discomfort this week. She denies fever, chills, CP, changes in urinary pattern. She was transferred to [facility] initially, then ICU for further management. [facility] course: Vitals: bp 109/58, HR 62, RR 16, O2 sat 98% on RA. Hgb 8.1 (baseline 14), INR 1,3, PTT 27.7, WBC, 15.7, sCr 1.18. Pt was given 1L NS bolus. Transfused 1u PRBC. NGT placed to LIS with coffee ground content. Started on PPI. ICU course: Transferred to ICU on RA, no resp distress. HR 65, SB, SBP 140s. NGT to LIS with coffee ground content. Pt nauseated with dry heaves r/t NGT, will d/c NGT. Continue PPI. GI consulted. Check CBC, BMP, lactate, troponin. Check EKG. 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, prescription 500mg TID Pt with black stools, dizziness and abd pain since Tuesday Transferred to [facility] today after becoming dizzy with syncope and hematemesis Hgb 8.1 (Baseline 14), transfused 1u PRBC PLAN Continue PPI GI consulted D/c NGT Transfuse for Hgb<7 Maintain 2 large bore IVs 1L NS bolus - Depression Taking celexa and buspar at home PLAN Continue celexa and buspar - Type 2 diabetes mellitus (HCC) Taking metformin and januvia at home A1C 7.19 May 2018 PLAN NPO Start SSI #2 Accucheck q6hr - SHAYNE (acute kidney injury) (HCC) 2/2 to hypovolemia Pt admitted after c/o black stools with dizziness since Tuesday Today she had dizziness, with syncope and hematemesis sCr 1.16 on admission (Baseline 0.97in 2001, no others on file) PLAN Trend BMP 1L Ns bolus Monitor I/O - Hypertrophic cardiomyopathy (HCC) Pt taking Metorpolol XL 100mg daily and Losartan 50mg daily EKG with SR, LBBB PLAN EKG Hold losartan Continue metoprolol 12.5 mg po q 8hr DVT ppx: SCDs GI ppx: Protonix Pt seen and discussed with Dr Riggs and RN Medications and Allergies Reviewed Code Status: Full code REVIEW OF SYSTEMS A complete review of systems was completed and is negative except where noted in TE-MOAK. The patient denied a head ache, numbness, weakness, malaise, diplopia, blurry vision, neck pain or stiffness, chest/neck/jaw/shoul kaushal/arm pain, back pain, a cough, hemoptysis, abdominal pain, difficulty urinating, hematuria, diarrhea, leg/calf pain, trouble walking, recent trauma or surgery, or any other complaints when questioned. PAST MEDICAL HISTORY: PAST MEDICAL HISTORY Diagnosis Date - Abnormal weight gain - Excessive or frequent menstruation h/o abnormal past 5 years - Hypertrophic obstructive cardiomyopathy new diagnoses over summer 2001 - Other abnormal heart sounds new murmur heard on physical exam over summer 2001 - Palpitations racing heart onset in June, May 2001, no syncope but feels lightheaded - Screening for depression since summer and diagnoses of heart PAST SURGICAL HISTORY: No past surgical history on file. ALLERGIES: Betadine [Povidone-Iodine] MEDICATIONS: Current medications and therapies reviewed. Home Medications: No current facility-administere d medications on file prior to encounter. Current Outpatient Medications on File Prior to Encounter: ALPRAZolam (XANAX) 0.5 mg tablet Take 0.5 mg by mouth at bedtime as needed. phenazopyridine (PYRIDIUM) 100 mg tablet Take 1 tablet by mouth three times daily as needed for Pain. metFORMIN (GLUCOPHAGE) 500 mg tablet Take 1 tablet by mouth twice daily with meals. . citalopram (CELEXA) 40 mg tablet Take 1 tablet by mouth once daily. metoprolol succinate XL, long acting, (TOPROL XL) 100 mg Tb24 Take 1 tablet by mouth once daily. losartan (COZAAR) 50 mg tablet Take 1 tablet by mouth once daily. simvastatin (ZOCOR) 10 mg tablet Take 1 tablet by mouth daily at bedtime. For cholesterols. sitaGLIPtin (JANUVIA) 50 mg tablet Take 1 tablet by mouth once daily. ATIVAN 0.5MG TABLET as needed SOCIAL HISTORY: Social History Tobacco Use - Smoking status: Never Smoker Substance Use Topics - Alcohol use: No - Drug use: Not on file FAMILY HISTORY: FAMILY HISTORY Problem Relation Age of Onset - Cancer Mother - Heart Maternal Grandfather Massive CT at 45 - Heart Father s/p angioplasty OBJECTIVE: Vital signs, labs, EKG, and diagnostic studies and reports reviewed. BP 164/75 Pulse 65 Temp 37.6 ?C (99.7 ?F) (Axillary) Resp 20 Ht 165.1 cm (5' 5) SpO2 92% BMI 48.39 kg/m? Labs: CBC, BMP, troponin, Lactate INR ordered ECG: Interpreted and Reported: SR with LBBB Rhythm: SR Rate: 64 AZ: 187ms QRS: 169ms QT: 502ms QTc: 518ms PHYSICAL EXAM: Constitutional: Vital signs reviewed. Hemodynamically stable. Well developed, well nourished. General Appearance: Well appearing, alert, in no acute distress, well-hydrated, well nourished. and Obese Head/Neck: normal and no jugular venous distension Eyes: Anicteric sclera. Pupils are equally round and reactive to light. Extraocular movements are intact. ENT/Mouth: No oral or nasal erythema, bleeding, lesions, striae Respiratory: Clear to auscultation on RA Cardiovascular: normal sinus rhythm Edema- 1+ edema her legs CAP REFILL: < or = 2 seconds 3+= normal Gastrointestinal/Barb k: Soft, non-tender, non-distended. Bowel sounds normal. No masses, organomegaly Genitourinary/Rectal : No CVA tenderness. Otherwise deferred. Musculoskeletal: Muscular strength intact. Integumentary/Skin: Abnormalities- No Breakdown- No Neurologic: No focal deficit. Grasps equal and firm, push/pulls equal and strong. Follows commands. Clear speech. Glascow Coma Scale: Eye: Opens eyes spontaneously (4) Motor: Obeys motor commands (6) Verbal: Oriented (5) Total Glascow Coma Scale: 15 Psychiatric: alert,oriented, in NAD with a full range of affect, normal behavior and no psychotic features Hematologic/Lymphati c/Immunologic: No abnormal bleeding, echymosis, inflammation, swelling, or edema. No cervical or supraclavicular lymphadenopathy. CRITICAL CARE TIME: I personally performed 45 minutes of critical care time of constant attention exclusive of separately billable procedures, and treating other patients. This direct personal management was necessary to treat or prevent further deterioration of the following condition(s): Acute Circulatory/Respirat ory Failure/Compromise or Shock, Central Nervous System Failure, Renal Failure, Hepatic Failure, Metabolic Failure which the patient is currently experiencing or has a high probability of experiencing sudden clinically significant or life threatening deterioration developing. SIGNATURE: Ivonne Tanner CNP PAGER: [phone] [facility] HISTORY PHYSICAL HNO ID: [id number] Author: Nahid Riggs Service: Critical Care Author Type: Physician Type: HANDP Filed: 07/27/2018 6:05 AM Note Text: [facility] STAFF PHYSICIAN NOTE OF PERSONAL INVOLVEMENT IN CARE I have reviewed the history and physical examination obtained and documented by the resident and I personally participated in the carvajal components. I have discussed the case and management of the patient's care. The following comments revise or confirm relevant carvajal components of the note. IMPRESSION: 53 yo female with PMH of HTN, HOCM, type II DM, depression presented with black tarry stool since Tuesday and dizziness today with hematemesis. 1. Acute blood loss anemia 2. Acute upper GI bleeding 3. HOCM PLAN: Acute blood loss anemia UGI bleeding most likely from naproxen intake ( 3 tablets QHS for 5 years) Hb 14 --> 8.1 Fluids, 2 IV access IV protonix, GI consult maintain positive fluid balance given her HOCM Hold home BP meds, cont low dose metop HANDH q8hr, transfuse for hb < 7 Check coag, hold any AC MICU Px This patient has a high probability of sudden, clinically significant deterioration, which requires the highest level of physician preparedness to intervene urgently. I managed/supervised life or organ supporting interventions that required frequent physician assessment. I devoted my full attention to the direct care of this patient for the amount of time indicated below. Time I spent with family or surrogate(s) is included only if the patient was incapable of providing the necessary information or participating in medical decision making. Time devoted to teaching is not included. Critical Care Documentation: The patient has the following organ/system impairment(s): Acute blood loss Time spent providing critical care services: 35 minutes excluding procedures. SIGNATURE: Nahid Riggs MD [facility] PAGER:[phone] DATE of SERVICE: 07/26/18 TIME of SERVICE: 6:31 PM [facility] HOSPon 07-26-2018 HOSP Patient:Arabella Felix MRN: Height:5' 5(1.651 m) Weight:306 lb 7 oz (139 kg) Outpatient Medications as of 07/29/18: busPIRone (BUSPAR) 15 mg tablet naproxen (NAPROSYN) 500 mg tablet ALPRAZolam (XANAX) 0.5 mg tablet metFORMIN (GLUCOPHAGE) 500 mg tablet citalopram (CELEXA) 40 mg tablet metoprolol succinate XL, long acting, (TOPROL XL) 100 mg Tb24 losartan (COZAAR) 50 mg tablet simvastatin (ZOCOR) 10 mg tablet sitaGLIPtin (JANUVIA) 50 mg tablet Admission/Clinic Administered Medications as of 07/29/18: insulin glargine 6 Units pen (long acting) (LANTUS SOLOSTAR, BASAGLAR KWIKPEN) pantoprazole 40 mg injection (PROTONIX) pantoprazole 40 mg injection (PROTONIX) metoclopramide HCl 10 mg injection (REGLAN) ondansetron (PF) 4 mg injection (ZOFRAN) lidocaine 5 % 1 Patch (LIDODERM) lidocaine patch - REMOVE lidocaine - VERIFY PATCH acetaminophen 650 mg tab(s) (TYLENOL) citalopram 40 mg tab(s) (CeleXA) busPIRone 15 mg tab(s) (BUSPAR) simvastatin 10 mg tab(s) (ZOCOR) prochlorperazine 5 mg injection (COMPAZINE) NaCl 0.9% 3-5 mL dextrose 40 % 15 g glucagon 1 mg injection (GLUCAGEN) dextrose 50% in water 25 mL syringe insulin lispro injection (rapid acting) (HumaLOG) Problem List: Hypertrophic cardiomyopathy (HCC) [I42.2] Obesity, unspecified [E66.9] Acute blood loss anemia [D62] Depression [F32.9] Type 2 diabetes mellitus (HCC) [E11.9] BMI 50.0-59.9, adult (HCC) [Z68.43] Essential hypertension [I10] Allergies: Betadine [Povidone-Iodine] Date Verified: 07/28/18 Lab Values Lab Value Units Date High Low POTA* 3.8 mmol/L 07/29/2018 5.0 3.5 BRITTANY* 22.4 % 07/29/2018 46.0 36.0 Progress Notes (CRITICAL CARE TRANSPRT): Hernan Mittal, MSN FOOD CRITIC.[employer] 07/26/2018 6:28 PM Signed Critical Care Transport Note Patient Name: Arabella Felix Service Date: July 26, 2018 Referring Facility: [facility] Accepting Facility: [facility] SUBJECTIVE/CHIEF COMPLAINT: Syncope REASON FOR TRANSPORT: Higher level critical care services unavailable at sending facility History of Present Illness: The following history is what was known to CCT team at time of given care and summarized through review of available medical records, patient/family interview and from referring physician and nursing report. Arabella Felix is a 53 year old female with a past medical history significant for HOCM, vulvar abscess and DM. She presented to [facility] on 07/26 for evaluation of near syncope. Patient reported having black tarry stools that began on Tuesday with associated lethargy and dizziness. Today patient stood up and had near syncopal episode with blood tinged emesis. Patient was brought to the ER where she was reported to be hypotensive with nausea. NG was placed with coffee ground emesis on return. Further w/u revealed HGB of 8 with lactate of 3.5. Given patients hx of HOCM on BB therapy there was concern for masked hemorrhagic shock with hypotension and active bleeding. Patient was given NS bolus followed by 1 unit of PRBC. Her systolic blood pressure has remained in the 90-100 range. At this time, the physician managing the patient requested transfer to [facility] for tertiary and/or quaternary services unavailable at the referring facility. The physician managing the patient requested the [facility] Critical Care Transport Team transport and treat the patient for the purpose of tertiary care, evaluation, and management of her medical condition(s). Patient condition at time of exam was: critically ill. Due to the unique circumstances of the patient, it was determined that this was the closest, most appropriate facility by referring physician. REVIEW OF SYSTEMS: CONSTITUTIONAL: No fevers, chills, nightsweats, unintended weight loss HEENT: Denies frequent or severe heaches, nasal congestion/sinus symptoms, problematic allergy problems. EYES: No diplopia or blurry vision. CARDIOVASCULAR: No chest pain, dyspnea, palpitations, orthopnea, PND, ankle edema. PULM: No dyspnea, unexplained cough. GI: + hematochezia, melena. : No new urinary complaints, including dysuria, gross hematuria or pyuria. NEURO: + dizziness MUSC-SKEL: No new joint pain, swelling, or erythema. PSY: No concerns regarding depression, anxiety or panic. INTEGUMENTARY: No new skin changes PAST MEDICAL HISTORY: PAST MEDICAL HISTORY Diagnosis Date - Abnormal weight gain - Excessive or frequent menstruation h/o abnormal past 5 years - Hypertrophic obstructive cardiomyopathy new diagnoses over summer 2001 - Other abnormal heart sounds new murmur heard on physical exam over summer 2001 - Palpitations racing heart onset in June, May 2001, no syncope but feels lightheaded - Screening for depression since summer and diagnoses of heart PAST SURGICAL HISTORY: No past surgical history on file. ALLERGIES: Patient has no active allergies. SOCIAL HISTORY: Social History Tobacco Use - Smoking status: Never Smoker Substance Use Topics - Alcohol use: No - Drug use: Not on file FAMILY HISTORY: FAMILY HISTORY Problem Relation Age of Onset - Cancer Mother - Heart Maternal Grandfather Massive CT at 45 - Heart Father s/p angioplasty HOME MEDICATIONS: ALPRAZolam (XANAX) 0.5 mg tablet Take 0.5 mg by mouth at bedtime as needed. phenazopyridine (PYRIDIUM) 100 mg tablet Take 1 tablet by mouth three times daily as needed for Pain. metFORMIN (GLUCOPHAGE) 500 mg tablet Take 1 tablet by mouth twice daily with meals. . citalopram (CELEXA) 40 mg tablet Take 1 tablet by mouth once daily. metoprolol succinate XL, long acting, (TOPROL XL) 100 mg Tb24 Take 1 tablet by mouth once daily. losartan (COZAAR) 50 mg tablet Take 1 tablet by mouth once daily. simvastatin (ZOCOR) 10 mg tablet Take 1 tablet by mouth daily at bedtime. For cholesterols. sitaGLIPtin (JANUVIA) 50 mg tablet Take 1 tablet by mouth once daily. ATIVAN 0.5MG TABLET as needed Medications Administered by Referring Facility: 1 unit PRBC OBJECTIVE: Recent Labs, Diagnostics AND Procedure Reports by OSH reviewed as available CBC: WBC- 15.7 HGB- 8.1 HCT- 22.8 PLT- 293 Coags: INR- 1.3 Chemistry: NA- 135 K+- 4 CL -105 CO2- 23 BUN- 41 Cr- 1.18 Glucose- 317 Other Pertinent Labs: Lactate- 3.5 Diagnostics AND Procedure Reports ECG: LBBB Chest X-Ray : not available for review CT : NA Invasive Lines/Devices/Tubes Placed by Referring Facility: Transfusion of blood products PHYSICAL EXAM: Upon CCT Arrival at Referring Facility Vital Signs: HR 65bpm, BP 91/66mmHg, RR 18, SpO2 98% Oxygen/Ventilator Settings: RA General appearance: alert, cooperative. HEENT: normocephalic, PERRL. Oropharynx clear, no plaques or exudates,Posterior Oropharynx symmetric,Mucous membranes moist Respiratory: clear to auscultation bilaterally,no respiratory distress,no rales,no rhonchi,no wheezing. Cardiovascular: no rubs, no gallops, regular rate and rhythm, peripheral pulses symmetric. Gastrointestinal: soft, nontender, nondistended. NG to LIS Genitourinary: defered Musculoskeletal: No clubbing, cyanosis or edema Skin: no abrasions or open wounds. Heme/Lymph: No abnormal bleeding Neurologic: Awake, alert and oriented x 3 Glascow Coma Score: eye response: spontaneous = 4, motor response: obeys commands =6, verbal response: oriented = 5 and GCS Total: 15 CRITICAL CARE COURSE Upon bedside arrival at referring facility the patient was assessed and detailed physical exam performed and noted above. The patient was placed on the transport monitor and all transport equipment transitioned in standard fashion. The patient was transferred to the transport cot and transported to the Aircraft and loaded without incident. The patient was medically managed, monitored, and reassessed during transport. Medications Managed AND Administered by CCT: protonix 80 mg bolus (provided by OSH) Protonix infusion @ 8 mg/hour (provided by OSH) 1 unit PRBC continued Procedures Performed by CCT: none ASSESSMENT/PLAN: Acute Blood Loss Anemia Hypovolemic shock Upper GI Bleed Lactic Acidosis - presented with syncope, black tarry stools and hematemesis. HGB 8 on arrival with BRB in NG. Hypotensive w/o tachycardia on BB therapy for HOCM - transfused 1 unit PRBC - will establish more PIV access - initiate protonix infusion - expedite transfer to ICU for endoscopy The transport was completed without significant incident or change in the patient's status . The patient was transported to the [facility] by [facility]) for tertiary and/or quaternary evaluation and management of her Emergent Surgical condition(s). Upon arrival to the receiving facility, a [id number] report was given to bedside staff in [place]. Patient care was transferred. The patient condition was Critical at the time of transfer Vital Signs at time care transferred to the receiving facility unit: HR 78bpm, BP 141/79 mmHg, RR 18, SpO2 98%on RA SPECIAL EQUIPMENT: None MODE OF TRANSPORT: [facility] ([facility]) CRITICAL CARE TIME:I personally performed 32 minutes of critical care time exclusive of separately billable procedures, ambulance charges and treating other patients. This was necessary to treat or prevent further deterioration of the following condition(s): Hypotension and Hemodynamic compromise Cardiovascular impairment which the patient had and/or had a high probability of suddenly developing. SIGNATURE: Hernan Mittal, MSN FOOD CRITIC.[facility] Acute Care Nurse Practitioner [facility] Critical Care Transport Team Progress Notes (): Nahid Riggs MD 07/27/2018 6:05 AM Signed [facility] STAFF PHYSICIAN NOTE OF PERSONAL INVOLVEMENT IN CARE I have reviewed the history and physical examination obtained and documented by the resident and I personally participated in the carvajal components. I have discussed the case and management of the patient's care. The following comments revise or confirm relevant carvajal components of the note. IMPRESSION: 53 yo female with PMH of HTN, HOCM, type II DM, depression presented with black tarry stool since Tuesday and dizziness today with hematemesis. 1. Acute blood loss anemia 2. Acute upper GI bleeding 3. HOCM PLAN: Acute blood loss anemia UGI bleeding most likely from naproxen intake ( 3 tablets QHS for 5 years) Hb 14 --> 8.1 Fluids, 2 IV access IV protonix, GI consult maintain positive fluid balance given her HOCM Hold home BP meds, cont low dose metop HANDH q8hr, transfuse for hb < 7 Check coag, hold any AC MICU Px This patient has a high probability of sudden, clinically significant deterioration, which requires the highest level of physician preparedness to intervene urgently. I managed/supervised life or organ supporting interventions that required frequent physician assessment. I devoted my full attention to the direct care of this patient for the amount of time indicated below. Time I spent with family or surrogate(s) is included only if the patient was incapable of providing the necessary information or participating in medical decision making. Time devoted to teaching is not included. Critical Care Documentation: The patient has the following organ/system impairment(s): Acute blood loss Time spent providing critical care services: 35 minutes excluding procedures. SIGNATURE: Nahid Riggs MD [facility] PAGER:[phone] DATE of SERVICE: 07/26/18 TIME of SERVICE: 6:31 PM Violette Nixon RN, RN 07/27/2018 6:09 AM Addendum Nursing Progress Note Patient Name: Arabella Felix [facility] Note: 1743: Pt arrives to MICU 28, attached to monitors, chlorhexidine bath and gown change complete. 1750: CHULA Tanner at bedside to assess 1800: Full assessment complete, see flow sheets for details 2000: Assessment complete, no changes. 0000: Assessment complete 0400: Assessment complete 0700: Report given to jane RN This note was completed by: Violette Nixon RN Previous Version Ivonne Tanner CNP 07/26/2018 7:29 PM Cosign Needed Addendum MICU HANDP Patient Name: Arabella Felix Service Date: July 26, 2018 HPI: Summarized through review of available medical records, and patient/family interview. HPI: This is a 53 yo female with a PMH of hypertrophic cardiomyopathy, DM type II, HTN, HLD, anxiety, depression who present to ICU for GIB. Pt was sitting at the pool today and when she went to stand up, she became dizzy and passed out per friend. Pt does not recall if she passed out. When she was picked up by EMS she started having hematemesis. She has been having black tarry stools since Tuesday. She has been feeling dizzy with associated SOB when she walks since Tuesday. She has been taking Naproxen 500mg TID for back pain for last 5 years. She denies AC, ASA, or iron use. She has had a loss of appetite with abdominal discomfort this week. She denies fever, chills, CP, changes in urinary pattern. She was transferred to [facility] initially, then ICU for further management. [facility] ED course: Vitals: bp 109/58, HR 62, RR 16, O2 sat 98% on RA. Hgb 8.1 (baseline 14), INR 1,3, PTT 27.7, WBC, 15.7, sCr 1.18. Pt was given 1L NS bolus. Transfused 1u PRBC. NGT placed to LIS with coffee ground content. Started on PPI. ICU course: Transferred to ICU on RA, no resp distress. HR 65, SB, SBP 140s. NGT to LIS with coffee ground content. Pt nauseated with dry heaves r/t NGT, will d/c NGT. Continue PPI. GI consulted. Check CBC, BMP, lactate, troponin. Check EKG. 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, prescription 500mg TID Pt with black stools, dizziness and abd pain since Tuesday Transferred to [facility] ED today after becoming dizzy with syncope and hematemesis Hgb 8.1 (Baseline 14), transfused 1u PRBC PLAN Continue PPI GI consulted D/c NGT Transfuse for Hgb<7 Maintain 2 large bore IVs 1L NS bolus - Depression Taking celexa and buspar at home PLAN Continue celexa and buspar - Type 2 diabetes mellitus (HCC) Taking metformin and januvia at home A1C 7.19 May 2018 PLAN NPO Start SSI #2 Accucheck q6hr - SHAYNE (acute kidney injury) (HCC) 2/2 to hypovolemia Pt admitted after c/o black stools with dizziness since Tuesday Today she had dizziness, with syncope and hematemesis sCr 1.16 on admission (Baseline 0.97in 2001, no others on file) PLAN Trend BMP 1L Ns bolus Monitor I/O - Hypertrophic cardiomyopathy (HCC) Pt taking Metorpolol XL 100mg daily and Losartan 50mg daily EKG with SR, LBBB PLAN EKG Hold losartan Continue metoprolol 12.5 mg po q 8hr DVT ppx: SCDs GI ppx: Protonix Pt seen and discussed with Dr Riggs and RN Medications and Allergies Reviewed Code Status: Full code REVIEW OF SYSTEMS A complete review of systems was completed and is negative except where noted in TE-MOAK. The patient denied a head ache, numbness, weakness, malaise, diplopia, blurry vision, neck pain or stiffness, chest/neck/jaw/shoul kaushal/arm pain, back pain, a cough, hemoptysis, abdominal pain, difficulty urinating, hematuria, diarrhea, leg/calf pain, trouble walking, recent trauma or surgery, or any other complaints when questioned. PAST MEDICAL HISTORY: PAST MEDICAL HISTORY Diagnosis Date - Abnormal weight gain - Excessive or frequent menstruation h/o abnormal past 5 years - Hypertrophic obstructive cardiomyopathy new diagnoses over summer 2001 - Other abnormal heart sounds new murmur heard on physical exam over summer 2001 - Palpitations racing heart onset in June, May 2001, no syncope but feels lightheaded - Screening for depression since summer and diagnoses of heart PAST SURGICAL HISTORY: No past surgical history on file. ALLERGIES: Betadine [Povidone-Iodine] MEDICATIONS: Current medications and therapies reviewed. Home Medications: No current facility-administere d medications on file prior to encounter. Current Outpatient Medications on File Prior to Encounter: ALPRAZolam (XANAX) 0.5 mg tablet Take 0.5 mg by mouth at bedtime as needed. phenazopyridine (PYRIDIUM) 100 mg tablet Take 1 tablet by mouth three times daily as needed for Pain. metFORMIN (GLUCOPHAGE) 500 mg tablet Take 1 tablet by mouth twice daily with meals. . citalopram (CELEXA) 40 mg tablet Take 1 tablet by mouth once daily. metoprolol succinate XL, long acting, (TOPROL XL) 100 mg Tb24 Take 1 tablet by mouth once daily. losartan (COZAAR) 50 mg tablet Take 1 tablet by mouth once daily. simvastatin (ZOCOR) 10 mg tablet Take 1 tablet by mouth daily at bedtime. For cholesterols. sitaGLIPtin (JANUVIA) 50 mg tablet Take 1 tablet by mouth once daily. ATIVAN 0.5MG TABLET as needed SOCIAL HISTORY: Social History Tobacco Use - Smoking status: Never Smoker Substance Use Topics - Alcohol use: No - Drug use: Not on file FAMILY HISTORY: FAMILY HISTORY Problem Relation Age of Onset - Cancer Mother - Heart Maternal Grandfather Massive CT at 45 - Heart Father s/p angioplasty OBJECTIVE: Vital signs, labs, EKG, and diagnostic studies and reports reviewed. BP 164/75 Pulse 65 Temp 37.6 ?C (99.7 ?F) (Axillary) Resp 20 Ht 165.1 cm (5' 5) SpO2 92% BMI 48.39 kg/m? Labs: CBC, BMP, troponin, Lactate INR ordered ECG: Interpreted and Reported: SR with LBBB Rhythm: SR Rate: 64 AZ: 187ms QRS: 169ms QT: 502ms QTc: 518ms PHYSICAL EXAM: Constitutional: Vital signs reviewed. Hemodynamically stable. Well developed, well nourished. General Appearance: Well appearing, alert, in no acute distress, well-hydrated, well nourished. and Obese Head/Neck: normal and no jugular venous distension Eyes: Anicteric sclera. Pupils are equally round and reactive to light. Extraocular movements are intact. ENT/Mouth: No oral or nasal erythema, bleeding, lesions, striae Respiratory: Clear to auscultation on RA Cardiovascular: normal sinus rhythm Edema- 1+ edema her legs CAP REFILL: < or = 2 seconds 3+= normal Gastrointestinal/Barb k: Soft, non-tender, non-distended. Bowel sounds normal. No masses, organomegaly Genitourinary/Rectal : No CVA tenderness. Otherwise deferred. Musculoskeletal: Muscular strength intact. Integumentary/Skin: Abnormalities- No Breakdown- No Neurologic: No focal deficit. Grasps equal and firm, push/pulls equal and strong. Follows commands. Clear speech. Glascow Coma Scale: Eye: Opens eyes spontaneously (4) Motor: Obeys motor commands (6) Verbal: Oriented (5) Total Glascow Coma Scale: 15 Psychiatric: alert,oriented, in NAD with a full range of affect, normal behavior and no psychotic features Hematologic/Lymphati c/Immunologic: No abnormal bleeding, echymosis, inflammation, swelling, or edema. No cervical or supraclavicular lymphadenopathy. CRITICAL CARE TIME: I personally performed 45 minutes of critical care time of constant attention exclusive of separately billable procedures, and treating other patients. This direct personal management was necessary to treat or prevent further deterioration of the following condition(s): Acute Circulatory/Respirat ory Failure/Compromise or Shock, Central Nervous System Failure, Renal Failure, Hepatic Failure, Metabolic Failure which the patient is currently experiencing or has a high probability of experiencing sudden clinically significant or life threatening deterioration developing. SIGNATURE: Ivonne Tanner CNP PAGER: [phone] Previous Version Vinita Sharp RN, RN 07/27/2018 5:31 PM Addendum Nursing Progress Note Patient Name: Arabella Felix Patient Location: [facility] Daily Note: 0700 - Report received from outgoing RN 0800 - Full assessment completed as charted 0850 - Kenisha PATTERN PERFORATING MACHINE OPERATOR @ BS 1030 - Dr Cardona and MICU team @ BS for AM rounds, orders received 1130 - Move out orders received for pt to move out to [facility] with tele 1145 - Dr Pearson @ BS, plan for EGD tomorrow 1200 - Reassessment as charted 1600 - Reassessment as charted 1650 - pt received bed to m/o to 602-1 1720 - report called to Arabella BHAKTA This note was completed by: Vinita Sharp RN Previous Version Trish Cardona MD, 07/27/2018 3:38 PM Addendum MICU PROGRESS NOTE WITH COORD CARE SERVICE DATE: 07/27/2018 SERVICE TIME: 12:10 PM Admission Date: 07/26/2018 Day #: 1 in the MICU. HPI: This is a 53 yo female with a PMH of hypertrophic cardiomyopathy, DM type II, HTN, HLD, anxiety, depression who present to ICU for GIB. Pt was sitting at the pool today and when she went to stand up, she became dizzy and passed out per friend. Pt does not recall if she passed out. When she was picked up by EMS she started having hematemesis. She has been having black tarry stools since Tuesday. She has been feeling dizzy with associated SOB when she walks since Tuesday. She has been taking Naproxen 500mg TID for back pain for last 5 years. She denies AC, ASA, or iron use. She has had a loss of appetite with abdominal discomfort this week. She denies fever, chills, CP, changes in urinary pattern. She was transferred to [facility] initially, then ICU for further management. [facility] course: Vitals: bp 109/58, HR 62, RR 16, O2 sat 98% on RA. Hgb 8.1 (baseline 14), INR 1,3, PTT 27.7, WBC, 15.7, sCr 1.18. Pt was given 1L NS bolus. Transfused 1u PRBC. NGT placed to LIS with coffee ground content. Started on PPI. ICU course: 07/26 Transferred to ICU on RA, no resp distress. HR 65, SB, SBP 140s. NGT to LIS with coffee ground content. Pt nauseated with dry heaves r/t NGT, will d/c NGT. Continue PPI. GI consulted. Check CBC, BMP, lactate, troponin. Check EKG. 07/27: Yesterday repeat Hgb after transfusion 10.2. This am Hgb 8.2, no BMs overnight, no emesis. Possible EGD today or tomorrow. HR SB, HR 55. Hold BB. SBP 130s. 500ml LR bolus ordered. CBC q8hr. Tylenol and lidocaine patch for back pain. Stable to Transfer to floor under Dr. Beckford's service. Active Hospital Problems Diagnosis Date Noted - BMI 50.0-59.9, adult (HCC) 07/27/2018 - Essential hypertension 07/27/2018 On metoprolol XL 100mg and losartan at home PLAN Hold BB and losartan-restart if bp stable after EGD, now bradycardic - Acute blood loss anemia 07/26/2018 2/2 GIB r/t naproxen use Pt states she has been taking naproxen for 5 years for 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, prescription 500mg po TID Pt with black stools, dizziness and abd pain since Tuesday Transferred to [facility] today after becoming dizzy with syncope and hematemesis Hgb 8.1 (Baseline 14), transfused 1u PRBC PLAN Continue PPI GI consulted-possible EGD today or tomorrow Transfuse for Hgb<7 Maintain 2 large bore IVs Trend CBC q8 LR bolus 500ml - Depression 07/26/2018 Taking celexa and buspar at home PLAN Continue celexa and buspar - Type 2 diabetes mellitus (HCC) 07/26/2018 Taking metformin and januvia at home A1C 7.19 May 2018 PLAN NPO Start SSI #2 Accucheck q6hr - Hypertrophic cardiomyopathy (HCC) 07/31/2002 Pt taking Metorpolol XL 100mg daily and Losartan 50mg daily EKG with SR, LBBB, LVH PLAN EKG prn Hold losartan and BB DVT PPx: Contraindicated GI PPx: Protonix Disposition: Stable to transfer to floor under Dr. Beckford Plan Discussed with Dr Cardona and RN OBJECTIVE: BP 85/70 Pulse (!) 55 Temp 36.5 ?C (97.7 ?F) (Oral) Resp 23 Ht 165.1 cm (5' 5) Wt (!) 137.2 kg (302 lb 7.5 oz) SpO2 97% BMI 50.33 kg/m? Vital signs reviewed. NET FLUID BALANCE Intake/Output Summary (Last 24 hours) at 07/27/2018 1210 Last data filed at 07/27/2018 0800 Gross per 24 hour Intake 1000 ml Output 1300 ml Net -300 ml MEDICATIONS Current Facility-Administere d Medications Medication Dose Route Frequency - NaCl 0.9% 3-5 mL 3-5 mL INTRAVENOUS q 12 H - dextrose 40 % 15 g 15 g ORAL PRN Or - glucagon 1 mg injection (GLUCAGEN) 1 mg INTRAMUSCULAR PRN Or - dextrose 50% in water 25 mL syringe 12.5 g INTRAVENOUS PRN - insulin lispro injection (rapid acting) (HumaLOG) SUBCUTANEOUS q 6 H - lidocaine 5 % 1 Patch (LIDODERM) 1 Patch TRANSDERMAL DAILY And - lidocaine patch - REMOVE OTHER AT BEDTIME And - lidocaine - VERIFY PATCH OTHER q 8 H - acetaminophen 650 mg tab(s) (TYLENOL) 650 mg ORAL q 4 H PRN - citalopram 40 mg tab(s) (CeleXA) 40 mg ORAL AT BEDTIME - busPIRone 15 mg tab(s) (BUSPAR) 15 mg ORAL TID - simvastatin 10 mg tab(s) (ZOCOR) 10 mg ORAL AT BEDTIME - pantoprazole DR 40 mg tab(s) (PROTONIX) 40 mg ORAL BID AC (0600/1600) INFUSIONS Lines, Drains, and Airways Line Peripheral 07/26/18 1816 Admission to Hospital Right Antecubital 20 Gauge less than 1 day Peripheral 07/27/18 0100 Right Antecubital 20 Gauge less than 1 day PHYSICAL EXAM HEENT: Oral Mucosa: Moist mucous membranes Feeding Tube: No Eyes: PERRLA Neck: no jugular venous distention Cardiovascular: sinus bradycardia Edema- 1+ edema her legs Respiratory: Clear to auscultation on RA Abdomen: Soft, non-tender, non-distended. Bowel sounds normal. Extremities: Peripheral Pulses- 3+= normal Cap Refill: CAP REFILL: < or = 2 seconds Skin: Abnormalities- No Breakdown- No Neurologic: Oriented to person, place, and time. No focal motor, sensory deficits. NUTRITION: NPO Enteral Feeds: No DATA: Diagnostic tests reviewed for today's visit: Most recent labs and imaging results. LABS: CBC, Coags, BMP, Mg, Phos Recent Labs 07/27/18 0748 07/27/18 0122 07/26/18 1855 WBC 12.21* 15.96* 17.32* HB 8.2* 8.2* 10.2* HCT 23.8* 23.7* 29.2* PLT 217 241 281 INR -- -- 1.2 NA 139 -- 137 K 4.0 -- 4.1 CHLOR 105 -- 100 CO2 24 -- 20* BUN 30* -- 40* CREAT 0.80 -- 0.90 GLUC 199* -- 291* CA 8.7 -- 9.0 MG 1.7 -- 1.7 P -- -- 3.4 Liver Function, Amylase, AND Lipase Recent Labs 07/27/18 0748 07/26/18 1855 TPROT -- 6.9 ALB -- 4.1 ALT -- 13 AST -- 16 ALKPHOS -- 56 TBILI -- 1.1 LACT 1.5 2.8* Cardiac Enzymes Recent Labs 07/26/18 1855 TROPT <0.010 Glom Filtration Rate DONTE, and AA Recent Labs 07/27/18 0748 07/26/18 1855 EGFRAA >60 >60 CULTURES: n/a PATIENT CHECKLIST ? Are restraints necessary: No ? Deep vein thrombosis prophylaxis administered? No. Contraindicated. ? Stress ulcer prophylaxis? Yes ? Nasogastric tube? No ? Segovia catheter necessary? No ? Is central line essential? No ? Plan discussed with assigned RN? Yes ? Family updated within last 24 hours? Yes SIGNATURE: Ivonne Tanner CNP PATIENT NAME: Arabella Felix DATE: July 27, 2018 TIME: 12:10 PM PAGER/CONTACT #: [phone] [facility] STAFF PHYSICIAN NOTE OF PERSONAL INVOLVEMENT IN CARE I have reviewed the progress note obtained and documented by the resident and I personally participated in the carvajal components. I have discussed the case and management of the patient's care. The following comments revise or confirm relevant carvajal components of the note. IMPRESSION: Interval events noted No further stools with blood. Hemoglobin remains stable at 8/23.3 Problem list 1. Acute blood loss anemia 2. Upper GI bleeding 3. HOCM PLAN: 1. Patient had no further episodes of bleeding. She is hemodynamically stable. Continue to monitor CBC. IV protonix bid. Patient can be transferred to the floor pending EGD. MICU px SIGNATURE: Trish Cardona MD [facility] PAGER:[phone] Previous Version Chaplain Kirti 07/27/2018 2:07 PM Signed SPIRITUAL CARE PROGRESS NOTE SERVICE DATE: 07/27/2018 SERVICE TIME: 1154 While engaging in spiritual care rounds on the unit, I visited the patient and her family. I provided spiritual presence and pastoral support through empathic care and listening. I provided further spiritual presence and pastoral support through offer of prayers. I shared wire technician availability with patient and family. To contact the Spiritual Care Department: Please call [phone]?or Page the On-Call Mutuel Clerk at pager [phone].??? Thank you for the opportunity to be of service. ? SIGNATURE: Chaplain Kirti PATIENT NAME: Arabella Felix DATE: July 27, 2018 TIME: 2:06 PM PAGER/CONTACT #: [phone] Kenisha StapletonKELYL.CHULA 07/27/2018 2:06 PM Cosign Needed CONSULT: GI SERVICE SERVICE DATE: 07/27/2018 SERVICE TIME: 914 REASON FOR CONSULT: GI bleed REQUESTING PHYSICIAN: Oscar PRIMARY CARE PHYSICIAN: MAR Merrill Subjective Ms. Felix is a 53 year old female with a PMH of hypertrophic cardiomyopathy, DM type II, HTN, HLD, anxiety, depression who presents with GI bleeding. The patient has chronic back pack and has been on NSAIDS for over 5 years. The pt is currently take Naprosyn TID. For the past month pt has had epigastric pain accompanied with SOB and dizziness. On Tuesday she started to have dark tarry stools. Yesterday she was at the pool stood up and past out. At the OSH the patient had hematemesis. Since admission to ICU the pt has had not signs of GI bleeding. Pt states that she has been on Iron in the past. Pt feels better after blood. Pt denies any scopes in her past and has not been on acid suppressant medication. FUNCTIONAL STATUS: Independent PAST MEDICAL HISTORY Diagnosis Date - Abnormal weight gain - Excessive or frequent menstruation h/o abnormal past 5 years - Hypertrophic obstructive cardiomyopathy new diagnoses over summer 2001 - Other abnormal heart sounds new murmur heard on physical exam over summer 2001 - Palpitations racing heart onset in June, May 2001, no syncope but feels lightheaded - Screening for depression since summer and diagnoses of heart No past surgical history on file. FAMILY HISTORY Problem Relation Age of Onset - Cancer Mother - Heart Maternal Grandfather Massive CT at 45 - Heart Father s/p angioplasty Social History Tobacco Use - Smoking status: Never Smoker Substance Use Topics - Alcohol use: No - Drug use: Not on file Medications Prior to Admission: busPIRone (BUSPAR) 15 mg tablet Take 15 mg by mouth three times daily. Disp: Rfl: 07/25/2018 at Unknown time naproxen (NAPROSYN) 500 mg tablet Take 500 mg by mouth three times daily with meals. Disp: Rfl: 07/25/2018 at Unknown time metFORMIN (GLUCOPHAGE) 500 mg tablet Take 1 tablet by mouth twice daily with meals. . Disp: 60 tablet Rfl: 11 07/25/2018 at Unknown time citalopram (CELEXA) 40 mg tablet Take 1 tablet by mouth once daily. Disp: Rfl: 0 07/25/2018 at Unknown time metoprolol succinate XL, long acting, (TOPROL XL) 100 mg Tb24 Take 1 tablet by mouth once daily. Disp: 30 tablet Rfl: 0 07/25/2018 at Unknown time losartan (COZAAR) 50 mg tablet Take 1 tablet by mouth once daily. Disp: Rfl: 0 07/25/2018 at Unknown time simvastatin (ZOCOR) 10 mg tablet Take 1 tablet by mouth daily at bedtime. For cholesterols. Disp: Rfl: 0 07/25/2018 at Unknown time sitaGLIPtin (JANUVIA) 50 mg tablet Take 100 mg by mouth once daily. Disp: 30 tablet Rfl: 11 07/25/2018 at Unknown time ALPRAZolam (XANAX) 0.5 mg tablet Take 0.25 mg by mouth at bedtime as needed. Disp: Rfl: Unknown at Unknown time Current Facility-Administere d Medications Medication Dose Route Frequency - NaCl 0.9% 3-5 mL 3-5 mL INTRAVENOUS q 12 H - dextrose 40 % 15 g 15 g ORAL PRN Or - glucagon 1 mg injection (GLUCAGEN) 1 mg INTRAMUSCULAR PRN Or - dextrose 50% in water 25 mL syringe 12.5 g INTRAVENOUS PRN - insulin lispro injection (rapid acting) (HumaLOG) SUBCUTANEOUS q 6 H - lidocaine 5 % 1 Patch (LIDODERM) 1 Patch TRANSDERMAL DAILY And - lidocaine patch - REMOVE OTHER AT BEDTIME And - lidocaine - VERIFY PATCH OTHER q 8 H - acetaminophen 650 mg tab(s) (TYLENOL) 650 mg ORAL q 4 H PRN - citalopram 40 mg tab(s) (CeleXA) 40 mg ORAL AT BEDTIME - busPIRone 15 mg tab(s) (BUSPAR) 15 mg ORAL TID - simvastatin 10 mg tab(s) (ZOCOR) 10 mg ORAL AT BEDTIME - pantoprazole DR 40 mg tab(s) (PROTONIX) 40 mg ORAL BID AC (0600/1600) - prochlorperazine 5 mg injection (COMPAZINE) 5 mg INTRAVENOUS q 6 H PRN Allergies As of Date: 07/26/2018 Allergen Noted Reaction BETADINE [POVIDONE-IODINE] 07/26/2018 Hives Fully Assessed 07/26/2018 COMPLETE REVIEW OF SYSTEMS: PAIN ASSESSMENT: epigastric pain GENERAL: Fatigue CARDIOVASCULAR: Shortness of breath GI: melena and hematemesis Objective PHYSICAL EXAM: Physical Exam Performed: GENERAL: Alert, no distress, cooperative, Obese, alopecia SKIN: Skin color, texture, turgor normal. No rashes or lesions. ABDOMEN: tender, soft bs+ BP 85/70 Pulse 55 Temp (Src) 97.7 (Oral) Resp 23 Ht 5' 5 (1.65m) Wt 302 lb 7.5 oz (137.2kg) SpO2 97% BMI 50.33 kg/(m2). O2 Therapy: Room Air DATA: Diagnostic tests reviewed for today's visit: Most recent labs and imaging results. Impression/Recommend ations 1. Anemia due to Blood loss- d/t 5 years of NSAID abuse- for chronic back pain. Pt had melena since Tuesday and hematemesis at OSH. Pt never had scopes in the past. Bun/Creat 30/0.8. Hgb 8.2 after one unit of blood. 2. Hypertrophic cardiomyopathy- 2001 echo EF 55%- 2+ ME Plan EGD tomorrow at 0900 NPO after midnight Continue with IV Protonix Recommend to transfuse for Hgb less than 7.5 Continue to trend Hgb D/W Dr. Lili Stapleton APRN.CNP [facility] Gastroenterology [facility] Consult SIGNATURE: Kenisha Stapleton APRN.CHULA PATIENT NAME: Arabella Felix DATE: July 27, 2018 TIME: 1:53 PM PAGER: [phone] ARMAAN Mendiola 07/27/2018 2:11 PM Signed CARE MANAGEMENT: ASSESSMENT AND DISCHARGE PLAN SERVICE DATE: 07/27/2018 SERVICE TIME: 2:05 PM PRIMARY CARE PHYSICIAN: MAR Merrill ADMISSION STATUS: Inpatient MEDICAL: Patient/Representati ve Stated Goals: To have reduction in symptoms To improve my functional status To return home to life as it was Health Insurance: [employer] [facility] [place] Health Issues Impacting Discharge Plan: Hypertrophic cardiomyopathy, DM, HTN Last Admission Date: none Is this Within the Past 30 days? No Advance Directive: Health Literacy: 1. How often do you need to have someone help you when you read instructions, pamphlets, or other written material from your doctor or pharmacy? Never - 1 2. How confident are you filling out medical forms by yourself? Extremely - 1 If Patient scores > 3 on either question, the following interventions were put into place: Patient did not score > 3 FUNCTIONAL AND COGNITIVE/BEHAVIORAL PRIOR TO ADMISSION: Baseline Mental Status: Alert AND Oriented, Person, Place , Time and Situation Functional Status: Independent Does Patient Currently Receive Any Community Services or Home Care? None Equipment Prior to Admission: Oxygen at night 2L liters per minute Has the Patient Been in a Mcfp Facility in the Past 30 days? No SOCIAL: Living Arrangement: Home Lives With: Spouse and Son Financial Resources: Employed: [employer] Primary Contact: Extended Emergency Contact Information Primary Emergency Contact: Taj Felix Address: [address] [place] [id number] Mobile Relation: Spouse Supportive: Yes Other Important Patient Contacts: Family: Name: Sister Ramona Home Phone: Caregiver Assessment: Caregiver is ready, willing and able to meet the patient's needs as recommended by the inter-professional team? No Caregiver Needed Patient's transition needs and plan for meeting these needs: TBD, Home with family support, self-care, follow up appointments Does the patient have an acute stroke diagnosis, or has the patient had a stroke during this admission? No Medication Adherence: I am convinced of the importance of my prescription medication: Agree completely - 0 I worry that my prescription medication will do more harm than good to me Disagree completely - 0 I feel financially burdened by my [id number] expenses for my prescription medication: Disagree completely - 0 Patient is categorized as low risk < 2 Are you interested in bedside delivery of your medications? No Food Concerns: In the Last Month, Have You had Trouble Getting Food? No trouble getting food During the Last Month, Have You Worried Whether Your Food Would Run Out Before You Had Enough Money to Buy More? No Is the Patient Psychosocially Complex? No ASSESSMENT AND PLAN: Medical Needs: 2 or more chronic diseases Psychosocial Needs: Mental Health Diagnosis: Anxiety/Depression FREEDOM OF CHOICE EXPLAINED: N/A POTENTIAL TRANSITION PLANS To Be Determined Pt's sister Ramona and Johnnie at bedside. Pt consented to family staying during the assessment. Pt lives at home w/ and son, indep w/ ADLs, she has home o2 (2L) at night through [employer] and reports no issues. Pt has a POA/LW in chart. She reports depression and anxiety but she said it is being addressed with her psychiatrist and declined additional resources. Pt aware of SW role for dc needs SIGNATURE: ARMAAN Mendiola PATIENT NAME: Arabella Felix DATE: July 27, 2018 TIME: 2:05 PM PAGER/CONTACT #: [phone] Kori Beckford MD 07/27/2018 9:38 PM Incomplete PAST MEDICAL HISTORY Diagnosis Date - Abnormal weight gain - Excessive or frequent menstruation h/o abnormal past 5 years - Hypertrophic obstructive cardiomyopathy new diagnoses over summer 2001 - Other abnormal heart sounds new murmur heard on physical exam over summer 2001 - Palpitations racing heart onset in June, May 2001, no syncope but feels lightheaded - Screening for depression since summer and diagnoses of heart Social History Socioeconomic History Marital status: Spouse name: Not on file Number of children: Not on file Years of education: Not on file Highest education level: Not on file Social Needs Financial resource strain: Not on file Food insecurity - worry: Not on file Food insecurity - inability: Not on file Transportation needs - medical: Not on file Transportation needs - non-medical: Not on file Occupational History Not on file Tobacco Use Smoking status: Never Smoker Substance and Sexual Activity Alcohol use: No Drug use: Not on file Sexual activity: Not on file Other Topics Concerns: ADL RESPONSE: Not Asked ADL RESPONSE: Not Asked ADL RESPONSE: Yes stopped 3 months ago because of heart 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 No results found for: HBA1C R.O.S negative other than HPI AND PMH all other SYS reviewed and negative. Current Facility-Administere d Medications Medication Dose Route Frequency Provider Last Rate Last Dose - lidocaine 5 % 1 Patch (LIDODERM) 1 Patch TRANSDERMAL DAILY Ivonne (Campus President) Tanner 1 Patch at 07/27/18 1115 And - lidocaine patch - REMOVE OTHER AT BEDTIME Ivonne (Campus President) Flores And - lidocaine - VERIFY PATCH OTHER q 8 H Ivonne (Campus President) Flores - acetaminophen 650 mg tab(s) (TYLENOL) 650 mg ORAL q 4 H PRN Ivonne (Campus President) Tanner 650 mg at 07/27/182100 - citalopram 40 mg tab(s) (CeleXA) 40 mg ORAL AT BEDTIME Ivonne (Campus President) Tanner 40 mg at 07/27/182101 - busPIRone 15 mg tab(s) (BUSPAR) 15 mg ORAL TID Ivonne (Campus President) Tanner 15 mg at 07/27/181999 - simvastatin 10 mg tab(s) (ZOCOR) 10 mg ORAL AT BEDTIME Ivonne (Campus President) Tanner 10 mg at 07/27/182100 - pantoprazole DR 40 mg tab(s) (PROTONIX) 40 mg ORAL BID AC (0600/1600) Ivonne (Campus President) Tanner 40 mg at 07/27/18 161 - prochlorperazine 5 mg injection (COMPAZINE) 5 mg INTRAVENOUS q 6 H PRN Ivonne (Campus President) Tanner 5 mg at 07/27/182100 - NaCl 0.9% 3-5 mL 3-5 mL INTRAVENOUS q 12 H Ivonne (Campus President) Tanner 5 mL at 07/27/182102 - dextrose 40 % 15 g 15 g ORAL PRN Ivonne (Campus President) Flores Or - glucagon 1 mg injection (GLUCAGEN) 1 mg INTRAMUSCULAR PRN Ivonne (Campus President) Flores Or - dextrose 50% in water 25 mL syringe 12.5 g INTRAVENOUS PRN Ivonne (Campus President) Flores - insulin lispro injection (rapid acting) (HumaLOG) SUBCUTANEOUS q 6 H Ivonne (Campus President) Flores 4 Units at 07/27/18 1826 Intake/Output Summary (Last 24 hours) at 07/27/20182137 Last data filed at 07/27/2018 1600 Gross per 24 hour Intake 120 ml Output 1900 ml Net -1780 ml DATA: CBC: Recent Labs 07/27/18 1458 WBC 12.22* RBC 2.55* HB 8.0* HCT 23.3* PLT 233 MCV 91.4 MCH 31.4 MPV 11.4 CMP: Recent Labs 07/27/18 0748 NA 139 K 4.0 CHLOR 105 CO2 24 BUN 30* CREAT 0.80 GLUC 199* CA 8.7 MG 1.7 ANION 10 Glucose (mg/dL) Date Value 07/27/2018 199 (H) BUN (mg/dL) Date Value 07/27/2018 30 (H) Creatinine (mg/dL) Date Value 07/27/2018 0.80 Sodium (mmol/L) Date Value 07/27/2018 139 Potassium (mmol/L) Date Value 07/27/2018 4.0 Chloride (mmol/L) Date Value 07/27/2018 105 CO2 (mmol/L) Date Value 07/27/2018 24 Protein, Total (g/dL) Date Value 07/26/2018 6.9 Albumin (g/dL) Date Value 07/26/2018 4.1 Calcium (mg/dL) Date Value 07/27/2018 8.7 Alkaline Phosphatase (U/L) Date Value 07/26/2018 56 Bilirubin, Total (mg/dL) Date Value 07/26/2018 1.1 AST (U/L) Date Value 07/26/2018 16 ALT (U/L) Date Value 07/26/2018 13 Hemoglobin (g/dL) Date Value 07/27/2018 8.0 Hematocrit (%) Date Value 07/27/2018 23.3 WBC (k/uL) Date Value 07/27/2018 12.22 [facility] consultants notes reviewed Most recent images Reviewed Last EKG/Rhythm reviewed 07/27/18 1500 07/27/18 1600 07/27/18 1700 07/27/18 1929 BP: (!) 136/43 130/62 149/88 145/74 Pulse: 63 61 66 84 Resp: 20 16 16 Temp: 36.6 ?C (97.9 ?F) 36.4 ?C (97.5 ?F) TempSrc: Oral Oral SpO2: 96% 99% 98% Weight: Height: GENERAL: o x 3 in distress. SKIN: No rashes . ENT mucosa, Normal/nose normal NECK: no jugulovenous distention NO lymphadenopathy LUNGS:No wheezing,no ronchi no rales. CARDIAC: S1 and S2 ABDOMEN: Abdomen soft, non-tender. EXTREMITIES: Extremities normal. NEURO: non focal PULSES: + pedal / radial No edema No goiter No carotid bruits. 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 DATE OF SERVICE: 07/28/2018 TIME OF SERVICE: 11:00 AM SUBJECTIVE: The patient is seen and examined. She initially admitted to the hospital Intensive Care Unit with acute GI bleeding. Transferred to the high-risk floor today. She developed acute GI bleeding again where she has vomited significant amount of blood. The hemoglobin has dropped again below 7 and the patient had stat type and crossmatch for blood transfusion, contacted the Critical Care Team and GI, subsequently I transferred the patient to the intensive care unit for a bedside stat EGD and initiated blood transfusion. Case has been discussed with the consultants. Discussed with the Critical Care team. We will follow up closely. Kori Beckford M.D. Internal Medicine [place]BBARD:[id number] /[id number] Geri Reyes,RN, RN 07/28/2018 3:10 AM Signed Nursing Progress Note Patient Name: Arabella Felix Patient Location: [id number] -[address]* Transfer Note: Patient transferred into room/unit 602 in stable condition. Actions taken: Pt alert and oriented x3, up with standby assist. Pt oriented to room, call ace, and bed controls. VSS. Pt c/o mild back pain and nausea. Medicated with PRN tylenol and compazine. Pt took all other HS medications without issues. Pt assessment completed and documented. Pt on 1L NC for comfort- c/o short of breath. 2300 labs resulted HGB 6.5, drop from 8.0. Reported to house Dr. Chandra who stated no intervention at this time, check AM labs. Checked labwork and type and screen is completed from 07/26. No signs of bleeding, no BM overnight. No further needs, call ace in reach, bed/chair alarm on for safety. This note was completed by: YONY Osborne MD 07/28/2018 8:48 AM Signed UPDATED HISTORY AND PHYSICAL EXAMINATION SERVICE DATE: 07/28/2018 SERVICE TIME: 8:48 AM PHYSICAL EXAM MUST BE COMPLETED ON ADMISSION The History and Physical (completed in the past 30 days) has been reviewed and the patient has been examined. The contents accurately reflect the patient's condition with the following additions or revisions since the HANDP was completed. Examination indicates no changes. This HANDP can be found in the Electronic Medical Record. SIGNATURE: Darnell Pearson MD PATIENT NAME: Arabella Felix DATE: July 28, 2018 TIME: 8:48 AM PAGER: Justina Lauren RN, RN 07/28/2018 8:52 AM Signed PATIENT EDUCATION TOPIC: PROCEDURE / SURGERY: Procedure/Surgery: EGD PATIENT NAME: Arabella Felix PATIENT LOCATION: ENDO POOL/[facility] ENDO POOL READINESS TO LEARN COGNITIVE ABILITY: Alert and oriented MOTIVATION TO LEARN: Interested FAMILY SUPPORT: High - Very involved in pt care INSTRUCTION PROVIDED TO: Patient PATIENT LEARNS BEST BY: Individual Instruction FACTORS AFFECTING LEARNING: None PHYSICAL LIMITATIONS AFFECTING LEARNING: None LEARNING RESPONSE DIAGNOSIS: ADULT: Gastrointestinal Bleed PATIENT/FAMILY RESPONSE: Verbalizes understanding of: PATIENT SAFETY PRINCIPLES METHOD OF INSTRUCTION: Individual instruction FOLLOW-UP PLAN: Complete - No need for follow-up INSTRUCTIONAL AIDS USED: NA SUPPLEMENTAL MATERIAL PROVIDED TO PATIENT: None REFERRAL (RECOMMENDATION): None Electronically Signed By: Justina Lauren RN Nursing Progress Note Patient Name: Arabella Felix Patient Location: ENDO POOL/[facility] ENDO POOL This note was completed by: Justina Lauren, RN Arabella Fuller, RN, RN 07/28/2018 4:11 PM Addendum Nursing Progress Note Patient Name: Arabella Felix Patient Location: [facility] ENDO POOL/[facility] ENDO POOL Daily Note:0800-Pt. Awake and alert. at bedside. Pt. Denies any pain or discomfort. No s/s of distress. Spoke with CHULA Foy, aware of Hgb.-6.4, see new order for blood transfusion. This note was completed by: Arabella Fuller, RN 0845-pt. Being transported off unit to Endoscopy. 1030-pt. Returned to floor from EGD. Awake and alert. Denies any pain or discomfort. Will cont. To monitor. 1145-PRBC infusing. No reaction noted pt. C/o pain to IV site blood stopped, will attempt to start new IV. 1300-New IV established, blood infusing without incident. 1417-Pt. C/o feeling dizzy and c/o nausea. Noted pt. To be very pale. Pt. Then vomited 250 cc of bright red blood. Blood pressure Call out to GI. Richard CNP, aware of pt. Status. See all new order. 1430-Spoke with Dr. Decker made aware of the change in pt. Condition and vomiting bright red blood. Dr. Decker states to transfer pt. back to MICU and they would mostly likely repeat the EGD at bedside tonight. HR-128. Pt. Attempted to sit up ti use BSC commode but became very dizzy and had to be place back to bed. 1440-Spoke with Dr. Lynn ([facility] rehab department manager) who has accepted pt. And states that he wants pt. To be transferred to MICU immediately. Spoke with Isabelle GA, updated MICU staff that pt. Needs immediate transfer and that bedside report was to be given. 1500-Pt. Transferred to MICU-31. Bedside report given to nurse Khadijah who assisted with bed to bed transfer. Previous Version Mary Joiner APRN.CHULA 07/28/2018 11:10 AM Signed S/p EGD today - with noted nonbleeding AVM in stomach. Would monitor stools and Hgb. Continue PPI BID. If further bleeding noted, consider repeat EGD. If no further bleeding noted and Hgb stable, would be OK to DC from GI standpoint. Mary Joiner, CHULA [facility] Thank you for allowing us to participate in the care of this patient. Please call with questions or concerns. ARMAAN Cobb 07/28/2018 11:47 AM Signed MULTIDISCIPLINARY ROUNDS SERVICE DATE: 07/28/2018 ADMISSION DATE: 07/26/2018 SERVICE TIME: 11:44 AM ANTICIPATED D/C DATE: 07/30/18 Problem List: ACTIVE PROBLEM LIST Hypertrophic Cardiomyopathy (Hcc) Obesity, Unspecified Acute Blood Loss Anemia Depression Type 2 Diabetes Mellitus (Hcc) Bmi 50.0-59.9, Adult (Hcc) Essential Hypertension Attendees Present at Rounds: Litigation Assistant: Bridget Duck Farmer: Laura Staff Nurse: Arabella Wilde ([facility]) Needs Discussed on Rounds: Plan of Care Anticipated Discharge Disposition: TBD Last Vitals: BP 150/71 Pulse 73 Temp (Src) 98 (Oral) Resp 16 Ht 5' 5 (1.65m) Wt 302 lb 7.5 oz (137.2kg) SpO2 99% BMI 50.33 kg/(m2). O2 Therapy: Nasal Cannula, Liters: 2 Pt to have an EGD today. No transitional care needs have been identified. SW will continue to follow. Nursing: Anxiety Intervention(s) Plan: Encourage Expression of Feelings and Questions Anxiety Goals/Outcomes: Patient Verbalizes/Demonstra eduardo Decreased Anxiety Anxiety Goal Target Achievement Date: 07/28/18 Bleeding Intervention(s) Plan: Assess for Related Signs/Symptom of Bleeding;Bleeding Precautions;Interven tions to Control Bleeding (Ice, apply Pressure, Sand Bag);Monitor Vital Signs;Monitor and Record Blood Loss;Monitor Labs: CBC, INR, PTT/PT Bleeding Goals/Outcomes: Free of Signs/Symptom Active Bleeding;Patient Bleeding Controlled and Vital Signs Remain Stable;Displays No Significant Decrease in Hgb/Hct Levels Bleeding Goal Target Achievement Date: 07/31/18Mobility Intervention(s) Plan: Mobility Assist Device;Normalize the Environment;Notify LIP for Changes to Baseline Status (Unexplained Decrease in IFMS Score) Mobility Patient/Family Goals: Demonstrates ability to complete transfers with least level of assist. Mobility Goal Target Achievement Date: 07/30/18 DOCUMENTED BY: ARMAAN Cobb PATIENT NAME: Arabella Felix DATE: July 28, 2018 TIME: 11:44 AM CSN: [id number] Richard Coy APRN.CHULA 07/28/2018 2:55 PM Signed Called to bedside as pt had acute episode of hematemesis. Ambulated from bathroom just now and had ~250 mls bright red blood. S/P EGD today Impression: ? ? ? - Normal esophagus. ? - A single non-bleeding angioectasia in the ? stomach. ? - Normal examined duodenum. ? - No specimens collected. Pt seen and examined. Clinically stable, denies any acute complaints. Denies CP, SOB, dizziness, palpitations. Discussed with CHULA Hernandez. Dr. Pearson is not bone density technician anymore, Dr. Camarena is covering, spoke with RN on floor who advised transfer to ICU. Dr. Beckford aware. PLAN transfer to ICU when bed available transfuse another unit of PRBC start IV PPI STAT CBC d/w Dr. Beckford, patient, at bedside Mary Joiner APRN.CHULA 07/28/2018 4:01 PM Signed Notified by executive staff assistant that patient was noted to have hematemesis post endoscopy today. Advised that patient be transferred to ICU. Blood products ordered by attending team. IV PPI started. Will add IV reglan in preparation for scope. Repeat EGD tonight with timing TBD. Mary Joiner CNP [facility] Thank you for allowing us to participate in the care of this patient. Please call with questions or concerns. Trish Cardona MD, MD 07/28/2018 5:55 PM Signed MICU ACCEPTANCE AND PROGRESS NOTE WITH [facility] CARE SERVICE DATE: 07/28/2018 SERVICE TIME: 5:17 PM Admission Date: 07/26/2018 Day #: 3 in the MICU. HPI: This is a 53 yo female with a PMH of hypertrophic cardiomyopathy, DM type II, HTN, HLD, anxiety, depression who present to ICU for GIB. Pt was sitting at the pool today and when she went to stand up, she became dizzy and passed out per friend. Pt does not recall if she passed out. When she was picked up by EMS she started having hematemesis. She has been having black tarry stools since Tuesday. She has been feeling dizzy with associated SOB when she walks since Tuesday. She has been taking Naproxen 500mg TID for back pain for last 5 years. She denies AC, ASA, or iron use. She has had a loss of appetite with abdominal discomfort this week. She denies fever, chills, CP, changes in urinary pattern. She was transferred to [facility] initially, then ICU for further management. [facility] course: Vitals: bp 109/58, HR 62, RR 16, O2 sat 98% on RA. Hgb 8.1 (baseline 14), INR 1,3, PTT 27.7, WBC, 15.7, sCr 1.18. Pt was given 1L NS bolus. Transfused 1u PRBC. NGT placed to LIS with coffee ground content. Started on PPI. ICU course: 07/26 Transferred to ICU on RA, no resp distress. HR 65, SB, SBP 140s. NGT to LIS with coffee ground content. Pt nauseated with dry heaves r/t NGT, will d/c NGT. Continue PPI. GI consulted. Check CBC, BMP, lactate, troponin. Check EKG. 07/27: Yesterday repeat Hgb after transfusion 10.2. This am Hgb 8.2, no BMs overnight, no emesis. Possible EGD today or tomorrow. HR SB, HR 55. Hold BB. SBP 130s. 500ml LR bolus ordered. CBC q8hr. Tylenol and lidocaine patch for back pain. Stable to Transfer to floor under Dr. Beckford's service. 07/28: patient was on the regular nursing floor. Patient had an EGD in the morning which showed non bleeding angioectasia in the stomach. In the afternoon today, she started having bloody vomiting. She vomited around 250 ml of bright red blood. Also felt dizzy but did not pass out. Was transferred to MICU. 1 unit PRBC transfused. Plan for repeat scope tonight. 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, prescription 500mg po TID Pt with black stools, dizziness and abd pain since Tuesday Transferred to [facility] today after becoming dizzy with syncope and hematemesis PLAN Continue PPI GI consulted- repeat EGD tonight Transfuse for Hgb<7 Maintain 2 large bore IVs Trend CBC q8 LR bolus as needed - BMI 50.0-59.9, adult (HCC) 07/27/2018 Plan: Plan to resume metformin on discharge Diet and lifestyle changes - Essential hypertension 07/27/2018 On metoprolol XL 100mg and losartan at home PLAN Will restart once patient is stable and no longer having active bleeding - Depression 07/26/2018 Taking celexa and buspar at home PLAN Continue celexa and buspar - Type 2 diabetes mellitus (HCC) 07/26/2018 Taking metformin and januvia at home A1C 7.19 May 2018 PLAN NPO Start SSI #2 Accucheck q6hr - Hypertrophic cardiomyopathy (HCC) 07/31/2002 Pt taking Metorpolol XL 100mg daily and Losartan 50mg daily EKG with SR, LBBB, LVH PLAN EKG prn Hold losartan and BB DVT PPx: IPC. Pharmacologic contraindicated GI PPx: pantop IV Disposition: TBD Plan Discussed with Dr Cardona and RN OBJECTIVE: BP (!) 136/30 Pulse 94 Temp 37.1 ?C (98.8 ?F) (Axillary) Resp 27 Ht 165.1 cm (5' 5) Wt (!) 137.2 kg (302 lb 7.5 oz) SpO2 99% BMI 50.33 kg/m? Vital signs reviewed. NET FLUID BALANCE Intake/Output Summary (Last 24 hours) at 07/28/2018 6875 Last data filed at 07/28/2018 0934 Gross per 24 hour Intake 490 ml Output ? Net 490 ml MEDICATIONS Current Facility-Administere d Medications Medication Dose Route Frequency - NaCl 0.9% 3-5 mL 3-5 mL INTRAVENOUS q 12 H - dextrose 40 % 15 g 15 g ORAL PRN Or - glucagon 1 mg injection (GLUCAGEN) 1 mg INTRAMUSCULAR PRN Or - dextrose 50% in water 25 mL syringe 12.5 g INTRAVENOUS PRN - insulin lispro injection (rapid acting) (HumaLOG) SUBCUTANEOUS q 6 H - lidocaine 5 % 1 Patch (LIDODERM) 1 Patch TRANSDERMAL DAILY And - lidocaine patch - REMOVE OTHER AT BEDTIME And - lidocaine - VERIFY PATCH OTHER q 8 H - acetaminophen 650 mg tab(s) (TYLENOL) 650 mg ORAL q 4 H PRN - citalopram 40 mg tab(s) (CeleXA) 40 mg ORAL AT BEDTIME - busPIRone 15 mg tab(s) (BUSPAR) 15 mg ORAL TID - simvastatin 10 mg tab(s) (ZOCOR) 10 mg ORAL AT BEDTIME - prochlorperazine 5 mg injection (COMPAZINE) 5 mg INTRAVENOUS q 6 H PRN - pantoprazole 40 mg injection (PROTONIX) 40 mg INTRAVENOUS q 12 H Followed by - [START ON 07/31/2018] pantoprazole 40 mg injection (PROTONIX) 40 mg INTRAVENOUS DAILY (6 AM) - metoclopramide HCl 10 mg injection (REGLAN) 10 mg INTRAVENOUS q 6 H INFUSIONS Lines, Drains, and Airways Line Peripheral 07/26/18 1816 Admission to Hospital Right Antecubital 20 Gauge 1 day Peripheral 07/27/18 0100 Right Antecubital 20 Gauge 1 day PHYSICAL EXAM HEENT: normocephalic Oral Mucosa: Moist mucous membranes Feeding Tube: Yes. Nasogastric tube Eyes: PERRLA Neck: no jugular venous distention Cardiovascular: normal sinus rhythm Edema- No edema her legs Respiratory: Clear to auscultation Not on Ventilator Abdomen: Soft, tender in epigastrium, no guarding/rigidity, non-distended. Bowel sounds normal. No masses, organomegaly Extremities: Peripheral Pulses- 3+= normal Cap Refill: CAP REFILL: < or = 2 seconds Skin: Abnormalities- No Breakdown- No Neurologic: Oriented to person, place, and time. No focal motor, sensory deficits. NUTRITION: NPO until EGD Enteral Feeds: Yes DATA: Diagnostic tests reviewed for today's visit: Most recent labs and imaging results. LABS: CBC, Coags, BMP, Mg, Phos Recent Labs 07/28/18 1459 07/28/18 0441 07/27/18 2333 07/27/18 0748 07/26/18 1855 WBC 23.32* 10.88 14.66* < > 12.21* < > 17.32* HB 7.1* 6.4* 6.5* < > 8.2* < > 10.2* HCT 21.4* 18.7* 19.2* < > 23.8* < > 29.2* PLT 293 206 221 < > 217 < > 281 INR -- -- -- -- -- -- 1.2 NA -- 137 -- -- 139 -- 137 K -- 4.0 -- -- 4.0 -- 4.1 CHLOR -- 102 -- -- 105 -- 100 CO2 -- 24 -- -- 24 -- 20* BUN -- 25 -- -- 30* -- 40* CREAT -- 0.79 -- -- 0.80 -- 0.90 GLUC -- 212* -- -- 199* -- 291* CA -- 8.2* -- -- 8.7 -- 9.0 MG -- 1.8 -- -- 1.7 -- 1.7 P -- -- -- -- -- -- 3.4 < > = values in this interval not displayed. Liver Function, Amylase, AND Lipase Recent Labs 07/27/18 0748 07/26/18 1855 TPROT -- 6.9 ALB -- 4.1 ALT -- 13 AST -- 16 ALKPHOS -- 56 TBILI -- 1.1 LACT 1.5 2.8* PATIENT CHECKLIST ? Are restraints necessary: No ? Deep vein thrombosis prophylaxis administered? No. Contraindicated. ? Stress ulcer prophylaxis? Yes ? Nasogastric tube? Yes ? Seg[place]ia catheter necessary? No ? Is central line essential? No ? Plan discussed with assigned RN? Yes ? Family updated within last 24 hours? Yes SIGNATURE: Abraham Golden MD PATIENT NAME: Arabella Felix DATE: July 28, 2018 TIME: 5:17 PM PAGER/CONTACT #: [phone] [facility] STAFF PHYSICIAN NOTE OF PERSONAL INVOLVEMENT IN CARE I have reviewed the progress note obtained and documented by the resident and I personally participated in the carvajal components. I have discussed the case and management of the patient's care. The following comments revise or confirm relevant carvajal components of the note. IMPRESSION: Patient is well known to me. She was transferred to the floor yesterday, noted to have drop in the hemoglobin from 8-6.5, noted to have single 10 mm non bleeding venous ectasia. After the EGD patient was noted have 250 cc of bright red blood and feeling vomiting Problem list 1. Acute blood loss anemia 2. Upper GI bleeding 3. History of HOCM PLAN: 1. Patient has acute UGI bleed from telengiectasia. Will need EGD today. NG tube inserted. Transfused one unit of RBC. Fluid resuscitation, and avoid tachycardia- given history of HOCM. MICU px This patient has a high probability of sudden, clinically significant deterioration, which requires the highest level of physician preparedness to intervene urgently. I managed/supervised life or organ supporting interventions that required frequent physician assessment. I devoted my full attention to the direct care of this patient for the amount of time indicated below. Time I spent with family or surrogate(s) is included only if the patient was incapable of providing the necessary information or participating in medical decision making. Time devoted to teaching is not included. Critical Care Documentation: The patient has the following organ/system impairment(s): Acute blood loss and Complex life-threatening medical problem(s) Time spent providing critical care services: 35 minutes excluding procedures. SIGNATURE: Trish Cardona MD [facility] PAGER:[phone] Previous Version Estefania Harding, RN, RN 07/28/2018 7:40 PM Addendum Nursing Progress Note Patient Name: Arabella Felix [facility] Daily Note:1505 Received pt from floor without report. VSS. Pt AANDO following commands. Color pale. C/O abdominal pain. Dr Cardona at bedside and aware of condition. # 16 NG inserted into right nares. Pt vomited bloody. NG draining bloody. Placed to LIS. 1600 Assessment as charted. Pt resting between care. VSS Family at bedside. LR bolus infusing per order. 1645 Second UPC up and infusing per order. Family remains at bedside. Awaiting EGD. 1730 Endo called and asked about possible time for scope. Dr. Camarena paged. 1740 Dr. Camarena on phone about pt. Updated on condition. Will be in this evening to scope pt. NG cont to drain bloody. 1800 No change in condition. VSS. Resting between care. Family at bedside. 1900 No change in general condition. Report to relief RN. This note was completed by: Estefania Harding, RN Previous Version Christi Peters RN, RN 07/29/2018 6:53 AM Addendum Nursing Progress Note Patient Name: Arabella Felix Patient Location: [place] [address] [id number] 192: Report received from day RN. 1939: Pt had episode of stress incontinence related to vomiting, PRN compazine given, CHG bath, jossy care and linen change done. 1999: Assessment complete, pt is AANDO x3 and following commands appropriately. Denies pain at this time. Sinus rhythm on the monitor. NG tube remains in place to low intermittent wall suction with minimal bloody drainage. For complete assessment see flow sheet. 2009: Pt had another episode of incotninence related to dry heaves, order obtained for CLAUDETTE cesar, see APR. 2044: Call received from Dr. Camarena in GI stating because pt has not had any further hematemesis they would wait to scope her until the morning. Relayed this information to the pt and family, family very upset swearing at this RN, expressing frustration about the situation, emotional support provided to the family and patient. Pt requesting that NG tube be taken out as it is uncomfortable and causing her to gag, explained to patient that the NG tube needs to remains in place for the night. Pt upset about situation, emotional support provided. 2105: Assisted pt to bedside commode to void. 0000: Assessment complete, no changes from previous assessment. 0205: PRN compazine given for nausea. 0400: Assessment complete, no changes from previous assessment. 0710: [facility] This note was completed by: Christi Peters RN Previous Version Kori Beckford MD 07/28/2018 11:54 PM Incomplete PAST MEDICAL HISTORY Diagnosis Date - Abnormal weight gain - Excessive or frequent menstruation h/o abnormal past 5 years - Hypertrophic obstructive cardiomyopathy new diagnoses over summer 2001 - Other abnormal heart sounds new murmur heard on physical exam over summer 2001 - Palpitations racing heart onset in June, May 2001, no syncope but feels lightheaded - Screening for depression since summer and diagnoses of heart Social History Socioeconomic History Marital status: Spouse name: Not on file Number of children: Not on file Years of education: Not on file Highest education level: Not on file Social Needs Financial resource strain: Not on file Food insecurity - worry: Not on file Food insecurity - inability: Not on file Transportation needs - medical: Not on file Transportation needs - non-medical: Not on file Occupational History Not on file Tobacco Use Smoking status: Never Smoker Substance and Sexual Activity Alcohol use: No Drug use: Not on file Sexual activity: Not on file Other Topics Concerns: ADL RESPONSE: Not Asked ADL RESPONSE: Not Asked ADL RESPONSE: Yes stopped 3 months ago because of heart 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 No results found for: HBA1C R.O.S negative other than HPI AND PMH all other SYS reviewed and negative. Current Facility-Administere d Medications Medication Dose Route Frequency Provider Last Rate Last Dose - pantoprazole 40 mg injection (PROTONIX) 40 mg INTRAVENOUS q 12 H Abraham (Res) Hitawala, MD 40 mg at 07/28/182041 Followed by - [START ON 07/31/2018] pantoprazole 40 mg injection (PROTONIX) 40 mg INTRAVENOUS DAILY (6 AM) Abraham (Ana) MD [place] - metoclopramide HCl 10 mg injection (REGLAN) 10 mg INTRAVENOUS q 6 H Mary (Campus President) [place]anga 10 mg at 07/28/186 - ondansetron (PF) 4 mg injection (ZOFRAN) 4 mg INTRAVENOUS q 6 H PRN Jessica (Pa) Beserra 4 mg at 07/28/182041 - lidocaine 5 % 1 Patch (LIDODERM) 1 Patch TRANSDERMAL DAILY Abraham (Ana) MD [place] 1 Patch at 07/28/181043 And - lidocaine patch - REMOVE OTHER AT BEDTIME Abraham (Ana) MD [place] And - lidocaine - VERIFY PATCH OTHER q 8 H Abraham (Ana) MD [place] - acetaminophen 650 mg tab(s) (TYLENOL) 650 mg ORAL q 4 H PRN Abraham (Ana) MD [place] 650 mg at 07/27/182100 - citalopram 40 mg tab(s) (CeleXA) 40 mg ORAL AT BEDTIME Abraham (Ana) MD [place] 40 mg at 07/27/182101 - busPIRone 15 mg tab(s) (BUSPAR) 15 mg ORAL TID Abraham (Ana) MD [place] 15 mg at 07/28/181043 - simvastatin 10 mg tab(s) (ZOCOR) 10 mg ORAL AT BEDTIME Abraham (Ana) MD [place] 10 mg at 07/27/182100 - prochlorperazine 5 mg injection (COMPAZINE) 5 mg INTRAVENOUS q 6 H PRN Abraham (Ana) MD [place] 5 mg at 07/28/181939 - NaCl 0.9% 3-5 mL 3-5 mL INTRAVENOUS q 12 H Abraham (Ana) MD [place] 5 mL at 07/28/182047 - dextrose 40 % 15 g 15 g ORAL PRN Abraham (Ana) MD [place] Or - glucagon 1 mg injection (GLUCAGEN) 1 mg INTRAMUSCULAR PRN Abraham (Ana) MD [place] Or - dextrose 50% in water 25 mL syringe 12.5 g INTRAVENOUS PRN Abraham (Res) MD [place] - insulin lispro injection (rapid acting) (HumaLOG) SUBCUTANEOUS q 6 H Abraham (Res) MD [place] 6 Units at 07/28/18 2336 Intake/Output Summary (Last 24 hours) at 07/28/2018 2354 Last data filed at 07/28/2018 1755 Gross per 24 hour Intake 602 ml Output ? Net 602 ml DATA: CBC: Recent Labs 07/28/18 2042 WBC 18.58* RBC 2.69* HB 8.2* HCT 24.6* PLT 237 MCV 91.4 MCH 30.5 MPV 11.3 CMP: Recent Labs 07/28/18 0441 NA 137 K 4.0 CHLOR 102 CO2 24 BUN 25 CREAT 0.79 GLUC 212* CA 8.2* MG 1.8 ANION 11 Glucose (mg/dL) Date Value 07/28/2018 212 (H) BUN (mg/dL) Date Value 07/28/2018 25 Creatinine (mg/dL) Date Value 07/28/2018 0.79 Sodium (mmol/L) Date Value 07/28/2018 137 Potassium (mmol/L) Date Value 07/28/2018 4.0 Chloride (mmol/L) Date Value 07/28/2018 102 CO2 (mmol/L) Date Value 07/28/2018 24 Protein, Total (g/dL) Date Value 07/26/2018 6.9 Albumin (g/dL) Date Value 07/26/2018 4.1 Calcium (mg/dL) Date Value 07/28/2018 8.2 (L) Alkaline Phosphatase (U/L) Date Value 07/26/2018 56 Bilirubin, Total (mg/dL) Date Value 07/26/2018 1.1 AST (U/L) Date Value 07/26/2018 16 ALT (U/L) Date Value 07/26/2018 13 Hemoglobin (g/dL) Date Value 07/28/2018 8.2 Hematocrit (%) Date Value 07/28/2018 24.6 WBC (k/uL) Date Value 07/28/2018 18.58 [facility] consultants notes reviewed Most recent images Reviewed Last EKG/Rhythm reviewed 07/28/18 2000 07/28/18 2100 07/28/18 2200 07/28/18 2300 BP: 149/71 140/71 168/79 142/76 Pulse: 93 95 91 84 Resp: (!) 31 28 (!) 31 29 Temp: 37.4 ?C (99.3 ?F) TempSrc: Axillary SpO2: 98% 97% 97% 98% Weight: Height: GENERAL: o x 3 in distress. SKIN: No rashes . ENT mucosa, Normal/nose normal NECK: no jugulovenous distention NO lymphadenopathy LUNGS:No wheezing,no ronchi no rales. CARDIAC: S1 and S2 ABDOMEN: Abdomen soft, non-tender. EXTREMITIES: Extremities normal. NEURO: non focal PULSES: + pedal / radial No edema No goiter No carotid bruits. Crissy Rincon, RN, RN 07/29/2018 7:30 AM Signed Nursing Progress Note Patient Name: Arabella Felix Patient Location: [place] [address]/[facility]- Daily Note: 0700 Report received from off-going RN. Patient resting in bed, eyes closed, VSS. This note was completed by: Crissy Rincon, YONY Patrick MD 07/29/2018 10:28 AM Incomplete [facility] STAFF PHYSICIAN NOTE OF PERSONAL INVOLVEMENT IN CARE I have reviewed the progress note obtained and documented by the resident and I personally participated in the carvajal components. I have discussed the case and management of the patient's care. The following comments revise or confirm relevant carvajal components of the note. IMPRESSION Overnight events July 29, 2018 EGD done July 28, 2018, showed non bleeding teleangiectasia, transferred to the floor, had another episode of hematemesis and was tx back to ICU. No active bleeding since then. GI aware No chest pain No tarry stools NPO at this time for possible repeat EGD Acute blood loss anemia Acute upper GI bleed due to teleangiectasia History of hypertrophic cardiomyopathy PLAN Plan for another EGD today Monitor CBC q 12 hr Continue PPI Discontinue NG tube Lines: 1 peripheral IV DVT px: SCDs GI px: Protonix Family: updated Code status: Full code NPO for now This patient has a high probability of sudden, clinically significant deterioration, which requires the highest level of physician preparedness to intervene urgently. I managed/supervised life or organ supporting interventions that required frequent physician assessment. I devoted my full attention to the direct care of this patient for the amount of time indicated below. Time I spent with family or surrogate(s) is included only if the patient was incapable of providing the necessary information or participating in medical decision making. Time devoted to teaching is not included. Critical Care Documentation: The patient has the following organ/system impairment(s): Acute blood loss anemia Acute upper GI bleed due to teleangiectasia History of hypertrophic cardiomyopathy Patient/Family Updated: Updated Time spent providing critical care services: 50 minutes excluding procedures. SIGNATURE: Zoey Patrick MD [facility] DATE of SERVICE: July 29, 2018 TIME of SERVICE: since this morning Normal [facility] Lactateon 07-26-2018 Lactate [Moles/Vol] 2.8 mmol/L High 0.4-2.0 [facility] Comment on above: Performed By: #### L ACT, CBC, PT, CMP, MG1, PHOS, LASHONDA #### [place] [address] Magnesiumon 07-26-2018 Magnesium [Mass/Vol] 1.7 mg/dL Normal 1.7-2.6 [facility] Comment on above: Performed By: #### L ACT, CBC, PT, CMP, MG1, PHOS, LASHONDA #### [place] [address] NURSING PROGon 07-26-2018 NURSING PROG HNO ID: [id number] Author: Violette (Rn) YONY Nixon Service: ? Author Type: Registered Nurse Type: Nursing Progress Note Filed: 07/27/2018 6:09 AM Note Text: Nursing Progress Note Patient Name: Arabella Felix [facility] Daily Note: 1743: Pt arrives to MICU 28, attached to monitors, chlorhexidine bath and gown change complete. 1750: CHULA Tanner at bedside to assess 1800: Full assessment complete, see flow sheets for details 2000: Assessment complete, no changes. 0000: Assessment complete 0400: Assessment complete 0700: Report given to oncoming RN This note was completed by: Violette Nixon RN Normal [facility] Phosphoruson 07-26-2018 Phosphate [Mass/Vol] 3.4 mg/dL Normal 2.5-4.5 [facility] Comment on above: Performed By: #### L ACT, CBC, PT, CMP, MG1, PHOS, LASHONDA #### [place] [address] Protimeon 07-26-2018 PT Coag (PPP) [Time] 11.8 s Normal 9.7-13.0 [facility] Comment on above: Performed By: #### L ACT, CBC, PT, CMP, MG1, PHOS, LASHONDA #### [place] [address] PT Coag (PPP) [Time] 1.2 s Normal 0.9-1.3 [facility] Comment on above: Result Comment: Jo min K Antagonist (VKA) Therapeutic Range: INR 2 to 3 (Target INR of 2.5) Note: For patients treated with VKA drugs, such as warfarin, the [place] [employer] 2012 Guideline recommends a therapeutic INR range of 2 to 3 (target INR of 2.5). This recommendation includes high-risk patients with antiphospholipid syndrome with previous arterial or venous thromboembolism, current-generation mechanical or bioprosthetic aortic heart valve replacement. Note: Patients with mechanical aortic valve replacement and additional risk factors for thromboembolic events (atrial fibrillation, previous thromboembolism, LV dysfunction, hypercoagulable conditions) or an older generation mechanical AVR (i.e., ball in-Cage) or any mechanical MVR should have a INR therapeutic range of 2.5 to 3.5 (target INR of 3). Gianna GH, et al. Chest 2012, 141:7S-47S Jason RA, et al. [facility] 2017, 70: 252-289 Performed By: #### L ACT, CBC, PT, CMP, MG1, PHOS, LASHONDA #### [place] [address] Troponin Ton 07-26-2018 Troponin T.cardiac [Mass/Vol] ug/L Normal 0.000-0.029 [facility] Comment on above: Performed By: #### L ACT, CBC, PT, CMP, MG1, PHOS, LASHONDA #### [place] [address] Type and Screenon 07-26-2018 ABO/RH(D) Positive Normal [facility] Comment on above: Performed By: #### T SCR #### [place] [address] Vital Signs Date Time Vital Sign Value Performing Clinician Facility 08-19-2024 08:48-0400 Body mass index (BMI) [Ratio] 53.71 kg/m2 Sprout Social[employer]i Work Phone: [facility] 08-19-2024 08:48-0400 Body temperature 97.3 [degF] [employer] Work Phone: [facility] 08-19-2024 08:48-0400 Body weight 146.4 kg theDrop PA-Geni Work Phone: [facility] 08-19-2024 08:48-0400 Diastolic blood pressure 83 mm[Hg] [employer]Drop PA-Geni Work Phone: [facility] 08-19-2024 08:48-0400 Heart rate 53 /min Razia Clutter PA-C Work Phone: [facility] 08-19-2024 08:48-0400 Respiratory rate 18 /min Razia Clutter PA-C Work Phone: [facility] 08-19-2024 08:48-0400 SaO2% (BldA) [Mass fraction] 96 % Razia Clutter PA-C Work Phone: [facility] 08-19-2024 08:48-0400 Systolic blood pressure 157 mm[Hg] Razia Clutter PA-C Work Phone: [facility] 03-24-2024 14:08-0500 Body mass index (BMI) [Ratio] 53.2 kg/m2 Yin Rahul FO[employer]IC[employer] Work Phone: [facility] 03-24-2024 14:08-0500 Body temperature 98.1 [degF] Yin Rahul FOOD CRITIC.[employer] Work Phone: [facility] 03-24-2024 14:08-0500 Body weight 145 kg Yin Rahul FOOD CRITIC.[employer] Work Phone: [facility] 03-24-2024 14:08-0500 Diastolic blood pressure 85 mm[Hg] Yin Rahul FOOD CRITIC.[employer] Work Phone: [facility] 03-24-2024 14:08-0500 Heart rate 55 /min Yin Rahul FOOD CRITIC.[employer] Work Phone: [facility] 03-24-2024 14:08-0500 Respiratory rate 20 /min Yin Rahul FOOD CRITIC.[employer] Work Phone: [facility] 03-24-2024 14:08-0500 SaO2% (BldA) [Mass fraction] 97 % Yin Rahul FOOD CRITIC.[employer] Work Phone: [facility] 03-24-2024 14:08-0500 Systolic blood pressure 151 mm[Hg] Yin Rahul FOOD CRITIC.[employer] Work Phone: [facility] 01-22-2023 14:08-0500 Body temperature 98.71 [degF] Matilda Praisler-Wood FOOD CRITIC.[employer] Work Phone: [facility] 01-22-2023 14:08-0500 Body weight 135.17 kg Matilda Praisler-Wood FOOD CRITIC.[employer] Work Phone: [facility] 01-22-2023 14:08-0500 Diastolic blood pressure 76 mm[Hg] Matilda Praisler-Wood FOOD CRITIC.[employer] Work Phone: [facility] 01-22-2023 14:08-0500 Heart rate 62 /min Matilda Praisler-Wood FOOD CRITIC.[employer] Work Phone: [facility] 01-22-2023 14:08-0500 Respiratory rate 16 /min Matilda Praisler-Wood FOOD CRITIC.[employer] Work Phone: [facility] 01-22-2023 14:08-0500 SaO2% (BldA) [Mass fraction] 96 % Matilda Praisler-Wood FOOD CRITIC.[employer] Work Phone: [facility] 01-22-2023 14:08-0500 Systolic blood pressure 110 mm[Hg] Matilda Praisler-Wood FOOD CRITIC.[employer] Work Phone: [facility] 09-30-2022 13:47-0400 Heart rate 55 /min JOSE GUADALUPE 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 [facility] 09-30-2022 10:50-0400 Body temperature 97.7 [degF] JOSE GUADALUPE 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 [facility] 09-30-2022 10:50-0400 Diastolic Blood Pressure Non-Invasive 64 1 JOSE GUADALUPE 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 [facility] 09-30-2022 10:50-0400 Heart rate 55 /min JOSE GUADALUPE 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 [employer] [facility] 09-30-2022 10:50-0400 Systolic Blood Pressure Non-Invasive 136 1 JOSE GUADALUPE KAPPER FOOD CRITIC-DIST[employer]BUTOR [employer] [facility] 09-30-2022 08:24-0400 Heart rate 56 /min JOSE GUADALUPE KAPPER FOOD CRITIC-[employer] [facility] 09-30-2022 06:40-0400 Body temperature 97.88 [degF] JOSE GUADALUPE KAPPER FOOD CRITIC-[employer] [facility] 09-30-2022 06:40-0400 Diastolic Blood Pressure Non-Invasive 59 1 JOSE GUADALUPE KAPPER FO[employer] CRITIC-[employer] [facility] 09-30-2022 06:40-0400 Heart rate 54 /min JOSE GUADALUPE KAPPER FOOD CR[employer]IC-[employer] [facility] 09-30-2022 06:40-0400 Reason For Taking VItal Signs JOSE GUADALUPE KAPPER FO[employer] CR[employer]IC-[employer] [facility] 09-30-2022 06:40-0400 Systolic Blood Pressure Non-Invasive 149 1 JOSE GUADALUPE KAPPER FO[employer] CR[employer]IC-[employer] [facility] 09-30-2022 03:32-0400 Body temperature 98.24 [degF] JOSE GUADALUPE KAPPER FO[employer] CRITIC-[employer] [facility] 09-30-2022 03:32-0400 Diastolic Blood Pressure Non-Invasive 72 1 JOSE GUADALUPE KAPPER FO[employer] CRITIC-[employer] [facility] 09-30-2022 03:32-0400 Heart rate 53 /min JOSE GUADALUPE KAPPER FOOD CRITIC-[employer] [facility] 09-30-2022 03:32-0400 Reason For Taking VItal Signs JOSE GUADALUPE KAPPER FOOD CRITIC-[employer] [facility] 09-30-2022 03:32-0400 Respiratory rate 18 /min JOSE GUADALUPE KAPPER FOOD CRITIC-[employer] [facility] 09-30-2022 03:32-0400 Systolic Blood Pressure Non-Invasive 137 1 JOSE GUADALUPE KAPPER FO[employer] CR[employer]IC-[employer] [facility] 09-30-2022 00:04-0400 Heart rate 57 /min JOSE GUADALUPE KAPPER FO[employer] CR[employer]IC-[employer] [facility] 09-30-2022 00:04-0400 Respiratory rate 18 /min JOSE GUADALUPE KAPPER [employer]IC[employer] [address] [place] [id number] 09-29-2022 23:32-0400 Reason For Taking VItal Signs JOSE GUADALUPE KAPPER [employer]IC[employer] [address] [place] [address] 09-29-2022 19:35-0400 Respiratory rate 18 /min JOSE GUADALUPE KAPPER FO[employer] CR[employer]IC[employer] [address] [place] [address] 09-29-2022 13:20-0400 Body height 165.1 cm JOSE GUADALUPE KAPPER FO[employer]IC[employer] [address] [place] [address] 09-29-2022 13:20-0400 Body weight 136.4 kg JOSE GUADALUPE KAPPER FO[employer]IC-[employer] [address] [place] [address] 09-29-2022 13:20-0400 Body weight 50.04 kg/m2 JOSE GUADALUPE KAPPER FO[employer] CR[employer]IC-[employer] [address] [place] [address] 09-29-2022 08:56-0400 Body height 165.1 cm JOSE GUADALUPE KAPPER FO[employer] CR[employer]IC-[employer] [address] [place] [address] 09-29-2022 08:56-0400 Body weight 136.4 kg JOSE GUADALUPE KAPPER FO[employer] CR[employer]IC-[employer] [address] [place] [address] 04-25-2022 10:28-0400 Body temperature 97.7 [degF] Krislyn Aberegg PA Work Phone: [facility] 04-25-2022 10:28-0400 Body weight 137.89 kg Krislyn Aberegg PA Work Phone: [facility] 04-25-2022 10:28-0400 Diastolic blood pressure 84 mm[Hg] Krislyn Aberegg PA Work Phone: [facility] 04-25-2022 10:28-0400 Heart rate 61 /min Krislyn Aberegg PA Work Phone: [facility] 04-25-2022 10:28-0400 Respiratory rate 18 /min Krislyn Aberegg PA Work Phone: [facility] 04-25-2022 10:28-0400 SaO2% (BldA) [Mass fraction] 98 % Krislyn Aberegg PA Work Phone: [facility] 04-25-2022 10:28-0400 Systolic blood pressure 146 mm[Hg] Krislyn Aberegg PA Work Phone: [facility] Encounters Encounter Date Encounter Type Care Provider Facility Start: 09-08-2024 End: 09-08-2024 ambulatory LIANNE VENTURA FO[employer]IC - [employer] Facility:[facility] Start: 09-08-2024 End: 09-08-2024 Patient encounter procedure LIANNE VENTURA FOOD CRITIC - [employer] [facility] Start: 08-20-2024 End: 10-20-2024 Follow-up encounter Rio Renteria Aberegg PA Work Phone: [facility] Start: 08-19-2024 End: 08-19-2024 ambulatory LIANNE VENTURA Facility:[facility] Start: 08-19-2024 End: 08-19-2024 Office outpatient visit 25 minutes Razia AMINC Work Phone: [facility] Comment on above: Burning with urinati on (Primary Dx); Acute UTI Start: 06-26-2024 End: 06-30-2024 ambulatory LIANNE VENTURA FOOD CRITIC - [employer] Facility:[facility] Start: 06-26-2024 End: 06-30-2024 Outreach Lab LIANNE Jose LORENZO FOOD CRITIC - [employer] [facility] Start: 06-26-2024 End: 06-26-2024 ambulatory LIANNE VENTURA FOOD CRITIC - [employer] Facility:[facility] Start: 06-26-2024 End: 06-26-2024 Patient encounter procedure LIANNE VENTURA FOOD CRITIC - [employer] [facility] Start: 03-24-2024 End: 03-24-2024 ambulatory LIANNE VENTURA Facility:[facility] Start: 03-24-2024 End: 03-24-2024 Patient encounter procedure Yin Kay FOOD CRITIC.[employer] Work Phone: [facility] Comment on above: Acute cough (Primary Dx); Acute non-recurrent frontal sinusitis Start: 03-23-2024 End: 03-23-2024 ambulatory LIANNE VENTURA FOOD CRITIC - [employer] Facility:[facility] Start: 03-23-2024 End: 03-23-2024 Patient encounter procedure MARIAM BILLINGS MD [facility] Start: 03-03-2024 End: 03-03-2024 ambulatory LIANNE BLAIRPKINS FOOD CRITIC - [employer] Facility:[facility] Start: 03-03-2024 End: 03-03-2024 Patient encounter procedure LIANNE VENTURA FOOD CRITIC - [employer] [facility] Start: 07-08-2023 End: 07-09-2023 ambulatory LIANNE VENTURA FOOD CRITIC - [employer] Facility: Start: 07-08-2023 End: 07-08-2023 Patient encounter procedure LIANNE VENTURA FOOD CRITIC - [employer] [facility] Start: 05-03-2023 End: 05-08-2023 ambulatory LINANE BLAIRPKINS FOOD CRITIC - [employer] Facility:[facility] Start: 05-03-2023 End: 05-07-2023 Outreach Lab LIANNE BLAIRPKINS FOOD CRITIC - [employer] [facility] Start: 01-29-2023 End: 01-30-2023 ambulatory LIANNE Jose BLAIRLORENZO FO[employer] CR[employer]IC - [employer] Facility:[facility] Start: 01-22-2023 End: 01-22-2023 Patient encounter procedure Matilda Paige FOOD CRITIC.[employer] Work Phone: [facility] Comment on above: Other acute nonsuppu rative otitis media of left ear, recurrence not specified (Primary Dx); Bronchitis Start: 12-23-2022 End: 12-28-2022 ambulatory LIANNE YANEZKINS FO[employer] CR[employer]IC - [employer] Facility:[facility] Start: 12-23-2022 End: 12-27-2022 Outreach Lab LIANNE BLAIRPKINS FOOD CRITIC - [employer] [facility] Start: 11-03-2022 ambulatory MANAN HARTMAN FO[employer] CR[employer]IC-[employer] Facility:[facility] Start: 10-22-2022 End: 10-23-2022 ambulatory LIANNE Jose LORENZO [employer]IC - [employer] Facility:[facility] Start: 10-22-2022 End: 10-22-2022 Patient encounter procedure LIANNE Jose LORENZO [employer]IC - [employer] [facility] Start: 09-29-2022 End: 09-30-2022 ambulatory LIANNE Jose LORENZO FO[employer]IC - [employer] Facility:[facility] Start: 09-29-2022 End: 09-30-2022 Observation JOSE GUADALUPE 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 [facility] Start: 07-31-2022 End: 08-01-2022 ambulatory LIANNE Garcia LORENZO [employer] CR[employer]IC - [employer] Facility:[facility] Start: 07-31-2022 End: 07-31-2022 Patient encounter procedure LIANNE Garcia LORENZO FO[employer]IC - [employer] [facility] Start: 04-25-2022 End: 04-25-2022 Patient encounter procedure Rio YEN Work Phone: [facility] Comment on above: Lumbar strain, initi al encounter (Primary Dx); Acute left-sided low back pain with left-sided sciatica Start: 01-09-2022 End: 01-09-2022 Patient encounter procedure LIANNE Jose VENTURA FOOD CRITIC - [employer] [facility] Start: 08-08-2021 End: 08-08-2021 Patient encounter procedure LIANNE Garcia LORENZO FO[employer] CR[employer]IC - [employer] [facility] Start: 05-09-2021 End: 05-09-2021 Patient encounter procedure LIANNE Jose VENTURA FO[employer] CRITIC - [employer] [facility] Start: 01-24-2021 End: 01-24-2021 Patient encounter procedure LIANNE Garcia LORENZO FO[employer]IC - [employer] [facility] Procedures Date Procedure Procedure Detail Performing Clinician Start: 08-19-2024 Urnls dip stick/tabl et rgnt auto w/o microscopy Verenice Mathew FOOD CRITIC.[employer] Work Phone: Start: 07-26-2018 Antibody screen Comment on above: Performed By: #### T SCR #### [place] [address] section JOSE GUADALUPE 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 Miscellaneous (quali fier value) JOSE GUADALUPE 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 Comment on above: Heart muscle reducti on bilateral knee clean out coils in stomach to stop bledding in liver Plan of Treatment Date Care Activity Detail Author Start: 10-15-2024 Influenza vaccination Influenza Vacc ine (#1) [facility] Start: 01-23-2024 BP Controlled (<130/80) BP Controlle d (<130/80) [facility] Start: 10-16-2023 Covid-19 Vaccine () Covid-19 Vaccine () [facility] Start: 10-16-2023 Influenza vaccination Influenza Vacc ine (#1) [facility] Start: 10-15-2022 Covid-19 Vaccine () Covid-19 Vaccine () [facility] Start: 10-15-2022 Influenza vaccination Influenza Vacc ine (#1) [facility] Start: 10-15-2021 Influenza vaccination INFLUENZA (#1) [facility] Start: 07-26-2020 COVID-19 VACCINE (3 - Booster for Pfizer series) COVID-19 VACCINE (3 - Booster for Pfizer series) [facility] Start: 02-07-2019 Hemoglobin A1c measurement HbA1C [facility] Start: 02-07-2019 Hemoglobin A1c/Hemoglobin.total in Blood HBA1C [facility] Start: 2017 SHINGRIX VACCINE (1 of 2) SHINGRIX VACCINE (1 of 2) [facility] Start: 10-12-2015 Pneumococcal vaccination Pneum ococcal Vaccine (2 - PCV) [facility] Start: 10-12-2015 Pneumococcal Vaccine : 50+ (2 of 2 - PCV) Pneumococcal Vaccine: 50+ (2 of 2 - PCV) [facility] Start: 2012 COLOGUARD (FIT-DNA) COLOGUARD (FIT-D NA) [facility] Start: 2012 Colonoscopy COLONOSCOPY [facility] Start: 2012 COLORECTAL CANCER SCREENING COLORECTAL CANCER SCREENING [facility] Start: [address] COLONOGRAPHY [facility] Start: 2012 FECAL OCCULT BLOOD FECAL OCCULT BLOO D [facility] Start: 2012 Screening for malign ant neoplasm of colon [facility] Start: 2012 [facility] Start: 2007 Mammography [facility] Start: 2007 Screening for malign ant neoplasm of breast Mammogram Screening [facility] Start: 11-08-2002 Hepatitis B surface antibody level LDL CHOLESTEROL [facility] Start: 1997 HPV TESTING HPV TESTING [facility] Start: 1988 PAP TESTING PAP TESTING [facility] Start: 1988 Screening for malign ant neoplasm of cervix Cervical Cancer Screening [facility] Start: 1986 Hepatitis B Vaccine (1 of 3 - 19+ 3-dose series) Hepatitis B Vaccine (1 of 3 - 19+ 3-dose series) [facility] Start: 1986 Urine microalbumin profile [facility] Start: 1985 ANNUAL PCP TEAM CULINARY ARTIST SHAHIDA DISEASE VISIT ANNUAL PCP TEAM CHRONIC DISEASE VISIT [facility] Start: 1985 Anxiety Screening Anxiety Screening [facility] Start: 1985 BP CONTROLLED (<130/80) BP CONTROLLE D (<130/80) [facility] Start: 1985 HIV SCREENING HIV SCREENING [facility] Start: 1985 HIV screening HIV Screening [facility] Start: 1977 3 comp foot exam completed DIABETIC FOOT EXAM [facility] Start: 1977 Diabetic foot examination Diabetic Foot Exam [facility] Start: 1977 Glaucoma screening Dilated Retinal E xam [facility] Start: 1977 Hepatitis B screening URINE ALBUMIN:CREATININE RATIO [facility] Start: 1977 Hepatitis C antibody , confirmatory test DILATED RETINAL EXAM [facility] Start: 1973 PNEUMOCOCCAL (1 - PCV) PNEUMOCOCCAL (1 - PCV) [facility] Start: 1967 HEPATITIS B (1 of 3 - 3-dose series) HEPATITIS B (1 of 3 - 3-dose series) [facility] Start: 1967 Hepatitis B Vaccine (1 of 3 - 3-dose series) Hepatitis B Vaccine (1 of 3 - 3-dose series) [facility] Bacteria identified in Urine by Culture BACTERIAL CULTURE, URINE Microbiology Routine Acute UTI Ordered: 08/19/2024 [facility] Work Phone: Comment on above: Ordered: 08/19/2024 Immunizations Immunization Date Immunization Notes Care Provider 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 05-31-2020 SARS-CoV-2 mRNA (tozinameran) vaccine JOSE GUADALUPE 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 [facility] 05-13-2020 SARS-CoV-2 mRNA (tozinameran) vaccine JOSE GUADALUPE 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 [employer]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 [employer] [facility] 05-10-2020 SARS-CoV-2 mRNA (tozinameran) vaccine LIANNE BLAIRPKINS FOOD CRITIC - [employer] [facility] 12-07-2016 influenza virus vacc ine, unspecified formulation JOSE GUADALUPE 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 [facility] 11-12-2014 influenza virus vacc ine, unspecified formulation JOSE GUADALUPE 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 [employer] [facility] 10-11-2014 pneumococcal polysaccharide vaccine, 23 valent JOSE GUADALUPE 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 [address] [id number] 2001 Unknown [id number] 2001 Unknown [id number] 1967 Unknown [id number] [id number]. 2. 1967 Unknown [id number] [id number]. 2. 1967 Unknown [id number] [id number]. 2. 1967 Unknown [id number] 2.16.840.1.894338.3.579. 2. 1967 Unknown [id number] [id number]. 2. 1967 Unknown [id number] 2.16.840.1.224004.3.579. 2. 1967 Unknown [id number] 2.16.840.1.785730.3.579. 2. 1967 Unknown [id number] 2.16.840.1.409126.3.579. 2. 1967 Unknown [id number] 2.16.840.1.578151.3.579. 2. 1967 Unknown [id number] [id number]. 2.627 1967 Unknown [id number] [id number]. 2.627 1965 Unknown [id number] 1965 Unknown [id number] Social History Date Type Detail Facility Start: 08-24-2018 End: 04-25-2022 Never smoked tobacco (finding) [facility] Comment on above: No smoke exposure Sex Assigned At Female [facility] Start: 04-25-2022 Tobacco use and exposure Smoke less tobacco non-user [facility] Start: 04-25-2022 End: 08-19-2024 Alcohol intake Current non-drinker of alcohol (finding) [facility] Start: 1965 Sex Assigned At Not on file C [facility] Start: 01-22-2020 End: 01-22-2023 History of Social function [facility] Start: 01-22-2020 End: 01-22-2023 Tobacco use panel [facility] Start: 01-16-2012 PHQ2 Score 3 [facility] Sexual Orientation Hardwick Cherry rocha [facility] Start: 11-30-2018 Sex Female (finding) [facility] Medical Equipment Procedure Code Equipment Code Equipment Origin al Text Equipment Identifier Dates See Instructions , qs 1 month supply, # 1 EA, 11 Refill(s), Pharmacy: [facility], 185, cm, 03/23/24 8:03:00 EST, Height, 144, kg, 03/23/24 8:03:00 EST, Dosing Weight Start: 05-11-2024 See Instructions , qs 1 month supply, # 1 EA, 11 Refill(s), Pharmacy: [facility] 074, 185, cm, 03/23/24 8:03:00 EST, Height, 144, kg, 03/23/24 8:03:00 EST, Dosing Weight Start: 05-11-2024 See Instructions , qs 1 month supply, # 1 EA, 11 Refill(s), Pharmacy: [facility] 074, 185, cm, 03/23/24 8:03:00 EST, Height, 144, kg, 03/23/24 8:03:00 EST, Dosing Weight Start: 05-11-2024 Functional Status Date Assessment Result Facility 09-30-2022 Functional Status Nurse Libra bolanos q2hrs Performed Other: 7AM-230PM [facility] 09-30-2022 Functional Status Sequential Com pression Device bilateral knee high removed/off [facility] 09-30-2022 Functional Status Room check performed [facility] 09-30-2022 Functional Status [facility] 09-30-2022 Functional Status [facility] 09-30-2022 Functional Status [facility] 09-30-2022 Functional Status [facility] 09-29-2022 Functional Status [facility] 09-29-2022 Functional Status [facility] 09-29-2022 Functional Status Dinner Percent 100 [facility] 09-29-2022 Functional Status Single level home [facility] 09-29-2022 Functional Status Sensory Deficits None A [facility] 08-12-2018 Are you deaf, or do you have serious difficulty hearing No 08/12/2018 3:13 PM Serge Soria RN [facility] 08-12-2018 Are you blind, or do you have serious difficulty seeing, even when wearing glasses No 08/12/2018 3:13 PM Serge Soria RN No [facility] 08-12-2018 Do you have serious difficulty walking or climbing stairs No 08/12/2018 3:13 PM Serge Soria RN No [facility] 08-12-2018 Do you have difficul ty dressing or bathing No 08/12/2018 3:13 PM Serge Soria RN No [facility] 08-12-2018 Because of a physica l, mental, or emotional condition, do you have difficulty doing errands alone such as visiting a physician's office or shopping No 08/12/2018 3:13 PM EDT Serge Pineda RN No [facility] Mental Status Date Assessment Result Facility 09-30-2022 Mental Status Oriented x 4 [facility] 09-29-2022 Mental Status [facility] 09-29-2022 Mental Status [facility] 08-12-2018 Because of a physica l, mental, or emotional condition, do you have serious difficulty concentrating, remembering, or making decisions No 08/12/2018 3:13 PM EDT Serge Pineda RN No [facility] Clinical Notes 07-29-2018 to 08-19-2024 Razia Florence PA-C - 08/19/2024 8:58 AM EDTPatient Yin Aleman APRN.[employer] - 03/24/2024 2:19 PM EST Note Date & Type Note Facility 08-19-2024 Note HNO ID: [id number] Author: RAZIA FLORENCE PA-C Service: ? Author Type: Physician Data Collector Type: Progress Notes Filed: 08/19/2024 09:02 Note Text: This note was created using WeShowriter. Subjective Arabella Felix is a 59 year old female. Patient is a 59-year-old female who complains of dysuria, urinary urgency and urinary frequency that she has been experiencing for the past 2 days. Patient denies fever, chills, hematuria, flank pain, nausea or other symptoms. Patient does have a history of urinary tract infection and states that her current symptoms are consistent with same. UTI Associated symptoms include frequency and urgency. Review of Systems Genitourinary: Positive for dysuria, frequency and urgency. All other systems reviewed and are negative. Objective BP 157/83 Pulse (!) 53 Temp 36.3 ?C (97.3 ?F) Resp 18 Wt (!) 146.4 kg (322 lb 12.1 oz) LMP (LMP Unknown) SpO2 96% BMI 53.71 kg/m? Physical Exam Vitals and nursing note reviewed. Constitutional: Appearance: Normal appearance. She is normal weight. HENT: Head: Normocephalic and atraumatic. Right Ear: External ear normal. Left Ear: External ear normal. Nose: Nose normal. Mouth/Throat: Mouth: Mucous membranes are moist. Pharynx: Oropharynx is clear. Eyes: Extraocular Movements: Extraocular movements intact. Conjunctiva/sclera: Conjunctivae normal. Pupils: Pupils are equal, round, and reactive to light. Cardiovascular: Rate and Rhythm: Normal rate. Pulses: Normal pulses. Heart sounds: Normal heart sounds. Pulmonary: Effort: Pulmonary effort is normal. Breath sounds: Normal breath sounds. Abdominal: General: Abdomen is flat. Palpations: Abdomen is soft. Musculoskeletal: Cervical back: Normal range of motion and neck supple. Skin: General: Skin is warm and dry. Capillary Refill: Capillary refill takes less than 2 seconds. Neurological: General: No focal deficit present. Mental Status: She is alert and oriented to person, place, and time. Psychiatric: Mood and Affect: Mood normal. Behavior: Behavior normal. Thought Content: Thought content normal. Judgment: Judgment normal. Assessment and Plan Physical exam findings as noted above. Urinalysis shows moderate leukocyte esterase with moderate blood and urine culture was ordered. Patient was provided with a prescription for Keflex 500 mg. Patient states that she typically develops a vaginal yeast infection with antibiotic use and she was also provided with a prescription for Diflucan 150 mg. Patient was advised that the results of the urine culture will be available in 2 days and she will be contacted if there is a need to change her medication based on the sensitivity report. Patient verbalizes clear understanding of all instructions. CLINICAL IMPRESSION: Acute UTI ASSESSMENT/PLAN: 1. Burning with urination - ICD9: 788.1, ICD10: R30.0 (primary diagnosis) - UA DIP, URINE (POC) 2. Acute UTI - ICD9: 599.0, ICD10: N39.0 - BACTERIAL CULTURE, URINE - CEPHALEXIN 500 MG CAPSULE - FLUCONAZOLE 150 MG TABLET MDM Amount and/or Complexity of Data Reviewed Clinical lab tests: ordered and reviewed Risk of Complications, Morbidity, and/or Mortality Presenting problems: low Diagnostic procedures: low Management options: montserrat Florence PA-C [facility] 08-19-2024 History of Presen t illness Narrative This note was created using NoteWriter. Subjective Arabella Felix is a 59 year old female. Patient is a 59-year-old female who complains of dysuria, urinary urgency and urinary frequency that she has been experiencing for the past 2 days. Patient denies fever, chills, hematuria, flank pain, nausea or other symptoms. Patient does have a history of urinary tract infection and states that her current symptoms are consistent with same. UTI Associated symptoms include frequency and urgency. Review of Systems Genitourinary: Positive for dysuria, frequency and urgency. All other systems reviewed and are negative. Objective BP 157/83 Pulse (!) 53 Temp 36.3 C (97.3 F) Resp 18 Wt (!) 146.4 kg (322 lb 12.1 oz) LMP (LMP Unknown) SpO2 96% BMI 53.71 kg/m Physical Exam Vitals and nursing note reviewed. Constitutional: Appearance: Normal appearance. She is normal weight. HENT: Head: Normocephalic and atraumatic. Right Ear: External ear normal. Left Ear: External ear normal. Nose: Nose normal. Mouth/Throat: Mouth: Mucous membranes are moist. Pharynx: Oropharynx is clear. Eyes: Extraocular Movements: Extraocular movements intact. Conjunctiva/sclera: Conjunctivae normal. Pupils: Pupils are equal, round, and reactive to light. Cardiovascular: Rate and Rhythm: Normal rate. Pulses: Normal pulses. Heart sounds: Normal heart sounds. Pulmonary: Effort: Pulmonary effort is normal. Breath sounds: Normal breath sounds. Abdominal: General: Abdomen is flat. Palpations: Abdomen is soft. Musculoskeletal: Cervical back: Normal range of motion and neck supple. Skin: General: Skin is warm and dry. Capillary Refill: Capillary refill takes less than 2 seconds. Neurological: General: No focal deficit present. Mental Status: She is alert and oriented to person, place, and time. Psychiatric: Mood and Affect: Mood normal. Behavior: Behavior normal. Thought Content: Thought content normal. Judgment: Judgment normal. Assessment and Plan Physical exam findings as noted above. Urinalysis shows moderate leukocyte esterase with moderate blood and urine culture was ordered. Patient was provided with a prescription for Keflex 500 mg. Patient states that she typically develops a vaginal yeast infection with antibiotic use and she was also provided with a prescription for Diflucan 150 mg. Patient was advised that the results of the urine culture will be available in 2 days and she will be contacted if there is a need to change her medication based on the sensitivity report. Patient verbalizes clear understanding of all instructions. CLINICAL IMPRESSION: Acute UTI ASSESSMENT/PLAN: 1. Burning with urination - ICD9: 788.1, ICD10: R30.0 (primary diagnosis) - UA DIP, URINE (POC) 2. Acute UTI - ICD9: 599.0, ICD10: N39.0 - BACTERIAL CULTURE, URINE - CEPHALEXIN 500 MG CAPSULE - FLUCONAZOLE 150 MG TABLET MDM Amount and/or Complexity of Data Reviewed Clinical lab tests: ordered and reviewed Risk of Complications, Morbidity, and/or Mortality Presenting problems: low Diagnostic procedures: low Management options: montserrat Florence PA-C documented in this encounter [facility] 06-28-2024 Note . MICRO - Microbiology PROCEDURE: Urine Culture [*1] SOURCE: Urine, Clean Catch BODY SITE: COLLECTED DATE/TIME: 06/26/2024 16:08 EDT RECEIVED DATE/TIME: 06/26/2024 18:52 EDT START DATE/TIME: 06/26/2024 18:52 EDT FREE TEXT SOURCE: FINAL REPORTS Final Report [] Verified Date/Time/Personnel: 06/28/2024 08:11 EDT >100,000 cfu/ml Escherichia coli PRELIMINARY REPORTS Preliminary Report [] Verified Date/Time/Personnel: 06/27/2024 11:07 EDT >100,000 cfu/ml Escherichia coli JAVON to follow Preliminary Report [] Verified Date/Time/Personnel: 06/26/2024 19:59 EDT Specimen received in lab. SUSCEPTIBILITY RESULTS Escherichia coli Antibiotic JAVON Dilut JAVON Inter Ampicillin <=8 Susceptible Ampicillin/ <=4/2 Susceptible Sulbactam Aztreonam <=4 Susceptible Cefazolin <=2 Susceptible Ceftazidime/ <=4 Susceptible Avibactam Ceftolozane/ <=2 Susceptible Tazobactam Ciprofloxacin <=0.25 Susceptible Ertapenem <=0.5 Susceptible Gentamicin <=2 Susceptible ID Panel Not Not Applicable Applicable Imipenem <=1 Susceptible Levofloxacin <=0.5 Susceptible Meropenem <=1 Susceptible Minocycline <=4 Susceptible Nitrofurantoin <=32 Susceptible Trimethoprim/ <=0.5/9.5 Susceptible Sulfa Performing Locations *1: This test was performed at: [facility], [address] [place] [address], [id number] , [facility] 03-24-2024 Instructions Yin Kay APRN.CHULA - 03/24/2024 2:25 PM EST Zyrtec 10 mg By mouth daily at bedtime Flonase 2 sprays in each nostril once a day To get the best results when using a Nasal Steroid, do the following: Tilt your head down, bringing your chin closer to your chest Insert the nozzle of the medication bottle inside the nostril and direct it towards the outside, away from the middle of the nose. Your sinus openings are at the outside of the nose. Pump or activate the spray and lightly or slowly sniff air up into that nostril. Do not sniff hard or fast as you will pull the medication through the nose to the back of the throat where you will taste it and it does no good. If some medication drips out simply sniff in a little more or wipe it away Repeat this process on the other side. -Increase fluid intake. --Rest as much as possible. - Nasal saline spray, marvin pot, flonase Take the entire course of antibiotics as prescribed. DO NOT stop taking it early, even if you are feeling better. -Monitor for signs of worsening infection: increased temperature, pain in face, ear pain or headaches or increase in nasal congestion/mucous that is not improving. documented in this encounter [facility] 03-24-2024 Note HNO ID: [id number] Author: YIN KAY APRN.CHULA Service: ? Author Type: Nurse Practitioner Type: Progress Notes Filed: 03/24/2024 14:29 Note Text: Subjective The history is provided by the patient. No language arts teacher was used. HPI Arabella Felix is a 58 year old female who presents today for CC of sinus pressure, cough, congestion for a week. She has used mucinex, with no relief. 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 BP 151/85 Pulse (!) 55 Temp 36.7 ?C (98.1 ?F) Resp 20 Wt (!) 145 kg (319 lb 10.7 oz) LMP (LMP Unknown) SpO2 97% BMI 53.20 kg/m? 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 HENT: Positive for congestion and sinus pain. Negative for ear pain and sore throat. Respiratory: Positive for cough. Negative for sputum production, shortness of breath and wheezing. Cardiovascular: Negative for chest pain. Gastrointestinal: Negative for abdominal pain, diarrhea, nausea and vomiting. Musculoskeletal: Negative for myalgias. Neurological: Negative for headaches. Objective Physical Exam Vitals and nursing note reviewed. HENT: Head: Normocephalic and atraumatic. Right Ear: Tympanic membrane, ear canal and external ear normal. Left Ear: Tympanic membrane, ear canal and external ear normal. Nose: Mucosal edema, congestion and rhinorrhea present. Right Sinus: Frontal sinus tenderness present. No maxillary sinus tenderness. Left Sinus: Frontal sinus tenderness present. No maxillary sinus tenderness. Mouth/Throat: Pharynx: Uvula midline. Postnasal drip present. No oropharyngeal exudate or posterior oropharyngeal erythema. Cardiovascular: Rate and Rhythm: Normal rate and regular rhythm. Heart sounds: Normal heart sounds. Pulmonary: Effort: Pulmonary effort is normal. Breath sounds: Normal breath sounds. Lymphadenopathy: Head: Right side of head: No submental, submandibular or tonsillar adenopathy. Left side of head: No submental, submandibular or tonsillar adenopathy. Cervical: No cervical adenopathy. Skin: General: Skin is warm and dry. Neurological: Mental Status: She is alert. Psychiatric: Mood and Affect: Affect normal. ASSESSMENT/PLAN: 1. Acute cough - ICD9: 786.2, ICD10: R05.1 (primary diagnosis) Tesrohinion Perlzaid Post viral, post nasal drianage 2. Acute non-recurrent frontal sinusitis - ICD9: 461.1, ICD10: J01.10 - Will begin treatment with Doxycycline - The patient should also be given zyrtec,flonase for the first 5-7 days of treatment. - Supportive care with plenty of fluids, rest, and analgesia prn. - Follow up in one week if symptoms persist or worsen. Diagnosis and treatment plan were discussed and questions were answered to the patient's satisfaction. Pt acknowledged understanding of concepts and follow up plan. Specific signs and symptoms that would indicate the need for higher level of care were discussed in detail warranting prompt ER evaluation. Yin Kay APRN.[facility] 03-24-2024 History of Presen t illness Narrative Subjective The history is provided by the patient. No language arts teacher was used. HPI Arabella Felix is a 58 year old female who presents today for CC of sinus pressure, cough, congestion for a week. She has used mucinex, with no relief. 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 HENT: Positive for congestion and sinus pain. Negative for ear pain and sore throat. Respiratory: Positive for cough. Negative for sputum production, shortness of breath and wheezing. Cardiovascular: Negative for chest pain. Gastrointestinal: Negative for abdominal pain, diarrhea, nausea and vomiting. Musculoskeletal: Negative for myalgias. Neurological: Negative for headaches. Objective Physical Exam Vitals and nursing note reviewed. HENT: Head: Normocephalic and atraumatic. Right Ear: Tympanic membrane, ear canal and external ear normal. Left Ear: Tympanic membrane, ear canal and external ear normal. Nose: Mucosal edema, congestion and rhinorrhea present. Right Sinus: Frontal sinus tenderness present. No maxillary sinus tenderness. Left Sinus: Frontal sinus tenderness present. No maxillary sinus tenderness. Mouth/Throat: Pharynx: Uvula midline. Postnasal drip present. No oropharyngeal exudate or posterior oropharyngeal erythema. Cardiovascular: Rate and Rhythm: Normal rate and regular rhythm. Heart sounds: Normal heart sounds. Pulmonary: Effort: Pulmonary effort is normal. Breath sounds: Normal breath sounds. Lymphadenopathy: Head: Right side of head: No submental, submandibular or tonsillar adenopathy. Left side of head: No submental, submandibular or tonsillar adenopathy. Cervical: No cervical adenopathy. Skin: General: Skin is warm and dry. Neurological: Mental Status: She is alert. Psychiatric: Mood and Affect: Affect normal. ASSESSMENT/PLAN: 1. Acute cough - ICD9: 786.2, ICD10: R05.1 (primary diagnosis) Tesrohinion Perles Post viral, post nasal drianage 2. Acute non-recurrent frontal sinusitis - ICD9: 461.1, ICD10: J01.10 - Will begin treatment with Doxycycline - The patient should also be given zyrtec,flonase for the first 5-7 days of treatment. - Supportive care with plenty of fluids, rest, and analgesia prn. - Follow up in one week if symptoms persist or worsen. Diagnosis and treatment plan were discussed and questions were answered to the patient's satisfaction. Pt acknowledged understanding of concepts and follow up plan. Specific signs and symptoms that would indicate the need for higher level of care were discussed in detail warranting prompt ER evaluation. Yin Kay APRN.[employer] documented in this encounter [facility] 03-23-2024 Note Exam Date Time Procedure Performing Provider Status 03/23/24 9:42 AM XR Spine Lumbar Ap/Lat BENTON, DARIUS M D; Auth (Verified) [id number] ORIGINAL EXAMINATION: 3 XRAY VIEWS OF THE LUMBAR SPINE 03/23/2024 9:43 am COMPARISON: None. HISTORY: ORDERING SYSTEM PROVIDED HISTORY: Reason for Exam: M47.816 FINDINGS: Vertebral body height and alignment is preserved. Marked degenerative disc disease is present at L3-4. Mild degenerative changes are noted elsewhere. No fracture or dislocation seen. Sacrum and SI joints are unremarkable. IMPRESSION: Degenerative changes, no acute process. Interpreted by: Darius Girard MD Preliminary Report By: Darius Girard MD Electronically signed By Darius Girard MD Dictated Date: 03/23/2024 9:52:00 AM Prelim Date: 03/23/2024 9:52:33 AM Sign Date: 03/23/2024 9:52:33 AM Ordering Provider: [facility]02-07-2025 Note* Exam Date Time Procedure Performing Provider Status 03/23/24 9:41 AM XR Knee 3 Views Right DARIUS GIRARD MD ; Auth (Verified) [id number] ORIGINAL EXAMINATION: THREE XRAY VIEWS OF THE RIGHT KNEE 03/23/2024 9:42 am COMPARISON: None. HISTORY: ORDERING SYSTEM PROVIDED HISTORY: Reason for Exam: M17.0 FINDINGS: Moderate osteoarthritis is present, greatest at the patellofemoral and lateral compartments. There are corticated densities overlying the joint which may represent small loose bodies. No fracture or dislocation is evident. There is a small knee joint effusion present. IMPRESSION: Moderate osteoarthritis. Small joint effusion. Interpreted by: Darius Girard MD Preliminary Report By: Darius Girard MD Electronically signed By Darius Girard MD Dictated Date: 03/23/2024 9:51:13 AM Prelim Date: 03/23/2024 9:51:51 AM Sign Date: 03/23/2024 9:51:51 AM Ordering Provider: [facility]02-07-2025 Note* Exam Date Time Procedure Performing Provider Status 03/23/24 9:39 AM XR Knee 3 Views Left DARIUS GIRARD MD; Auth (Verified) [id number] ORIGINAL EXAMINATION: THREE XRAY VIEWS OF THE LEFT KNEE03/23/2024 9:41 am COMPARISON: None HISTORY: ORDERING SYSTEM PROVIDED HISTORY: Reason for Exam: M17.0 FINDINGS: No acute fracture or dislocation is identified. Moderate suprapatellar effusion. Severe tricompartmental degenerative changes with joint space narrowing and marginal spurring, worse at the medial and patellofemoral joints. Dystrophic calcifications or loose bodies. IMPRESSION: Severe degenerative changes. Moderate effusion. Dystrophic calcifications or loose bodies. I have personally reviewed the images of this examination and agree with the resident's findings and interpretation. Interpreted by: Darius Girard MD Preliminary Report By: Jonas Tidwell MD Electronically signed By Darius Girard MD Dictated Date: 03/23/2024 9:50:58 AM Prelim Date: 03/23/2024 10:41:25 AM Sign Date: 03/23/2024 10:41:25 AM [facility]03-21-2024 Note. MICRO - Microbiology PROCEDURE: Urine Culture [*1] SOURCE: Urine, Clean Catch BODY SITE: COLLECTED DATE/TIME: 05/03/2023 16:45 EDT RECEIVED DATE/TIME: 05/03/2023 20:03 EDT START DATE/TIME: 05/03/2023 20:03 EDT FREE TEXT SOURCE: FINAL REPORTS Final Report [] Verified Date/Time/Personnel: 05/05/2023 07:22 EDT >100,000 cfu/ml Escherichia coli PRELIMINARY REPORTS Preliminary Report [] Verified Date/Time/Personnel: 05/04/2023 11:02 EDT >100,000 cfu/ml Escherichia coli JAVON to follow SUSCEPTIBILITY RESULTS Escherichia coli Antibiotic JAVON Dilut JAVON Inter Ampicillin >16 Resistant Ampicillin/ 16/8 Intermediate Sulbactam Aztreonam <=4 Susceptible Cefazolin <=2 Susceptible Ciprofloxacin <=0.25 Susceptible Ertapenem <=0.5 Susceptible Gentamicin <=2 Susceptible ID Panel Not Not Applicable Applicable Imipenem <=1 Susceptible Levofloxacin <=0.5 Susceptible Meropenem <=1 Susceptible Minocycline >8 Resistant Nitrofurantoin <=32 Susceptible Piperacillin/ <=8 Susceptible Tazobactam Trimethoprim/ <=0.5/9.5 Susceptible Sulfa Performing Locations *1: This test was performed at: [facility] [address] [place] [address], [id number]- , [facility] ([place])01-22-2023 History of Present illness Narrative* Matilda Paige APRN.[employer]OR [employer] - 01/22/2023 2:18 PM EST Subjective URI She complains of cough and sputum production. There is no shortness of breath or wheezing. Associated symptoms include ear pain and headaches. Pertinent negatives include no chest pain, fever, myalgias or sore throat. Arabella Felix is a 57 year old female who presents with cough, runny nose, headache, for 3 weeks, intermittent left ear pain for past few days. She has been taking Delsym at home. Her is sick currently with URI symptoms. She has not had a fever. Cough has been productive. Review of Systems Constitutional: Negative for chills and fever. HENT: Positive for congestion and ear pain. Negative for sore throat. Respiratory: Positive for cough and sputum production. Negative for shortness of breath and wheezing. Cardiovascular: Negative for chest pain. Musculoskeletal: Negative for myalgias. Neurological: Positive for headaches. 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 carvedilol (COREG) 6.25 mg tablet Take 1 tablet by mouth twice daily with meals. busPIRone (BUSPAR) 15 mg tablet Take 15 mg by mouth three times daily. metFORMIN (GLUCOPHAGE) 500 mg tablet Take 1 tablet by mouth twice daily with meals. . citalopram (CELEXA) 40 mg tablet Take 1 tablet by mouth once daily. simvastatin (ZOCOR) 10 mg tablet Take 1 tablet by mouth daily at bedtime. For cholesterols. SITagliptin phosphate (JANUVIA) 50 mg tablet Take 100 mg by mouth once daily. glipiZIDE (GLUCOTROL) 10 mg tablet Take 10 mg by mouth. (Patient not taking: Reported on 01/22/2023) amoxicillin (AMOXIL) 875 mg tablet Take 1 tablet by mouth two times a day for 7 days. guaiFENesin (ROBITUSSIN) 100 mg/5 mL syrup Take 20 mL by mouth every 6 hours as needed for cough. predniSONE (DELTASONE) 20 mg tablet Take 2 tablets by mouth once daily for 4 days. Take daily with food. febuxostat (ULORIC) 40 mg tab Take 40 mg by mouth once daily. (Patient not taking: Reported on 01/22/2023) FAMILY HISTORY Problem Relation Age of Onset Cancer Mother Heart Maternal Grandfather Massive CT at 45 Heart Father s/p angioplasty Social History Tobacco Use Smoking status: Never Smokeless tobacco: Never Substance Use Topics Alcohol use: No Drug use: Never Objective Physical Exam Vitals and nursing note reviewed. HENT: Right Ear: Tympanic membrane, ear canal and external ear normal. Left Ear: Ear canal and external ear normal. Tympanic membrane is injected and erythematous. Nose: Nose normal. Mouth/Throat: Pharynx: Uvula midline. No oropharyngeal exudate or posterior oropharyngeal erythema. Cardiovascular: Rate and Rhythm: Normal rate and regular rhythm. Heart sounds: Normal heart sounds. Pulmonary: Effort: Pulmonary effort is normal. No respiratory distress. Breath sounds: Normal breath sounds. No wheezing or rales. Musculoskeletal: Cervical back: Neck supple. Lymphadenopathy: Cervical: No cervical adenopathy. Skin: General: Skin is warm and dry. Findings: No erythema or rash. Neurological: Mental Status: She is alert. ASSESSMENT/PLAN: 1. Other acute nonsuppurative otitis media of left ear, recurrence not specified - ICD9: 381.00, ICD10: H65.192 (primary diagnosis) - Will begin treatment with as per antibiotic as written, see orders - Supportive care with plenty of fluids, rest, and analgesia prn. - AMOXICILLIN 875 MG TABLET 2. Bronchitis - ICD9: 490, ICD10: J40 - GUAIFENESIN 100 MG/5 ML ORAL LIQUID - PREDNISONE 20 MG TABLET - Follow-up with your PCP in 3-5 days if symptoms have not improved or sooner if symptoms worsen - Discussed red flags and need for immediate medical evaluation if any occur. - Discussed supportive care treatment with fluids, rest and analgesia. - Discussed expected course of illness Matilda Paige APRN.CNP [facility] Instructions* Patient Instructions* Matilda Paige APRN.CNP - 01/22/2023 2:16 PM EST ASSESSMENT/PLAN: 1. Other acute nonsuppurative otitis media of left ear, recurrence not specified - ICD9: 381.00, ICD10: H65.192 (primary diagnosis) - Will begin treatment with as per antibiotic as written, see orders - Supportive care with plenty of fluids, rest, and analgesia prn. - AMOXICILLIN 875 MG TABLET 2. Bronchitis - ICD9: 490, ICD10: J40 - GUAIFENESIN 100 MG/5 ML ORAL LIQUID - PREDNISONE 20 MG TABLET - Follow-up with your PCP in 3-5 days if symptoms have not improved or sooner if symptoms worsen - Discussed red flags and need for immediate medical evaluation if any occur. - Discussed supportive care treatment with fluids, rest and analgesia. - Discussed expected course of illness Matilda Paige APRN.[employer]RI[employer] documented [facility] this encounter[facility] Note. MICRO - Microbiology PROCEDURE: Urine Culture [*1] SOURCE: Urine, Clean Catch BODY SITE: COLLECTED DATE/TIME: 12/23/2022 16:32 EST RECEIVED DATE/TIME: 12/23/2022 18:49 EST START DATE/TIME: 12/23/2022 18:49 EST FREE TEXT SOURCE: FINAL REPORTS Final Report [] Verified Date/Time/Personnel: 12/24/2022 14:11 EST >100,000 cfu/ml Multiple bacterial morphotypes present. Probable Contamination. Suggest recollection if clinically indicated. Performing Locations *1: This test was performed at: [facility], [address] [place] [address], [id number]- , [facility] ([place])09-30-2022 Hospital Discharge instructions Patient Education 09/30/2022 13:58:01 Heart Failure Exacerbation Heart Failure Exacerbation Heart failure is a condition in which the heart does not fill up with enough blood, and therefore does not pump enough blood and oxygen to the body. When this happens, parts of the body do not get the blood and oxygen they need to function properly. This can cause symptoms such as breathing problems, fatigue, swelling, and confusion. Heart failure exacerbation refers to heart failure symptoms that get worse. The symptoms may get worse suddenly or develop slowly over time. Heart failure exacerbation is a serious medical problem that should be treated right away. What are the causes? A heart failure exacerbation can be triggered by: Not taking your heart failure medicines correctly. Infections. Eating an unhealthy diet or a diet that is high in salt (sodium). Drinking too much fluid. Drinking alcohol. Taking illegal drugs, such as cocaine or methamphetamine. Not exercising. Other causes include: Other heart conditions such as an irregular heartbeat (arrhythmia). Anemia. Other medical problems, such as kidney failure. Sometimes the cause of the exacerbation is not known. What are the signs or symptoms? When heart failure symptoms suddenly or slowly get worse, this may be a sign of heart failure exacerbation. Symptoms of heart failure include: Breathing problems or shortness of breath. Chronic coughing or wheezing. Fatigue. Nausea or lack of appetite. Feeling light-headed. Confusion or memory loss. Increased heart rate or irregular heartbeat. Buildup of fluid in the legs, ankles, feet, or abdomen. Difficulty breathing when lying down. How is this diagnosed? This condition is diagnosed based on: Your symptoms and medical history. A physical exam. You may also have tests, including: Electrocardiogram (ECG). This test measures the electrical activity of your heart. Echocardiogram. This test uses sound waves to take a picture of your heart to see how well it works. Blood tests. Imaging tests, such as: ?Chest X-ray. ?MRI. ?Ultrasound. Stress test. This test examines how well your heart functions when you exercise. Your heart is monitored while you exercise on a treadmill or exercise bike. If you cannot exercise, medicines may be used to increase your heartbeat in place of exercise. Cardiac catheterization. During this test, a thin, flexible tube (catheter) is inserted into a blood vessel and threaded up to your heart. This test allows your health care provider to check the arteries that lead to your heart (coronary arteries). Right heart catheterization. During this test, the pressure in your heart is measured. How is this treated? This condition may be treated by: Adjusting your heart medicines. Maintaining a healthy lifestyle. This includes: ?Eating a heart-healthy diet that is low in sodium. ?Not using any products that contain nicotine or tobacco, such as cigarettes and e-cigarettes. ?Regular exercise. ?Monitoring your fluid intake. ?Monitoring your weight and reporting changes to your health care provider. Treating sleep apnea, if you have this condition. Surgery. This may include: ?Implanting a device that helps both sides of your heart contract at the same time (cardiac resynchronization therapy device). This can help with heart function and relieve heart failure symptoms. ?Implanting a device that can correct heart rhythm problems (implantable cardioverter defibrillator). ?Connecting a device to your heart to help it pump blood (ventricular assist device). ?Heart transplant. Follow these instructions at home: Medicines Take [id number] and prescription medicines only as told by your health care provider. Do not stop taking your medicines or change the amount you take. If you are having problems or sideeffects from your medicines, talk to your health care provider. If you are having difficulty paying for your medicines, contact a social service director or your clinic. There are many programs to assist with medicine costs. Talk to your health care provider before starting any new medicines or supplements. Make sure your health care provider and pharmacist have a list of all the medicines you are taking. Eating and drinking Avoid drinking alcohol. Eat a heart-healthy diet as told by your health care provider. This includes: ?Plenty of fruits and vegetables. ?Lean proteins. ?Low-fat dairy. ?Whole grains. ?Foods that are low in sodium. Activity Exercise regularly as told by your health care provider. Balance exercise with rest. Ask your health care provider what activities are safe for you. This includes sexual activity, exercise, and daily tasks at home or work. Lifestyle Do not use any products that contain nicotine or tobacco, such as cigarettes and e-cigarettes. If you need help quitting, ask your health care provider. Maintain a healthy weight. Ask your health care provider what weight is healthy for you. Consider joining a patient support group. This can help with emotional problems you may have, such as stress and anxiety. General instructions Talk to your health care provider about flu and pneumonia vaccines. Keep a list of medicines that you are taking. This may help in emergency situations. Keep all follow-up visits as told by your health care provider. This is important. Contact a health care provider if: You have questions about your medicines or you miss a dose. You feel anxious, depressed, or stressed. You have swelling in your feet, ankles, legs, or abdomen. You have shortness of breath during activity or exercise. You have a cough. You have a fever. You have trouble sleeping. You gain 2 3 lb (1 1.4 kg) in 24 hours or 5 lb (2.3 kg) in a week. Get help right away if: You have chest pain. You have shortness of breath while resting. You have severe fatigue. You are confused. You have severe dizziness. You have a rapid or irregular heartbeat. You have nausea or you vomit. You have a cough that is worse at night or you cannot lie flat. You have a cough that will not go away. You have severe depression or sadness. Summary When heart failure symptoms get worse, it is called heart failure exacerbation. Common causes of this condition include taking medicines incorrectly, infections, and drinking alcohol. This condition may be treated by adjusting medicines, maintaining a healthy lifestyle, or surgery. Do not stop taking your medicines or change the amount you take. If you are having problems or sideeffects from your medicines, talk to your health care provider. This information is not intended to replace advice given to you by your health care provider. Make sure you discuss any questions you have with your health care provider. Document Released: 06/14/2017 Document Revised: 01/13/2018 Document Reviewed: 06/14/2017 [employer] Patient Education 2020 [employer] Follow Up Care 09/29/2022 08:49:10 With:MANAN HARTMAN [employer]IC-[employer]RIBUTOR [employer] Address: [address] [facility] [address] [place] [phone] When:10/13/2022 11:00:00 Comments:This is your Follow up appt. With:LIANNE VENTURA APRN, CNP Address: [address] [place] [address]- When:3-5 days Comments:Please schedule a Follow up appt after d/c. [facility] 08-17-2023 Note Discharge Instructions Thank you for allowing [facility] to assist you with your healthcare needs. The following is importantdischarge information regarding your hospital visit. Your Care Team [facility] Your Diagnosis CHF exacerbation Depression, prolonged DM type 2, goal HbA1c < 7.5% GERD (gastroesophageal reflux disease) HTN (hypertension) Hyperlipidemia LDL goal <100 IHSS (idiopathic hypertrophic subaortic stenosis) Seasonal allergies What to do next Instructions From Your Doctor You are admitted for heart failure exacerbation and received IV Lasix. You were seen by Marian Hartman,cardiology nurse practitioner. She is discharging you with a prescription for Lasix 20 mg daily. Please plan to follow-up with her upon discharge Scheduled Follow-Up Appointments Appointment Type When With Where Contact [facility] Follow Up 10/13/2022 11:00 AM EDT MANAN HARTMAN [facility] Follow Up 01/31/2023 07:00 AM EST LIANNE VENTURA APRN, CNP [facility] Follow Up Appointments Follow Up with MANAN HARTMAN When 10/13/2022 11:00 AM EDT Why: This is your Follow up appt. Where: [address] [place] [phone] Follow Up with LIANNE VENTURA APRN, CNP When Within 3-5 days Why: Please schedule a Follow up appt after d/c. Where: [address] [place] [address]- The Following Activity and Diet Have Been Ordered for You Discharge Activity - Ordered -- Resume your pre-hospitalization activity, 09/30/22 12:55:00 EDT Discharge Diet - Ordered -- No changes were made to your diet during your hospital stay. Please resume your pre hospitalization diet on discharge., 09/30/22 12:55:00 EDT Allergies Betadine (Hives) penicillin (Intolerance) Medications Please ask your primary doctor or pharmacist before taking any other medication not listed, including over the counter drugs, herbal medications, vitamins and or supplements as they may interact withyour home medications. What How Much When Why Instructions Last Dose New furosemide (Lasix 20 mg oral tablet) 1 tab(s) by mouth Every day Pickup at [facility] Unchanged busPIRone (busPIRone 15 mg oral tablet) 1 tab(s) by mouth Three (3) times a day Depression, prolonged Duration: 90 Days Unchanged carvedilol (carvedilol 6.25 mg oral tablet) 1 tab(s) by mouth Two (2) times a day HTN, goal below 140/90 Duration: 90 Days Unchanged cholecalciferol (cholecalciferol 1250 mcg (50,000 intl units) oral capsule) 1 cap by mouth Once a month Vitamin D deficiency Duration: 90 Days Unchanged citalopram (citalopram 40 mg oral tablet) 1 tab(s) by mouth Once a day Depression, prolonged Duration: 90 Days Unchanged DME (Pen needles 4 mm) See instructions DM type 2, goal HbA1c < 7.5% Quantity sufficient for 3 month supply Unchanged ferrous sulfate (ferrous sulfate 325 mg (65 mg elemental iron) oral delayed release tablet) 1 tab(s) by mouth Every other day Anemia Duration: 90 Days Unchanged insulin detemir (Levemir) (Levemir FlexTouch 100 units/ mL 3 mL Pen) 54 unit(s) Subcutaneous Daily at bedtime DM type 2, goal HbA1c < 7.5% Duration: 30 Days Unchanged metFORMIN (metFORMIN 500 mg oral tablet EXTENDED RELEASE) 1 tab(s) by mouth Two (2) times a day Duration: 90 Days Unchanged montelukast (Singulair 10 mg oral tablet) 1 tab(s) by mouth Once a day Seasonal allergies Unchanged pantoprazole (pantoprazole 40 mg oral enteric coated tablet) 1 tab(s) by mouth Once a day GERD (gastroesophageal reflux disease) Unchanged simvastatin (simvastatin 10 mg oral tablet) 1 tab(s) by mouth Daily at bedtime Hyperlipidemia LDL goal <100 Duration: 90 Days Unchanged SITagliptin (Januvia 100 mg oral tablet) 1 tab(s) by mouth Every day DM type 2, goal HbA1c < 7.5% Duration: 90 Days Pharmacy Information [facility]: [id number] [place], [place] [id number] [phone] Please take this list to your next doctor s visit. Bring all medications you take, including over the counter medications, herbals and other supplements with you to your doctor s visit. Patients and families are reminded to discard old lists and to update any records with all medication providers or retail pharmacies. Education Materials Heart Failure Exacerbation Heart failure is a condition in which the heart does not fill up with enough blood, and therefore does not pump enough blood and oxygen to the body. When this happens, parts of the body do not get the blood and oxygen they need to function properly. This can cause symptoms such as breathing problems, fatigue, swelling, and confusion. Heart failure exacerbation refers to heart failure symptoms that get worse. The symptoms may get worse suddenly or develop slowly over time. Heart failure exacerbation is a serious medical problem that should be treated right away. What are the causes? A heart failure exacerbation can be triggered by: Not taking your heart failure medicines correctly. Infections. Eating an unhealthy diet or a diet that is high in salt (sodium). Drinking too much fluid. Drinking alcohol. Taking illegal drugs, such as cocaine or methamphetamine. Not exercising. Other causes include: Other heart conditions such as an irregular heartbeat (arrhythmia). Anemia. Other medical problems, such as kidney failure. Sometimes the cause of the exacerbation is not known. What are the signs or symptoms? When heart failure symptoms suddenly or slowly get worse, this may be a sign of heart failure exacerbation. Symptoms of heart failure include: Breathing problems or shortness of breath. Chronic coughing or wheezing. Fatigue. Nausea or lack of appetite. Feeling light-headed. Confusion or memory loss. Increased heart rate or irregular heartbeat. Buildup of fluid in the legs, ankles, feet, or abdomen. Difficulty breathing when lying down. How is this diagnosed? This condition is diagnosed based on: Your symptoms and medical history. A physical exam. You may also have tests, including: Electrocardiogram (ECG). This test measures the electrical activity of your heart. Echocardiogram. This test uses sound waves to take a picture of your heart to see how well it works. Blood tests. Imaging tests, such as: ? Chest X-ray. ? MRI. ? Ultrasound. Stress test. This test examines how well your heart functions when you exercise. Your heart is monitored while you exercise on a treadmill or exercise bike. If you cannot exercise, medicines may be used to increase your heartbeat in place of exercise. Cardiac catheterization. During this test, a thin, flexible tube (catheter) is inserted into a blood vessel and threaded up to your heart. This test allows your health care provider to check the arteries that lead to your heart (coronary arteries). Right heart catheterization. During this test, the pressure in your heart is measured. How is this treated? This condition may be treated by: Adjusting your heart medicines. Maintaining a healthy lifestyle. This includes: ? Eating a heart-healthy diet that is low in sodium. ? Not using any products that contain nicotine or tobacco, such as cigarettes and e-cigarettes. ? Regular exercise. ? Monitoring your fluid intake. ? Monitoring your weight and reporting changes to your health care provider. Treating sleep apnea, if you have this condition. Surgery. This may include: ? Implanting a device that helps both sides of your heart contract at the same time (cardiac resynchronization therapy device). This can help with heart function and relieve heart failure symptoms. ? Implanting a device that can correct heart rhythm problems (implantable cardioverter defibrillator). ? Connecting a device to your heart to help it pump blood (ventricular assist device). ? Heart transplant. Follow these instructions at home: Medicines Take [id number] and prescription medicines only as told by your health care provider. Do not stop taking your medicines or change the amount you take. If you are having problems or sideeffects from your medicines, talk to your health care provider. If you are having difficulty paying for your medicines, contact a social service director or your clinic. There are many programs to assist with medicine costs. Talk to your health care provider before starting any new medicines or supplements. Make sure your health care provider and pharmacist have a list of all the medicines you are taking. Eating and drinking Avoid drinking alcohol. Eat a heart-healthy diet as told by your health care provider. This includes: ? Plenty of fruits and vegetables. ? Lean proteins. ? Low-fat dairy. ? Whole grains. ? Foods that are low in sodium. Activity Exercise regularly as told by your health care provider. Balance exercise with rest. Ask your health care provider what activities are safe for you. This includes sexual activity, exercise, and daily tasks at home or work. Lifestyle Do not use any products that contain nicotine or tobacco, such as cigarettes and e-cigarettes. If you need help quitting, ask your health care provider. Maintain a healthy weight. Ask your health care provider what weight is healthy for you. Consider joining a patient support group. This can help with emotional problems you may have, such as stress and anxiety. General instructions Talk to your health care provider about flu and pneumonia vaccines. Keep a list of medicines that you are taking. This may help in emergency situations. Keep all follow-up visits as told by your health care provider. This is important. Contact a health care provider if: You have questions about your medicines or you miss a dose. You feel anxious, depressed, or stressed. You have swelling in your feet, ankles, legs, or abdomen. You have shortness of breath during activity or exercise. You have a cough. You have a fever. You have trouble sleeping. You gain 2 3 lb (1 1.4 kg) in 24 hours or 5 lb (2.3 kg) in a week. Get help right away if: You have chest pain. You have shortness of breath while resting. You have severe fatigue. You are confused. You have severe dizziness. You have a rapid or irregular heartbeat. You have nausea or you vomit. You have a cough that is worse at night or you cannot lie flat. You have a cough that will not go away. You have severe depression or sadness. Summary When heart failure symptoms get worse, it is called heart failure exacerbation. Common causes of this condition include taking medicines incorrectly, infections, and drinking alcohol. This condition may be treated by adjusting medicines, maintaining a healthy lifestyle, or surgery. Do not stop taking your medicines or change the amount you take. If you are having problems or sideeffects from your medicines, talk to your health care provider. This information is not intended to replace advice given to you by your health care provider. Make sure you discuss any questions you have with your health care provider. Document Released: 06/14/2017 Document Revised: 01/13/2018 Document Reviewed: 06/14/2017 Elsevier Patient Education 2020 [employer] Additional Information VACCINATE! IT SAVES LIVES! Members of the community who have not yet received the COVID-19 vaccine and would like to receive it can visit one of [facility] vaccine clinics. There are many vaccine clinic locations within the [facility]. For locations and available times, please visit [email or web address].[email or web address] It is important to note that some COVID mobile vaccine clinics are held outdoors and may be canceled in rainy or stormy conditions. To learn more about pediatric vaccinations (ages 5-11), we invite you to visit the [employer] webpage. [email or web address] [email or web address] learn more about the COVID-19 vaccine, we invite you to visit the CDC website for a list of frequently asked questions.https://www.cdc.gov/coronavirus/2019-ncov/vaccines/faq.html [facility] Patient Portal Access Instructions: Stay connected with your healthcare team and access your personal medical information anytime with the [facility] Patient Portal. Please follow the directions below to create your [facility] account: 1.Access the email account you provided upon registration to the hospital/physician office.2.Look for an invitation email from [facility].3.Open the email and access the invitation link: AcceptInvitation to [employer].4.Fill in the required bryant to create your account. To access your account, visit [employer] [facility]. Click the blue button labeled Access Patient Portal and then log in with the username and password that you created in the steps above. You will be able to view your test results, lab results, a summary of your visits, upcoming appointments and more. There is also a convenient messaging option where you can send secure messages to your p rovider. In addition, you will have the ability to download any documents or summaries to your computer and/or send the information securely to a physician. Remember that your healthcare information is confidential, so carefully consider who you will allowto register on the [facility] Patient Portal for access to your information. You can also access the [facility] Patient Portal on the [facility] evelina. Simply click on Patient Portal and then log into your account. If you would like to receive a full copy of your medical records, please contact the [facility] Medical Records Department by calling [phone], Tuesday through Tuesday between 8 a.m. and 4:30 p.m. HOW TO SAFELY DISPOSE OF PRESCRIPTION MEDICATIONS Please use one of the following methods to safely dispose of your unused medications. 1.Use a drug disposal kit: the drug disposal pouch allows you to safely discard your old and unuseddrugs. Ask your nurse to give you one when you are discharged.2.Visit a local take-back location: Many local pharmacies and police departments have programs that collect old and unwanted prescriptiondrugs. Call your local pharmacy or go to http://English Helper/2T1Gx5z to find one close to you.3.Make use of household items: Use cat litter or old coffee grounds to dispose medications if other options arenot available. Mix your drugs with these household products, seal them in an airtight container andthrow it into the garbage. Call [facility]: [phone] to be sure your drugs can be disposed of in this way. Some medicines may require a different approach.4.Never flush your medications down the toilet. IF YOU HAVE BEEN PRESCRIBED AN OPIOID FOR PAIN If you have been prescribed an opioid (such as hydrocodone, oxycodone or morphine), it is critical to understand the possible side effects and risks of opioid pain medications. Even when taken as directed, opioids can have several side effects including: Tolerance, meaning you might need to take more of a medication for the same pain relief. Nausea, vomiting and/or constipation. Sleepiness, dizziness, dry mouth, confusion, depression or itching. Physical dependence, meaning you have withdrawal symptoms when a medication is stopped, can develop within a few days. KNOW YOUR RESPONSIBILITIES It is important to know exactly how much and how often to take the opioid pain medications you are prescribed. Never take opioids in higher amounts or more often than prescribed. Do not combine opioids with alcohol or other drugs that cause drowsiness, such as benzodiazepines, also known as benzos, including diazepam and alprazolam, muscle relaxants or sleep aids. Never sell or share prescription opioids. This is illegal. Store opioids in a secure place and out of reach of others (including children, family, friends and visitors). The last page of this document has been signed and retained as a CHART COPY. Signatures Patient Education Materials Heart Failure Exacerbation Medication Leaflets My discharge plan and instructions have been reviewed and explained to me and I,ARABELLA FELIX understand my current condition and have read and understand these discharge instructions. I have received a written copy of the plan/instructions. If I have questions, I am aware that I should contact my d octor. 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 CHF exacerbation Acute, new onset 2 days ago accompanied by shortness of breath with exertion *Chest x-ray reveals interstitial edema pattern. *Patient administered 40 mg Lasix IV in the ED. *Continue Lasix 40 mg IV BID. *Send patient for echocardiogram today. *Consult placed to Manan Hartman CNP for further recommendations. *Start low sodium diet, strict I&O's, daily weights. *Repeat CBC and BMP in the am. 2. DM type 2, goal HbA1c < 7.5% Chronic, controlled *Blood sugar checks before meals and at bedtime. *Cover with sliding scale insulin. *Start diabetic diet. *Continue current home medications. *Blood sugar goal of 180 or less and avoid hypoglycemia. *Last A1c 6.6% in 07/2022. 3. GERD (gastroesophageal reflux disease) Chronic *Continue current home medication. 4. HTN, goal below 140/90 Chronic, controlled *Continue current home antihypertensives. *SBP goal of 140 or less. DVT prophylaxis with Lovenox. Code status: Full Code. Labs, diagnostic test and progress notes reviewed as noted in HPI. Plan of care discussed with patient. All questions answered. Patient verbalizes understanding and is agreeable with plan of care. This case was discussed with collaborating physician, Dr. Rajat Agarwal. 55 minutes spent reviewing past diagnostic tests, reviewing lab results, vital sign trends, medical history, reviewing medications and ordering home medications, examining patient, collaborating with physician, and documenting in chart. Future Appointments Appointment Date:10/13/2022 11:00:00 AM Scheduled Provider:MANAN HARTMAN Location:[facility] Appointment Type:[facility] Follow Up Appointment Date:01/31/2023 07:00:00 AM Scheduled Provider:LIANNE VENTURA APRN, CNP Location:[facility] Appointment Type: OV Follow Up Future Scheduled Tests Laboratory* Renin, Plasma 02/01/23 * Ferritin 02/01/23 * Uric Acid 02/01/23 * A1C Hemoglobin 06/08/22 * A1C Hemoglobin 02/01/23 * Complete Blood Count 06/08/22 * Complete Blood Count 02/01/23 * Lipid Profile 02/01/23 * Albumin/Creatinine Ratio, Random Urine 02/01/23 * PTH, Intact 02/01/23 * Vitamin D Level 02/01/23 * Complete Metabolic Panel 11/10/21 * Complete Metabolic Panel 06/08/22 * Complete Metabolic Panel 02/01/23 * TIBC 02/01/23 [facility] 08-16-2023 Note Date of Service 09/29/2022 Chief Complaint for a couple days has felt intermediate sob but resolved on its own but today it hgot worse History of Present Illness Patient is a 57-year-old female, who follows with Lianne Ventura CNP with a past medical history significant for type 2 diabetes, hyperlipidemia, hypertension, and ischemic cardiomyopathy, [facility] with the chief complaint of shortness of breath. Patient states that she has been short of breath over the last few days but worsening this morning. She states she was unable to walk any distance without stopping to catch her breath. Patient has a history of hypertrophic cardiomyopathy and had some testing done at [facility] for this. She has not followed up with cardiology for quite some time. She is not on lasix at home currently. She den ies any bloated feeling or new lower extremity edema. She further denies any fever, chills, cough, chest pain, abdominal pain, nausea or dysuria. All questions answered. In the emergency department, chest x-ray revealed interstitial edema pattern. CTA of the chest no evidence of pulmonary embolism to the level of the segmental pulmonary arteries. Dilated main pulmonary artery is indicative of pulmonary arterial hypertension. Multiple findings compatible with pulmonary edema with small bilateral pleural effusions. Reflux of contrast into the IVC and hepatic veins suggestive of right ventricular heart dysfunction. White blood cell count 15.1. CBC otherwise unremarkable. BMP unremarkable. BNP elevated at 4902. Troponin negative. D-dimer elevated 663. Patient wasadministered 4 mg Zofran IV and 40 mg lasix IV in the ED. The case was discussed with the ED physician who recommended admission for IV diuresis and further workup. Patient was transferred to telemetry for observation. We will consult Manan Hartman CNP for further recommendation. We will send patient for echocardiogram today. Continue Lasix 40 mg IV BID. Start low sodium diet. Strict I&O's anddaily weights. Repeat CBC and BMP in the am. Review of Systems Review of Systems: Reviewed in detail, including general health, HEENT, cardiovascular, respiratory, gastrointestinal, genitourinary, endocrine, musculoskeletal, neurologic, vascular, skin, and psychiatric. All are negative except for those listed in the History of Present Illness. Physical Exam Vitals and Measurements T: 36.7 C (Oral) TMIN: 36.6 C (Oral) TMAX: 36.7 C (Oral) HR: 53 RR: 18 BP: 176/74 SpO2: 95% HT: 165.1 cm WT: 136.4 kg BMI: 50.04 Weight Dosing Weight: 136.4 kg (09/29/22) Dosing Weight: 136.4 kg (09/29/22) General: No acute distress. Patient is alert and appropriate. Skin: No rash. Skin is warm, dry and intact. HEENT: Head is normocephalic, atraumatic. Pupils are equal, round and reactive. Neck: Supple. No lymphadenopathy, thyromegaly. Lungs: Bilaterally clear but very diminished without crepitation or wheeze. Unlabored. Heart: Heart is regular rhythm, S1, S2. No murmurs, gallops or rubs. Abdomen: Abdomen is soft, nontender. Bowels sounds present in all quadrants. Extremities: No clubbing, cyanosis; generalized lower extremity edema. Peripheral pulses palpable. No calf tenderness. Neurological: Patient is awake and alert to person, place and time. Following simple commands, moving all extremities. Lab Results 09/29 09:28 WBC: 15.1 H Hgb: 14.4 Hct: 43.3 Platelet: 219 Neutrophil %: 76.3 Glucose Level: 89 Sodium Level: 141 Potassium Level: 4.4 BUN: 12 Creatinine Lvl (s): 0.97 Imaging Results and Diagnostics CT Angiography Chest w/ Contrast Result Date: September 29, 2022 Verified By: ERIKA SHEIKH MD CLINICAL STATEMENT: IMPRESSION: No evidence of pulmonary embolism to the level of the segmental pulmonary arteries. Dilated main pulmonary artery is indicative of pulmonary arterial hypertension. Multiple findings compatible with pulmonary edema with small bilateral pleural effusions. Reflux of contrast into the IVC and hepatic veins suggestive of right ventricular heart dysfunction. Consider CHF. I have personally reviewed the images of this examination and agree with the resident's findings and interpretation. XR Chest 2 Views Result Date: September 29, 2022 Verified By: HARI HUANG MD CLINICAL STATEMENT: IMPRESSION: Interstitial edema pattern. Trace pleural effusions. EKG EC09/29/22: Sinus rhythm Ventricular premature complex Left bundle branch block Electronic Signature: KATIUSKA NARANJO MD 09/29/2022 09:23:25 Assessment/Plan 1. CHF exacerbation Acute, new onset 2 days ago accompanied by shortness of breath with exertion *Chest x-ray reveals interstitial edema pattern. *Patient administered 40 mg Lasix IV in the ED. *Continue Lasix 40 mg IV BID. *Send patient for echocardiogram today. *Consult placed to Manan Hartman CNP for further recommendations. *Start low sodium diet, strict I&O's, daily weights. *Repeat CBC and BMP in the am. 2. DM type 2, goal HbA1c < 7.5% Chronic, controlled *Blood sugar checks before meals and at bedtime. *Cover with sliding scale insulin. *Start diabetic diet. *Continue current home medications. *Blood sugar goal of 180 or less and avoid hypoglycemia. *Last A1c 6.6% in 07/2022. 3. GERD (gastroesophageal reflux disease) Chronic *Continue current home medication. 4. HTN, goal below 140/90 Chronic, controlled *Continue current home antihypertensives. *SBP goal of 140 or less. DVT prophylaxis with Lovenox. Code status: Full Code. Labs, diagnostic test and progress notes reviewed as noted in HPI. Plan of care discussed with patient. All questions answered. Patient verbalizes understanding and is agreeable with plan of care. This case was discussed with collaborating physician, Dr. Rajat Agarwal. 55 minutes spent reviewing past diagnostic tests, reviewing lab results, vital sign trends, medicalhistory, reviewing medications and ordering home medications, examining patient, collaborating withphysician, and documenting in chart. Problem List/Past Medical History Ongoing Anemia in CKD (chronic kidney disease) CKD stage 3 secondary to diabetes Depression, prolonged DM type 2, goal HbA1c < 7.5% Elevated blood uric acid level Gastric AVM Gastric varices Generalized anxiety disorder GERD (gastroesophageal reflux disease) History of aortic valve disorder History of GI bleed History of hypertrophic cardiomyopathy History of mitral valve disorder History of tricuspid valve disorder History of ventricular septal defect Holosystolic murmur, 03/22 HTN, goal below 140/90 Hyperlipidemia LDL goal <100 Increased BMI (body mass index) Non-smoker Non-smoker Seasonal allergies Vitamin D deficiency Historical Gout Procedure/Surgical History Miscellaneous Miscellaneous Miscellaneous delivery Medications Home Medications (12) Active busPIRone 15 mg oral tablet 15 mg = 1 tab(s), Oral, TID carvedilol 6.25 mg oral tablet 6.25 mg = 1 tab(s), Oral, BID cholecalciferol 1250 mcg (50,000 intl units) oral capsule 50,000 International_Unit = 1 cap(s), Oral, qmonth citalopram 40 mg oral tablet 40 mg = 1 tab(s), Oral, qDay ferrous sulfate 325 mg (65 mg elemental iron) oral delayed release tablet 325 mg = 1 tab(s), Oral, Every other day Januvia 100 mg oral tablet 100 mg = 1 tab(s), Oral, Daily Levemir FlexTouch 100 units/mL 3 mL Pen 54 unit(s), Subcutaneous, qHS metFORMIN 500 mg oral tablet EXTENDED RELEASE 500 mg = 1 tab(s), Oral, BID pantoprazole 40 mg oral enteric coated tablet 40 mg = 1 tab(s), Oral, qDay Pen needles 4 mm See Instructions simvastatin 10 mg oral tablet 10 mg = 1 tab(s), Oral, qHS Singulair 10 mg oral tablet 10 mg = 1 tab(s), Oral, qDay Allergies Betadine (Hives) penicillin (Intolerance) Social History Alcohol Use: Current. Type: Wine. Frequency: 1-2 times per year., 09/29/2022 Use: Past., 08/24/2018 Home/Environment Living situation: Home/Independent., 09/29/2022 Primary Film Loader: Self., 04/09/2019 Nutrition/Health Type of diet: Regular. Appetite Good. Eating Difficulties None. Enteral Feedings No. TPN Feedings No. Skin Breakdown No., 09/29/2022 Caffeine intake amount: iced tea x2 daily., 08/02/2022 Substance Abuse Use: Never., 08/24/2018 Tobacco Tobacco Use: Never (less than 100 in lifetime)., 08/24/2018 Family History Aneurysm: Father. Blood clot: Mother and Father. Cancer: Mother and Sister. Mental illness: Sister. Immunizations pneumococcal 23-valent vaccine(Pneumovax: 0 unknown unit (10/11/14) SARS-CoV-2 mRNA (tozinameran) vaccine: 0.5 unknown unit (05/31/20) SARS-CoV-2 mRNA (tozinameran) vaccine: 0.5 unknown unit (05/13/20) SARS-CoV-2 mRNA (tozinameran) vaccine: 0 unknown unit (05/10/20) Code Status Code Status - Ordered -- 09/29/22 12:13:00 EDT, Full Code, Constant Order Digitally Signed by JOSE GUADALUPE SALAS on 09/29/2022 01:57 PM [facility]08-16-2023 Note ORIGINAL EXAMINATION: CTA OF THE CHEST 09/29/2022 11:43 am TECHNIQUE: CTA of the chest was performed after the administration of intravenous contrast. Multiplanar reformatted images are provided for review. MIP images are provided for review. Automated exposure control, iterative reconstruction, and/or weight based adjustment of the mA/kV was utilized to reduce the radiation dose to as low as reasonably achievable. COMPARISON: Same day two-view chest HISTORY: ORDERING SYSTEM PROVIDED HISTORY: Reason for Exam: chest pain; suspect PE FINDINGS: Pulmonary Arteries: Pulmonary arteries are adequately opacified for evaluation for evaluation to the level of the segmental pulmonary arteries. The subsegmental branches are poorly evaluated secondary to quantum mottle from patient body habitus and motion artifact. No evidence of intraluminal filling defect to suggest pulmonary embolism. Main pulmonary artery is dilated suggestive of pulmonary arterial hypertension. Mediastinum: No evidence of mediastinal lymphadenopathy. The heart is mildly enlarged. The pericardium demonstrate no acute abnormality. There is no acute abnormality of the thoracic aorta. Coronary artery atherosclerotic calcifications. Lungs/pleura: The lungs demonstrate diffuse interlobular septal thickening. There is scattered patchy ground-glass opacities. Small bilateral pleural effusions with adjacent atelectasis/consolidation. No pneumothorax is identified. Bilateral diffuse bronchial wall thickening. Upper Abdomen: Reflux of contrast into the IVC and hepatic veins. The upper abdomen is otherwise is unremarkable. Limited images of the upper abdomen are unremarkable. Soft Tissues/Bones: Multilevel degenerative changes of the spine. Sternotomy wires. No acute bone or soft tissue abnormality. IMPRESSION: No evidence of pulmonary embolism to the level of the segmental pulmonary arteries. Dilated main pulmonary artery is indicative of pulmonary arterial hypertension. Multiple findings compatible with pulmonary edema with small bilateral pleural effusions. Reflux of contrast into the IVC and hepatic veins suggestive of right ventricular heart dysfunction. Consider CHF. I have personally reviewed the images of this examination and agree with the resident's findings and interpretation. Interpreted by: Erika Sheikh MD Preliminary Report By: Jennifer Hall Electronically signed By Erika Sheikh MD Dictated Date: 09/29/2022 11:53:38 AM Prelim Date: 09/29/2022 11:58:29 AM Sign Date: 09/29/2022 12:11:29 PM Ordering Provider: [facility]08-16-2023 Note ORIGINAL EXAMINATION: TWO XRAY VIEWS OF THE CHEST09/29/2022 9:48 am COMPARISON: None HISTORY: ORDERING SYSTEM PROVIDED HISTORY: Reason for Exam: SOB/Cough/Fever FINDINGS: The heart size is normal.Interstitial prominence noted. Reed B lines visible. No pneumothorax. Trace pleural effusions noted. No pneumothorax or pleural effusion. No aggressive osseous lesions identified.Sternotomy wires appear intact. IMPRESSION: Interstitial edema pattern. Trace pleural effusions. Interpreted by: Hari Huang MD Preliminary Report By: Hari Huang MD Electronically signed By Hari Huang MD Dictated Date: 09/29/2022 9:54:20 AM Prelim Date: 09/29/2022 9:58:58 AM Sign Date: 09/29/2022 9:58:58 AM Ordering Provider[facility] NoteSinus rhythm Ventricular premature complex Left bundle branch block Electronic Signature: KATIUSKA NARANJO MD 09/29/2022 09:23:25[facility] 03-12-2023 History of Present illness Narrative* YOVANA England - 04/25/2022 10:39 AM EDT This note was created using WeShowriter. Subjective Arabella Felix is a 57 year old female. HPI 57-year-old female presents for low back pain and left hip pain. Patient states she has a history of low back issues and sciatica in the past. She usually sees a chiropractor. States last night when she was eating dinner, she twisted to get something and felt pain in her left low back. She has pain in her left low back radiating to her left hip. She has been taking Tylenol [id number]. She is requesting something to help with the pain until she can get in to see her chiropractor. No numbness or tingling in the legs. No saddle anesthesia. No bowel/bladder incontinence. No fevers. No history of surgery on the lumbar spine. She is unable to take NSAIDs due to history of GI bleed. 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 pantoprazole DR (PROTONIX) 40 mg tablet Take 1 tablet by mouth once daily. carvedilol (COREG) 6.25 mg tablet Take 1 tablet by mouth twice daily with meals. busPIRone (BUSPAR) 15 mg tablet Take 15 mg by mouth three times daily. metFORMIN (GLUCOPHAGE) 500 mg tablet Take 1 tablet by mouth twice daily with meals. . citalopram (CELEXA) 40 mg tablet Take 1 tablet by mouth once daily. simvastatin (ZOCOR) 10 mg tablet Take 1 tablet by mouth daily at bedtime. For cholesterols. SITagliptin phosphate (JANUVIA) 50 mg tablet Take 100 mg by mouth once daily. methocarbamol (ROBAXIN) 500 mg tablet Take 1 tablet by mouth every 6 hours as needed (Pain) for up to 3 days. lidocaine (SALONPAS) 4 % patch Apply 1 Patch as directed once daily for 5 days. Remove patch after 12 hours FAMILY HISTORY Problem Relation Age of Onset Cancer Mother Heart Maternal Grandfather Massive CT at 45 Heart Father s/p angioplasty Social History Tobacco Use Smoking status: Never Smokeless tobacco: Never Substance Use Topics Alcohol use: No Drug use: Never Review of Systems Constitutional: Negative for chills and fever. HENT: Negative for congestion, ear pain and sore throat. Respiratory: Negative for cough and shortness of breath. Cardiovascular: Negative for chest pain. Gastrointestinal: Negative for diarrhea and vomiting. Musculoskeletal: Positive for back pain. Objective BP 146/84 Pulse 61 Temp 36.5 C (97.7 F) Resp 18 Wt (!) 137.9 kg (304 lb) LMP 10/26/2001 SpO2 98% BMI 50.59 kg/m Physical Exam Vitals and nursing note reviewed. Constitutional: General: She is not in acute distress. Appearance: Normal appearance. She is not toxic-appearing. Cardiovascular: Rate and Rhythm: Normal rate and regular rhythm. Pulmonary: Effort: Pulmonary effort is normal. Breath sounds: Normal breath sounds. Musculoskeletal: Lumbar back: Tenderness present. No bony tenderness. Decreased range of motion. Negative right straight leg raise test and negative left straight leg raise test. Comments: Decreased ROM lumbar spine due to pain. Tenderness over left-sided lumbar paraspinal muscles and left gluteus. No midline tenderness. Negative seated straight leg raise. Normal sensation lower extremities. No ankle clonus. Able to ambulate, but with pain Neurological: Mental Status: She is alert. Assessment and Plan ASSESSMENT/PLAN: 1. Lumbar strain, initial encounter - ICD9: 847.2, ICD10: S39.012A (primary diagnosis) - Ice for localized tenderness - Muscle relaxant-Robaxin. Advised not to drive while taking this as it may cause drowsiness -Rx for lidocaine patches -Recommend extra strength Tylenol 1 g 3 times daily as needed for pain -Unable to take NSAIDs and we will hold off on prednisone at this time due to history of GI bleed requiring ICU 2. Acute left-sided low back pain with left-sided sciatica - ICD9: 724.2, 724.3, ICD10: M54.42 -See above. -Advise if not improving to follow-up with PCP in 2 to 3 days. Go to ER for red flag symptoms. Diagnosis and treatment plan were discussed and questions were answered to the patient's satisfaction. Pt acknowledged understanding of concepts and follow up plan. Specific signs and symptoms that would indicate the need for higher level of care were discussed in detail warranting prompt ER evaluation. 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, prescription 500mg po TID Pt with black stools, dizziness and abd pain since Tuesday Transferred to [facility] today after becoming dizzy with syncope and hematemesis PLAN Continue PPI GI consulted- repeat EGD tonight Transfuse for Hgb<7 Maintain 2 large bore IVs Trend CBC q8 LR bolus as needed documented as of this encounter (statuses as of 04/25/2022) [facility] of Past illness Narrative* Problem Noted Date Diagnosed Date Resolved Date GI bleed 07/29/2018 08/10/2018 Acute blood loss anemia 07/26/201807/16 Overview: / GIB r/t naproxen use Pt states she has been taking naproxen for 5 years for 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, prescription 500mg po TID Pt with black stools, dizziness and abd pain since Tuesday Transferred to [facility] today after becoming dizzy with syncope and hematemesis PLAN Continue PPI GI consulted- repeat EGD tonight Transfuse for Hgb<7 Maintain 2 large bore IVs Trend CBC q8 LR bolus as needed documented as of this encounter (statuses as of 01/22/2023) [facility] Future Appointments Appointment Date:01/26/2021 03:40:00 PM Scheduled Provider:LIANNE VENTURA APRN - DISTRIBUTOR [employer]VERTISING [employer] Location:[facility] Appointment Type: OV Follow Up Future Scheduled Tests Laboratory* Iron Level 12/17/20 * Uric Acid 02/05/20 * A1C Hemoglobin 01/22/20 * A1C Hemoglobin 04/21/20 * A1C Hemoglobin 09/16/20 * A1C Hemoglobin 02/05/20 * Complete Blood Count 04/21/20 * Complete Blood Count 12/17/20 * Complete Blood Count 02/05/20 * Lipid Profile 04/21/20 * Lipid Profile 12/17/20 * Lipid Profile 02/05/20 * Complete Metabolic Panel 04/21/20 * Complete Metabolic Panel 12/17/20 * Complete Metabolic Panel 02/05/20 [facility] Evaluation + Plan note Future Appointments Appointment Date:05/11/2021 03:40:00 PM Scheduled Provider:LIANNE VENTURA APRN - DISTRIBUTOR [employer]VERTISING [employer] Location:[facility] Appointment Type: OV Follow Up Future Scheduled Tests Laboratory* Iron Level 12/17/20 * A1C Hemoglobin 04/21/20 * A1C Hemoglobin 09/16/20 * Complete Blood Count 04/21/20 * Complete Blood Count 12/17/20 * Lipid Profile 04/21/20 * Lipid Profile 12/17/20 * Complete Metabolic Panel 04/21/20 * Complete Metabolic Panel 12/17/20 [facility] [employer]aluation + Plan note Future Appointments Appointment Date:08/10/2021 08:00:00 AM Scheduled Provider:LIANNE VENTURA FOOD CRITIC - DISTRIBUTOR [employer]VERTISING [employer] Location:[facility] Appointment Type:PC OV Follow Up Future Scheduled Tests Laboratory* Iron Level 12/17/20 * A1C Hemoglobin 09/16/20 * Complete Blood Count 12/17/20 * Lipid Profile 12/17/20 * Microalbumin Level Urine 08/11/21 * Complete Metabolic Panel 12/17/20 [facility] [employer] + Plan note Future Appointments Appointment Date:01/18/2022 02:20:00 PM Scheduled Provider:LIANNE VENTURA FOOD CRITIC [employer] Location:[facility] Appointment Type:PC OV Future Scheduled Tests Laboratory* Microalbumin Level Urine 08/11/21 * Complete Metabolic Panel 11/10/21 [facility] Evaluation + Plan note Future Appointments Appointment Date:08/02/2022 08:20:00 AM Scheduled Provider:LIANNE VENTURA FOOD CRITIC [employer] Location:[facility] Appointment Type:PC OV Follow Up Diagnostic Tests Pending * Renin, Plasma 07/31/22 Future Scheduled Tests Laboratory* A1C Hemoglobin 06/08/22 * Complete Blood Count 06/08/22 * Microalbumin Level Urine 08/11/21 * Complete Metabolic Panel 11/10/21 * Complete Metabolic Panel 06/08/22 [facility] [employer]aluation + Plan note Future Appointments Appointment Date:11/12/2022 08:15:00 PM Scheduled Provider: Location:[facility] Appointment Type:MRI Cardiac Morphology Func W+W/O Cont Appointment Date:12/20/2022 01:00:00 PM Scheduled Provider:MANAN HARTMAN APRN-DISTRIBUTOR [employer]VERTISING [employer] Location:[facility] Appointment Type:CV OV Appointment Date:01/31/2023 07:00:00 AM Scheduled Provider:LIANNE VENTURA APRN - DISTRIBUTOR [employer]VERTISING [employer] Location:[facility] Appointment Type:PC OV Follow Up Future Scheduled Tests Laboratory* Renin, Plasma 02/01/23 * Ferritin 02/01/23 * Uric Acid 02/01/23 * A1C Hemoglobin 06/08/22 * A1C Hemoglobin 02/01/23 * Complete Blood Count 06/08/22 * Complete Blood Count 02/01/23 * Lipid Profile 02/01/23 * Albumin/Creatinine Ratio, Random Urine 02/01/23 * PTH, Intact 02/01/23 * Vitamin D Level 02/01/23 * Complete Metabolic Panel 11/10/21 * Complete Metabolic Panel 06/08/22 * Complete Metabolic Panel 02/01/23 * TIBC 02/01/23 Radiology* MRI Cardiac Morphology & Func W+W/O Cont 11/12/22 [facility] Evaluation + Plan note Future Appointments Appointment Date:01/03/2023 03:15:00 PM Scheduled Provider:MANAN HARTMAN FOOD CRITIC-DISTRIBUTOR [employer]VERTISING [employer] Location:[facility] Appointment Type:CV OV Appointment Date:01/31/2023 07:00:00 AM Scheduled Provider:LIANNE VENTURA FOOD CRITIC - DISTRIBUTOR [employer]VERTISING [employer] Location:[facility] Appointment Type:PC OV Follow Up Future Scheduled Tests Laboratory* Renin, Plasma 02/01/23 * Ferritin 02/01/23 * Uric Acid 02/01/23 * A1C Hemoglobin 06/08/22 * A1C Hemoglobin 02/01/23 * Complete Blood Count 06/08/22 * Complete Blood Count 02/01/23 * Lipid Profile 02/01/23 * Albumin/Creatinine Ratio, Random Urine 02/01/23 * PTH, Intact 02/01/23 * Vitamin D Level 02/01/23 * Complete Metabolic Panel 06/08/22 * Complete Metabolic Panel 02/01/23 * TIBC 02/01/23 Radiology* MRI Cardiac Morphology & Func W+W/O Cont 11/12/22 [facility] Evaluation + Plan note Future Appointments Appointment Date:05/09/2023 07:00:00 AM Scheduled Provider:LIANNE VENTURA FOOD CRITIC - DISTRIBUTOR [employer] Location:[facility] Appointment Type:PC OV Follow Up Appointment Date:08/01/2023 07:20:00 AM Scheduled Provider:LIANNE VENTURA APRN, CNP Location:[facility] Appointment Type:PC OV Follow Up Appointment Date:08/01/2023 09:15:00 AM Scheduled Provider:MANAN HARTMAN Location:[facility] Appointment Type:CV OV Future Scheduled Tests Laboratory* Iron Level 08/02/23 * Thyroid Stimulating Hormone 08/02/23 * Uric Acid 08/02/23 * A1C Hemoglobin 08/02/23 * A1C Hemoglobin 05/02/23 * A1C Hemoglobin 06/08/22 * Complete Blood Count 08/02/23 * Complete Blood Count 06/08/22 * Lipid Profile 08/02/23 * Albumin/Creatinine Ratio, Random Urine 08/02/23 * PTH, Intact 08/02/23 * Vitamin D Level 08/02/23 * Complete Metabolic Panel 08/02/23 * Complete Metabolic Panel 05/02/23 * Complete Metabolic Panel 06/08/22 * TIBC 08/02/23 Radiology* MRI Cardiac Morphology & Func W+W/O Cont 11/12/22 * XR Abdomen AP 01/31/23 [facility] Evaluation + Plan note Future Appointments Appointment Date:08/01/2023 07:20:00 AM Scheduled Provider:LIANNE VENTURA APRN, CNP Location:[facility] Appointment Type:PC OV Follow Up Appointment Date:08/01/2023 02:15:00 PM Scheduled Provider:MANAN HARTMAN Location:[facility] Appointment Type:CV OV Future Scheduled Tests Laboratory* Renin Activity, Plasma 08/09/23 * A1C Hemoglobin 08/09/23 * Complete Blood Count 08/09/23 * Lipid Profile 08/09/23 * Albumin/Creatinine Ratio, Random Urine 08/02/23 * Albumin/Creatinine Ratio, Random Urine 08/09/23 * PTH, Intact 08/09/23 * Vitamin D Level 08/09/23 * Complete Metabolic Panel 08/09/23 Radiology* MRI Cardiac Morphology & Func W+W/O Cont 11/12/22 * XR Abdomen AP 01/31/23 [facility] Evaluation + Plan note Future Appointments Appointment Date:03/12/2024 03:00:00 PM Scheduled Provider:LIANNE VENTURA APRN, CNP Location:[facility] Appointment Type:PC OV Future Scheduled Tests Laboratory* Albumin/Creatinine Ratio, Random Urine 01/31/24 [facility] Evaluation + Plan note Future Appointments Appointment Date:04/20/2024 07:40:00 AM Scheduled Provider:MARIAM BILLINGS MD Location:[facility] Appointment Type:PM OV Appointment Date:09/10/2024 03:00:00 PM Scheduled Provider:LIANNE VENTURA APRN, CNP Location:[facility] Appointment Type: OV Future Scheduled Tests Laboratory* Magnesium Level 09/09/24 * Thyroid Stimulating Hormone 09/09/24 * Thyroid Stimulating Hormone 09/09/24 * Free T4 09/09/24 * Free T4 09/09/24 * Uric Acid 09/09/24 * A1C Hemoglobin 09/09/24 * Complete Blood Count 09/09/24 * Lipid Profile 09/09/24 * Albumin/Creatinine Ratio, Random Urine 01/31/24 * Albumin/Creatinine Ratio, Random Urine 09/09/24 * PTH, Intact 09/09/24 * Vitamin D Level 09/09/24 * Complete Metabolic Panel 09/09/24 [facility] Evaluation + Plan note Future Appointments Appointment Date:09/10/2024 03:00:00 PM Scheduled Provider:LIANNE VENTURA APRN, CNP Location:[facility] Appointment Type: OV Future Scheduled Tests Laboratory* Magnesium Level 09/09/24 * Thyroid Stimulating Hormone 09/09/24 * Thyroid Stimulating Hormone 09/09/24 * Free T4 09/09/24 * Free T4 09/09/24 * Uric Acid 09/09/24 * A1C Hemoglobin 09/09/24 * Complete Blood Count 09/09/24 * Lipid Profile 09/09/24 * Albumin/Creatinine Ratio, Random Urine 01/31/24 * Albumin/Creatinine Ratio, Random Urine 09/09/24 * PTH, Intact 09/09/24 * Vitamin D Level 09/09/24 * Complete Metabolic Panel 09/09/24 [facility] Evaluation + Plan note Future Appointments Appointment Date:09/10/2024 07:40:00 AM Scheduled Provider:LIANNE VENTURA APRN, CNP Location:[facility] Appointment Type: OV Future Scheduled Tests Laboratory* Thyroid Stimulating Hormone 09/09/24 * Free T4 09/09/24 * Albumin/Creatinine Ratio, Random Urine 01/31/24 * Albumin/Creatinine Ratio, Random Urine 09/09/24 [facility] Evaluation note* Diagnosis Lumbar strain, initial encounter- Primary Acute left-sided low back pain with left-sided sciatica documented in this encounter [facility] note* Diagnosis Other acute nonsuppurative otitis media of left ear, recurrence not specified- Primary Bronchitis Bronchitis, not specified as acute or chronic documented in this encounter [facility] note* Diagnosis Acute cough- Primary Acute non-recurrent frontal sinusitis documented in this encounter [facility] note* Diagnosis Burning with urination- Primary Dysuria Acute UTI Urinary tract infection, site not specified [facility] N[facility] No data available for this section [facility] Hospital Discharge instructions No data available for this section [facility] Progress note No data available for this section [facility] Summary Purpose Family History No Family History Records Found No data available for this section No data available for this section No data available for this section No data available for this section No data available for this section No Family History Records Found No data available for this section No data available for this section No data available for this section No data available for this section No Family History Records Found No data available for this section No Family History Records Found Advance Directives Documents on File Type Date 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 Advance Directive(s) Advance Directive(s) 09/19/2018 9:22 AM Latest Code Status on File Code Status Date Activated Date Inactivated Comments Full Code 08/15/2018 12:00 PM 09/19/2018 9:31 AM Full Code 08/01/2018 9:12 PM 08/12/2018 4:37 PM Full Code Order Discussed With: Patient Latest Code Status on File Code Status Date Activated Date Inactivated Comments Full Code 08/15/2018 12:00 PM 09/19/2018 9:31 AM Code Status History Code Status Date Activated Date Inactivated Comments Full Code 08/01/2018 9:12 PM 08/12/2018 4:37 PM Question Answer Comments Full Code Order Discussed With: Patient Date Activated Date Inactivated Comments 08/15/2018 12:00 PM 09/19/2018 9:31 AM Date Activated Date Inactivated Comments 08/01/2018 9:12 PM 08/12/2018 4:37 PM Question Answer Comments Full Code Order Discussed With: Patient Hospital Course Note HNO ID: [id number] Author: Cherry Beckford Service: ? Author Type: Physician Type: Discharge Summary Filed: 08/01/2018 11:31 PM Note Text: Internal Medicine discharge summery PATIENT NAME: Arabella Felix Discharge DATE: 07/29/2018 Admit date July 26, 2018 This is a 53 yo female with a PMH of hypertrophic cardiomyopathy, DM type II, HTN, HLD, anxiety, depression who present to [facility] for GIB. Pt was sitting at the pool today and when she went to stand up, she became dizzy and passed out per friend. Pt does not recall if she passed out. When she was picked up by EMS she started having hematemesis. She has been having black tarry stools since Tuesday. She has been feeling dizzy with associated SOB when she walks since Tuesday. She has been taking Naproxen 500mg TID for back pain for last 5 years. She denies AC, ASA, or iron use. She has had a loss of appetite with abdominal discomfort this week. She denies fever, chills, CP, changes in urinary pattern. She was transferred to [facility] (more content not included)... Additional Source Comments INFORMATION SOURCE (unrecogn ized section and content) DATE CREATED AUTHOR 08/26/2018 [facility] DATE CREATED AUTHOR AUTHOR'S ORGANIZ ATION 07/10/2023 [facility] ([place]) DATE CREATED AUTHOR AUTHOR'S ORGANIZ ATION 08/22/2024 [facility] DATE CREATED AUTHOR AUTHOR'S ORGANIZ ATION 09/09/2024 [facility] Care Team (unrecognized sect ion and content) Personnel Name: LIANNE VENTURA Jose FOOD CRITIC - DISTRIBUTOR [employer]VERTISING [employer] Address: Address: [address] [place] [address]- Care Team Personnel Name: LIANNE VENTURA FOOD CRITIC - DISTRIBUTOR [employer]VERTISING [employer] Position: P4 Advanced Practice Nurse Member Role: Primary Care Physician Address: Address: [address] [place] [address] Care Team Related Persons Name: JOHNNIE FELIX Brian Reyna (unrecognize d section and content) In the event this informatio n is protected by the Federal Confidentiality of Alcohol and Drug Abuse Patient Records regulations: The Federal rules restrict any use of the information to criminally investigate or prosecute any alcohol or drug abuse patient.[facility] the event this information is protected by the Federal Confidentiality of Alcohol and Drug Abuse Patient Records regulations: The Federal rules restrict any use of the information to criminally investigate or prosecute any alcohol or drug abuse patient.[facility] the event this information is protected by the Federal Confidentiality of Alcohol and Drug Abuse Patient Records regulations: The Federal rules restrict any use of the information to criminally investigate or prosecute any alcohol or drug abuse patient.[facility] the event this information is protected by the Federal Confidentiality of Alcohol and Drug Abuse Patient Records regulations: The Federal rules restrict any use of the information to criminally investigate or prosecute any alcohol or drug abuse patient.[facility] the event this information is protected by the Federal Confidentiality of Alcohol and Drug Abuse Patient Records regulations: The Federal rules restrict any use of the information to criminally investigate or prosecute any alcohol or drug abuse patient.[facility] Reason for Visit (unrecogniz ed section and content) Reason Comments Back Pain Reason Comments URI Cough, runny nose, H A x 3 weeks Reason Comments Sinus Problem Pressure and pain in sinuses, watery eyes, stuffy runny nose, cough chest congestion, post nasal drip, x 1 week Reason Comments UTI Burning with urinati on x 2 days Care Teams (unrecognized sec tion and content) Garbage Collector Relationship Specialty Start Date End Date Lianne Ventura, DISTRIBUTOR ADVERTISING MATERIAL [address] [place] [address] PCP - General Family Medicine 12/07/13 Maurilio Lindsey MD [address] [place] [address] Home Care Provider Family Medicine 08/14/18 Luc Gibson MD [address] [place] [address] Referring Internal Medicine 08/14/18 Garbage Collector Relationship Specialty Start Date End Date Lianne Ventura, DISTRIBUTOR ADVERTISING [employer]ERIAL [address] [place] [id number] PCP - General Family Medicine 12/07/13 Maurilio Lindsey MD [address] [place] [address] Home Care Provider Family Medicine 08/14/18 Luc Gibson MD [address] [place] [id number] Referring Internal Medicine 08/14/18 Garbage Collector Relationship Specialty Start Date End Date Lianne Ventura, DISTRIBUTOR ADVERTISING [employer]ERIAL [address] [place] [id number] PCP - General Family Medicine 12/07/13 Maurilio Lindsey MD [address] [place], [place] [id number] Home Care Provider Family Medicine 08/14/18 Luc Gibson MD [address] [place] [address] Referring Internal Medicine 08/14/18 Garbage Collector Relationship Specialty Start Date End Date Lianne Ventura CNP [address] [place] [id number] PCP - General Family Medicine 12/07/13 Maurilio Lindsey MD [address] [place] [address] Home Care Provider Family Medicine 08/14/18 Luc Gibson MD [address] [facility] [place] [address] Referring Internal Medicine 08/14/18 Garbage Collector Relationship Specialty Start Date End Date Lianne Ventura, DISTRIBUTOR ADVERTISING [employer]ERIAL [address] [place] [id number] PCP - General Family Medicine 12/07/13 Maurilio Lindsey MD [address] [facility] [place] [address] Home Care Provider Family Medicine 08/14/18 Luc Gibson MD [address] [place] [address] Referring Internal Medicine 08/14/18 FOR RECORDS PERTAINING TO PATIENTS WHO ARE OR HAVE BEEN ENROLLED IN A CHEMICAL DEPENDENCY/SUBSTANCEABUSE PROGRAM, SOME INFORMATION MAY BE OMITTED. This clinical summary was aggregated from multiple sources. Caution should be exercised in using it in the provision of clinical care. This summary normalizes information from multiple sources, and as a consequence, information in this document may materially change the coding, format and clinical context of patient data. In addition, data may be omitted in some cases. CLINICAL DECISIONS SHOULD BE BASED ON THE PRIMARY CLINICAL RECORDS. [facility] [facility]. provides no warranty or guarantee of the accuracy or completeness of information in this document.
--- NOTE | 2024-12-09 20:00 | EX.ED.DYSGE1 ---
HPI History of Present Illness Chief Complaint: Cough Informant: patient and spouse/S.O. Narrative Narrative: 59-year-old female presenting to the emergency room out of concern of coughing blood. Patient states that she went out of town to visit family when the family members was sick. States she came home and developed a cough. She has had a lot of congestion in the mornings less so during the days. She has been having coughing fits this afternoon and was trying to bring up mucus in with the mucus with some blood today. She is not on a blood thinner. She notes some upper abdominal discomfort which has been an ongoing issue. No fever. Does note some nausea. She states that every year she seems to have a respiratory infection that tends to linger. She has no known lung pathology. She does have a history of hypertrophic cardiomyopathy. [facility] Home Medications ?Medication ?Instructions ?Recorded ?Last Taken ?Type citalopram 40 mg tablet 40 mg PO QHS 06/26/15 Unknown History losartan 50 mg tablet 50 mg PO QHS 06/26/15 Unknown History metformin 1,000 mg 24 hr 1,000 mg PO QHS 06/26/15 Unknown History tablet,extended release (gastric reten.) metoprolol succinate 100 mg 100 mg PO QHS 06/26/15 Unknown History tablet,extended release 24 hr simvastatin 40 mg tablet 40 mg PO QHS 06/26/15 Unknown History sitagliptin phosphate 50 mg tablet 100 mg PO QHS 06/26/15 Unknown History (Januvia) doxycycline hyclate 100 mg capsule 100 mg PO BID 10 days #20 caps 12/09/24 Unknown Rx Allergy/AdvReac Type Severity Reaction Status Date / Time povidone-iodine (From Allergy Hives Verified 12/09/24 19:20 Betadine) soap (From Betadine) Allergy Hives Verified 12/09/24 19:20 Penicillins AdvReac DOESN'T Verified 12/09/24 19:20 [employer] Social History Smoking Status: Never smoker ROS ROS ED ROS Narrative Generalized fatigue Constitutional Constitutional ED: Denies chills, fever(s) or weight loss Eyes Eyes: Denies change in vision or diplopia ENT ENT ED: Reports rhinorrhea; Denies ear pain or sore throat Cardiovascular Cardiovascular: Denies chest pain, orthopnea, palpitations or racing heartbeat Respiratory/Chest Respiratory/Chest: Reports cough and sputum; Denies dyspnea or orthopnea Gastrointestinal Gastrointestinal: Reports abdominal pain; Denies diarrhea, nausea or vomiting Genitourinary Genitourinary ED: Denies dysuria, hematuria or urinary frequency Musculoskeletal Musculoskeletal: Denies arthralgias or myalgias Integumentary Denies abscess or rash Neurologic Neurologic: Denies headache(s) or weakness Psychiatric Psychiatric: Denies anxiety, depression, suicidal ideation or suicidal thoughts Endocrine Endocrinology: Denies polydipsia, polyphagia or polyuria Allergic/Immunologic Allergic/Immunologic ED: Denies mouth swelling, tongue swelling or urticaria EXAM Physical Exam Const Vital Signs: 12/09/24 19:15 Temperature 98.2 F Temperature Source Temporal Pulse Rate 67 Respiratory Rate 16 Blood Pressure 203/80 H Blood Pressure Mean 121 Pulse Ox 94 Oxygen Delivery Method Room Air Positive well nourished, well developed and obese General Appearance ED: well developed and NAD Nutritional Appearance: obese HEENT Reports normocephalic, head/scalp atraumatic and moist mucous membranes Eyes PERRL and EOMs intact bilaterally Neck no lymphadenopathy, supple and no JVD Resp normal respiratory effort Resp Narrative: Patient has a moist cough. There are some rhonchi particularly noted at the bases. No expiratory wheezing is heard. Auscultation: rhonchi throughout Cardio regular rate, regular rhythm and no murmurs GI normal to inspection, nondistended, normoactive bowel sounds and non-tender Palpation: soft Back/Spine no CVA tenderness and normal ROM Extremity normal to inspection General Extremety ED: Negative for edema General Extremity: Negative for edema Neuro oriented x3 and CN's II-XII intact bilaterally Sensorium / Orientation: alert Motor Exam: strength 5/5 throughout Psych mental status grossly normal Mood & Affect: Negative for depressed or tearful Skin no rashes or lesions noted and no wounds MDM MDM MDM Narrative Medical decision making narrative: Differential diagnosis includes but not limited to cough with hemoptysis pneumonia bronchitis epistaxis pleural effusion pulmonary embolus The patient potation of the chest x-ray is cardiomegaly. No obvious infiltrate is noted. Patient clinically appears well. She is hypertensive but she has not had her medications yet today. I think that the small amount of blood that she presents in the basin with phlegm is probably from Valsalva from the cough. She generally has myalgias feels rundown has a rhonchorous cough with some rhonchi bilaterally. I think it is reasonable we put her on antibiotic and if she is not improving have her follow-up. I think pulmonary embolism is very low likelihood. As she clinically looks well we will have her follow-up or return if worsening. Patient and her comfortable this plan. History & Record Review Discussion w/independent historian: Patient and Significant other Discharge Plan Triage Chief Complaint: Cough ED Provider: Grey Costello Dx/Rx/DC Orders Clinical Impression: Bronchitis, Cough with hemoptysis Instructions: ED Hemoptysis Prescriptions: New doxycycline hyclate 100 mg capsule 100 mg PO BID 10 Days Qty: 20 0RF No Action metoprolol succinate 100 MG tablet 100 mg PO QHS Patient Comments: diabetes simvastatin 40 MG tablet 40 mg PO QHS Patient Comments: cholesterol losartan 50 MG tablet 50 mg PO QHS Patient Comments: heart citalopram 40 MG tablet 40 mg PO QHS Patient Comments: depression metformin 1,000 MG tablet,ER nicole.retention 24 hr 1,000 mg PO QHS Patient Comments: diabetes sitagliptin phosphate [Januvia] 50 MG tablet 100 mg PO QHS Patient Comments: diabetes Primary Care Provider: Andry Ventura NP Referrals: Andry Ventura DETENTION OFFICER, DETENTION OFFICER-C [Primary Care Provider, Family Practice] - 10-14 Days if not better Print Language: Kiswahili Disposition Disposition: Home, Self Care
[2024-12-09 20:14] VITALS: O2SAT 98
[2024-12-09 20:27] VITALS: BP 191/68; PULSE 77; RESP 16; TEMP 36.8; O2SAT 99
== END 2024-12-09 20:31 | disposition home or self-care (01) ==
PROVIDERS: Emergency Provider Emergency Medicine; PCP Nurse Practitioner Family; Visit Provider Emergency Medicine
DX: R04.2 Hemoptysis (principal); I42.2 Other hypertrophic cardiomyopathy; J40 Bronchitis, not specified as acute or chronic; R10.10 Upper abdominal pain, unspecified; R11.0 Nausea; Z79.84 Long term (current) use of oral hypoglycemic drugs; Z79.899 Other long term (current) drug therapy
CPT/HCPCS: 71045; 99282; A4216